=== PATIENT | male | born 1960 | race Caucasian/White ===

== ENCOUNTER 2024-02-06 10:03 | Emergency (ER) | payer OTHER, SELFPAY ==
[2024-02-06] VITALS (23 sets, daily range): BP systolic 148–175; BP diastolic 72–98; PULSE 82–120; RESP 16–25; TEMP 36.6; O2SAT 94–98
--- NOTE | ~2024-02-06 | CT_ITS ---
EXAMINATION: CT abdomen pelvis w con DATE: 02/06/2024 11:58 INDICATION: Abdominal distention and ascites TECHNIQUE: Computed tomography (CT) of the abdomen and pelvis was performed with 100 mL Omnipaque-350 intravenous contrast. Automated exposure control and iterative reconstruction technique were employe d. The dose-length product was 1109.93 mGy-cm. COMPARISON: None FINDINGS: Small posterior layering left pleural effusion with dependent atelectasis in the left lower lobe. The re is additional bibasilar atelectasis. Small calcified pulmonary nodules in the collapsed basilar ri ght lower lobe along with calcified left hilar lymph nodes consistent with old granulomatous disease. Heart size is normal. Atherosclerotic coronary artery calcifications. Large amount of ascites scatte red throughout the abdomen and pelvis. There are couple subcentimeter low-attenuation hepatic cysts. There is subtle heterogeneity to the hepatic attenuation/enhancement and scattered liver surface nodu larity suspicious for cirrhosis. There is contrast opacification of a dilated umbilical vein has also multiple esophageal varices consistent with secondary portal venous hypertension. Spleen, pancreas, bilateral adrenal glands and kidneys are normal. Moderate scattered diverticulosis with descending an d sigmoid colon predominance but without adjacent from trace stranding to suggest diverticulitis. No bowel obstruction. Normal gas-filled appendix. Bladder is normal. Small left inguinal hernia containi ng fat and small amount of ascites. No pathologically enlarged abdominal or pelvic lymphadenopathy. T horacic and lumbar spondylosis severe at L5-S1 and otherwise mild. There are bridging osteophytes at multiple levels in the lower thoracic spine consistent with diffuse idiopathic skeletal hyperostosis (DISH). IMPRESSION: 1. Cirrhosis with likely secondary large amount of ascites in the abdomen and pelvis and portal venou s hypertension with recanalized umbilical vein and esophageal varices. 2. Small left pleural effusion. Reviewed, dictated and finalized at location B. IMPRESSION: 1. Cirrhosis with likely secondary large amount of ascites in the abdomen and p [place] and portal venous hypertension with recanalized umbilical vein and esopha geal varices. 2. Small left pleural effusion.
--- NOTE | ~2024-02-06 | XR_ITS ---
EXAMINATION: XR chest 1V portable DATE: 02/06/2024 10:59 INDICATION: Shortness of breath TECHNIQUE: frontal view of the chest was obtained. COMPARISON: None FINDINGS: There are mild opacities at the left lung base with blunting of the costophrenic and cardiophrenic an gles. Right lung remains clear. No pulmonary edema, pneumothorax or right-sided pleural effusion. The cardiomediastinal silhouette is normal. IMPRESSION: 1. Mild opacities at the left lung base which could represent small left pleural effusion, atelectasi s, pneumonia or some combination thereof. Reviewed, dictated and finalized at location B. IMPRESSION: 1. Mild opacities at the left lung base which could represent small left pleura l effusion, atelectasis, pneumonia or some combination thereof.
--- NOTE | 2024-02-06 10:23 | ED.ABDPAIN ---
HPI - Abdominal Pain General Chief Complaint: Unspecified Stated Complaint: leg swelling and abdominal swelling Time Seen by Provider: 02/06/24 10:22 Source: patient and family Mode of arrival: ambulatory Limitations: no limitations History of Present Illness HPI narrative: 63-year-old male, smoker, alcoholic presents to the ER with multiple day history of -- abdominal distension. no abdominal pain. No nausea / vomiting / diarrhea. -- bilateral leg swelling No chest pain or shortness of breath. No history of hematemesis or melena Pertinent past history: none Onset (ago): week(s) Exacerbating factors: nothing Relieving factors: nothing Associated symptoms: denies other symptoms Related Data Allergies Allergy/AdvReac Type Severity Reaction Status Date / Time aspirin Allergy Swelling Verified 02/06/24 10:19 Review of Systems Constitutional: Constitutional: Reports as per HPI Eyes: Eyes: Reports as per HPI ENT: Reports system reviewed and no additional complaints, except as documented and Reports as per HPI Cardiovascular: Cardiovascular: Reports as per HPI and Reports no additional cardiovascular complaints Respiratory: Respiratory: Reports as per HPI Gastrointestinal: Gastrointestinal: Reports as per HPI and Reports no additional gastrointestinal complaints Comments: massive abdominal distension Genitourinary: Genitourinary: Reports no additional male genitourinary complaints and Reports as per HPI Musculoskeletal: Musculoskeletal: Reports no additional musculoskeletal complaints and Reports as per HPI Comments: bilateral leg swelling Integumentary/Breasts: Skin/Breast: Reports system reviewed and no additional complaints, except as docu and Reports as per HPI Neurologic: Reports system reviewed and no additional complaints, except as documented and Reports as per HPI Psychiatric: Psychiatric: Reports no additional psychiatric complaints and Reports as per HPI Endocrine: Endocrine: Reports no additional endocrine complaints and Reports as per HPI Hematologic/Lymphatic: Hematologic/Lymphatic: Reports no additional hematologic/lymphatic complaints and Reports as per HPI Allergic/Immunologic: Allergic/Immunologic: Reports no additional allergic/immunologic complaints and Reports as per HPI [facility] Social History Social History (Updated 02/06/24 @ 10:39 by Bryan López MD) Social History: alcoholic and smoker for the past many years Exam Narrative: hypertension with a blood pressure of 175/ 98. With a heart rate of 120. 97% on room Const: General: no acute distress Orientation/consciousness: patient oriented x3 Limitations: no limitations HENMT: Head: normal to inspection Ears: external ears normal Face/Nose/Sinus: Normal external nose present Face and sinus: normal facial exam Mouth: Yes Normal oral and palatal mucosa present Throat: posterior oropharynx normal Eyes: Conjunctivae: conjunctivae normal Pupils: Equal, round and reactive pupils present EOM: EOMs intact bilaterally Direct Ophthalmoscopy: no photophobia Neck: Neck: normal visual inspection, no lymphadenopathy and no meningeal signs Chest: Chest palpation & inspection: normal inspection of the chest Resp: Effort & Inspection: normal respiratory effort Auscultation: diminished lung sounds Cardio: Rate: regular rate and tachycardic Rhythm: regular rhythm GI: GI Palp: Yes Soft to palpation Auscultation: normal bowel sounds Other: ascites with shifting dullness : General: Yes no CVA tenderness Skin: General skin exam: normal color Rashes: no rashes Wounds: no wounds Neuro: General: patient oriented x3, moves all extremities, no meningeal signs, no focal motor deficits and CN's II-XI intact bilaterally Cranial nerves: Yes Nystagmus not present Speech: normal speech Extrem: General: normal to inspection and edema Psych: Mental Status: mental status grossly normal Affect: normal af
--- NOTE | 2024-02-06 10:29 | ECG_ITS ---
Measurements Intervals [place] Rate: 100 P: 33 TX: 148 QRS: -10 QRSD: 83 T: 10 QT: 376 QTc: 487 Interpretive Statements SINUS TACHYCARDIA RSR' IN V1 OR V2, PROBABLY NORMAL VARIANT LOW QRS VOLTAGE IN PRECORDIAL LEADS MINIMAL Q WAVES- HIGH LATERAL LEADS CONSIDER ANTERIOR INFARCT, AGE INDETERMINATE CONSIDER INFERIOR INFARCT, AGE INDETERMINATE BASELINE WANDER- II, III, AVF, V2-V6 ABNORMAL ECG NO PREVIOUS ECG AVAILABLE FOR COMPARISON Electronically Signed On 02-06-2024 11:07:56 CDT by Ramiro Urias D.O.
[2024-02-06 10:57] LABS: Basophils Absolute Auto 0.06 K/mm3 (0.00-0.10); Basophils Percent Auto 0.9 % (0.0-1.0); Eosinophils Absolute Auto 0.07 K/mm3 (0.02-0.50); Eosinophils Percent Auto 1.1 % (1.0-6.0); Hematocrit 34.1 % (40.0-54.0); Hemoglobin 12.3 g/dL (14.0-18.0); Immature Granulocyte Absolute 0.02 K/mm3 (0.00-0.00); Immature Granulocyte Percent A 0.3 % (0.0-0.0); Immature Platelet Fraction Pct 5.6 % (1.0-7.0); Lymphocytes Absolute Auto 2.06 K/mm3 (1.10-4.50); Lymphocytes Percent Auto 31.6 % (18.0-42.0); Mean Corpuscular HGB Conc 36.1 g/dL (32-36); Mean Corpuscular Volume 97.2 fL (78.0-102.0); Mean Platelet Volume 10.5 fl (8.7-11.0); Monocytes Absolute Auto 0.82 K/mm3 (0.10-0.90); Monocytes Percent Auto 12.6 % (2.0-11.0); Neutrophils Absolute Auto 3.49 K/mm3 (1.70-7.20); Neutrophils Percent Auto 53.5 % (50.0-70.0); Platelet Count Result 75 K/mm3 (150-420); Red Blood Count 3.51 M/mm3 (4.70-6.10); Red Cell Distribution Width 17.5 % (11.6-14.4); White Blood Count 6.5 K/mm3 (4.8-10.8)
[2024-02-06 11:12] LABS: INR 1.8; Partial Thromboplastin Time 30.1 Sec (23.9-30.70); Prothrombin Time 18.5 Seconds (9.50-12.1)
[2024-02-06 11:27] LABS: Alanine Aminotransferase 36 U/L (16-63); Albumin Level 2.4 g/dL (3.4-5.0); Alkaline Phosphatase 104 U/L (46-116); Aspartate Amino Transferase 87 U/L (15-37); Bilirubin Direct 1.3 mg/dL (0-0.2); Bilirubin,Total 3.3 mg/dL (0.00-1.00); NT Pro B Type Natriuretic Pept 433 pg/mL (0-125); Total Protein 8.1 g/dL (6.4-8.2)
[2024-02-06 11:28] LABS: Anion Gap 14 mmol/L (8-16); Carbon Dioxide 23 mmol/L (21-32); Chloride 98 mmol/L (98-108); Potassium 3.1 mmol/L (3.5-5.1); Sodium 135 mmol/L (136-145); Thyroid Stimulating Hormone 1.09 uIU/mL (0.36-3.74)
[2024-02-06 11:29] LABS: Blood Urea Nitrogen 5 mg/dL (7-18); Estimated CRCL calculation 114 ml/min; Estimated Glomerular Filt Rate > 60; Glucose 141 mg/dL (70-99); Osmolality Calculated 279 mOsm/kg (285-295)
[2024-02-06 11:31] LABS: SARS-CoV-2 RNA PCR Negative (Negative)
[2024-02-06 11:38] LABS: Influenza A QL RT-PCR Negative (Negative); Influenza B QL RT-PCR Negative (Negative); RSV RNA, RT-PCR Negative (Negative)
[2024-02-06 11:39] LABS: Creatine Kinase 288 U/L (39-308)
[2024-02-06] MEDS: SPIRONOLACTONE 25 MG TABLET PO (12:36)
[2024-02-06] MEDS: POTASSIUM CHLORIDE 20 MEQ ER TABLET 40 MEQ PO (12:36)
== END 2024-02-06 13:12 | disposition home or self-care (01) ==
PROVIDERS: Emergency Provider Internal Medicine Critical Care Medicine
DX: K70.31 Alcoholic cirrhosis of liver with ascites (principal); F10.20 Alcohol dependence, uncomplicated; D64.9 Anemia, unspecified; F17.200 Nicotine dependence, unspecified, uncomplicated; Z20.822 Contact with and (suspected) exposure to COVID-19
CPT/HCPCS: 36415; 71045; 74177; 80048; 80076; 82550; 83880; 84443; 84484; 85025; 85055; 85610; 85730; 87637; 93005; 99284; A9270; Q9967

== ENCOUNTER 2024-02-08 10:30 | Outpatient (CLI) | payer OTHER, SELFPAY ==
[2024-02-08 11:43] LABS: Alanine Aminotransferase 40 U/L (16-63); Albumin Level 2.5 g/dL (3.4-5.0); Alkaline Phosphatase 69 U/L (46-116); Anion Gap 13 mmol/L (8-16); Aspartate Amino Transferase 78 U/L (15-37); Bilirubin,Total 4.6 mg/dL (0.00-1.00); Blood Urea Nitrogen 7 mg/dL (7-18); Calcium 7.7 mg/dL (8.5-10.1); Carbon Dioxide 23 mmol/L (21-32); Chloride 98 mmol/L (98-108); Estimated Glomerular Filt Rate > 60; Folic Acid 4.2 ng/mL (8.6->20); Glucose 112 mg/dL (70-99); Magnesium 1.7 mg/dL (1.8-2.4); Osmolality Calculated 277 mOsm/kg (285-295); Potassium 3.2 mmol/L (3.5-5.1); Sodium 134 mmol/L (136-145); Total Protein 7.9 g/dL (6.4-8.2)
[2024-02-08 17:26] LABS: Phosphorus 3.7 mg/dL (2.6-4.7)
[2024-02-08 17:30] LABS: Hemoglobin A1C 5.1 % (<5.7)
[2024-02-08 18:17] LABS: Amphetamine Screen Urine Negative (Negative); Barbiturate Screen Urine Negative (Negative); Benzodiazepines Screen Urine Negative (Negative); Cannabinoid Screen Urine Positive (Negative); Cocaine Screen Urine Negative (Negative); Methadone Screen Urine Negative (Negative); Opiate Screen Urine Negative (Negative); Phencyclidine Screen Urine Negative (Negative)
[2024-02-11 18:56] LABS: Vitamin D 25 Hydroxy 5 ng/mL (30-100)
[2024-02-12 17:02] LABS: Parathyroid Intact 31 pg/mL (14-64)
== END 2024-02-08 10:31 | disposition home or self-care (01) ==
LOC: CHSLAB 10:32
PROVIDERS: PCP Nurse Practitioner Family; Visit Provider Nurse Practitioner Family
DX: F10.20 Alcohol dependence, uncomplicated (principal); R73.9 Hyperglycemia, unspecified; R79.89 Other specified abnormal findings of blood chemistry
CPT/HCPCS: 36415; 80053; 80307; 82306; 82330; 82746; 83036; 83735; 83970; 84100

== ENCOUNTER 2024-02-12 09:45 | Outpatient (CLI) | payer OTHER, SELFPAY ==
[2024-02-12 10:20] LABS: Alanine Aminotransferase 41 U/L (16-63); Albumin Level 2.3 g/dL (3.4-5.0); Alkaline Phosphatase 83 U/L (46-116); Anion Gap 10 mmol/L (8-16); Aspartate Amino Transferase 79 U/L (15-37); Bilirubin,Total 4.2 mg/dL (0.00-1.00); Blood Urea Nitrogen 9 mg/dL (7-18); Calcium 7.8 mg/dL (8.5-10.1); Carbon Dioxide 26 mmol/L (21-32); Chloride 100 mmol/L (98-108); Estimated Glomerular Filt Rate > 60; Glucose 134 mg/dL (70-99); Osmolality Calculated 282 mOsm/kg (285-295); Potassium 3.4 mmol/L (3.5-5.1); Sodium 136 mmol/L (136-145); Total Protein 7.5 g/dL (6.4-8.2)
== END 2024-02-12 09:46 | disposition home or self-care (01) ==
LOC: CHSLAB 09:47
PROVIDERS: PCP Nurse Practitioner Family; Visit Provider Nurse Practitioner Family
DX: R79.89 Other specified abnormal findings of blood chemistry (principal)
CPT/HCPCS: 36415; 80053

== ENCOUNTER 2024-02-20 12:38 | Outpatient (CLI) | payer OTHER, SELFPAY ==
[2024-02-20 13:46] LABS: Alanine Aminotransferase 36 U/L (16-63); Albumin Level 2.2 g/dL (3.4-5.0); Alkaline Phosphatase 94 U/L (46-116); Anion Gap 11 mmol/L (4-12); Aspartate Amino Transferase 55 U/L (15-37); Bilirubin,Total 4.5 mg/dL (0.00-1.00); Blood Urea Nitrogen 8 mg/dL (7-18); Calcium 7.9 mg/dL (8.5-10.1); Carbon Dioxide 25 mmol/L (21-32); Chloride 96 mmol/L (98-108); Estimated Glomerular Filt Rate > 60; Glucose 178 mg/dL (70-99); NT Pro B Type Natriuretic Pept 272 pg/mL (0-125); Osmolality Calculated 276 mOsm/kg (285-295); Potassium 3.6 mmol/L (3.5-5.1); Sodium 132 mmol/L (136-145); Total Protein 7.4 g/dL (6.4-8.2)
== END 2024-02-20 12:39 | disposition home or self-care (01) ==
LOC: CHSLAB 12:42
PROVIDERS: PCP Nurse Practitioner Family
DX: R06.02 Shortness of breath (principal)
CPT/HCPCS: 36415; 80053; 83880

== ENCOUNTER 2024-02-22 10:03 | Outpatient (CLI) | payer OTHER, SELFPAY ==
[2024-02-22 10:19] LABS: Basophils Absolute Auto 0.06 K/mm3 (0.00-0.10); Basophils Percent Auto 0.8 % (0.0-1.0); Eosinophils Absolute Auto 0.11 K/mm3 (0.02-0.50); Eosinophils Percent Auto 1.4 % (1.0-6.0); Hematocrit 34.4 % (40.0-54.0); Hemoglobin 12.1 g/dL (14.0-18.0); Immature Granulocyte Absolute 0.03 K/mm3 (0.00-0.00); Immature Granulocyte Percent A 0.4 % (0.0-0.0); Lymphocytes Absolute Auto 1.85 K/mm3 (1.10-4.50); Lymphocytes Percent Auto 23.9 % (18.0-42.0); Mean Corpuscular HGB Conc 35.2 g/dL (32-36); Mean Corpuscular Hemoglobin 35.5 pg (27.0-31.0); Mean Corpuscular Volume 100.9 fL (78.0-102.0); Monocytes Absolute Auto 0.97 K/mm3 (0.10-0.90); Monocytes Percent Auto 12.5 % (2.0-11.0); Neutrophils Absolute Auto 4.71 K/mm3 (1.70-7.20); Platelet Count Result 144 K/mm3 (150-420); Red Blood Count 3.41 M/mm3 (4.70-6.10); Red Cell Distribution Width 17.1 % (11.6-14.4); White Blood Count 7.7 K/mm3 (4.8-10.8)
[2024-02-22 10:37] LABS: INR 1.8; Prothrombin Time 18.6 Seconds (9.50-12.1)
[2024-02-22 10:49] LABS: Hemoglobin A1C < 4.7 % (<5.7)
[2024-02-22 10:53] LABS: Alanine Aminotransferase 34 U/L (16-63); Albumin Level 2.2 g/dL (3.4-5.0); Alkaline Phosphatase 90 U/L (46-116); Anion Gap 8 mmol/L (4-12); Aspartate Amino Transferase 53 U/L (15-37); Bilirubin,Total 4.7 mg/dL (0.00-1.00); Blood Urea Nitrogen 9 mg/dL (7-18); Carbon Dioxide 28 mmol/L (21-32); Chloride 96 mmol/L (98-108); Estimated Glomerular Filt Rate > 60; GGT 63 U/L (15-85); Glucose 117 mg/dL (70-99); Osmolality Calculated 273 mOsm/kg (285-295); Potassium 3.5 mmol/L (3.5-5.1); Sodium 132 mmol/L (136-145); Total Protein 7.5 g/dL (6.4-8.2)
[2024-02-22 16:25] LABS: NT Pro B Type Natriuretic Pept 390 pg/mL (0-125)
== END 2024-02-22 10:04 | disposition home or self-care (01) ==
LOC: CHSLAB 10:04
PROVIDERS: PCP Nurse Practitioner Family; Visit Provider Nurse Practitioner Family
DX: K70.31 Alcoholic cirrhosis of liver with ascites (principal); I50.9 Heart failure, unspecified
CPT/HCPCS: 36415; 80053; 82306; 82977; 83036; 83880; 85025; 85610

== ENCOUNTER 2024-08-01 15:56 | Outpatient (RCR) | payer OTHER, SELFPAY ==
--- NOTE | 2024-08-01 17:33 | OPREHPOC ---
Outpatient Therapy Plan of Care This is a Multidisciplinary Plan of Care that may contain components documented by all disciplines (PT, OT, and ST.) PT Problem 1 PT Problem #1 Knowledge Deficit PT Goal 1 Goal / Goal Update 1. independent and compliant with HEP Target Visit 6 PT Problem 2 PT Problem #2 Impaired Balance PT Goal 1 Goal / Goal Update 1. patient to report no falls at home during his time in skilled PT. 2. tinetti to improve by 4 points or better 3. TUG to be performed in less than 15 seconds 4. 5x sit to stand to be performed in less than 15 seconds Target Visit 12 PT Problem 3 PT Problem #3 Impaired Functional Mobil PT Goal 1 Goal / Goal Update 1. patient to ambulate at all times safely without an AD 2. patient to complete 6 minute walk test without rest for 800ft or more Target Visit 12
--- NOTE | 2024-08-01 17:33 | PTOPEVAL1 ---
Assessment and note entered by JT File, PT Evaluation Information Assessment Status Evaluation Diagnosis unsteadiness on feet Other ICD-10 Condition Codes ( R26.81 PT) Onset 07/23/24 Subjective Information patient reports he is having trouble with his strength and balance. he reports he was unable to get out of bed for a long time. he reports he was in a rehab bed in [facility] a little over 3 weeks ago. he reports he has had no falls since leaving the rehab facility. he reports he was referred here by his primary doctor. he reports he does not use his walker all the time at home. he reports he uses about 1-2 times a day. he reports he does use it when he gets wobbly at home. he reports prior to his health decline, he was not using any AD. he reports he lives with a friend of his. he reports he has difficulty being able to take a shower due to swelling in his legs. Reported Pain Level Pain Score 0: Self Report Pain Score 0: Self Report Assessment PT Clinical Summary mr. becker is a 64 yo man who presents to skilled PT services for evaluation and treatment of unsteadiness on feet. he has had some health issues that have led him to needing therapy, and was recently in a rehab facility in [facility]. he presents today with weakness in his hips, decreased endurance, high fall risk, and decreased safety with ambulation. he would benefit from continued skilled PT to improve his objective/ functional deficits and progress towards a return to his prior level functional activity performance /quality of life. Plan of Care Interventions Gait Training,Neuro Re-education,Patient/Caregiver Educati,Therapeutic Activities,Therapeutic Exercise PT Services Indicated Yes Treatment Frequency and 2x weekly for 12 visits Duration These treatments will address the objective and functional deficits as defined above. The patient will be advanced safely and appropriately in order for the patient to progress towards his/her prior level of function. Additional exercises will be introduced and as well as a comprehensive home exercise program upon discharge, if needed, ?to ensure carryover of functional gains achieved in the clinic. This treatment plan has been reviewed and agreement upon by the patient.
--- NOTE | 2024-08-05 07:43 | BUOTOPEVAL ---
Assessment and note entered by Yen Schultz OT Evaluation Information Assessment Status Evaluation Diagnosis L hand pain ICD-10 Condition Codes (OT) M79.642 Reported Pain Level Pain Score 0: Self Report Pain Score 0: Self Report Assessment OT Clinical Summary The patient is a 64 year old male who was referred to outpatient OT due to L hand pain that affects his daily life. The patient previously demonstrated no pain, WNL AROM and strength of hand and wrist, and no sensation issues. 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 The patient requires skilled OT to address deficits and return to PLOF. Plan of Care Interventions Therapeutic Exercise,Manual Therapy,Neuro Re- education,Therapeutic Activities,Hot Pack/Cold Pack,Electrical Stimulation,Sensory Integrative Techn,Self-Care/Home Management,Prosthetic Training,Ultrasound OT Services Indicated Yes Treatment Frequency and 2x/week for 10 visits. Duration These treatments will address the objective and functional deficits as defined above. The patient will be advanced safely and appropriately in order for the patient to progress towards his/her prior level of function. Additional exercises will be introduced and as well as a comprehensive home exercise program upon discharge, if needed, ?to ensure carryover of functional gains achieved in the clinic. This treatment plan has been reviewed and agreement upon by the patient.
--- NOTE | 2024-08-20 14:49 | PCPTNOTE ---
Cancelled session today. No reason given.
--- NOTE | 2024-08-28 15:19 | PCPTNOTE ---
Patient called & cancelled scheduled appointment this date.
--- NOTE | 2024-09-10 17:36 | OPREHPOC ---
Outpatient Therapy Plan of Care This is a Multidisciplinary Plan of Care that may contain components documented by all disciplines (PT, OT, and ST.) PT Problem 1 PT Problem #1 Knowledge Deficit PT Goal 1 Goal / Goal Update 1. independent and compliant with HEP Target Visit 6 Progress Met PT Problem 2 PT Problem #2 Impaired Balance PT Goal 1 Goal / Goal Update 1. patient to report no falls at home during his time in skilled PT. -met 2. tinetti to improve by 4 points or better -met 3. TUG to be performed in less than 15 seconds - met 4. 5x sit to stand to be performed in less than 15 seconds -not met Target Visit 12 Progress Partially Met PT Goal 2 Goal / Goal Update Continue #4 PT Problem 3 PT Problem #3 Impaired Functional Mobil PT Goal 1 Goal / Goal Update 1. patient to ambulate at all times safely without an AD -met 2. patient to complete 6 minute walk test without rest for 800ft or more -met Target Visit 12 Progress Met OT Problem 1 OT Problem #1 Knowledge Deficit OT Goal 1 Goal / Goal Update The patient will demonstrate 100% knowledge and return demonstration on UE HEP to achieve PLOF. Target Visit 10 OT Problem 2 OT Problem #2 Impaired Strength OT Goal 1 Goal / Goal Update The patient will demonstrate >40 lbs of shredder picker strength and >8 lbs of lateral pinch strength of L hand in order to stop dropping items for grooming . Target Visit 10 OT Goal 2 Goal / Goal Update The patient will demonstrate 5/5 muscle strength of L wrist in order to maintain stability and perform dressing tasks. Target Visit 10 OT Problem 3 OT Problem #3 Pain OT Goal 1 Goal / Goal Update The patient will report <3/10 pain during ADLs in order to decrease discomfort during daily life. Target Visit 10 OT Problem 4 OT Problem #4 Impaired Range of Motion OT Goal 1 Goal / Goal Update The patient will achieve >50 degrees AROM of L wrist flexion and >65 degrees of wrist extension in order to maintain mobility of wrist for self care tasks. Target Visit 10 OT Problem 5 OT Problem #5 Impaired Coordination OT Goal 1 Goal / Goal Update The patient will demonstrate increased fine motor coordination by performing 9-hole peg test in <75 seconds for decreased risk of assist for homemaking tasks. Target Visit 10 OT Goal 2 Goal / Goal Update The patient will demonstrate decreased sensation issues with report of minimal to no numbness of L hand to stop dropping items. Target Visit 20
--- NOTE | 2024-09-10 17:36 | PTOPPROG ---
Assessment and note entered by Traci Harvey, PT Evaluation Information Assessment Status Progress Diagnosis Usteadiness on feet Other ICD-10 Condition Codes ( R26.81 PT) Onset 07/23/24 Subjective Information Bear reports that he is doing well overall. He is feeling stronger and more balanced since he started PT. He has not had a fall in quite a while . He takes a cane with him places but does not use it very often. Assessment PT Clinical Summary Bear Ramirez has completed 10 skilled PT visits. He is reporting improved strength and balance since starting PT and denies any recent falls. He is demonstrating steady progress toward his goals with some balance deficits still remaining. He has improved from a high fall risk to a moderate fall risk. He will continue to benefit from skilled PT to further address ongoing physical and functional limitations in order for him to meet his goals. Plan of Care Interventions Neuro Re-education,Patient/Caregiver Educati, Therapeutic Exercise PT Services Indicated Yes Treatment Frequency and Continue per original POC for 2 additional visits Duration These treatments will address the objective and functional deficits as defined above. The patient will be advanced safely and appropriately in order for the patient to progress towards his/her prior level of function. Additional exercises will be introduced and as well as a comprehensive home exercise program upon discharge, if needed, ?to ensure carryover of functional gains achieved in the clinic. This treatment plan has been reviewed and agreement upon by the patient.
--- NOTE | 2024-09-17 17:50 | OPREHPOC ---
Outpatient Therapy Plan of Care This is a Multidisciplinary Plan of Care that may contain components documented by all disciplines (PT, OT, and ST.) PT Problem 1 PT Problem #1 Knowledge Deficit PT Goal 1 Goal / Goal Update 1. independent and compliant with HEP Target Visit 6 Progress Met PT Problem 2 PT Problem #2 Impaired Balance PT Goal 1 Goal / Goal Update 1. patient to report no falls at home during his time in skilled PT. -met 2. tinetti to improve by 4 points or better -met 3. TUG to be performed in less than 15 seconds - met 4. 5x sit to stand to be performed in less than 15 seconds -not met Target Visit 18 Progress Partially Met PT Goal 2 Goal / Goal Update Continue #4 add new goal to display a tinetti low fall risk score. Target Visit 18 PT Problem 3 PT Problem #3 Impaired Functional Mobil PT Goal 1 Goal / Goal Update 1. patient to ambulate at all times safely without an AD -met 2. patient to complete 6 minute walk test without rest for 800ft or more -nor met consistently Target Visit 16 Progress Partially Met PT Problem 4 PT Problem #4 Impaired Strength PT Goal 1 Goal / Goal Update 1. improve bilateral hip strength to 5/5 Target Visit 16 OT Problem 1 OT Problem #1 Knowledge Deficit OT Goal 1 Goal / Goal Update The patient will demonstrate 100% knowledge and return demonstration on UE HEP to achieve PLOF. NOT MET; NON-COMPLIANT, EDUCATED ON DISCHARGE HEP Target Visit 10 Progress Not Met OT Problem 2 OT Problem #2 Impaired Strength OT Goal 1 Goal / Goal Update The patient will demonstrate >40 lbs of steelworker strength and >8 lbs of lateral pinch strength of L hand in order to stop dropping items for grooming . Sales Consultant Residential Manager: 36 lbs Pinch: 9 lbs Target Visit 10 Progress Partially Met OT Goal 2 Goal / Goal Update The patient will demonstrate 5/5 muscle strength of L wrist in order to maintain stability and perform dressing tasks. L wrist strength: 5/5 Target Visit 10 OT Problem 3 OT Problem #3 Pain OT Goal 1 Goal / Goal Update The patient will report <3/10 pain during ADLs in order to decrease discomfort during daily life. GOAL MET; DISCONTINUED Target Visit 10 Progress Met OT Problem 4 OT Problem #4 Impaired Range of Motion OT Goal 1 Goal / Goal Update The patient will achieve >50 degrees AROM of L wrist flexion and >65 degrees of wrist extension in order to maintain mobility of wrist for self care tasks. Wrist extension: 55 degrees Wrist flexion: 48 degrees Target Visit 10 Progress Partially Met OT Problem 5 OT Problem #5 Impaired Coordination OT Goal 1 Goal / Goal Update The patient will demonstrate increased fine motor coordination by performing 9-hole peg test in <75 seconds for decreased risk of assist for homemaking tasks. 9-hole pe seconds Moderately impaired fine motor coordination Target Visit 10 Progress Partially Met OT Goal 2 Goal / Goal Update The patient will demonstrate decreased sensation issues with report of minimal to no numbness of L hand to stop dropping items. Severe numbness Target Visit 20
--- NOTE | 2024-09-17 17:50 | PTOPREEVAL ---
Assessment and note entered by JT File, PT Evaluation Information Assessment Status Re-evaluation Diagnosis Usteadiness on feet Other ICD-10 Condition Codes ( R26.81 PT) Onset 07/23/24 Subjective Information Bear reports that he is doing well overall. He has denied any falls since beginning skilled PT. he reports feeling his balance has improved a lot since starting skilled PT, but feels it could still be better. he reports he has been DC'd from OT services as of today. Reported Pain Level Pain Score 0: Self Report Pain Score 0: Self Report Pain Score 0: Self Report Assessment PT Clinical Summary mr. becker presents to skilled PT for his 12th skilled PT visit for unsteady gait and balance. since beginning PT, he has had no falls, and has progressed in all areas of balance, strength, and ambulation. he displays improvements on the tinetti, TUG, and 5x sit to stand. he also displays improved hip strength today. patient displays great progress towards and achievement of some goals, but continues to display moderate fall risk per the tinetti, and high fall risk per the 5x sit to stand. he would benefit from continued skilled PT to further work on improvement of his balance and reducing his fall risk in these 2 areas to prevent a fall and injury . Plan of Care Interventions Neuro Re-education,Patient/Caregiver Educati, Therapeutic Activities,Therapeutic Exercise PT Services Indicated Yes Treatment Frequency and continue skilled PT 2x weekly for 6 more visits Duration These treatments will address the objective and functional deficits as defined above. The patient will be advanced safely and appropriately in order for the patient to progress towards his/her prior level of function. Additional exercises will be introduced and as well as a comprehensive home exercise program upon discharge, if needed, ?to ensure carryover of functional gains achieved in the clinic. This treatment plan has been reviewed and agreement upon by the patient.
--- NOTE | 2024-09-23 13:03 | BUOTOPDC ---
Assessment and note entered by Yen Schultz OT Evaluation Information Assessment Status Discharge Diagnosis L hand pain ICD-10 Condition Codes (OT) M79.642 Reported Pain Level Pain Score 0: Self Report Pain Score 0: Self Report Pain Score 0: Self Report Pain Score 0: Self Report Pain Score 0: Self Report Pain Score 0: Self Report Pain Score 0: Self Report Pain Score 0: Self Report Pain Score 0: Self Report Pain Score 0: Self Report Pain Score 0: Self Report Pain Score 0: Self Report Pain Score 0: Self Report Pain Score 0: Self Report Pain Score 0: Self Report Pain Score 0: Self Report Pain Score 0: Self Report Pain Score 3: Self Report Pain Score 0: Self Report Pain Score 0: Self Report Pain Score 0: Self Report Pain Score 0: Self Report Pain Score 0: Self Report Assessment OT Clinical Summary 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 He continues to demonstrate moderately impaired coordination, strength and severely impaired sensation of L hand. The patient demonstrates limited carryover of HEP at home resulting in less progress during POC. Therapist continued to educate and encourage patient to continue work at home to address strength and coordination. The patient demonstrates functional use of hand with reports of no longer dropping items during ADLs and is able to open jars where he was having difficulty before. The patient demonstrates slight plateau at this time with severe numbness affecting his ability to grasp and perform fine motor coordination tasks. The patient is discharged at this time with HEP. Therapist educated patient on the importance of completing exercises at home to see if function of L hand will improve. The patient reports understanding of education. Therapist then educated patient to return to [place] in a few weeks to determine if he should see a hand specialist for further addressing sensation issues of L hand. Plan of Care Interventions Therapeutic Exercise,Manual Therapy,Neuro Re- education,Therapeutic Activities,Hot Pack/Cold Pack,Electrical Stimulation,Sensory Integrative Techn,Self-Care/Home Management,Prosthetic Training,Ultrasound OT Services Indicated No Treatment Frequency and Duration
--- NOTE | 2024-10-17 16:58 | PCPTNOTE ---
Patient called & cancelled scheduled appointment this date.
== END 2024-10-30 23:59 | disposition home or self-care (01) ==
LOC: CHSOT 15:56
PROVIDERS: Visit Provider Nurse Practitioner Family
DX: R26.81 Unsteadiness on feet (principal)
CPT/HCPCS: 97110; 97112; 97140; 97150; 97161; 97165; 97530

== ENCOUNTER 2024-10-09 16:28 | Outpatient (CLI) | payer OTHER, SELFPAY ==
[2024-10-09 16:59] LABS: Alanine Aminotransferase 9 U/L (16-63); Albumin Level 2.5 g/dL (3.4-5.0); Alkaline Phosphatase 90 U/L (46-116); Anion Gap 8 mmol/L (4-12); Aspartate Amino Transferase 23 U/L (15-37); Bilirubin,Total 1.9 mg/dL (0.00-1.00); Blood Urea Nitrogen 13 mg/dL (7-18); Calcium 8.9 mg/dL (8.5-10.1); Carbon Dioxide 26 mmol/L (21-32); Chloride 97 mmol/L (98-108); Estimated Glomerular Filt Rate > 60; Glucose 106 mg/dL (70-99); Osmolality Calculated 272 mOsm/kg (285-295); Potassium 4.6 mmol/L (3.5-5.1); Sodium 131 mmol/L (136-145); Total Protein 7.7 g/dL (6.4-8.2)
[2024-10-11 10:54] LABS: Vitamin D 25 Hydroxy 29 ng/mL (30-100)
== END 2024-10-09 16:29 | disposition home or self-care (01) ==
LOC: CHSLAB 16:29
PROVIDERS: PCP Nurse Practitioner Family; Visit Provider Nurse Practitioner Family
DX: E87.8 Other disorders of electrolyte and fluid balance, not elsewhere classified (principal); E55.9 Vitamin D deficiency, unspecified
CPT/HCPCS: 36415; 80053; 82306

== ENCOUNTER 2024-11-06 17:08 | Outpatient (RCR) | payer OTHER, SELFPAY ==
--- NOTE | 2024-11-06 17:36 | OPREHPOC ---
Outpatient Therapy Plan of Care This is a Multidisciplinary Plan of Care that may contain components documented by all disciplines (PT, OT, and ST.) PT Problem 1 PT Problem #1 Knowledge Deficit PT Goal 1 Goal / Goal Update 1. independent and compliant with HEP Target Visit 6 Progress Met PT Problem 2 PT Problem #2 Impaired Balance PT Goal 1 Goal / Goal Update 1. patient to report no falls at home during his time in skilled PT. -met 2. tinetti to improve by 4 points or better -met 3. TUG to be performed in less than 15 seconds - met 4. 5x sit to stand to be performed in less than 15 seconds -met Target Visit 18 Progress Met PT Goal 2 Goal / Goal Update Continue #4 add new goal to display a tinetti low fall risk score. Target Visit 18 Progress Met PT Problem 3 PT Problem #3 Impaired Functional Mobility PT Goal 1 Goal / Goal Update 1. patient to ambulate at all times safely without an AD -met 2. patient to complete 6 minute walk test without rest for 800ft or more -met Target Visit 16 Progress Met PT Goal 2 Progress Met PT Problem 4 PT Problem #4 Impaired Strength PT Goal 1 Goal / Goal Update 1. improve bilateral hip strength to 5/5 Target Visit 16 Progress Met OT Problem 1 OT Problem #1 Knowledge Deficit OT Goal 1 Goal / Goal Update The patient will demonstrate 100% knowledge and return demonstration on UE HEP to achieve PLOF. 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 Straight Knife Cutter Machine: 36 lbs Pinch: 9 lbs PARTIALLY MET; DISCONTINUED Target Visit 10 Progress Partially Met OT Goal 2 Goal / Goal Update The patient will demonstrate 5/5 muscle strength of L wrist in order to maintain stability and perform dressing tasks. L wrist strength: 5/5 Target Visit 10 Progress Met OT Problem 3 OT Problem #3 Pain OT Goal 1 Goal / Goal Update The patient will report <3/10 pain during ADLs in order to decrease discomfort during daily life. GOAL MET; DISCONTINUED Target Visit 10 Progress Met OT Problem 4 OT Problem #4 Impaired Range of Motion OT Goal 1 Goal / Goal Update The patient will achieve >50 degrees AROM of L wrist flexion and >65 degrees of wrist extension in order to maintain mobility of wrist for self care tasks. Wrist extension: 55 degrees Wrist flexion: 48 degrees PARTIALLY MET; DISCONTINUED due to limited carryover and motivation Target Visit 10 Progress Partially Met OT Problem 5 OT Problem #5 Impaired Coordination OT Goal 1 Goal / Goal Update The patient will demonstrate increased fine motor coordination by performing 9-hole peg test in <75 seconds for decreased risk of assist for homemaking tasks. 9-hole pe seconds Moderately impaired fine motor coordination PARTICLALLY MET; DISCONTINUED; due to limited carryover and sensation deficits causing difficulty feeling items in hand Target Visit 10 Progress Partially Met OT Goal 2 Goal / Goal Update The patient will demonstrate decreased sensation issues with report of minimal to no numbness of L hand to stop dropping items. Severe numbness NOT MET; plateau in progress, therapist educated patient to return to [place] and potentially need hand specialist to address sensation issues. Target Visit 20
--- NOTE | 2024-11-06 17:36 | PTOPDC ---
Assessment and note entered by Traci Harvey, PT Evaluation Information Assessment Status Discharge Diagnosis Unsteadiness on Feet Other ICD-10 Condition Codes ( R26.8 PT) Onset 07/23/24 Subjective Information Bear Ramirez reports he is doing better and notes improved strength, improved balance, and less fatigue. He has not had any falls since initiating PT. He is performing exercises at home as well. Reported Pain Level Pain Score 0: Self Report Pain Score 0: Self Report Assessment PT Clinical Summary Bear Ramirez has completed 18 skilled PT visits for balance, strength, and endurance training. He is reporting improvements in strength , endurance, and balance. He has not had any falls and is able to perform all daily activities. He objectively demonstrates improved static and dynamic balance, improved LE strength, improved gait, and improved endurance. He is demonstrating a low fall risk on all balance tests. He has met all goals and will be discharged to an independent [facility]. Plan of Care PT Services Indicated No
== END 2024-11-06 17:45 | disposition home or self-care (01) ==
LOC: CHSPT 17:08
PROVIDERS: Visit Provider Nurse Practitioner Family
DX: R26.81 Unsteadiness on feet (principal); M79.642 Pain in left hand
CPT/HCPCS: 97110; 97750

== ENCOUNTER 2024-12-23 16:27 | Outpatient (CLI) | payer OTHER, SELFPAY ==
--- OUTSIDE RECORDS SUMMARY | 2024-12-23 16:31 | XMS_ITS | Clinical Summary ---
Author Organization [facility] Address [facility] [facility] [place] [address] [place] [address] Care Team Providers Care Theater Projectionist Name Role Phone Jakub Young GIBSON Primary Care Provider [phone] Suzy Graf MD Unavailable Allergies Active Allergy Reactions Criticality Noted Date Comments Aspirin Swelling 02/08/2024 Medications gabapentin (NEURONTIN) 600 MG tablet Take 1 tablet (600 mg total) by mouth 2 (two) times daily. Can increase to three times daily as needed Active Multiple Vitamin (MULTIVITAMIN) Tab Take 1 tablet by mouth daily. Active folic acid (FOLVITE) 1 MG tablet Take 1 tablet (1 mg total) by mouth daily. 02/08/2024 Active LORazepam (ATIVAN) 1 MG tablet 02/06/2024 Active potassium chloride CR (KLOR-CON M) 20 MEQ tablet Take 1 tablet (20 mEq total) by mouth daily. 30 tablet 11 02/14/2024 Active furosemide (LASIX) 80 MG tablet Take 1 tablet (80 mg total) by mouth daily. 30 tablet 03/06/2024 Active spironolactone (ALDACTONE) 50 MG tablet Take 1 tablet (50 mg total) by mouth daily. 30 tablet 03/06/2024 Active potassium chloride CR (K-TAB) 10 MEQ Tab CR tablet Take 1 tablet (10 mEq total) by mouth every other day. Along with 20meq to equal 30meq every other day. 30 tablet 03/06/2024 Active Active Problems No known active problems Encounters Date Type Department Care Team Description 10/28/[address] [facility] [address] [place] [phone] Suzy Graf MD Information 09/30/[address] [facility] [address] [place] [phone] Suzy Graf MD Appointment Reminder 09/29/[address] [facility] [address] [place] [address] Suzy Graf MD from Last 3 Months Family History Medical History Relation Comments CHF Mother Heart Attack Mother Relation Status Comments Mother Social History Tobacco Use Types Packs/Day Years Used Date Smoking Tobacco: Every Day Cigarettes Tobacco Cessation:Ready to Q uit: Not Asked; Counseling Given: Not Answered Alcohol Use Standard Drinks/Week Comments Not Currently 0 (1 standard drink = 0.6 oz pur e alcohol) Sex and Gender Information Value Date Recorded Sex Assigned at Not on file Legal Sex Male 11:24 AM CDT Gender Identity Not on file Sexual Orientation Not on file Last Filed Vital Signs Vital Sign Reading Time Taken Comments Blood Pressure 116/70 03/06/2024 11:46 AM CDT Pulse 94 03/06/2024 11:46 AM CDT Temperature - - Respiratory Rate 17 03/06/2024 11:46 AM CDT Oxygen Saturation 95% 03/06/2024 11:46 AM CDT Inhaled Oxygen Concentration - - Weight 106.6 kg (235 lb) 03/06/2024 11:46 AM CDT Height 177.8 cm (5' 10 ) 03/06/2024 11:46 AM CDT Body Mass Index 33.72 03/06/2024 11:46 AM CDT Plan of Treatment Health Maintenance Due Date Last Done Comments Colorectal Cancer Screening Colonoscopy (10 Years) 1961 Annual Physical 1964 Pneumococcal Vaccine: Pediat rics (0 to 5 Years) and At-Risk Patients (6 to 64 Years) (1 of 2 - PCV) 1967 Hepatitis C 1979 DTaP, Tdap and Td Vaccines ( 1 - Tdap) 1980 Zoster Vaccines (1 of 2) 2011 RSV Immunization or 60+ Years (1 - Risk 60-74 years 1-dose series) 2021 COVID-19 Vaccine (2023-2 5 season) 2024 Influenza Adult (#1) 2024 Meningococcal B Vaccine Aged Out No l onger eligible based on patient's age to complete this topic Meningococcal Vaccine Aged Out No adina judy eligible based on patient's age to complete this topic RSV Immunizations Under 20 Months Aged Out No longer eligible based on patient's age to complete this topic Insurance [facility] Care Teams Theater Projectionist Relationship Specialty Start Date End Date Young Call FNP [address] [place] [phone] PCP - General Nurse Practitioner Family 02/08/24 Suzy Graf MD [address] [place] [address] Consulting Physician CARDIOVASCULAR DISEASE 02/08/24
--- OUTSIDE RECORDS SUMMARY | 2024-12-23 16:31 | XMS_ITS | Encounter Summary ---
Author Organization [facility] Healthcare Address [address] [place] [address] Care Team Providers Care General Farmworker Name Role Phone Robert Brooks MD Unavailable [phone] Ayden Nicholson MD Unavailable [phone] Trudi Gutiérrez RN Unavailable Unavailable Young Call NP Primary Care Provider [phone] Encounter Details Date Type Department Care Team (Late st Contact Info) Description 12/23/2024 Telephone [facility] Trans[facility] Liver [address] [facility] [phone] [place] [address] Trudi Gutiérrez, RN Social History Tobacco Use Types Packs/Day Years Used Date Smoking Tobacco: Every Day Cigarettes 2 49.1 Started: 1975 Passive Smoke Exposure: Current [facility] Utilities Answer Date Recorded In the past 12 months has [employer], gas, oil, or water Med[employer] threatened to shut off services in your home? No 11/10/2024 Social Connection and Isolat ion Panel [NHANES] Answer Date Recorded In a typical week, how many times do you talk on the phone with family, friends, or neighbors? More than three times a week 11/05/2024 How often do you get togethe r with friends or relatives? More than three times a week 11/05/2024 How often do you attend chur or presybeterian services? Never 11/05/2024 Do you belong to any clubs o r organizations such as bahai groups, unions, fraternal or athletic groups, or school groups? No 11/05/2024 How often do you attend meet ings of the clubs or organizations you belong to? Never 11/05/2024 Are you , , di vorced, , never , or living with a partner? 11/05/2024 AUDIT-C Answer Date Recorded Q1: How often do you have a drink containing alcohol? Never 11/04/2024 Q2: How many drinks containi ng alcohol do you have on a typical day when you are drinking? Patient does not drink Q3: How often do you have si x or more drinks on one occasion? Never 11/04/2024 Overall Financial Resource Strain (CARDIA) Answe r Date Recorded How hard is it for you to pa y for the very basics like food, housing, medical care, and heating? Not very hard 11/05/2024 Hunger Vital Sign Answer Date Recorded Within the past 12 months, y ou worried that your food would run out before you got the money to buy more. Never true 11/05/20 24 Within the past 12 months, t he food you bought just didn't last and you didn't have money to get more. Never true 11/05/2024 PRAPARE - Transportation Answer Date Re corded In the past 12 months, has l ack of transportation kept you from medical appointments or from getting medications? No 03/28 In the past 12 months, has l ack of transportation kept you from meetings, work, or from getting things needed for daily living? No 04/24/2024 Housing Stability Vital Sign Answer Martin e Recorded In the last 12 months, was t here a time when you were not able to pay the mortgage or rent on time? No 11/10/2024 In the past 12 months, how m any times have you moved where you were living? 0 11/10/2024 At any time in the past 12 m [facility], were you homeless or living in a care home (including now)? No 11/10/2024 Personal Safety Answer Date Recorded Have you ever been in or are you currently in a harmful physical or emotional relationship or is someone making you feel afraid or unsafe? Denies 11/04/2024 Sex and Gender Information Value Date Recorded Sex Assigned at Not on file Legal Sex Male 3:52 AM INSTRUCTIONAL DESIGN TECHNOLOGIST Gender Identity Not on file Sexual Orientation Not on file documented as of this encounter Miscellaneous Notes * Addendum Note - Trudi Gutiérrez RN - 12/23/2024 9:36 AM CSTAddended by: TRUDI GUTIÉRREZ on: 12/23/2024 09:36 AM Modules accepted: Orders RUCTIONAL DESIGN TECHNOLOGIST * Telephone Encounter - Trudi Gutiérrez RN - 12/23/2024 9:18 AM CST Christine WEST reached out regarding patient's colon EMR next week. Pt needs an updated INR. Will fax order to [facility] at [phone] per ex- Viktoriya's request RUCTIONAL DESIGN TECHNOLOGIST documented in this encounter Plan of Treatment Upcoming Encounters Date Type Department Care Team (Latest Contact Info) Description 12/30/2024 12:30 PM INSTRUCTIONAL DESIGN TECHNOLOGIST Hospital Encounter [facility] [place] [id number] [facility] [address] [place] [id number] Shruthi Baez MD [address] [address] 12/30/2024 12:30 PM INSTRUCTIONAL DESIGN TECHNOLOGIST - 12/30/2024 1:30 PM INSTRUCTIONAL DESIGN TECHNOLOGIST Surgery [facility] [address] [place] [phone] Shruthi Baez MD [address] [address] COLONOSCOPY EMR te/oa interventional Scheduled Orders Name Type Priority Associated Diagnoses Orde r Schedule Protime-INR Lab Routine Alcoholic cirrhosis of liver with ascites (CMS/HCC) (HCC) Expected: 12/26/2024, Expires: 12/23/2025 Scheduled Procedures Name Priority Associated Diagnoses Date/Ti me COLONOSCOPY Colon polyp 12/30/2024 12:30 PM INSTRUCTIONAL DESIGN TECHNOLOGIST COLON BAND LIGATION - ENDOSCOPIC MUCOSAL RESECTION Colon polyp 12/30/2024 12:30 PM INSTRUCTIONAL DESIGN TECHNOLOGIST TRANSPLANT LIVER Encounter for pre-transplant evaluation for liver transplant Alcoholic liver disease (HCC) documented as of this encounter Visit Diagnoses Diagnosis Alcoholic cirrhosis of liver with ascites (CMS/HCC) (HCC)- Primary Colon polyp Benign neoplasm of colon documented in this encounter Care Teams General Farmworker Relationship Specialty Start Date End Date Young Call NP [address] [place] [address] PCP - General Family Medicine 10/28/24 Robert Brooks MD [address] [address] Referring Physician Gastroenterology 04/03/24 Ayden Nicholson MD [address] [facility] [address] [place] [address] Consulting Physician Gastroenterology 09/15/24 Trudi Gutiérrez, client account managerDirector Of Industrial Relations 09/15/24 documented as of this encounter
--- OUTSIDE RECORDS SUMMARY | 2024-12-23 16:31 | XMS_ITS | Clinical Summary ---
Author Organization [facility] Address [address] [place] [address] Care Team Providers Care Watch Assembly Instructor Name Role Phone Robert Brooks MD Unavailable [phone] Ayden Wylie MD Unavailable [phone] Kesha Gutiérrez RN Unavailable Unavailable Young Call NP Primary Care Provider [phone] Allergies Active Allergy Reactions Criticality Noted Date Comments Aspirin Swelling,Unknown Medium 02/08/2024 Medications docusate sodium (COLACE) 100 mg capsuleIndicati ons:constipatio n Take 1 capsule (100 mg total) by mouth as needed Active spironolactone (ALDACTONE) 100 mg tabletIndicatio ns:Ascites Take 1 tablet (100 mg total) by mouth every morning 4 Active carvediloL (Coreg) 6.25 mg tabletIndicatio ns:Alcoholic cirrhosis of liver with ascites (CMS/HCC) (HCC) Take 1 tablet (6.25 mg total) by mouth nightly 90 tablet 2 4 Active polyethylene glycol (GoLYTELY) 236-22.74-6.74 -5.86 gram solutionIndicat ions:Bowel Evacuation Drink 2L at 6:00 pm night before procedure and 2L at 6:30 am morning of procedure per mailed prep instructions. 4000 mL 4 Active Active Problems Problem Noted Date Diagnosed Date Alcoholic liver disease 11/05/2024 Encounter for pre-transplant evaluation for liver transplant 11/05/2024 Severe protein-calorie malnutrition (CMS/HCC) SBP (spontaneous bacterial peritonitis) 04/14/20 Assessment & Plan (04/17/2024 3:01 PM CDT): Pt with MSSA on fluid on admit, been on IV ABX use. - S/p LVP , 6 lt on 04/14, improved cell count ( nucleated cells), neg growth so far and fluid also clear. Poor housing 04/13/2024 Assessment & Plan (04/17/2024 3:01 PM CDT): Pt with poor sanitation and not optimal to go back to his apt,as per pt,s ex- ( Viktoriya Ramirez). - patinet refuses placement Sepsis 04/10/2024 Assessment & Plan (04/16/2024 5:09 PM CDT): T 38.6, HR 130s, WBC 12. LA 8.2->3.1. RVP neg. CXR with atelectasis. Ascitic fluid with >250PMN with gram stain showing GPC and moderate PMNs, consistent with SBP. Anaerobic bottle of blood culture growing MSSA -500cc NS and start albumin -F/u ascites culture and blood cultures with MSSA. -Stat UA to complete workup -Given MSSA bacteremia, order TTE to r/o endocarditis -ID seen on 04/11, plan IV ANCEF 2 gms Q 8 --> given dalbavancin on 04/15. Course completed -TTE on 04/15 with > 75% LV FX, no significant valve lesions and no large vegetations. STEFANY (acute kidney injury) 04/10/2024 Assessment & Plan (04/18/2024 12:37 PM CDT): -Cr 1.5 range (baseline 0.8-0.9); due to third spacing and decreased PO intake -500cc NS and start IV albumin -Hold diuretics - can resume with pcp or with hepatology. Discussed that this would worsen his ascites Elevated liver enzymes 04/10/2024 Assessment & Plan (04/10/2024 3:57 PM CDT): -Bilirubin 7.2 (Baseline 3-4); related to decompensated cirrhosis -Monitor liver enzymes Hyponatremia 04/10/2024 Assessment & Plan (04/17/2024 3:02 PM CDT): Na 127 (baseline low 130s); related to 3rd spacing in the setting of decompensated EtOH cirrhosis -Started albumin and giving 500cc NS > now off -Sodium hovering in high 120s, low 130s Tobacco abuse 04/10/2024 Assessment & Plan (04/10/2024 3:58 PM CDT): -Smokes 1-1.5ppd x50 years. Chronic intermittently productive cough, which has occurred for years and is unchanged from baseline. Very likely with undiagnosed COPD. Do not suspect exacerbation at this time -NRT, cessation counseling -Start umeclidinium and albuterol PRN -Recommend outpatient PFTs Acute hypoxemic respiratory failure 04/10/2024 Assessment & Plan (04/18/2024 12:38 PM CDT): Pateint required O2 throughout his stay. Repeat cxr with large right sided pleural effusion. Sp IP thora with 2L removed. Pending studies > appear exudative c/w known sbp but culture neg Alcohol abuse 04/10/2024 Assessment & Plan (04/10/2024 3:59 PM CDT): -Previously drank at least 6-12 beers per day; reported last use was 3 months ago -Thiamine, folic acid, MTV Thrombocytopenia 04/10/2024 Assessment & Plan (04/17/2024 3:00 PM CDT): - No signs of bleeding. Related to cirrhosis and MSSA bacteremia etc. Alcoholic cirrhosis of liver with ascites (CMS/H CC) 04/09/2024 Assessment & Plan (04/15/2024 2:26 PM CDT): -Hx of heavy EtOH cirrhosis; OSH labs show negative AMA, CARL, ceruloplasmin. No signs of bleeding. Follows with an OSH satellite dish repairer -Check HIV and hepatitis panel -Hold diuretics for STEFANY, Hyponatremia. -No current asterixis or encephalopathy. Will start lactulose if this deveops -Needs EGD this admission for variceal screening - Hepatology; f/u recs. -Liver sono on 04/11 with Cirrhotic liver, large Ascites. - S/p Para ( 6 lt) on 04/14 by procedure team, seems clearing MSSA peritonitis Encounters Date Type Department Care Team Description 12/23/2024 Telephone [facility] Transplant Liver [address] [facility] [address] Mailstop [phone] [place] [address] Kesha Gutiérrez, RN 12/20/2024 8:15 AM ETL CONSULTANT - 12/20/2024 11:59 PM ETL CONSULTANT Hospital Encounter [facility] [address] [place] [address] Jonathon Leonardo MD Alcoholic cirrhosis of liver with ascites (CMS/HCC) (HCC) Discharge Disposition: Discharge to home or self care 11/28/2024 Orders Only [facility] Health Information Management 1 [place] [address] Kesha Gutiérrez, RN 11/24/2024 Documentation [facility] and [facility] Transplant Liver [address] [facility] [address] Mailstop [phone] [place] [address] Kesha Gutiérrez, RN 11/21/2024 Orders Only [facility] and [facility] Transplant Liver [address] [facility] [address] Mailstop [phone] [place] [address] Kesha Gutiérrez, RN Alcoholic cirrhosis of liver with ascites (CMS/HCC) (HCC) (Primary Dx) 11/17/2024 Telephone [facility] Social Work 1 [place] [address] Kierra Brower LCSW 11/14/2024 Orders Only [facility] Health Information Management 1 [facility] [place] [address] Scanning, Provider 11/14/2024 Telephone [facility] Specialty Services [address] [place] [phone] Christine Harvey RN GI Preprocedure 11/14/2024 Telephone [facility] and [facility] Transplant Liver [address] [facility] [address] Mailstop 9029-828 [place] [address] Kesha Gutiérrez, RN 11/13/2024 Telephone [facility] and [facility] Transplant Liver [address] [facility] [address] Mailstop [phone] [place] [address] Valentine Cohen 11/13/2024 Telephone [facility] and [facility] Transplant Liver [address] [facility] [address] Mailstop [id number] [place] [address] Valentine Cohen 11/13/2024 Documentation [facility] and [facility] Transplant Liver [address] [facility] [address] Mailstop [id number] [place] [address] Valentine Cohen 11/13/2024 Telephone [facility] and [facility] Transplant Liver [address] [facility] [address] Mailstop [id number] [place] [address] Kesha Gutiérrez, RN 11/12/2024 Documentation [facility] and [facility] Transplant Liver [address] [facility] [address] Mailstop [phone] [place] [address] Myriam Lennon 11/12/2024 Telephone [facility] and [facility] Transplant Liver [address] Mailstop [id number] [place] [address] Kesha Gutiérrez, RN 11/12/2024 Telephone [facility] and [facility] Transplant Liver [address] Mailstop [id number] [place] [address] Kesha Gutiérrez, RN 11/11/2024 Documentation [facility] and [facility] Transplant Liver [address] [facility] [address] Mailstop [phone] [place] [address] Kesha Gutiérrez, RN 11/11/2024 Orders Only [facility] Health Information Management 1 [place] [address] Kesha Gutiérrez, RN 11/11/2024 Orders Only [facility] Gasteroenterology [address] [facility] 12th [place] [address] [place] [address] Jonathon Leonardo MD Colon adenoma (Primary Dx) 11/11/2024 Orders Only [facility] and [facility] Transplant Liver [address] [facility] [address] Mailstop [phone] [place] [address] Kesha Gutiérrez, RN 11/11/2024 Telephone [facility] and [facility] Transplant Liver [address] [facility] [address] Mailstop [phone] [place] [address] Kesha Gutiérrez, RN 11/10/2024 Telephone [facility] and [facility] Transplant Liver [address] [facility] [address] Mailstop [phone] [place] [address] Cyndee Baez 11/10/2024 Telephone [facility] and [facility] Transplant Liver [address] [facility] [address] Mailstop [phone] [place] [address] Valentine Cohen 11/10/2024 Telephone [facility] and [facility] Transplant Liver [address] Mailstop [phone] [place] [address] Vicki Valentine 11/10/2024 Documentation [facility] and [facility] Transplant Liver [address] [facility] [address] Mailstop [phone] [place] [address] Vicki Valentine 11/10/2024 Telephone [facility] and [facility] Transplant Liver [address] [facility] [address] Mailstop [phone] [place] [address] Kesha Gutiérrez, RN 11/07/2024 Documentation [facility] and [facility] Transplant Liver [address] [facility] [address] Mailstop [phone] [place] [address] Valentine Cohen 11/06/2024 Telephone [facility] and [facility] Transplant Liver [address] [facility] [address] Mailstop [phone] [place] [address] Kesha Gutiérrez, RN 11/06/2024 Telephone [facility] and [facility] Transplant Liver [address] [facility] [address] Mailstop [phone] [place] [address] Cyndee Baez 11/06/2024 Telephone [facility] and [facility] Transplant Liver [address] Mailstop [phone] [place] [address] Cyndee Baez 11/05/2024 3:16 PM ETL CONSULTANT - 11/05/2024 11:59 PM ETL CONSULTANT Hospital Encounter [facility]) [address] [place] [address] Encounter for pre-transplant evaluation for liver transplant; Alcoholic liver disease (HCC) Discharge Disposition: Discharge to home or self care 11/05/2024 2:17 PM ETL CONSULTANT - 11/05/2024 11:59 PM ETL CONSULTANT Hospital Encounter [facility] Pulmonary [address] [facility] [address] [place] [address] Encounter for pre-transplant evaluation for liver transplant; Alcoholic liver disease (HCC) Discharge Disposition: Discharge to home or self care 11/05/2024 1:30 PM ETL CONSULTANT Office Visit [facility] Surgery [address] [facility] 12th [place] [address] [place] [address] Marley Ly PA Alcoholic cirrhosis of liver with ascites (CMS/HCC) (HCC) (Primary Dx) 11/05/2024 12:00 PM ETL CONSULTANT Social Work [facility] and [facility] Transplant Center [address] [facility], 8th Floor, [place] [address] Kierra Brower LCSW 11/05/2024 8:30 AM ETL CONSULTANT Office Visit [facility] Gasteroenterology [address] [facility] 12th [place] [address] [place] [address] Jonathon Leonardo MD Alcoholic cirrhosis of liver with ascites (CMS/HCC) (HCC) (Primary Dx) 11/05/2024 Documentation [facility] and [facility] Transplant Liver [address] [facility] [address] Mailstop [phone] [place] [address] Kesha Rockwell, RN 11/05/2024 Documentation [facility] and [facility] Transplant Liver [address] [facility] [address] Mailstop [phone] [place] [address] Kesha Rockwell, RN 11/04/2024 11:59 PM ETL CONSULTANT Anesthesia Event [facility] Operating Room 1 [place] [address] Fan Cantrell MD PhD Chato Linn MD 11/04/2024 1:02 PM ETL CONSULTANT - 11/04/2024 11:59 PM ETL CONSULTANT Hospital Encounter [facility] Cardiac Diagnostic Lab 1 [place] [address] Encounter for pre-transplant evaluation for liver transplant; Alcoholic liver disease (HCC) Discharge Disposition: Discharge to home or self care 11/04/2024 11:00 AM ETL CONSULTANT Lab [facility]) [address] [place] [phone] Encounter for pre-transplant evaluation for liver transplant; Alcoholic liver disease (HCC) 11/04/2024 9:00 AM ETL CONSULTANT Pre-Admission Testing [facility] for Preoperative Assessment and Planning [facility]) [address] [place] [address] 11/04/2024 7:57 AM ETL CONSULTANT - 11/04/2024 11:59 PM ETL CONSULTANT Hospital Encounter [facility]) [address] [place] [address] Ayden Wylie MD Encounter for pre-transplant evaluation for liver transplant; Alcoholic liver disease (HCC) Discharge Disposition: Discharge to home or self care 11/04/2024 7:56 AM ETL CONSULTANT - 11/04/2024 11:59 PM ETL CONSULTANT Hospital Encounter [facility]) [address] [place] [address] Encounter for pre-transplant evaluation for liver transplant; Alcoholic liver disease (HCC) Discharge Disposition: Discharge to home or self care 11/04/2024 7:55 AM ETL CONSULTANT - 11/04/2024 11:59 PM ETL CONSULTANT Hospital Encounter [facility] ([facility]) [address] [place] [address] Encounter for pre-transplant evaluation for liver transplant; Alcoholic liver disease (HCC) Discharge Disposition: Discharge to home or self care 11/04/2024 7:54 AM ETL CONSULTANT - 11/04/2024 11:59 PM ETL CONSULTANT Hospital Encounter [facility] ([facility]) [address] [place] [address] Encounter for pre-transplant evaluation for liver transplant; Alcoholic liver disease (HCC) Discharge Disposition: Discharge to home or self care 11/04/2024 Documentation [facility] and [facility] Transplant Liver [address] [facility] [address] Mailstop [phone] [place] [address] Kesha Gutiérrez RN 11/03/2024 10:00 AM ETL CONSULTANT Documentation [facility] and [facility] Transplant Center [address] [place] [address] for Advance Medicine, 8th Floor, [place] [address] Radha Beltran 11/03/2024 Orders Only [facility] Transplant Liver [address] [facility] [address] Mailstop [phone] [place] [address] Robert Reyes MD 11/03/2024 Documentation [facility] and [facility] Transplant Liver [address] [facility] [address] Mailstop [phone] [place] [address] Mon[place], 10/31/2024 Telephone [facility] and [facility] Transplant Liver [address] [facility] [address] Mailstop [phone] [place] [address] [place], Valentine 10/27/2024 Telephone [facility] and [facility] Transplant Liver [address] [facility] [address] Mailstop [phone] [place] [address] Kesha Gutiérrez, RN 10/27/2024 Telephone [facility] and [facility] Transplant Liver [address] [facility] [address] Mailstop [phone] [place] [address] Cyndee Baez 10/16/2024 Orders Only [facility] and [facility] Transplant Liver [address] [facility] [address] Mailstop [phone] [place] [address] ProviderRobert MD 10/16/2024 Documentation [facility] and [facility] Transplant Liver [address] [facility] [address] Mailstop [phone] [place] [address] [place], Valentine 10/01/2024 Orders Only [facility] and [facility] Transplant Liver [address] Mailstop 90-298 [place] [address] ProviderRobert MD 10/01/2024 Documentation [facility] and [facility] Transplant Liver [address] Mailstop [phone] [place] [address] [place], Valentine 10/01/2024 Telephone [facility] and [facility] Transplant Liver [address] Mailstop [phone] [place] [address] Maggie Clement 09/29/2024 Telephone [facility] and [facility] Transplant Liver [address] Mailstop [phone] [place] [address] [place], Valentine 09/29/2024 Documentation [facility] and [facility] Transplant Liver [address] Mailstop 90-29-980 [place] [address] Valentine Cohen 09/26/2024 Telephone [facility] and [facility] Transplant Liver [address] Mailstop [phone] [place] [address] Kesha Gutiérrez, RN 09/26/2024 Telephone [facility] and [facility] Transplant Liver [address] Mailstop [phone] [place] [address] Kesha Gutiérrez, RN 09/25/2024 Telephone [facility] and [facility] Transplant Liver [address] [facility] [address] Mailstop [phone] [place] [address] Kesha Gutiérrez, RN 09/23/2024 Telephone [facility] and [facility] Transplant Liver [address] Mailstop [phone] [place] [address] Kesha Gutiérrez, RN 09/22/2024 Telephone [facility] and [facility] Transplant Liver [address] [facility] [address] Mailstop [phone] [place] [address] Kesha Gutiérrez, RN from Last 3 Months Surgical History Surgery Date Site/Laterality Comments US GUIDED PARACENTESIS 04/02/2024 N/A US GUIDED PARACENTESIS 03/19/2024 N/A US GUIDED PARACENTESIS 02/26/2024 N/A IMAGE GUIDED PARACENTESIS ABDOMEN 04/24/2024 N/A IMAGE GUIDED PARACENTESIS ABDOMEN 05/05/2024 N/A US GUIDED PARACENTESIS 08/07/2024 N/A US GUIDED PARACENTESIS 07/24/2024 N/A US GUIDED PARACENTESIS 07/10/2024 N/A US GUIDED PARACENTESIS 06/25/2024 N/A US GUIDED PARACENTESIS 06/12/2024 N/A US GUIDED PARACENTESIS 05/27/2024 N/A US GUIDED PARACENTESIS 10/31/2024 N/A US GUIDED PARACENTESIS 10/16/2024 N/A US GUIDED PARACENTESIS 10/01/2024 N/A US GUIDED PARACENTESIS 09/18/2024 N/A US GUIDED PARACENTESIS 09/04/2024 N/A US GUIDED PARACENTESIS 08/21/2024 N/A US GUIDED PARACENTESIS 12/16/2024 N/A US GUIDED PARACENTESIS 11/28/2024 N/A US GUIDED PARACENTESIS 11/14/2024 N/A Family History Medical History Relation Name Comments brain tumor Father Diabetes Mother Heart failure Mother Relation Name Status Comments Father Mother Social History Tobacco Use Types Packs/Day Years Used Date Smoking Tobacco: Every Day Cigarettes 2 49.1 Started: 1975 Passive Smoke Exposure: Current Tobacco Cessation:Ready to Q uit: Not Asked; Counseling Given: Not Answered [facility] [email or web address] Answer Date Recorded In the past 12 months has [email or web address], gas, oil, or water [employer] threatened to shut off services in your [...] 11/05/2024 How often do you attend chur ch or islam services? Never 11/05/2024 Do you belong to any clubs o r organizations such as catholic groups, unions, fraternal or athletic groups, or [...] any time in the past [address] [facility], were you homeless or living in a [facility] (including now)? No 11/10/2024 Personal Safety Answer Date Recorded Have you ever been in or are you currently in a harmful physical or emotional relationship or is someone making you feel afraid or unsafe? Denies 11/04/2024 Sex and Gender Information Value Date Recorded Sex Assigned at Not on file Legal Sex Male 3:52 AM ETL CONSULTANT Gender Identity Not on file Sexual Orientation Not on file Obstetrics History Last Filed Vital Signs Vital Sign Reading Time Taken Comments Blood Pressure 104/70 11/05/2024 1:00 PM ETL CONSULTANT Pulse 79 11/05/2024 8:27 AM ETL CONSULTANT Temperature 36.4 ??C (97.6 ??F) 11/05/2024 1:00 PM CS T Respiratory Rate 16 11/04/2024 9:21 AM ETL CONSULTANT Oxygen Saturation 98% 11/04/2024 9:21 AM ETL CONSULTANT Inhaled Oxygen Concentration - - Weight 70.3 kg (155 lb) 12/20/2024 8:20 AM ETL CONSULTANT Height 177.8 cm (5' 10 ) 12/20/2024 8:20 AM ETL CONSULTANT Body Mass Index 22.24 12/20/2024 8:20 AM ETL CONSULTANT Plan of Treatment Upcoming Encounters Date Type Department Care Team (Latest Contact Info) Description 12/30/2024 12:30 PM ETL CONSULTANT Hospital Encounter [facility] Digestive Disease [place] [address] [place] [address] Shruthi Baez MD [address] [place] [address] 12/30/2024 12:30 PM ETL CONSULTANT - 12/30/2024 1:30 PM ETL CONSULTANT Surgery [facility] [address] [address] [place] [address] Shruthi Baez MD [address] [place] [address] COLONOSCOPY EMR te/oa interventional Scheduled Procedures Name Priority Associated Diagnoses Date/Ti me COLONOSCOPY Colon polyp 12/30/2024 12:30 PM ETL CONSULTANT COLON BAND LIGATION - ENDOSCOPIC MUCOSAL RESECTION Colon polyp 12/30/2024 12:30 PM ETL CONSULTANT TRANSPLANT LIVER Encounter for pre-transplant evaluation for liver transplant Alcoholic liver disease (HCC) Health Maintenance Due Date Last Done Comments Colon Cancer Screening-Colonoscopy 1961 Depression Screening 1961 Pneumococcal vaccine <65 (1 of 2 - PCV) 1967 DTaP/Tdap/Td Vaccine (1 - Tdap) 1972 Regular Well Visit/Exam 18-64 1979 Lung Cancer Screening 2011 Zoster Vaccine (1 of 2) 2011 Influenza Vaccine (#1) 2024 Prostate Cancer Screening-PSA 11/04/2026 11/04/2024 Hepatitis B Screening Completed 11/04/2024 Hepatitis C Screening Completed 11/04/2024 , 04/11/2024, 04/10/2024 Procedures Procedure Name Priority Date/Time Associated Diagnosis Comments MRI PELVIS W WO CONTRAST Schedule Routine, Read Routine (OP Routine) 12/20/2024 9:41 AM ETL CONSULTANT Alcoholic cirrhosis of liver with ascites (CMS/HCC) (HCC) SCAN - RADIOLOGY/IMAGING 025 11:50 AM ETL CONSULTANT SCAN - RADIOLOGY/IMAGING 024 12:02 PM ETL CONSULTANT SCAN - LABS 11/11/2024 2:39 PM ETL CONSULTANT MRI ABDOMEN LIVER W WO CONTRAST INCLUDING TOTAL VOLUME (C) Schedule Routine, Read Routine (OP Routine) 11/05/2024 4:57 PM ETL CONSULTANT Encounter for pre-transplant evaluation for liver transplant Alcoholic liver disease (HCC) PULMONARY FUNCTION TEST (PFT) Routine 11/05/2024 3:10 PM ETL CONSULTANT Encounter for pre-transplant evaluation for liver transplant Alcoholic liver disease (HCC) STRESS ECHO PHARMACOLOGIC W DOPPLER/CF W CONTRAST Routine 11/04/2024 4:43 PM ETL CONSULTANT Encounter for pre-transplant evaluation for liver transplant Alcoholic liver disease (HCC) ECG 12-LEAD Routine 11/04/2024 11:39 AM ETL CONSULTANT Encounter for pre-transplant evaluation for liver transplant Alcoholic liver disease (HCC) TYPE AND SCREEN Routine 11/04/2024 11:24 AM ETL CONSULTANT Encounter for pre-transplant evaluation for liver transplant Alcoholic liver disease (HCC) SALVADOR ANTIBODY EVALUATION WITH REFLEX Routine 11/04/2024 11:23 AM ETL CONSULTANT Encounter for pre-transplant evaluation for liver transplant Alcoholic liver disease (HCC) ANTI-DOUBLE STRANDED DNA ANTIBODIES Routine 11/04/2024 11:23 AM ETL CONSULTANT Encounter for pre-transplant evaluation for liver transplant Alcoholic liver disease (HCC) COMPREHENSIVE METABOLIC PANEL Routine 11/04/2024 11:23 AM ETL CONSULTANT Encounter for pre-transplant evaluation for liver transplant Alcoholic liver disease (HCC) EGFR Routine 11/04/2024 11:23 AM ETL CONSULTANT CANCER ANTIGEN 19-9 Routine 11/04/2024 11:23 AM ETL CONSULTANT Encounter for pre-transplant evaluation for liver transplant Alcoholic liver disease (HCC) DIFFERENTIAL AUTO Routine 11/04/2024 11:23 AM ETL CONSULTANT Encounter for pre-transplant evaluation for liver transplant Alcoholic liver disease (HCC) [id number]-5-[id number], TUMOR MARKER Routine 11/04/2024 11:23 AM ETL CONSULTANT Encounter for pre-transplant evaluation for liver transplant Alcoholic liver disease (HCC) CBC WITH AUTO DIFFERENTIAL Routine 11/04/2024 11:23 AM ETL CONSULTANT Encounter for pre-transplant evaluation for liver transplant Alcoholic liver disease (HCC) GAMMA GT Routine 11/04/2024 11:23 AM ETL CONSULTANT Encounter for pre-transplant evaluation for liver transplant Alcoholic liver disease (HCC) HEMOGLOBIN A1C Routine 11/04/2024 11:23 AM ETL CONSULTANT Encounter for pre-transplant evaluation for liver transplant Alcoholic liver disease (HCC) LIPID PANEL Routine 11/04/2024 11:23 AM ETL CONSULTANT Encounter for pre-transplant evaluation for liver transplant Alcoholic liver disease (HCC) PROTIME-INR Routine 11/04/2024 11:23 AM ETL CONSULTANT Encounter for pre-transplant evaluation for liver transplant Alcoholic liver disease (HCC) APTT Routine 11/04/2024 11:23 AM ETL CONSULTANT Encounter for pre-transplant evaluation for liver transplant Alcoholic liver disease (HCC) THYROID FUNCTION CASCADE Routine 11:23 AM ETL CONSULTANT Encounter for pre-transplant evaluation for liver transplant Alcoholic liver disease (HCC) VITAMIN D 25 HYDROXY Routine 11/04/2024 11:23 AM ETL CONSULTANT Encounter for pre-transplant evaluation for liver transplant Alcoholic liver disease (HCC) [id number] PHENOTYPE Routine 11/04/2024 11:23 AM ETL CONSULTANT Encounter for pre-transplant evaluation for liver transplant Alcoholic liver disease (HCC) ETHANOL Routine 11/04/2024 11:23 AM ETL CONSULTANT Encounter for pre-transplant evaluation for liver transplant Alcoholic liver disease (HCC) PSA SCREEN Routine 11/04/2024 11:23 AM ETL CONSULTANT Encounter for pre-transplant evaluation for liver transplant Alcoholic liver disease (HCC) COTININE, SERUM Routine 11/04/2024 11:23 AM ETL CONSULTANT Encounter for pre-transplant evaluation for liver transplant Alcoholic liver disease (HCC) PHOSPHATIDYLETHANOL Routine 11/04/2024 11:23 AM ETL CONSULTANT Encounter for pre-transplant evaluation for liver transplant Alcoholic liver disease (HCC) CARL SCREEN W/REFLEX SALVADOR+DSDNA Routine 11/04/2024 11:23 AM ETL CONSULTANT Encounter for pre-transplant evaluation for liver transplant Alcoholic liver disease (HCC) IRON PROFILE W/ IBC Routine 11/04/2024 11:23 AM ETL CONSULTANT Encounter for pre-transplant evaluation for liver transplant Alcoholic liver disease (HCC) MITOCHONDRIAL ANTIBODIES, QUALITATIVE Routine 11/04/2024 11:23 AM ETL CONSULTANT Encounter for pre-transplant evaluation for liver transplant Alcoholic liver disease (HCC) SMOOTH MUSCLE ANTIBODY, QUALITATIVE Routine 11/04/2024 11:23 AM ETL CONSULTANT Encounter for pre-transplant evaluation for liver transplant Alcoholic liver disease (HCC) TRANSFERRIN Routine 11/04/2024 11:23 AM ETL CONSULTANT Encounter for pre-transplant evaluation for liver transplant Alcoholic liver disease (HCC) CERULOPLASMIN Routine 11/04/2024 11:23 AM ETL CONSULTANT Encounter for pre-transplant evaluation for liver transplant Alcoholic liver disease (HCC) FERRITIN Routine 11/04/2024 11:23 AM ETL CONSULTANT Encounter for pre-transplant evaluation for liver transplant Alcoholic liver disease (HCC) CMV, IGG Routine 11/04/2024 11:23 AM ETL CONSULTANT Encounter for pre-transplant evaluation for liver transplant Alcoholic liver disease (HCC) NGOZI-FUENTES VIRUS VCA ANTIBODY PANEL Routine 11/04/2024 11:23 AM ETL CONSULTANT Encounter for pre-transplant evaluation for liver transplant Alcoholic liver disease (HCC) HIV 1/2 ANTIBODY PLUS P24 ANTIGEN Routine 11/04/2024 11:23 AM ETL CONSULTANT Encounter for pre-transplant evaluation for liver transplant Alcoholic liver disease (HCC) HSV 1 ANTIBODY, IGG Routine 11/04/2024 11:23 AM ETL CONSULTANT Encounter for pre-transplant evaluation for liver transplant Alcoholic liver disease (HCC) HSV 2 ANTIBODY, IGG Routine 11/04/2024 11:23 AM ETL CONSULTANT Encounter for pre-transplant evaluation for liver transplant Alcoholic liver disease (HCC) HEPATITIS A ANTIBODY, TOTAL Routine 11/04/2024 11:23 AM ETL CONSULTANT Encounter for pre-transplant evaluation for liver transplant Alcoholic liver disease (HCC) MEASLES IGG ANTIBODY Routine 11/04/2024 11:23 AM ETL CONSULTANT Encounter for pre-transplant evaluation for liver transplant Alcoholic liver disease (HCC) RPR Routine 11/04/2024 11:23 AM ETL CONSULTANT Encounter for pre-transplant evaluation for liver transplant Alcoholic liver disease (HCC) VARICELLA ZOSTER ANTIBODY, IGG Routine 11/04/2024 11:23 AM ETL CONSULTANT Encounter for pre-transplant evaluation for liver transplant Alcoholic liver disease (HCC) HEPATITIS B CORE ANTIBODY, TOTAL Routine 11/04/2024 11:23 AM ETL CONSULTANT Encounter for pre-transplant evaluation for liver transplant Alcoholic liver disease (HCC) HEPATITIS B SURFACE ANTIGEN Routine 11/04/2024 11:23 AM ETL CONSULTANT Encounter for pre-transplant evaluation for liver transplant Alcoholic liver disease (HCC) HEPATITIS B SURFACE ANTIBODY (IMMUNE STATUS) Routine 11/04/2024 11:23 AM ETL CONSULTANT Encounter for pre-transplant evaluation for liver transplant Alcoholic liver disease (HCC) HEPATITIS C ANTIBODY Routine 11/04/2024 11:23 AM ETL CONSULTANT Encounter for pre-transplant evaluation for liver transplant Alcoholic liver disease (HCC) DEXA AXIAL SKELETON BONE DENSITY 1 OR MORE SITES Schedule Routine, Read Routine (OP Routine) 11/04/2024 8:53 AM ETL CONSULTANT Encounter for pre-transplant evaluation for liver transplant Alcoholic liver disease (HCC) XR ORTHOPANTOGRAM/PANOREX Schedule Routine, Read Routine (OP Routine) 11/04/2024 8:42 AM ETL CONSULTANT Encounter for pre-transplant evaluation for liver transplant Alcoholic liver disease (HCC) XR CHEST PA LATERAL 2 VIEWS Schedule Routine, Read Routine (OP Routine) 11/04/2024 8:11 AM ETL CONSULTANT Encounter for pre-transplant evaluation for liver transplant Alcoholic liver disease (HCC) US ADBDOMEN W DOPPLER Schedule Routine, Read Routine (OP Routine) 11/03/2024 8:04 AM ETL CONSULTANT US ADBDOMEN W DOPPLER Schedule Routine, Read Routine (OP Routine) 10/16/2024 12:43 PM ETL CONSULTANT US ADBDOMEN W DOPPLER Schedule Routine, Read Routine (OP Routine) 10/01/2024 3:50 PM ETL CONSULTANT from Last 3 Months Results * MRI Pelvis W WO Contrast (12/20/2024 9:41 AM ETL CONSULTANT) Anatomical Region Laterality Modality Pelvis N/A Magnetic Resonan ce 12/22/2024 10:5 3 AM ETL CONSULTANT Impressions 12/22/2024 11:17 AM ETL CONSULTANT No MR evidence of rectal mass. Dictated by: Perry Seth MD The radiology attending physician has personally reviewed this study, and had reviewed and/or edited this written report and agrees with it. Electronically signed by: Meseret Casiano M.D. Narrative 12/22/2024 11:17 AM ETL CONSULTANT EXAMINATION: MAGNETIC RESONANCE IMAGING OF THE PELVIS WITH AND WITHOUT CONTRAST HISTORY: Rectal polyp with polypectomy 11/10/2024 TECHNIQUE: MRI of the pelvis was performed prior to and following intravenous administration of gadolinium contrast. Glucagon 1 mg intravenous injection was performed prior to imaging. Protocol: Rectal Cancer Staging Pelvis Contrast: gadoterate 14 mL COMPARISON: CT 05/02/2024 FINDINGS: Rectal Cancer Staging Information: Tumor: No rectal masses noted. Nodes: No pelvic lymphadenopathy. Bladder: Normal Reproductive organs: Normal Other Findings: Large volume ascites. ??Ascites containing left inguinal hernia. ??No suspicious osseous lesions. Procedure Note Meseret Casiano MD - 12/22/2024 EXAMINATION: MAGNETIC RESONANCE IMAGING OF THE PELVIS WITH AND WITHOUT CONTRAST HISTORY: Rectal polyp with polypectomy 11/10/2024 TECHNIQUE: MRI of the pelvis was performed prior to and following intravenous administration of gadolinium contrast. Glucagon 1 mg intravenous injection was performed prior to imaging. Protocol: Rectal Cancer Staging Pelvis Contrast: gadoterate 14 mL COMPARISON: CT 05/02/2024 FINDINGS: Rectal Cancer Staging Information: Tumor: No rectal masses noted. Nodes: No pelvic lymphadenopathy. Bladder: Normal Reproductive organs: Normal Other Findings: Large volume ascites. Ascites containing left inguinal hernia. No suspicious osseous lesions. IMPRESSION: No MR evidence of rectal mass. Dictated by: Perry Seth MD The radiology attending physician has personally reviewed this study, and had reviewed and/or edited this written report and agrees with it. Electronically signed by: Meseret Casiano M.D. Jonathon Leonardo MD IMG MRI PROCEDURES Final Re sult * SCAN - RADIOLOGY/IMAGING (11/28/2024 11:50 AM ETL CONSULTANT) Anatomical Region Laterality Modality Other Kesha Gutiérrez RN Final Result * SCAN - RADIOLOGY/IMAGING (11/14/2024 12:02 PM ETL CONSULTANT) Anatomical Region Laterality Modality Other Provider Scanning Final Result * SCAN - LABS (11/11/2024 2:39 PM ETL CONSULTANT) us Kesha Gutiérrez RN Final Result * MRI Abdomen Liver W WO Contrast Including Total Volume (C) (11/05/2024 4:57 PM ETL CONSULTANT) Anatomical Region Laterality Modality Body N/A Magnetic Resonan ce 11/06/2024 9:40 AM ETL CONSULTANT Impressions 11/06/2024 11:35 AM ETL CONSULTANT 1. ??Some portal hypertension. ??No suspicious liver lesion. 2. ??Liver volume measuring 1613 sq cm. Dictated by: Jose Portillo MD The radiology attending physician has personally reviewed this study, and had reviewed and/or edited this written report and agrees with it. Electronically signed by: Kee Plascencia M.D. Narrative 11/06/2024 11:35 AM ETL CONSULTANT EXAMINATION: 1. MAGNETIC RESONANCE IMAGING OF THE ABDOMEN WITH AND WITHOUT CONTRAST 2. THREE DIMENSIONAL RECONSTRUCTION FOR LIVER VOLUMES HISTORY: Patient with cirrhosis, liver transplant evaluation. TECHNIQUE: Magnetic resonance imaging of the abdomen was performed prior to and following the uneventful administration of intravenous Gadolinium contrast. The raw data was processed on the scanner by the technologist for calculation of liver volumes using 3 dimensional reconstructions. Protocol: Liver with Volumes (Pre-Transplant) Contrast: gadoterate 11 mL COMPARISON: CT 05/02/2024 FINDINGS: Liver: Shrunken and nodular liver contour in keeping with patient's cirrhosis. ??No significant steatosis. ??No significant iron deposition. - liver volume: 1613 cc - Bile ducts: Nondilated - Focal liver lesions: Scattered cysts, no suspicious lesion. - Vasculature: Patent arterial and venous vasculature. Esophageal and paraesophageal varices. Recannulized umbilical vein. Gallbladder: Mild wall thickening. Pancreas: Normal. Spleen: Normal. Adrenals: Normal. Kidneys: Normal, no hydronephrosis. Other Findings: Large volume abdominal ascites. ??No aggressive osseous lesion. ??Atelectasis at the right lung base with small effusion. Procedure Note Kee Plascencia MD PhD - 11/06/2024 EXAMINATION: 1. MAGNETIC RESONANCE IMAGING OF THE ABDOMEN WITH AND WITHOUT CONTRAST 2. THREE DIMENSIONAL RECONSTRUCTION FOR LIVER VOLUMES HISTORY: Patient with cirrhosis, liver transplant evaluation. TECHNIQUE: Magnetic resonance imaging of the abdomen was performed prior to and following the uneventful administration of intravenous Gadolinium contrast. The raw data was processed on the scanner by the technologist for calculation of liver volumes using 3 dimensional reconstructions. Protocol: Liver with Volumes (Pre-Transplant) Contrast: gadoterate 11 mL COMPARISON: CT 05/02/2024 FINDINGS: Liver: Shrunken and nodular liver contour in keeping with patient's cirrhosis. No significant steatosis. No significant iron deposition. - liver volume: 1613 cc - Bile ducts: Nondilated - Focal liver lesions: Scattered cysts, no suspicious lesion. - Vasculature: Patent arterial and venous vasculature. Esophageal and paraesophageal varices. Recannulized umbilical vein. Gallbladder: Mild wall thickening. Pancreas: Normal. Spleen: Normal. Adrenals: Normal. Kidneys: Normal, no hydronephrosis. Other Findings: Large volume abdominal ascites. No aggressive osseous lesion. Atelectasis at the right lung base with small effusion. IMPRESSION: 1. Some portal hypertension. No suspicious liver lesion. 2. Liver volume measuring 1613 sq cm. Dictated by: Jose Portillo MD The radiology attending physician has personally reviewed this study, and had reviewed and/or edited this written report and agrees with it. Electronically signed by: Kee Plascencia M.D. us Ayden Wylie MD IMG MRI PROCEDURES Final Resul t * Pulmonary Function Test - (11/05/2024 3:10 PM ETL CONSULTANT) FVC PRE 3.43 L [facility] FVC %PRE PRED 76 % [facility] FVC POST 3.27 L [facility] FVC %POST PRED 72 % [facility] FEV1 PRE 2.18 L [facility] FEV1 %PRE PRED 63 % [facility] FEV1 POST 2.05 L [facility] FEV1 %POST PRED 59 % [facility] FEV1/FVC PRE 63.7 % [facility] FEV1/FVC POST 62.7 % [facility] FRC PL PRE 4.27 L [facility] FRC PL %PRE PRED 116 % [facility] RV PRE 2.68 L [facility] RV %PRE PRED 115 % [facility] TLC PRE 5.99 L [facility] TLC %PRE PRED 85 % [facility] DLCO PRE 14.1 ml/min/mmH g [facility] DLCO %PRE PRED 52 % [facility] FIO2 % 21.00 % [facility] PaO2 113.0 mmHg [facility] PaCO2 26.0 mmHg [facility] pH 7.47 [facility] A-aDO2 POC 4.0 mmHg [facility] METHGB % 1.0 % [facility] COHb POC 2.4 % [facility] HCO3 18.9 mEq/L [facility] Anatomical Region Laterality Modality PFT 11/05/2024 2:22 PM ETL CONSULTANT Narrative 11/06/2024 8:18 AM ETL CONSULTANT If the P(A-a) is >28 then do shunt study. PFT performed at:->[facility] PFT [facility]- [id number] Procedure:->Shunt Assessment Procedure:->Spirometry with Bronchodilator Procedure:->Lung Volumes Procedure:->Airway Resistance Procedure:->DLCO Lung Volumes via:->Pleth with Airway Resistance Shunt Assessment:->100% O2 ABG w/COHb DLCO:->Spirometry Pulmonary Function Test Interpretation SPIROMETRY: Spirometry did not meet standards of acceptability and reproducibility. This diminishes the reliability of the results. There is a decrease in expiratory airflow at all lung volumes. The FEV1 to FVC ratio is reduced. There is no significant improvement after inhaling a single dose of albuterol. The inspiratory loop is appropriate for the expiratory flow abnormality. LUNG VOLUMES: Plethysmography did not meet standards of accuracy and reproducibility. This diminishes the reliability of the results. TLC measured by plethysmography is normal. DLCO: DLCO testing did not meet standards of accuracy and reproducibility. The diffusing capacity corrected for hemoglobin level (DLCO ADJ) is decreased. ARTERIAL BLOOD GAS: There is a partially compensated respiratory alkalosis. The arterial pO2 is normal at rest. O2 saturation measured by oximetry is normal at rest. The COHb level is 2.4%. Normal is less than 2%. Impression: The testing did not meet standards of acceptability and reproducibility. This diminishes the reliability of the results. There is a moderate obstructive defect. There is a moderate impairment of alveolar gas exchange by DLCO. There is no impairment of gas exchange at rest by ABG. The COHb level is consistent with current smoking status. The attending pulmonary physician certifies a physician presence in the [facility] during the administration of aerosolized bronchodilator. The attending pulmonary physician certifies that he/she has reviewed and interpreted the graphic and numerical data of this pulmonary function study and agrees with the written final report. The lower limit of normal for PaO2 and %HbO2 is age dependent. However, the [facility] Function [facility] defines hypoxemia as a PaO2 <56 mm Hg or a %HbO2 <89%. us Ayden Wylie MD PFT ORDERABLES Final Result * STRESS ECHO PHARMACOLOGIC W DOPPLER/CF W CONTRAST (11/04/2024 4:43 PM ETL CONSULTANT) LV EF 81 % CARDIOREPORT Anatomical Region Laterality Modality Ultrasound 11/04/2024 3:00 PM ETL CONSULTANT Narrative 11/04/2024 5:43 PM ETL CONSULTANT Patient name: Walt Ramirez Date of test: 11/04/2024 Hospital #: [id number] ?Location: [facility] Interpreted by: Maddy Hobson MD Premium Representative: Elicia Orta RDCS RN: Mago Carney RN Reason for Test: liver txp eval Study quality: Technically good Referring Physician: AYDEN WYLIE MD Contrast Agent: 0.15 ml Definity Admin., (1.35 ml wasted) and NS Bubble Study BASELINE STUDY: Wall Motion Scoring (1=Normal 2=Hypo 3=Akinetic 4=Dyskin./Aneurysm 0=Not visualized) Parasternal Long Rodeo:MAS=1 BAS=1 MIL=1 CAMPOS=1 Parasternal Short Rodeo:MAS=1 MIS=1 CA=1 MIL=1 MAL=1 MA=1 Apical 4 Chambers:=1 MIS=1 BIS=1 BAL=1 MAL=1 AL=1 AC=1 Apical 2 Chambers:AI=1 CA=1 BI=1 BA=1 MA=1 AA=1 AC=1 Ejection Fraction: 81% LV Global Strain: -18.8% LV Global Function: Hyperdynamic left ventricle. No segmental wall motion abnormalities. Baseline Echo Comments: Normal LV cavity size. Normal LV wall thickness. Normal RV cavity size and systolic function. Normal LA size. Normal RA size. Normal aortic root and IVC size. Normal pericardium without pericardial effusion. Doppler/CF Comments: No MS, No MR, No , No AR, No TS, Mild TR, No PS, No NC, PASP 24mm Hg. Saline study late positive for R>L shunt most c/w extracardiac shunt. Baseline HR: 62 Baseline BP: 106/76 Conduction Defects: None Resting ECG Comments: Normal sinus rhythm. Medications: coreg, spironolactone Meds held: coreg POST DOBUTAMINE STUDY: Wall Motion Scoring (1=Normal 2=Hypo 3=Akinetic 4=Dyskin./Aneurysm 0=Not visualized) Parasternal Long Rodeo:MAS=1 BAS=1 MIL=1 CAMPOS=1 Parasternal Short Rodeo:MAS=1 MIS=1 CA=1 MIL=1 MAL=1 MA=1 Apical 4 Chambers:=1 MIS=1 BIS=1 BAL=1 MAL=1 AL=1 AC=1 Apical 2 Chambers:AI=1 CA=1 BI=1 BA=1 MA=1 AA=1 AC=1 Intravenous dobutamine was infused to a maximal dose ??40 micro-g/Kg/min. Atropine: 0.2 mg. ?Other Med: Peak HR: 141 Peak BP: 99/65 Post-Exercise Comments: Marked increase in the LV and RV contractility, no segmental wall motion abnormalities. Test terminated: ??Target heart rate achieved Stress ECG Comments: ??No ischemic changes. Occasional PVCs. CONTRAST ENHANCEMENT WAS EMPLOYED after initial imaging due to sub-optimal quality related to co-morbidity defined by patient's body habitus. Impression: At rest: Normal LV GLPS_Avg. Maximal Dobutamine Stress Echocardiogram, NEGATIVE for myocardial ischemia. Confirmed on ??11/04/2024 - 17:43:55 by Maddy Hobson MD ?? Rake Operator: Rodolfo Covington MD By signing this report, the attending automotive lube technician certifies that he or she has personally supervised and interpreted the echocardiogram and has reviewed and or edited and agrees with the written comments contained within the report. Procedure Note Maddy Hobson MD - 11/04/2024 Patient name: Walt Ramirez Date of test: 11/04/2024 Hospital #: [id number] Location: [facility] Interpreted by: Maddy Hobson MD Premium Representative: Elicia Orta RDCS RN: Mago Carney RN Reason for Test: liver txp eval Study quality: Technically good Referring Physician: AYDEN WYLIE MD Contrast Agent: 0.15 ml Definity Admin., (1.35 ml wasted) and NS Bubble Study BASELINE STUDY: Wall Motion Scoring (1=Normal 2=Hypo 3=Akinetic 4=Dyskin./Aneurysm 0=Not visualized) Parasternal Long Rodeo:MAS=1 BAS=1 MIL=1 CAMPOS=1 Parasternal Short Rodeo:MAS=1 MIS=1 CA=1 MIL=1 MAL=1 MA=1 Apical 4 Chambers:=1 MIS=1 BIS=1 BAL=1 MAL=1 AL=1 AC=1 Apical 2 Chambers:AI=1 CA=1 BI=1 BA=1 MA=1 AA=1 AC=1 Ejection Fraction: 81% LV Global Strain: -18.8% LV Global Function: Hyperdynamic left ventricle. No segmental wall motion abnormalities. Baseline Echo Comments: Normal LV cavity size. Normal LV wall thickness. Normal RV cavity size and systolic function. Normal LA size. Normal RA size. Normal aortic root and IVC size. Normal pericardium without pericardial effusion. Doppler/CF Comments: No MS, No MR, No , No AR, No TS, Mild TR, No PS, No NC, PASP 24mm Hg. Saline study late positive for R>L shunt most c/w extracardiac shunt. Baseline HR: 62 Baseline BP: 106/76 Conduction Defects: None Resting ECG Comments: Normal sinus rhythm. Medications: coreg, spironolactone Meds held: coreg POST DOBUTAMINE STUDY: Wall Motion Scoring (1=Normal 2=Hypo 3=Akinetic 4=Dyskin./Aneurysm 0=Not visualized) Parasternal Long Rodeo:MAS=1 BAS=1 MIL=1 CAMPOS=1 Parasternal Short Rodeo:MAS=1 MIS=1 CA=1 MIL=1 MAL=1 MA=1 Apical 4 Chambers:=1 MIS=1 BIS=1 BAL=1 MAL=1 AL=1 AC=1 Apical 2 Chambers:AI=1 CA=1 BI=1 BA=1 MA=1 AA=1 AC=1 Intravenous dobutamine was infused to a maximal dose 40 micro-g/Kg/min. Atropine: 0.2 mg. Other Med: Peak HR: 141 Peak BP: 99/65 Post-Exercise Comments: Marked increase in the LV and RV contractility, no segmental wall motion abnormalities. Test terminated: Target heart rate achieved Stress ECG Comments: No ischemic changes. Occasional PVCs. CONTRAST ENHANCEMENT WAS EMPLOYED after initial imaging due to sub-optimal quality related to co-morbidity defined by patient's body habitus. Impression: At rest: Normal LV GLPS_Avg. Maximal Dobutamine Stress Echocardiogram, NEGATIVE for myocardial ischemia. Confirmed on 11/04/2024 - 17:43:55 by Maddy Hobson MD Rake Operator: Rodolfo Covington MD By signing this report, the attending automotive lube technician certifies that he or she has personally supervised and interpreted the echocardiogram and has reviewed and or edited and agrees with the written comments contained within the report. Ayden Wylie MD CV ECHO PROCEDURES Final Resul t * ECG 12 lead (11/04/2024 11:39 AM ETL CONSULTANT) Ventricular Rate EKG/Min 73 BPM [facility] Atrial Rate 73 BPM [facility] NC-Interval (MSEC) 158 ms [facility] QRS-Interval (MSEC) 64 ms [facility] QT-Interval (MSEC) 404 ms [facility] QTc 445 ms [facility] P Rodeo 84 degrees [facility] R Rodeo 38 degrees [facility] T Rodeo 47 degrees [facility] Diagnosis Normal sinus rhythm Low voltage QRS Borderline ECG No previous ECGs available Confirmed by KIERSTEN HUITRON M.D ([id number]) on 11/04/2024 2:32:19 PM [facility] 11/04/2024 11:3 9 AM ETL CONSULTANT 11/04/2024 2:32 PM ETL CONSULTANT Ayden Wylie MD ECG ORDERABLES Final Result [facility] * Type and screen (11/04/2024 11:24 AM ETL CONSULTANT) ABO Rh A Positive Nguyễn, indirect Negative [facility] Blood 11/04/2024 11:2 4 AM ETL CONSULTANT 11/04/2024 1:19 PM ETL CONSULTANT Narrative [facility] 11/04/2024 2:25 PM ETL CONSULTANT Please draw the ABO and the Type and Screen as two separate blood draws with ??each stamped with the two different times stamps as this is a regulatory requirement for this patient to be listed for liver transplant. ??This lab is being obtained as part of a liver transplant evaluation, is time sensitive, and should only be drawn during the evaluation visit at [address] Lab[address] Has the patient had Daratumumab or Isatuximab in the past 6 months?->Unknown Ayden Wylie MD LAB BLOOD BANK TEST ORDERABLES Final Result Performing Organization Address City/[facility] Co wv Phone Number [facility] Department [place] [address] * (ABNORMAL) CARL screen w/rflx SALVADOR+dsDNA (11/04/2024 11:23 AM ETL CONSULTANT) CARL Positive 1:160 Comment: Interpretive Data Normal range for CARL Qualitative Antibody = Negative. 1. CARL is performed using indirect immunofluorescence against HEp-2 cells 2. CARL titers are performed on all positive qualitative results. 3. A significantly positive CARL result is defined as a positive nuclear fluorescence at a titer of 1:80 or greater. 4. 15% of normal people above age 65 have significantly positive CARL results. ??5% or less of normal people age 65 or under have significantly positive CARL results. Current interpretive data was last revised on 2020. CARL, quant 1:160 titer [facility] CARL, interp Speckled(A) [facility] Blood 11/04/2024 11:2 3 AM ETL CONSULTANT 11/04/2024 12:42 PM ETL CONSULTANT Narrative [facility] - 11/06/2024 2:17 PM ETL CONSULTANT Please add the following comment to each lab: This lab is being obtained as part of a liver transplant evaluation, is time sensitive, and should only be drawn during the evaluation visit at [address] Lab. Ayden Wylie MD LAB BLOOD ORDERABLES Final Res ult SANGEETHAPIERRE RICHARD [facility] Department [place] [address] * Phosphatidylethanol (11/04/2024 11:23 AM ETL CONSULTANT) PHOSPHATIDYLETHANOL Negative . [facility] Lab Comment: ADDITIONAL INFORMATION This report is intended for use in clinical monitoring and management of patients. ??It is not intended for use in employment-related testing. This test was developed and its performance characteristics determined by [facility] in a manner consistent with CLIA requirements. This test has not been cleared or approved by the U.S. Food and Drug Administration. Test Performed by: [place] [address] [employer]er: Deven Owens Ph.D.; CLIA# [id number] PEth 16:0/18:1 (POPEth)by LC-MS/MS <10 Cutoff: 10 ng/mL A[facility]WINI RAMOS Comment: Phosphatidylethanol (PEth) homologues result interpretation PEth 16:0/18:1 (POPEth) Less than 10 ng/mL: Not detected 10 - 19 ng/mL: Abstinence or light alcohol consumption (<2 drinks per day for several days a week) 20 - 200 ng/mL: Moderate alcohol consumption (up to 4 drinks per day for several days a week) Greater than 200 ng/mL: Heavy alcohol consumption or chronic alcohol use (at least 4 drinks per day several days a week) (Reference: Alicia Jefferson and Victoriano Garcia 2018 J. Forensic Sci) Phosphatidylethanol 16:0/18:2 (PLPEth) by LC-MS/MS <10 Cutoff: 10 ng/mL ASHWINI RAMOS Comment: PEth 16:0/18:2 (PLPEth) Reference ranges are not well established Blood 11/04/2024 11:2 3 AM ETL CONSULTANT 11/04/2024 2:26 PM ETL CONSULTANT Narrative ASHWINI RAMOS - 11/07/2024 4:20 AM ETL CONSULTANT This lab is being obtained as part of a liver transplant evaluation, is time sensitive, and should only be drawn during the evaluation visit at [facility] Lab. Ayden Wylie MD LAB BLOOD ORDERABLES Final Res ult Performing Organization Address [facility] de Phone Number [facility] [place] [address] [facility] ref Lab * Anti-double stranded DNA abs (11/04/2024 11:23 AM ETL CONSULTANT) [facility] dsDNA Ab <1.0 <=4.0 IUnits/mL Comment: Interpretive Data Negative: < or = 4 IUnits/mL Indeterminate: 5 - 9 IUnits/mL Positive: > or = 10 IUnits/mL Current interpretive data was last revised on 2017. Blood 11/04/2024 11:2 3 AM ETL CONSULTANT 11/04/2024 12:53 PM ETL CONSULTANT us Ayden Wylie MD LAB BLOOD ORDERABLES Final Res ult Performing Organization Address [facility] de Phone Number ASHWINI [facility] Department [place] [address] * eGFR (11/04/2024 11:23 AM ETL CONSULTANT) [facility] eGFR 83 >=60 mL/min/1. 73 m2 Comment: Interpretive Data Reference Interval Normal ?>/= 90 mL/min/1.73m2 Mildly decreased* ? 60 - 89 mL/min/1.73m2 Mildly to moderately decreased ?45 - 59 mL/min/1.73m2 Moderately to severely decreased ??30 - 44 mL/min/1.73m2 Severely decreased ?15 - 29 mL/min/1.73m2 Kidney Failure ?< 15 ??mL/min/1.73m2 *Relative to young adult level Estimated glomerular filtration rate is determined by the 2020 CKD-EPI equation recommended by the National Kidney Foundation (A Unifying Approach to GFR Estimation: Recommendations of the NKF-ASK Task Force on Reassessing the Inclusion of Race in Diagnosing Kidney Disease, JASN 2020). The CKD-EPI equation should not be used for patients with unstable renal function and has not been validated in children and those over 70. Current interpretive data was last reviewed 2021. Blood 11/04/2024 11:2 3 AM ETL CONSULTANT 11/04/2024 1:02 PM ETL CONSULTANT us Ayden Wylie MD LAB BLOOD ORDERABLES Final Res ult [facility] Department [place] [address] * Differential, auto (11/04/2024 11:23 AM ETL CONSULTANT) Neutrophil abs 5.0 1.5 - 6.5 K/cumm Imm gran abs 0.0 0.0 - 0.1 K/cumm [facility] Lymphocyte abs 1.7 0.8 - 3.3 K/cumm [facility] Monocyte abs 0.7 0.2 - 0.8 K/cumm [facility] Eosinophil abs 0.2 0.0 - 0.5 K/cumm [facility] Basophil abs 0.1 0.0 - 0.1 K/cumm [facility] Neutrophil pct 65.9 % [facility] Comment: Interpretive Data Percent cell count reference ranges are not reported, since discordance with absolute values may lead to misinterpretation of CBC data. Current Interpretive Data was last revised on 2018. Imm gran pct 0.3 % [facility] Comment: Interpretive Data Percent cell count reference ranges are not reported, since discordance with absolute values may lead to misinterpretation of CBC data. Current Interpretive Data was last revised on 2018. Lymphocyte pct 21.9 % [facility] Comment: Interpretive Data Percent cell count reference ranges are not reported, since discordance with absolute values may lead to misinterpretation of CBC data. Current Interpretive Data was last revised on 2018. Monocyte pct 8.5 % [facility] Comment: Interpretive Data Percent cell count reference ranges are not reported, since discordance with absolute values may lead to misinterpretation of CBC data. Current Interpretive Data was last revised on 2018. Eosinophil pct 2.0 % [facility] Comment: Interpretive Data Percent cell count reference ranges are not reported, since discordance with absolute values may lead to misinterpretation of CBC data. Current Interpretive Data was last revised on 2018. Basophil pct 1.4 % [facility] Comment: Interpretive Data Percent cell count reference ranges are not reported, since discordance with absolute values may lead to misinterpretation of CBC data. Current Interpretive Data was last revised on 2018. Blood 11/04/2024 11:2 3 AM ETL CONSULTANT 11/04/2024 12:44 PM ETL CONSULTANT Ayden Wylie MD LAB BLOOD ORDERABLES Final Res ult Performing Organization Address [facility] Co de Phone Number [facility] Department [place] [address] * SALVADOR ab eval w/reflex (11/04/2024 11:23 AM ETL CONSULTANT) SALVADOR ab Negative Negative Comment: Interpretive Data Positive Screens will be reflexed to specific testing for Antibodies against the following antigens: Desiree-1 Ab, PUBLIC POLICY PROFESSOR Ab, Scl-70 Ab, Garcia Ab, SS-A/Ro Ab, and SS- B/La Ab. Further testing for dsDNA, Centromere, or Ribosomal P antibodies is suggested in patient with a positive screen and negative specific antibodies. Current interpretive data was last revised on 2023. Blood 11/04/2024 11:2 3 AM ETL CONSULTANT 11/04/2024 12:53 PM ETL CONSULTANT Ayden Wylie MD LAB BLOOD ORDERABLES Final Res ult Performing Organization Address [facility]/ZIP Co de Phone Number [facility] [place] [address] * Smooth muscle antibody, qualitative (11/04/2024 11:23 AM ETL CONSULTANT) [facility] Anti-smooth muscle Negative Negative Blood 11/04/2024 11:2 3 AM ETL CONSULTANT 11/04/2024 12:42 PM ETL CONSULTANT Narrative [facility] - 11/05/2024 1:40 PM ETL CONSULTANT Please add the following comment to each lab: This lab is being obtained as part of a liver transplant evaluation, is time sensitive, and should only be drawn during the evaluation visit at [address] Ayden Wylie MD LAB BLOOD ORDERABLES Final Res ult Performing Organization Address [facility] [place] [address] * Thyroid Function [place] (11/04/2024 11:23 AM ETL CONSULTANT) [facility] TSH 1.49 0.30 - 4.20 mcIUnit/mL Blood 11/04/2024 11:2 3 AM ETL CONSULTANT 11/04/2024 12:45 PM ETL CONSULTANT Narrative [facility] - 11/04/2024 2:01 PM ETL CONSULTANT This lab is being obtained as part of a liver transplant evaluation, is time sensitive, and should only be drawn during the evaluation visit at [address] Ayden Wylie MD LAB BLOOD ORDERABLES Final Res ult Performing Organization Address [facility] [place] [address] * PSA screen (11/04/2024 11:23 AM ETL CONSULTANT) [facility] PSA-Total 0.12 <=5.40 ng/mL Comment: Interpretive Data ?AGE ? SEX ?REFERENCE INTERVAL 0 minutes-150 years ?Female ?None 0 minutes-49 years ? Male ?None ? 50-59 years ? Male ?0-3.90 ? 60-69 years ? Male ?0-5.40 ? 70-79 years ? Male ?0-6.20 ? 80-150 years ?Male ?0-6.20 The [employer] PSA Total assay procedure was used. Results from different manufacturers or methods may not be comparable. Serial testing should be performed using the same method. Current interpretive data last revised 22. Blood 11/04/2024 11:2 3 AM ETL CONSULTANT 11/04/2024 12:45 PM ETL CONSULTANT Narrative [facility] - 11/04/2024 2:01 PM ETL CONSULTANT Please add the following comment to each lab: This lab is being obtained as part of a liver transplant evaluation, is time sensitive, and should only be drawn during the evaluation visit at [address] Ayden Wylie MD LAB BLOOD ORDERABLES Final Res ult [facility] Department [place] [address] * Mitochondrial antibodies, qualitative (11/04/2024 11:23 AM ETL CONSULTANT) Anti-mitochond rial Negative Negative Blood 11/04/2024 11:2 3 AM ETL CONSULTANT 11/04/2024 12:42 PM ETL CONSULTANT Narrative [facility] - 11/05/2024 1:31 PM ETL CONSULTANT Please add the following comment to each lab: This lab is being obtained as part of a liver transplant evaluation, is time sensitive, and should only be drawn during the evaluation visit at [address] Ayden Wylie MD LAB BLOOD ORDERABLES Final Res ult Performing Organization Address [facility] Co de Phone Number [facility] [place] [address] * (ABNORMAL) Iron profile w/ IBC (11/04/2024 11:23 AM ETL CONSULTANT) [facility] Iron 58 50 - 150 mcg/dL TIBC 152(L) 250 - 400 mcg/dL [facility] Transferrin saturation 38 20 - 50 % [facility] Blood 11/04/2024 11:2 3 AM ETL CONSULTANT 11/04/2024 12:45 PM ETL CONSULTANT Narrative [facility] - 11/04/2024 2:54 PM ETL CONSULTANT Please add the following comment to each lab: This lab is being obtained as part of a liver transplant evaluation, is time sensitive, and should only be drawn during the evaluation visit at [address] Lab. Ayden Wylie MD LAB BLOOD ORDERABLES Final Res ult Performing Organization Address [facility] de Phone Number [facility] [place] [address] * HIV 1/2 Antibody plus p24 Antigen Blood (11/04/2024 11:23 AM ETL CONSULTANT) [facility] HIV 1/2 ab + p24 ag Nonreactive Nonreactive Comment:Nonreactive for HIV- 1 antigen and HIV-1/HIV-2 antibodies. No laboratory evidence of HIV infection. If acute HIV infection is suspected, consider testing for HIV-1 RNA. Current interpretive data was last revised on 22. Blood 11/04/2024 11:2 3 AM ETL CONSULTANT 11/04/2024 12:42 PM ETL CONSULTANT Narrative [facility] - 11/04/2024 1:32 PM ETL CONSULTANT This lab is being obtained as part of a liver transplant evaluation, is time sensitive, and should only be drawn during the evaluation visit at [address] Lab. Ayden Wylie MD LAB MICROBIOLOGY - GENERAL ORD ERABLES Final Result Performing Organization Address [facility] de Phone Number [facility] Department [place] [address] * (ABNORMAL) CMV, IgG Blood (11/04/2024 11:23 AM ETL CONSULTANT) Pathologist [facility] CMV IgG Positive( A) Negative Comment: Interpretive Data Negative - Individuals with negative CMV IgG results are presumed to not have had prior exposure or infection with CMV and are, therefore, considered susceptible to primary infection. Equivocal - Equivocal results may occur during acute infection or may be due to nonspecific binding reactions. Submit an additional sample for testing if clinically indicated. Positive - Indicates presence of detectable CMV IgG antibody. Results indicate past or recent CMV infection. Blood 11/04/2024 11:2 3 AM ETL CONSULTANT 11/04/2024 12:45 PM ETL CONSULTANT Ayden Wylie MD LAB MICROBIOLOGY - GENERAL [employer] ERABLES Final Result Performing Organization Address [facility] de Phone Number ASHWINI [facility] Department [place] [address] * (ABNORMAL) Wxpzj-8-lobsagijsax phenotype (11/04/2024 11:23 AM ETL CONSULTANT) [facility] alpha-1 antitrypsin 206(H) 100 - 190 mg/dL [facility] Comment: ADDITIONAL INFORMATION Method: Nephelometry Test Performed by: [facility] [address] [place] [address] [employer] Hairspring Assembler: Deven Owens Ph.D.; CLIA# [id number] alpha-1 antitrypsin phenotype MM bands [facility] Comment: A single M isoform is detected. In the context of a normal hzixl-5-doggrgkvyvz concentration, this is consistent with an MM phenotype. ADDITIONAL INFORMATION Method: Isoelectric Focusing, This assay identifies the phenotype of the circulating whlho-0-frcbsgawmta (A1A) protein. If the patient is on replacement therapy or has been recently transfused, the phenotype will detect patient and replacement or transfused plasma A1A protein. This test also cannot detect a null allele which could be responsible for an A1A deficiency. Blood 11/04/2024 11:2 3 AM ETL CONSULTANT 11/04/2024 1:36 PM ETL CONSULTANT Narrative [facility] - 11/07/2024 2:29 PM ETL CONSULTANT Please add the following comment to each lab: This lab is being obtained as part of a liver transplant evaluation, is time sensitive, and should only be drawn during the evaluation visit at [facility]. us Ayden Wylie MD LAB BLOOD ORDERABLES Final Res ult [facility] Department [place] [address] [facility] ref [facility] * (ABNORMAL) CBC with auto differential (11/04/2024 11:23 AM ETL CONSULTANT) WBC 7.6 3.8 - 9.9 K/cumm Hgb 13.1 13.0 - 17.5 g/dL [facility] Hct 38.1(L) 38.9 - 50.3 % [facility] Plt 218 150 - 400 K/cumm [facility] MPV 9.4 9.1 - 12.3 fL [facility] RBC 4.24(L) 4.30 - 5.80 M/cumm [facility] MCV 89.9 81.3 - 96.4 fL [facility] MCH 30.9 27.1 - 33.3 pg [facility] MCHC 34.4 32.3 - 35.7 g/dL [facility] RDW CV 14.6 11.1 - 14.9 % [facility] RDW SD 47.7 35.7 - 48.1 fL [facility] NRBC abs 0.00 0.00 - 0.01 K/cumm [facility] Blood 11/04/2024 11:2 3 AM ETL CONSULTANT 11/04/2024 12:44 PM ETL CONSULTANT Narrative [facility] - 11/04/2024 12:51 PM ETL CONSULTANT This lab is being obtained as part of a liver transplant evaluation, is time sensitive, and should only be drawn during the evaluation visit at [address] Lab. Ayden Wylie MD LAB BLOOD ORDERABLES Final Res ult Performing Organization Address [facility] de Phone Number [facility] [place] [address] * Hepatitis C antibody Blood (11/04/2024 11:23 AM ETL CONSULTANT) [facility] Hep C Ab Nonreactive Nonreactive Comment:Antibodies to HCV no t detected. Does NOT exclude the possibility of recent exposure to HCV. Current interpretive data was last revised on 22 Blood 11/04/2024 11:2 3 AM ETL CONSULTANT 11/04/2024 12:42 PM ETL CONSULTANT Narrative [facility] - 11/04/2024 1:37 PM ETL CONSULTANT Please add the following comment to each lab: This lab is being obtained as part of a liver transplant evaluation, is time sensitive, and should only be drawn during the evaluation visit at [address] Lab. Ayden Wylie MD LAB MICROBIOLOGY - GENERAL ORD ERABLES Final Result Performing Organization Address [facility] de Phone Number [facility] Department [place] [address] * (ABNORMAL) Ngozi-Fuentes virus (EBV) antibody panel Blood (11/04/2024 11:23 AM ETL CONSULTANT) [facility] EBV nuclear Ab Positive(A) Negative Comment:Indicates the presen ce of detectable IgG antibody to EBV Nuclear Antigen. EBV VCA IgG Positive(A) Negative [facility] Comment:Indicates the presen ce of antibody; 90% of the adult population will have been infected with EBV sometime in the past. EBV VCA IgM Negative Negative [facility] Comment:No detectable IgM an tibody to EBV-VCA. A negative result indicates no current infection with EBV. If clinical suspicion of acute EBV infection is present, testing should be repeated after one week. EBV interp Past Infection [facility] Blood 11/04/2024 11:2 3 AM ETL CONSULTANT 11/04/2024 12:42 PM ETL CONSULTANT Narrative [facility] - 11/04/2024 2:37 PM ETL CONSULTANT This lab is being obtained as part of a liver transplant evaluation, is time sensitive, and should only be drawn during the evaluation visit at [address] Lab. Ayden Wylie MD LAB MICROBIOLOGY - GENERAL ORD ERABLES Final Result Performing Organization Address [facility] de Phone Number [facility] Department of [place] [address] * Hepatitis A antibody, total Blood (11/04/2024 11:23 AM ETL CONSULTANT) Pathologist [facility] Hep A total Nonreactive Nonreactive Blood 11/04/2024 11:2 3 AM ETL CONSULTANT 11/04/2024 12:[address] [facility] 11/04/2024 1:37 PM ETL CONSULTANT This lab is being obtained as part of a liver transplant evaluation, is time sensitive, and should only be drawn during the evaluation visit at [address] Lab. Ayden Wylie MD LAB MICROBIOLOGY - GENERAL ORD ERABLES Final Result Performing Organization Address [facility] de Phone Number [facility] Department of [place] [address] * (ABNORMAL) Cancer antigen 19-9 (11/04/2024 11:23 AM ETL CONSULTANT) CA 19-9 ag 37.5(H) <=35.0 units/mL Comment: Interpretive Data The [employer] CA 19-9 assay procedure was used. Results from different manufacturers or methods may not be comparable. Serial testing should be performed using the same method. Blood 11/04/2024 11:2 3 AM ETL CONSULTANT 11/04/2024 12:45 PM ETL CONSULTANT Ayden Wylie MD LAB BLOOD ORDERABLES Final Res ult Performing Organization Address City/[facility] Co de Phone Number [facility] Department [place] [address] * Ceruloplasmin (11/04/2024 11:23 AM ETL CONSULTANT) Pathologist [facility] Ceruloplasmin 18.9 15.0 - 30.0 mg/dL Blood 11/04/2024 11:2 3 AM ETL CONSULTANT 11/04/2024 12:45 PM ETL CONSULTANT Narrative [facility] - 11/04/2024 2:54 PM ETL CONSULTANT Please add the following comment to each lab: This lab is being obtained as part of a liver transplant evaluation, is time sensitive, and should only be drawn during the evaluation visit at [address] Ayden Wylie MD LAB BLOOD ORDERABLES Final Res ult Performing Organization Address [facility] de Phone Number [facility] Department [place] [address] * (ABNORMAL) Measles IgG antibody Blood (11/04/2024 11:23 AM ETL CONSULTANT) Pathologist [facility] Measles IgG Nonreactiv e(A) Comment:Non-reactive: No det ectable antibody to measles.??Such individuals are presumed to be uninfected and susceptible to primary infection. Blood 11/04/2024 11:2 3 AM ETL CONSULTANT 11/04/2024 12:42 PM ETL CONSULTANT Narrative [facility] - 11/04/2024 2:43 PM ETL CONSULTANT This lab is being obtained as part of a liver transplant evaluation, is time sensitive, and should only be drawn during the evaluation visit at [address] Lab. Ayden Wylie MD LAB MICROBIOLOGY - GENERAL ORD ERABLES Final Result Performing Organization Address [facility] Co de Phone Number [facility] Department [place] [address] * [id number], Tumor Marker (11/04/2024 11:23 AM ETL CONSULTANT) alpha Fetoprotein 4.2 <=8.3 ng/mL Comment: Interpretive Data The [employer] AFP assay procedure was used. Results from different manufacturers or methods may not be comparable. Serial testing should be performed using the same method. 0-1 ??month. ?? AFP concentrations may reach or exceed 100,000 ng/mL after depending on gestational age and weight. 1-3 months ? 50 ? 1000 ng/ml 3-6 months ? 10 ? 500 ng/ml 6-12 months ?3.0 ? 100 ng/ml >1 year ?0.0 ? 8.3 ng/ml References Marie Triana. et al. ??J. Ped Surg 1978;13:155-156 Jenn Sanabria. et al. Clin Chem Lab Med 2018;57:783-797 Laynevidya Jacobo et al. ??Clin Chem 2014;5189-1045. Current interpretive data was last revised 2022. Blood 11/04/2024 11:2 3 AM ETL CONSULTANT 11/04/2024 12:45 PM ETL CONSULTANT Narrative [facility] - 11/04/2024 8:25 PM ETL CONSULTANT This lab is being obtained as part of a liver transplant evaluation, is time sensitive, and should only be drawn during the evaluation visit at [facility]. us Ayden Wylie MD LAB BLOOD ORDERABLES Final Res ult [facility] Department [place] [address] * (ABNORMAL) Cotinine level (11/04/2024 11:23 AM ETL CONSULTANT) Nicotine 19(H) <3.0 ng/mL [place] ref [facility] Cotinine, quant, sr 429(H) <3.0 ng/mL [facility] Comment: ADDITIONAL INFORMATION This test was developed and its performance characteristics determined by [facility] in a manner consistent with CLIA requirements. This test has not been cleared or approved by the U.S. Food and Drug Administration. Test Performed by: [facility] [address] [place] [address] [employer] Hairspring Assembler: Deven Owens Ph.D.; CLIA# [id number] Blood 11/04/2024 11:2 3 AM ETL CONSULTANT 11/04/2024 1:36 PM ETL CONSULTANT Narrative [facility] - 11/06/2024 10:53 AM ETL CONSULTANT This lab is being obtained as part of a liver transplant evaluation, is time sensitive, and should only be drawn during the evaluation visit at [address] Lab[address] Ayden Wylie MD LAB BLOOD ORDERABLES Final Res ult Performing Organization Address [facility] Co de Phone Number [facility] Department of [place] [address] [facility] ref Lab * Hepatitis B core antibody, total Blood (11/04/2024 11:23 AM ETL CONSULTANT) Hep B core IgG/IgM Nonreactive Nonreactive Blood 11/04/2024 11:2 3 AM ETL CONSULTANT 11/04/2024 12:42 PM ETL CONSULTANT Narrative [facility] - 11/04/2024 1:37 PM ETL CONSULTANT Please add the following comment to each lab: This lab is being obtained as part of a liver transplant evaluation, is time sensitive, and should only be drawn during the evaluation visit at [address] Ayden Wylie MD LAB MICROBIOLOGY - GENERAL ORD ERABLES Final Result Performing Organization Address [facility]/ZIP Co de Phone Number [facility] [place] [address] * (ABNORMAL) Vitamin D 25 hydroxy (11/04/2024 11:23 AM ETL CONSULTANT) [facility] Vitamin D 25-OH 10(L) 30 - 80 ng/mL Blood 11/04/2024 11:2 3 AM ETL CONSULTANT 11/04/2024 12:45 PM ETL CONSULTANT Narrative [facility] - 11/04/2024 2:01 PM ETL CONSULTANT This lab is being obtained as part of a liver transplant evaluation, is time sensitive, and should only be drawn during the evaluation visit at [address] Lab[address] Ayden Wylie MD LAB BLOOD ORDERABLES Final Res ult Performing Organization Address City/[facility]/ZIP Co de Phone Number [facility] [place] [address] * (ABNORMAL) HSV 2 IgG Antibody Blood (11/04/2024 11:23 AM ETL CONSULTANT) [facility] HSV 2 IgG Reactive( A) Nonreactive Comment: Interpretive Data 1. Nonreactive: No detectable IgG antibody to HSV-2. 2. Equivocal: Presence or absence of detectable antibodies to HSV-2 cannot be determined and the test should be repeated. 3. Reactive: Indicates presence of detectable IgG antibody to HSV-2. Current interpretive data was last revised on 2023. Blood 11/04/2024 11:2 3 AM ETL CONSULTANT 11/04/2024 12:42 PM ETL CONSULTANT Narrative [facility] - 11/04/2024 2:42 PM ETL CONSULTANT This lab is being obtained as part of a liver transplant evaluation, is time sensitive, and should only be drawn during the evaluation visit at [address] Lab. Ayden Wylie MD LAB MICROBIOLOGY - GENERAL ORD ERABLES Final Result Performing Organization Address [facility]/ZIP Co de Phone Number [facility] [place] [address] * HSV 1 IgG Antibody Blood (11/04/2024 11:23 AM ETL CONSULTANT) [facility] HSV 1 IgG Nonreactive Nonreactive Comment: Interpretive Data 1. Nonreactive: No detectable IgG antibody to HSV-1. 2. Equivocal: Presence or absence of detectable antibodies to HSV-1 cannot be determined and the test should be repeated. 3. Reactive: Indicates presence of detectable IgG antibody to HSV-1. Current interpretive data was last revised on 2017. Blood 11/04/2024 11:2 3 AM ETL CONSULTANT 11/04/2024 12:42 PM ETL CONSULTANT Narrative [facility] - 11/04/2024 2:42 PM ETL CONSULTANT This lab is being obtained as part of a liver transplant evaluation, is time sensitive, and should only be drawn during the evaluation visit at [address] Ayden Wylie MD LAB MICROBIOLOGY - GENERAL ORD ERABLES Final Result Performing Organization Address [facility] Co de Phone Number [facility] Department [place] [address] * RPR Blood (11/04/2024 11:23 AM ETL CONSULTANT) Pathologist [facility] RPR Nonreactive Nonreactive Blood 11/04/2024 11:2 3 AM ETL CONSULTANT 11/04/2024 12:44 PM ETL CONSULTANT Narrative [facility] - 11/04/2024 1:41 PM ETL CONSULTANT This lab is being obtained as part of a liver transplant evaluation, is time sensitive, and should only be drawn during the evaluation visit at [address] Ayden Wylie MD LAB MICROBIOLOGY - GENERAL ORD ERABLES Final Result Performing Organization Address City/[facility]/ZIP Co de Phone Number [facility] Department [place] [address] * Hepatitis B surface antibody (immune status) Blood (11/04/2024 11:23 AM ETL CONSULTANT) Pathologist [facility] HBsAb (immune status) Nonreactive Comment:This result is consi stent with a lack of immunity to Hepatitis B Virus when used in the setting of routine screening. Current interpretative data was last revised on 22 Blood 11/04/2024 11:2 3 AM ETL CONSULTANT 11/04/2024 12:42 PM ETL CONSULTANT Narrative [facility] - 11/04/2024 1:37 PM ETL CONSULTANT Please add the following comment to each lab: This lab is being obtained as part of a liver transplant evaluation, is time sensitive, and should only be drawn during the evaluation visit at [address] Lab. Ayden Wylie MD LAB MICROBIOLOGY - GENERAL ORD ERABLES Final Result Performing Organization Address [facility] de Phone Number [facility] Department [place] [address] * Hepatitis B Surface Antigen Blood (11/04/2024 11:23 AM ETL CONSULTANT) HepBsAg Nonreactive Nonreactive Blood 11/04/2024 11:2 3 AM ETL CONSULTANT 11/04/2024 12:[address] [facility] 11/04/2024 1:37 PM ETL CONSULTANT Please add the following comment to each lab: This lab is being obtained as part of a liver transplant evaluation, is time sensitive, and should only be drawn during the evaluation visit at [address] Lab. Ayden Wylie MD LAB MICROBIOLOGY - GENERAL ORD ERABLES Final Result Performing Organization Address [facility] de Phone Number [facility] Department [place] [address] * (ABNORMAL) aPTT (11/04/2024 11:23 AM ETL CONSULTANT) aPTT 41(H) 28 - 38 sec Comment: Interpretive Data Heparin therapeutic range: 66.0 - 100.0 seconds. Range based on correlation with therapeutic heparin activity range of 0.3 - 0.7 Units/mL. Current interpretive data was last revised on 2023. Blood 11/04/2024 11:2 3 AM ETL CONSULTANT 11/04/2024 12:42 PM ETL CONSULTANT Narrative [facility] - 11/04/2024 1:00 PM ETL CONSULTANT This lab is being obtained as part of a liver transplant evaluation, is time sensitive, and should only be drawn during the evaluation visit at [address] Lab. Ayden Wylie MD LAB BLOOD ORDERABLES Final Res ult Performing Organization Address [facility] Co de Phone Number [facility] [place] [address] * (ABNORMAL) Protime-INR (11/04/2024 11:23 AM ETL CONSULTANT) PT 19.0(H) 9.7 - 13.0 sec INR 1.74(H) 0.90 - 1.20 [facility] Comment: Interpretive data Oral anticoagulant therapeutic ranges: Venous thromboembolism prophylaxis or treatment: 2.0-3.0 CARDIOLOGY Standard range: 2.0-3.0 High-intensity range: 2.5-3.5 Refer to indication-specific guidelines for appropriate target ranges for prosthetic heart valve replacement. Current interpretive data was last revised on 2019. Blood 11/04/2024 11:2 3 AM ETL CONSULTANT 11/04/2024 12:42 PM ETL CONSULTANT Narrative [facility] - 11/04/2024 1:00 PM ETL CONSULTANT This lab is being obtained as part of a liver transplant evaluation, is time sensitive, and should only be drawn during the evaluation visit at [address] Lab. Ayden Wylie MD LAB BLOOD ORDERABLES Final Res ult Performing Organization Address [facility] de Phone Number [facility] [place] [address] * Varicella Zoster IgG antibody Blood (11/04/2024 11:23 AM ETL CONSULTANT) Pathologist [facility] VZV IgG Reactive Reactive Comment:Reactive: Results yang ggest response to immunization or prior exposure to the virus. Blood 11/04/2024 11:2 3 AM ETL CONSULTANT 11/04/2024 12:42 PM ETL CONSULTANT Narrative [facility] - 11/04/2024 2:43 PM ETL CONSULTANT This lab is being obtained as part of a liver transplant evaluation, is time sensitive, and should only be drawn during the evaluation visit at [address] us Ayden Wylie MD LAB MICROBIOLOGY - GENERAL ORD ERABLES Final Result Performing Organization Address [facility] Co de Phone Number [facility] [place] [address] * (ABNORMAL) Transferrin (11/04/2024 11:23 AM ETL CONSULTANT) Pathologist [facility] Transferrin 154(L) 200 - 360 mg/dL Blood 11/04/2024 11:2 3 AM ETL CONSULTANT 11/04/2024 12:45 PM [address] CON[address] [facility] 11/04/2024 2:47 PM ETL CONSULTANT Please add the following comment to each lab: This lab is being obtained as part of a liver transplant evaluation, is time sensitive, and should only be drawn during the evaluation visit at [address] Lab[address] Ayden Wylie MD LAB BLOOD ORDERABLES Final Res ult Performing Organization Address [facility] de Phone Number [facility] [place] [address] * Hemoglobin A1c (11/04/2024 11:23 AM ETL CONSULTANT) [facility] Hgb A1C 5.5 4.0 - 5.6 % Estimated Average Glucose 111 mg/dL [facility] Comment: The ADA recommends reporting an estimated Average Glucose (eAG) with all Hemoglobin A1c results using the equation derived from a study of 507 normal and diabetic adults. ??Minority populations were underrepresented and children were not included. ?? (Diabetes Care 2020; 43(S1): S66-S76). ??The eAG is not equivalent to a fasting glucose. Blood 11/04/2024 11:2 3 AM ETL CONSULTANT 11/04/2024 12:42 PM ETL CONSULTANT Narrative [facility] - 11/04/2024 1:59 PM ETL CONSULTANT This lab is being obtained as part of a liver transplant evaluation, is time sensitive, and should only be drawn during the evaluation visit at [address] Ayden Wylie MD LAB BLOOD ORDERABLES Final Res ult Performing Organization Address [facility] Co de Phone Number [facility] Department [place] [address] * Gamma GT (11/04/2024 11:23 AM ETL CONSULTANT) GGT 18 10 - 50 Units/L Blood 11/04/2024 11:2 3 AM ETL CONSULTANT 11/04/2024 12:45 PM ETL CONSULTANT Narrative [facility] - 11/04/2024 2:01 PM ETL CONSULTANT This lab is being obtained as part of a liver transplant evaluation, is time sensitive, and should only be drawn during the evaluation visit at [address] Ayden Wylie MD LAB BLOOD ORDERABLES Final Res ult Performing Organization Address [facility] de Phone Number [facility] [place] [address] * (ABNORMAL) Ferritin (11/04/2024 11:23 AM ETL CONSULTANT) Pathologist [facility] Ferritin 477(H) 30 - 400 ng/mL Blood 11/04/2024 11:2 3 AM ETL CONSULTANT 11/04/2024 12:45 PM ETL CONSULTANT Narrative [facility] - 11/04/2024 2:01 PM ETL CONSULTANT Please add the following comment to each lab: This lab is being obtained as part of a liver transplant evaluation, is time sensitive, and should only be drawn during the evaluation visit at [address] Ayden Wylie MD LAB BLOOD ORDERABLES Final Res ult Performing Organization Address [facility] Co de Phone Number [facility] [place] [address] * Ethanol (11/04/2024 11:23 AM ETL CONSULTANT) Ethanol <10 <=10 mg/dL Comment: Interpretive Data Legal limit of intoxication > or = 80 mg/dL Levels > or = 400 mg/dL are potentially TOXIC. Current interpretive data was last revised on 2019. Blood 11/04/2024 11:2 3 AM ETL CONSULTANT 11/04/2024 12:45 PM ETL CONSULTANT Narrative [facility] - 11/04/2024 2:01 PM ETL CONSULTANT Please add the following comment to each lab: This lab is being obtained as part of a liver transplant evaluation, is time sensitive, and should only be drawn during the evaluation visit at [facility] Lab. us Ayden Wylie MD LAB BLOOD ORDERABLES Final Res ult [facility] Department [place] [address] * (ABNORMAL) Lipid panel (11/04/2024 11:23 AM ETL CONSULTANT) Cholesterol 87 30 - 199 mg/dL Comment: Interpretive Data Ages < or = 19 years ??Acceptable: ? <170 mg/dL ??Borderline high: ??170-199 mg/dL ??High: ? >or= 200 mg/dL Ages > or = 20 years ??Desirable: ?<200 mg/dL ??Borderline high: ??200-239 mg/dL ??High: ? >or= 240 mg/dL Literature References: 1. Expert Panel on Integrated Guidelines for Cardiovascular Health and Risk Reduction in Children and Adolescents. Pediatrics 2011;128:S213 2. NCEP Expert Panel. Circulation 2004;110:227 Current Interpretive Data was last revised on 2018. Triglycerides 72 <=149 mg/dL [facility] Comment: Interpretive Data Ages < or = 9 years ??Acceptable: ? <75 mg/dL ??Borderline high: ??75-99 mg/dL ??High: ? >or= 100 mg/dL Ages 10 to 20 years ??Acceptable: ? <90 mg/dL ??Borderline high: ??90-129 mg/dL ??High: ? >or= 130 mg/dL Ages > or = 20 years ??Desirable: ?<150 mg/dL ??Borderline high: ??150-199 mg/dL ??High: ? 200-499 mg/dL ?Very high: ?? >or= 499 mg/dL Literature References: 1. Expert Panel on Integrated Guidelines for Cardiovascular Health and Risk Reduction in Children and Adolescents. Pediatrics 2011;128:S213 2. NCEP Expert Panel. Circulation 2004;110:227 Current Interpretive Data was last revised on 2018. HDL 36(L) >=40 mg/dL [facility] Comment: Interpretive Data Ages < or = 19 years ??Acceptable: ? >45 mg/dL ??Borderline low: ?? 40-45 mg/dL ??Low: ? <40 mg/dL Ages > or = 20 years ??Desirable: ?>or= 60 mg/dL ??Low: ? <40 mg/dL Literature References: 1. Expert Panel on Integrated Guidelines for Cardiovascular Health and Risk Reduction in Children and Adolescents. Pediatrics 2011;128:S213 2. NCEP Expert Panel. Circulation 2004;110:227 Current Interpretive Data was last revised on 2018. LDL, calculated 36 <=129 mg/dL [facility] Comment: Interpretive Data Ages < or = 19 years ??Acceptable: ? <110 mg/dL ??Borderline high: ??110-129 mg/dL ??High: ?>or= 130 mg/dL Ages > or = 20 years ??Optimal: ? <100 mg/dL ??Near optimal: ?100-129 mg/dL ??Borderline high: ?? 130-159 mg/dL ??High: ?>160 mg/dL Calculated using the Lyndon LDL-C estimating equation. This equation was implemented on 2024. Prior to this date LDL-C was estimated using the Friedewald equation. Literature References: 1. Expert Panel on Integrated Guidelines for Cardiovascular Health and Risk Reduction in Children and Adolescents. Pediatrics 2011;128:S213 2. NCEP Expert Panel. Circulation 2004;110:227 3. Lyndon Kahn et al. ERICK Cardiol. 2020 March 26;5(5):540-548. doi: 10.1001/[email or web address] Current Interpretive Data was last revised on 2024. Non-HDL Cholesterol 51 mg/dL [facility] Comment: Interpretive Data Ages < or = 19 years ??Acceptable: ?<120 mg/dL ??Borderline high: ??120-144 mg/dL ??High: ?>145 mg/dL Ages > or = 20 years ??When triglycerides are >200 mg/dL, Non-HDL cholesterol is a secondary target of ? therapy with treatment goals that are 30 mg/dL greater than the LDL cholesterol target. ? Literature References: 1. Expert Panel on Integrated Guidelines for Cardiovascular Health and Risk Reduction in Children and Adolescents. Pediatrics 2011;128:S213 2. NCEP Expert Panel. Circulation 2004;110:227 Current Interpretive Data was last revised on 2018. Chol/HDL ratio 2 [facility] Blood 11/04/2024 11:2 3 AM ETL CONSULTANT 11/04/2024 12:45 PM ETL CONSULTANT Narrative [facility] - 11/04/2024 2:01 PM ETL CONSULTANT This lab is being obtained as part of a liver transplant evaluation, is time sensitive, and should only be drawn during the evaluation visit at [facility]. us Ayden Wylie MD LAB BLOOD ORDERABLES Final Res ult [facility] Department [place] [address] * (ABNORMAL) Comprehensive metabolic panel (11/04/2024 11:23 AM ETL CONSULTANT) Sodium 130(L) 135 - 145 mmol/L Potassium, pl 4.7 3.3 - 4.9 mmol/L [facility] Chloride 100 97 - 110 mmol/L [facility] CO2 23 22 - 32 mmol/L [facility] Anion gap 7 2 - 15 mmol/L [facility] BUN 12 6 - 25 mg/dL [facility] Creatinine 1.02 0.80 - 1.30 mg/dL [facility] Glucose 87 70 - 199 mg/dL [facility] Comment: Interpretive Data Fasting glucose >/= 126 mg/dl is diagnostic for diabetes. ?? Fasting is defined as no caloric intake for at least 8 hours. Fasting glucose between 100 mg/dl to 125 mg/dl is diagnostic of prediabetes. In a patient with classic symptoms of hyperglycemia or hyperglycemic crisis, a random glucose >/= 200 mg/dl is diagnostic for diabetes. In the absence of unequivocal hyperglycemia, results should be confirmed by repeat testing. The classification and Diagnosis of Diabetes Diabetes Care 2021; 46: S19-S40. Current interpretive data was last revised 2022. Calcium 9.1 8.5 - 10.3 mg/dL [facility] Bilirubin, total 1.5(H) 0.1 - 1.2 mg/dL [facility] Protein, pl 7.8 6.5 - 8.5 g/dL [facility] Albumin 3.0(L) 3.5 - 5.0 g/dL [facility] Alk phos 88 40 - 130 Units/L [facility] ALT 11 7 - 55 Units/L [facility] AST 30 10 - 50 Units/L [facility] Blood 11/04/2024 11:2 3 AM ETL CONSULTANT 11/04/2024 12:45 PM ETL CONSULTANT us Ayden Wylie MD LAB BLOOD ORDERABLES Final Res ult [facility] Department [place] [address] * Dexa Axial Skeleton Bone Density 1 or 2 Site (11/04/2024 8:53 AM ETL CONSULTANT) Anatomical Region Laterality Modality Body N/A Digital Radiogra phy 11/04/2024 9:04 AM ETL CONSULTANT Impressions 11/04/2024 10:55 AM ETL CONSULTANT ?? 1. The bone mineral density of the lumbar spine is normal. ?? 2. The bone mineral density of the left femoral neck is mildly decreased. ?? 3. The bone mineral density of the left total hip is normal. ?? 4. Overall, the above findings are diagnostic of low bone mass (osteopenia) by WHO criteria. 5. Based on the FRAX fracture risk model, the 10-year probability for major osteoporotic fracture is 6.5% and that for hip fracture is 2.0%. This 10-year fracture risk estimate was calculated using the risk factors noted in the history above, along with the femoral neck bone density. ??FRAX is intended to help guide treatment decisions in men over age 50 and postmenopausal women with low bone mass (osteopenia). The National Osteoporosis Foundation (NOF) recommends that FDA-approved medical therapies be considered in postmenopausal women and men age 50 years and older with osteoporosis and those with low bone mass whose 10-year fracture probability by FRAX is >= 20% for major osteoporotic fracture or >= 3% for hip fracture. However, all treatment decisions require clinical judgment and consideration of individual patient factors, ??including patient preferences, comorbidities, previous drug use, risk factors not captured in the FRAX model (e.g., frailty, falls, vitamin D deficiency, increased bone turnover, interval significant decline in bone density) and possible under- or overestimation of fracture risk by FRAX. General comments regarding interpretation of bone density measurements: ? A) ??In children, premenopausal woman and males under age 50 not at increased risk for fractures only Z-scores, not T-scores are used to indicate risk. ??A Z-score above -2.0 is defined as within the expected range for age and Z-score at or less than -2.0 is below the expected range for age . ??A Z-score below the expected range for age in a patient with recent fractures and/or chronic corticosteroid treatment is consistent with a diagnosis of osteoporosis. ? B) ??In post menopausal women and males over 50, comparison of the measured bone mineral density with the average value in young normal subjects (the T-score ) has been found to be useful in assessing fracture risk. ??Fracture risk approximately doubles for each 1.0 standard deviation (SD) in individual's hip or spine bone mineral density is below the average value of young normal subjects. ??The World Health Organization (WHO) has defined T-scores of -1.0 to -2.5 as diagnostic of low bone mass (OSTEOPENIA), and T-scores of -2.5 or lower to be diagnostic of OSTEOPOROSIS, based on the site of lowest bone density. ? Note that there will be a change in reporting format and reference databases as patients move from the younger population (group A) to the older population (group B) The National Osteoporosis Foundation (www.nof.org) recommends adequate intake of calcium and vitamin D and regular weight-bearing exercise in all patients. ??They recommend pharmacologic treatment in postmenopausal women and men age 50 and older presenting with any of the following: ? 1) ? Osteoporosis, after appropriate evaluation to exclude secondary causes. ? 2) ? A hip or vertebral (clinical or radiographic) fracture, regardless of the bone density. ? 3) ? Low bone mass (Osteopenia) and one or more of: other prior fractures, secondary causes associated with high risk of fracture (such as glucocorticoid use or total immobilization), or computed high risk of fracture (10-yr probability of hip fracture >= 3% or a 10-yr probability of any major osteoporosis-related fracture >= 20% based on the [place].-adapted WHO algorithm), available at http://www.shef.ac.uk/FRAX). Dictated by: Benedicto Dillard M.D. The radiology attending physician has personally reviewed this study, and had reviewed and/or edited this written report and agrees with it. Electronically signed by: Pebbles Mcgill M.D. Narrative 11/04/2024 10:55 AM ETL CONSULTANT BONE DENSITOMETRY OF THE SPINE AND HIP ?? DATE OF STUDY: ??11/04/2024 ?? HISTORY: ??64-year-old man with active smoking and long-standing liver disease. ??He is not currently being treated for low bone density. Evaluate bone mineral density. ?? Additional risk factors for fracture: ??None. ?? FINDINGS (SPINE): The bone mineral density of L1-L4 was assessed by dual-energy x-ray absorptiometry. The average bone mineral density within this region is 0.971 gm/sq-cm. This is 0.4 standard deviations below the mean of the average bone mineral density for age- and gender-matched subjects (the Z-score). It is 0.7 standard deviations below the mean peak bone mineral density in young adults (the T-score). ?? FINDINGS (FEMORAL NECK): The bone mineral density of the left femoral neck was assessed by dual-energy x-ray absorptiometry. The average bone mineral density within the femoral neck region is 0.664 gm/sq-cm. This is 0.9 standard deviations below the mean of the average bone mineral density for age- and gender-matched subjects (the Z-score). It is 1.7 standard deviations below the mean peak bone mineral density in young adults (the T-score). ?? FINDINGS (TOTAL HIP): The bone mineral density of the left hip was assessed by dual-energy x-ray absorptiometry. The average bone mineral density within the total hip region is 0.828 gm/sq-cm. This is 0.9 standard deviations below the mean of the average bone mineral density for age- and gender-matched subjects (the Z-score). It is 0.9 standard deviations below the mean peak bone mineral density in young adults (the T-score). ?? SUMMARY OF CURRENT RESULTS: Region ? BMD ?T-score ??Z-score ?? AP Spine (L1-L4) ? 0.971 ?? -0.7 ? -0.4 ? Femoral Neck (Left) ?0.664 ?? -1.7 ? -0.9 ? Total Hip (Left) ? 0.828 ?? -0.9 ? -0.9 ? Procedure Note Pebbles Mcgill MD - 11/04/2024 BONE DENSITOMETRY OF THE SPINE AND HIP DATE OF STUDY: 11/04/2024 HISTORY: 64-year-old man with active smoking and long-standing liver disease. He is not currently being treated for low bone density. Evaluate bone mineral density. Additional risk factors for fracture: None. FINDINGS (SPINE): The bone mineral density of L1-L4 was assessed by dual-energy x-ray absorptiometry. The average bone mineral density within this region is 0.971 gm/sq-cm. This is 0.4 standard deviations below the mean of the average bone mineral density for age- and gender-matched subjects (the Z-score). It is 0.7 standard deviations below the mean peak bone mineral density in young adults (the T-score). FINDINGS (FEMORAL NECK): The bone mineral density of the left femoral neck was assessed by dual-energy x-ray absorptiometry. The average bone mineral density within the femoral neck region is 0.664 gm/sq-cm. This is 0.9 standard deviations below the mean of the average bone mineral density for age- and gender-matched subjects (the Z-score). It is 1.7 standard deviations below the mean peak bone mineral density in young adults (the T-score). FINDINGS (TOTAL HIP): The bone mineral density of the left hip was assessed by dual-energy x-ray absorptiometry. The average bone mineral density within the total hip region is 0.828 gm/sq-cm. This is 0.9 standard deviations below the mean of the average bone mineral density for age- and gender-matched subjects (the Z-score). It is 0.9 standard deviations below the mean peak bone mineral density in young adults (the T-score). SUMMARY OF CURRENT RESULTS: Region BMD T-score Z-score AP Spine (L1-L4) 0.971 -0.7 -0.4 Femoral Neck (Left) 0.664 -1.7 -0.9 Total Hip (Left) 0.828 -0.9 -0.9 IMPRESSION: 1. The bone mineral density of the lumbar spine is normal. 2. The bone mineral density of the left femoral neck is mildly decreased. 3. The bone mineral density of the left total hip is normal. 4. Overall, the above findings are diagnostic of low bone mass (osteopenia) by WHO criteria. 5. Based on the FRAX fracture risk model, the 10-year probability for major osteoporotic fracture is 6.5% and that for hip fracture is 2.0%. This 10-year fracture risk estimate was calculated using the risk factors noted in the history above, along with the femoral neck bone density. FRAX is intended to help guide treatment decisions in men over age 50 and postmenopausal women with low bone mass (osteopenia). The National Osteoporosis Foundation (NOF) recommends that FDA-approved medical therapies be considered in postmenopausal women and men age 50 years and older with osteoporosis and those with low bone mass whose 10-year fracture probability by FRAX is >= 20% for major osteoporotic fracture or >= 3% for hip fracture. However, all treatment decisions require clinical judgment and consideration of individual patient factors, including patient preferences, comorbidities, previous drug use, risk factors not captured in the FRAX model (e.g., frailty, falls, vitamin D deficiency, increased bone turnover, interval significant decline in bone density) and possible under- or overestimation of fracture risk by FRAX. General comments regarding interpretation of bone density measurements: A) In children, premenopausal woman and males under age 50 not at increased risk for fractures only Z-scores, not T-scores are used to indicate risk. A Z-score above -2.0 is defined as within the expected range for age and Z-score at or less than -2.0 is below the expected range for age . A Z-score below the expected range for age in a patient with recent fractures and/or chronic corticosteroid treatment is consistent with a diagnosis of osteoporosis. B) In post menopausal women and males over 50, comparison of the measured bone mineral density with the average value in young normal subjects (the T-score ) has been found to be useful in assessing fracture risk. Fracture risk approximately doubles for each 1.0 standard deviation (SD) in individual's hip or spine bone mineral density is below the average value of young normal subjects. The World Health Organization (WHO) has defined T-scores of -1.0 to -2.5 as diagnostic of low bone mass (OSTEOPENIA), and T-scores of -2.5 or lower to be diagnostic of OSTEOPOROSIS, based on the site of lowest bone density. Note that there will be a change in reporting format and reference databases as patients move from the younger population (group A) to the older population (group B) The National Osteoporosis Foundation (www.nof.org) recommends adequate intake of calcium and vitamin D and regular weight-bearing exercise in all patients. They recommend pharmacologic treatment in postmenopausal women and men age 50 and older presenting with any of the followin) Osteoporosis, after appropriate evaluation to exclude secondary causes. 2) A hip or vertebral (clinical or radiographic) fracture, regardless of the bone density. 3) Low bone mass (Osteopenia) and one or more of: other prior fractures, secondary causes associated with high risk of fracture (such as glucocorticoid use or total immobilization), or computed high risk of fracture (10-yr probability of hip fracture >= 3% or a 10-yr probability of any major osteoporosis-related fracture >= 20% based on the [place].-adapted WHO algorithm), available at http://www.shef.ac.uk/FRAX). Dictated by: Benedicto Dillard M.D. The radiology attending physician has personally reviewed this study, and had reviewed and/or edited this written report and agrees with it. Electronically signed by: Pebbles Mcgill M.D. Ayden Wylie MD IMG DXA PROCEDURES Final Resul t * XR Orthopantogram Panorex (11/04/2024 8:42 AM ETL CONSULTANT) Anatomical Region Laterality Modality Head and Neck N/A Panoramic X-Ray 11/04/2024 9:50 AM ETL CONSULTANT Impressions 11/04/2024 10:07 AM ETL CONSULTANT Dental caries along the remaining right most maxillary tooth and the residual 1st right mandibular pre-molar. No periapical lucencies. Dictated by: Carolyn Burnett MD The radiology attending physician has personally reviewed this study, and had reviewed and/or edited this written report and agrees with it. Electronically signed by: Anthony Rodas D.O. Narrative 11/04/2024 10:07 AM ETL CONSULTANT EXAMINATION: XR ORTHOPANTOGRAM/PANOREX HISTORY: ??Liver transplant evaluation FINDINGS: No prior imaging available for comparison. Multiple missing teeth, dental christian of left mandibular molar present. ??Dental caries along the remaining right most maxillary tooth and the residual 1st right mandibular pre-molar. No periapical lucencies noted. Procedure Note Anthony Rodas, - 11/04/2024 EXAMINATION: XR ORTHOPANTOGRAM/PANOREX HISTORY: Liver transplant evaluation FINDINGS: No prior imaging available for comparison. Multiple missing teeth, dental christian of left mandibular molar present. Dental caries along the remaining right most maxillary tooth and the residual 1st right mandibular pre-molar. No periapical lucencies noted. IMPRESSION: Dental caries along the remaining right most maxillary tooth and the residual 1st right mandibular pre-molar. No periapical lucencies. Dictated by: Carolyn Burnett MD The radiology attending physician has personally reviewed this study, and had reviewed and/or edited this written report and agrees with it. Electronically signed by: Anthony Rodas D.O. us Ayden Wylie MD IMG XR PROCEDURES Final Result * XR Chest PA Lateral 2 Views (11/04/2024 8:11 AM ETL CONSULTANT) Anatomical Region Laterality Modality Body, Chest N/A Computed Radiogr aphy 11/04/2024 11:0 5 AM ETL CONSULTANT Impressions 11/04/2024 11:19 AM ETL CONSULTANT Comparison with chest radiograph on 05/05/2024. There is a small right pleural effusion. ??Left pleural effusion is resolved. ??There is mild right basilar atelectasis. ??No pneumothorax. Cardiomediastinal silhouette is normal and unchanged. Dictated by: Waqas Quiroga M.D. The radiology attending physician has personally reviewed this study, and had reviewed and/or edited this written report and agrees with it. Electronically signed by: Michele Medina M.D. Narrative 11/04/2024 11:19 AM ETL CONSULTANT EXAMINATION: 2 view chest radiograph Procedure Note Michele Medina MD - 11/04/2024 EXAMINATION: 2 view chest radiograph IMPRESSION: Comparison with chest radiograph on 05/05/2024. There is a small right pleural effusion. Left pleural effusion is resolved. There is mild right basilar atelectasis. No pneumothorax. Cardiomediastinal silhouette is normal and unchanged. Dictated by: Waqas Quiroga M.D. The radiology attending physician has personally reviewed this study, and had reviewed and/or edited this written report and agrees with it. Electronically signed by: Michele Medina M.D. us Ayden Wylie MD IMG XR PROCEDURES Final Result * US Abdomen W Doppler (11/03/2024 8:04 AM ETL CONSULTANT) Anatomical Region Laterality Modality Abdomen N/A Ultrasound us Historical Provider MD SR US PROCEDURES Final R esult * US Abdomen W Doppler (10/16/2024 12:43 PM ETL CONSULTANT) Anatomical Region Laterality Modality Abdomen N/A Ultrasound us Historical Provider MD SR US PROCEDURES Final R esult * US Abdomen W Doppler (10/01/2024 3:50 PM ETL CONSULTANT) Anatomical Region Laterality Modality Abdomen N/A Ultrasound us Historical Provider MD SR US PROCEDURES Final R esult from Last 3 Months Insurance [employer] [facility] [employer] [facility] [place]ANS[facility] [place] [facility] Advance Directives For more information, please contact: [phone] Documents on File Type Date Recorded Patient Director Data Expl anation ADVANCE DIRECTIVE 11/11/2024 10:19 PM [facility] 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-MEDICAL * Full Code (Latest Code Status on File) Date Activated Date Inactivated Comments 04/23/2024 2:01 AM 05/12/2024 7:22 PM * Full Code Date Activated Date Inactivated Comments 04/10/2024 9:06 AM 04/18/2024 5:41 PM Care Teams Watch Assembly Instructor Relationship Specialty Start Date End Date Young Call NP [address] [place] [address] PCP - General Family Medicine 10/28/24 Robert Brooks MD [address] [address] Referring Physician Gastroenterology 04/03/24 Ayden Wylie MD [address] [facility] [address] [place] [address] Consulting Physician Gastroenterology 09/15/24 Kesha Gutiérrez, icing coaterMop Worker 09/15/24
--- OUTSIDE RECORDS SUMMARY | 2024-12-23 16:31 | XMS_ITS ---
Author Organization [facility] Address [address] [place] [address] Care Team Providers Care Power Lineman Name Role Phone Robert Brooks MD Unavailable [phone] Ayden Nicholson MD Unavailable [phone] Kesha Gutiérrez RN Unavailable Unavailable Young Call NP Primary Care Provider [phone] Transplant Episode Liver Candidate 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
--- OUTSIDE RECORDS SUMMARY | 2024-12-23 16:31 | XMS_ITS | Referral Summary ---
Author Organization [facility] Address [address] [place] [address] Care Team Providers Care Charge Entry Clerk Name Role Phone Robert Brooks MD Unavailable [phone] Ayden Wylie MD Unavailable [phone] Kesha Gutiérrez RN Unavailable Unavailable Young Call NP Primary Care Provider [phone] Encounters Date Type Department Care Team Description 12/23/2024 Telephone [facility] and [facility] Transplant Liver [address] [facility] 34[address] Mailstop [phone] [place] [address] Kesha Gutiérrez, JENNA 12/20/2024 8:15 AM COFOUNDER - 12/20/2024 11:59 PM COFOUNDER Hospital Encounter [facility] [address] [place] [address] Jonathon Leonardo MD Alcoholic cirrhosis of liver with ascites (CMS/HCC) (HCC) Discharge Disposition: Discharge to home or self care 11/28/2024 Orders Only [facility] Health Information Management 1 [place] [address] Kesha Gutiérrez, RN 11/24/2024 Documentation [facility] and [facility] Transplant Liver [address] [facility] [address] Mailstop [phone] [place] [address] Kesha Gutiérrez, RN 11/21/2024 Orders Only [facility] Transplant Liver [address] [facility] [address] Mailstop [phone] [place] [address] Kesha Gutiérrez, RN Alcoholic cirrhosis of liver with ascites (CMS/HCC) (HCC) (Primary Dx) 11/17/2024 Telephone [facility] Social Work 1 [place] [address] Kierra Brower, BLOW TORCH BURNER 11/14/2024 Orders Only [facility] Health Information Management 1 [place] [address] Scanning, Provider 11/14/2024 Telephone [facility] Specialty Services [address] [place] [phone] Christine Harvey RN GI Preprocedure 11/14/2024 Telephone [facility] Transplant Liver [address] [facility] [address] Mailstop 39-36-6 [place] [address] Kesha Gutiérrez, JENNA 11/13/2024 Telephone [facility] and [facility] Transplant Liver [address] [facility] [address] Mailstop 90-19-4 [place] [address] Monolo, Valentine 11/13/2024 Telephone [facility] and [facility] Transplant Liver [address] [facility] [address] Mailstop 90-45-0 [place] [address] Monolo, 11/13/2024 Documentation [facility] and [facility] Transplant Liver [address] [facility] [address] Mailstop 9029-819 [place] [address] Monolo, 11/13/2024 Telephone [facility] and [facility] Transplant Liver [address] [facility] [address] Mailstop 9029-338 [place] [address] Kesha Gutiérrez, RN 11/12/2024 Documentation [facility] and [facility] Transplant Liver [address] [facility] [address] Mailstop [id number] [place] [address] Myriam Lennon 11/12/2024 Telephone [facility] and [facility] Transplant Liver [address] [facility] [address] Mailstop [id number] [place] [address] Kesha Gutiérrez, RN 11/12/2024 Telephone [facility] and [facility] Transplant Liver [address] [facility] [address] Mailstop [id number] [place] [address] Kesha Gutiérrez, RN 11/11/2024 Documentation [facility] and [facility] Transplant Liver [address] [facility] [address] Mailstop [id number] [place] [address] Kesha Gutiérrez, RN 11/11/2024 Orders Only [facility] Health Information Management 1 [place] [address] Kesha Gutiérrez, RN 11/11/2024 Orders Only [facility] Gasteroenterology [address] [facility] 12th [place] [address] [place] [id number] Jonathon Leonardo MD Colon adenoma (Primary Dx) 11/11/2024 Orders Only [facility] and [facility] Transplant Liver [address] [facility] [address] Mailstop [id number] [place] [address] Kesha Gutiérrez, RN 11/11/2024 Telephone [facility] and [facility] Transplant Liver [address] [facility] [address] Mailstop [id number] [place] [address] Kesha Gutiérrez, RN 11/10/2024 Telephone [facility] and [facility] Transplant Liver [address] [facility] [address] Mailstop [id number] [place] [address] Cyndee Baez 11/10/2024 Telephone [facility] and [facility] Transplant Liver [address] [facility] [address] Mailstop [id number] [place] [address] Monolo, 11/10/2024 Telephone [facility] and [facility] Transplant Liver [address] [facility] [address] Mailstop [phone] [place] [address] Monolo, 11/10/2024 Documentation [facility] and [facility] Transplant Liver [address] [facility] [address] Mailstop [phone] [place] [address] Monolo, 11/10/2024 Telephone [facility] and [facility] Transplant Liver [address] [facility] [address] Mailstop [id number] [place] [address] Kesha Gutiérrez, RN 11/07/2024 Documentation [facility] and [facility] Transplant Liver [address] [facility] [address] Mailstop [id number] [place] [address] Vicki, Valentine 11/06/2024 Telephone [facility] and [facility] Transplant Liver [address] [facility] [address] Mail[address] [id number] [place] [address] Kesha Gutiérrez, RN 11/06/2024 Telephone [facility] and [facility] Transplant Liver [address] [facility] [address] Mailstop [id number] [place] [address] Cyndee Baez 11/06/2024 Telephone [facility] and [facility] Transplant Liver [address] [facility] [address] Mailstop 90-298 [place] [address] Cyndee Baez 11/05/2024 Documentation [facility] and [facility] Transplant Liver [address] [facility] [address] Mailstop [phone] [place] [address] Kesha Rockwell, JENNA 11/05/2024 Documentation [facility] and [facility] Transplant Liver [address] [facility] [address] Mailstop [phone] [place] [address] Kesha Rockwell, JENNA 11/05/2024 12:00 PM COFOUNDER Social Work [facility] and [facility] Transplant Center [address] [facility] Advance Medicine, 8th Floor, [place] [address] Kierra Brower LCSW 11/05/2024 1:30 PM COFOUNDER Office Visit [facility] Surgery [address] [facility] 12th [place] [address] [place] [address] Marley Ly PA Alcoholic cirrhosis of liver with ascites (CMS/HCC) (HCC) (Primary Dx) 11/05/2024 8:30 AM COFOUNDER Office Visit [facility] Gasteroenterology [address] [facility] 12th [place] [address] [place] [address] Jonathon Leonardo MD Alcoholic cirrhosis of liver with ascites (CMS/HCC) (HCC) (Primary Dx) 11/05/2024 2:17 PM COFOUNDER - 11/05/2024 11:59 PM COFOUNDER Hospital Encounter [facility] Pulmonary [address] [facility] [address] [place] [address] Encounter for pre-transplant evaluation for liver transplant; Alcoholic liver disease (HCC) Discharge Disposition: Discharge to home or self care 11/05/2024 3:16 PM COFOUNDER - 11/05/2024 11:59 PM COFOUNDER Hospital Encounter [facility] ([facility]) [address] [place] [address] Encounter for pre-transplant evaluation for liver transplant; Alcoholic liver disease (HCC) Discharge Disposition: Discharge to home or self care 11/04/2024 Documentation [facility] and [facility] Transplant Liver [address] Mailstop 90-29-908 [place] [address] Kesha Gutiérrez, RN 11/04/2024 11:00 AM COFOUNDER Lab [facility] ([facility]) [address] [place] [phone] Encounter for pre-transplant evaluation for liver transplant; Alcoholic liver disease (HCC) 11/04/2024 7:57 AM COFOUNDER - 11/04/2024 11:59 PM COFOUNDER Hospital Encounter [facility] ([facility]) [address] [place] [address] Ayden Wylie MD Encounter for pre-transplant evaluation for liver transplant; Alcoholic liver disease (HCC) Discharge Disposition: Discharge to home or self care 11/04/2024 7:56 AM COFOUNDER - 11/04/2024 11:59 PM COFOUNDER Hospital Encounter [facility] ([facility]) [address] [place] [address] Encounter for pre-transplant evaluation for liver transplant; Alcoholic liver disease (HCC) Discharge Disposition: Discharge to home or self care 11/04/2024 7:55 AM COFOUNDER - 11/04/2024 11:59 PM COFOUNDER Hospital Encounter [facility] ([facility]) [address] [place] [address] Encounter for pre-transplant evaluation for liver transplant; Alcoholic liver disease (HCC) Discharge Disposition: Discharge to home or self care 11/04/2024 1:02 PM COFOUNDER - 11/04/2024 11:59 PM COFOUNDER Hospital Encounter [facility] Cardiac Diagnostic Lab 1 [place] [address] Encounter for pre-transplant evaluation for liver transplant; Alcoholic liver disease (HCC) Discharge Disposition: Discharge to home or self care 11/04/2024 9:00 AM COFOUNDER Pre-Admission Testing [facility] for Preoperative Assessment and Planning [facility] ([facility]) [address] [place] [address] 11/04/2024 7:54 AM COFOUNDER - 11/04/2024 11:59 PM COFOUNDER Hospital Encounter [facility] ([facility]) [address] [place] [address] Encounter for pre-transplant evaluation for liver transplant; Alcoholic liver disease (HCC) Discharge Disposition: Discharge to home or self care 11/03/2024 Orders Only [facility] and [facility] Transplant Liver [address] [facility] [address] Mailstop [phone] [place] [address] Robert Reyes MD 11/03/2024 Documentation [facility] and [facility] Transplant Liver [address] [facility] [address] Mailstop [id number] [place] [address] Vicki, 11/03/2024 10:00 AM COFOUNDER Documentation [facility] and [facility] Transplant Center [address] [facility], 8th Floor, [place] [address] Radha Beltran 10/31/2024 Telephone [facility] and [facility] Transplant Liver [address] [facility] [address] Mailstop [phone] [place] [address] Monolo, 10/27/2024 Telephone [facility] and [facility] Transplant Liver [address] [facility] [address] Mailstop [phone] [place] [address] Kesha Gutiérrez, RN 10/27/2024 Telephone [facility] and [facility] Transplant Liver [address] [facility] [address] Mailstop [id number] [place] [address] Cyndee Baez 10/16/2024 Orders Only [facility] and [facility] Transplant Liver [address] [facility] [address] Mailstop [phone] [place] [address] ProviderRobert MD 10/16/2024 Documentation [facility] and [facility] Transplant Liver [address] [facility] [address] Mailstop [id number] [place] [address] Vicki, Valentine 10/01/2024 Orders Only [facility] and [facility] Transplant Liver [address] [facility] [address] Mailstop [phone] [place] [address] ProviderRobert MD 10/01/2024 Documentation [facility] and [facility] Transplant Liver [address] [facility] [address] Mailstop [phone] [place] [address] Vicki, 10/01/2024 Telephone [facility] and [facility] Transplant Liver [address] [facility] [address] Mailstop [phone] [place] [address] Maggie Clement 09/29/2024 Telephone [facility] and [facility] Transplant Liver [address] [facility] [address] Mailstop [facility] [place] [address] Valentine Cohen 09/29/2024 Documentation [facility] and [facility] Transplant Liver [address] [facility] [address] [place] [address] Valentine Cohen 11/04/2024 11:59 PM COFOUNDER Anesthesia Event [facility] Operating Room 1 [place] [address] Fan Cantrell MD PhD Robles, Hero Doblada, MD 09/26/2024 Telephone [facility] and [facility] Transplant Liver [address] [facility] 340 Mailstop [facility] [place] [address] Kesha Gutiérrez, RN 09/26/2024 Telephone [facility] and [facility] Transplant Liver [address] [facility] [address] Mailstop [facility] [place] [address] Kesha Gutiérrez, RN 09/25/2024 Telephone [facility] and [facility] Transplant Liver [address] [place] [address] [address] Mailop [facility] [place] [address] Kesha Gutiérrez, RN 09/23/2024 Telephone [facility] and [facility] Transplant Liver [address] [facility] [place] [address] Kesha Gutiérrez, RN 09/22/2024 Telephone [facility] and [facility] Transplant Liver [address] [place] [address] [place], [place] [address] [place] [address] Kesha Gutiérrez, RN from Last 3 Months Allergies Active Allergy Reactions Criticality Noted Date [...] malnutrition (CMS/HCC) SBP (spontaneous bacterial peritonitis) 04/14/20 24 Assessment & Plan (04/17/2024 3:01 PM CDT): [...] signs of bleeding. Follows with an OSH floorhand -Check HIV and hepatitis panel -Hold diuretics for STEFANY, Hyponatremia. -No current asterixis or encephalopathy. Will start lactulose if this deveops -Needs EGD this admission for variceal screening - Hepatology; f/u recs. -Liver sono on 04/11 with Cirrhotic liver, large Ascites. - S/p Para ( 6 lt) on 04/14 by procedure team, seems clearing MSSA peritonitis Social History Tobacco Use Types Packs/Day Years Used Date Smoking Tobacco: Every Day Cigarettes 2 49.1 Started: 1975 Passive Smoke Exposure: Current Tobacco Cessation:Ready to Q uit: Not Asked; Counseling Given: Not Answered [employer] Answer Date Recorded In the past 12 months has [employer], [employer], or water [employer] threatened to shut off services in your [...] How often do you attend chur or nondenominational services? Never 11/05/2024 Do you belong to any clubs o r organizations such as samaritan groups, unions, fraternal or athletic groups, or [...] any time in the past 12 m [facility], were you homeless or living in a chcf (including now)? No 11/10/2024 Personal Safety Answer Date Recorded Have you ever been in or are you currently in a harmful physical or emotional relationship or is someone making you feel afraid or unsafe? Denies 11/04/2024 Sex and Gender Information Value Date Recorded Sex Assigned at Not on file Legal Sex Male 3:52 AM COFOUNDER Gender Identity Not on file Sexual Orientation Not on file Last Filed Vital Signs Vital Sign Reading Time Taken Comments Blood Pressure 104/70 11/05/2024 1:00 PM COFOUNDER Pulse 79 11/05/2024 8:27 AM COFOUNDER Temperature 36.4 ??C (97.6 ??F) 11/05/2024 1:00 PM CS T Respiratory Rate 16 11/04/2024 9:21 AM COFOUNDER Oxygen Saturation 98% 11/04/2024 9:21 AM COFOUNDER Inhaled Oxygen Concentration - - Weight 70.3 kg (155 lb) 12/20/2024 8:20 AM COFOUNDER Height 177.8 cm (5' 10 ) 12/20/2024 8:20 AM COFOUNDER Body Mass Index 22.24 12/20/2024 8:20 AM COFOUNDER Plan of Treatment Upcoming Encounters Date Type Department Care Team (Latest Contact Info) Description 12/30/2024 12:30 PM COFOUNDER Hospital Encounter [facility] Digestive Disease [place] [id number] [facility] [address] [place] [address] Shruthi Baez MD [address] [address] 12/30/2024 12:30 PM COFOUNDER - 12/30/2024 1:30 PM COFOUNDER Surgery [facility] Digestive Disease [place] [address] [facility] [address] [place] [address] Shruthi Baez MD [address] [address] COLONOSCOPY EMR te/oa interventional Scheduled Procedures Name Priority Associated Diagnoses Date/Ti me COLONOSCOPY Colon polyp 12/30/2024 12:30 PM COFOUNDER COLON BAND LIGATION - ENDOSCOPIC MUCOSAL RESECTION Colon polyp 12/30/2024 12:30 PM COFOUNDER TRANSPLANT LIVER Encounter for pre-transplant evaluation for liver transplant Alcoholic liver disease (HCC) Procedures Procedure Name Priority Date/Time Associated Diagnosis Comments MRI PELVIS W WO CONTRAST Schedule Routine, Read Routine (OP Routine) 12/20/2024 9:41 AM COFOUNDER Alcoholic cirrhosis of liver with ascites (CMS/HCC) (HCC) SCAN - RADIOLOGY/IMAGING 025 11:50 AM COFOUNDER SCAN - RADIOLOGY/IMAGING 024 12:02 PM COFOUNDER SCAN - LABS 11/11/2024 2:39 PM COFOUNDER MRI ABDOMEN LIVER W WO CONTRAST INCLUDING TOTAL VOLUME (C) Schedule Routine, Read Routine (OP Routine) 11/05/2024 4:57 PM COFOUNDER Encounter for pre-transplant evaluation for liver transplant Alcoholic liver disease (HCC) PULMONARY FUNCTION TEST (PFT) Routine 11/05/2024 3:10 PM COFOUNDER Encounter for pre-transplant evaluation for liver transplant Alcoholic liver disease (HCC) STRESS ECHO PHARMACOLOGIC W DOPPLER/CF W CONTRAST Routine 11/04/2024 4:43 PM COFOUNDER Encounter for pre-transplant evaluation for liver transplant Alcoholic liver disease (HCC) ECG 12-LEAD Routine 11/04/2024 11:39 AM COFOUNDER Encounter for pre-transplant evaluation for liver transplant Alcoholic liver disease (HCC) TYPE AND SCREEN Routine 11/04/2024 11:24 AM COFOUNDER Encounter for pre-transplant evaluation for liver transplant Alcoholic liver disease (HCC) SALVADOR ANTIBODY EVALUATION WITH REFLEX Routine 11/04/2024 11:23 AM COFOUNDER Encounter for pre-transplant evaluation for liver transplant Alcoholic liver disease (HCC) ANTI-DOUBLE STRANDED DNA ANTIBODIES Routine 11/04/2024 11:23 AM COFOUNDER Encounter for pre-transplant evaluation for liver transplant Alcoholic liver disease (HCC) COMPREHENSIVE METABOLIC PANEL Routine 11/04/2024 11:23 AM COFOUNDER Encounter for pre-transplant evaluation for liver transplant Alcoholic liver disease (HCC) EGFR Routine 11/04/2024 11:23 AM COFOUNDER CANCER ANTIGEN 19-9 Routine 11/04/2024 11:23 AM COFOUNDER Encounter for pre-transplant evaluation for liver transplant Alcoholic liver disease (HCC) DIFFERENTIAL AUTO Routine 11/04/2024 11:23 AM COFOUNDER Encounter for pre-transplant evaluation for liver transplant Alcoholic liver disease (HCC) [id number], TUMOR MARKER Routine 11/04/2024 11:23 AM COFOUNDER Encounter for pre-transplant evaluation for liver transplant Alcoholic liver disease (HCC) CBC WITH AUTO DIFFERENTIAL Routine 11/04/2024 11:23 AM COFOUNDER Encounter for pre-transplant evaluation for liver transplant Alcoholic liver disease (HCC) GAMMA GT Routine 11/04/2024 11:23 AM COFOUNDER Encounter for pre-transplant evaluation for liver transplant Alcoholic liver disease (HCC) HEMOGLOBIN A1C Routine 11/04/2024 11:23 AM COFOUNDER Encounter for pre-transplant evaluation for liver transplant Alcoholic liver disease (HCC) LIPID PANEL Routine 11/04/2024 11:23 AM COFOUNDER Encounter for pre-transplant evaluation for liver transplant Alcoholic liver disease (HCC) PROTIME-INR Routine 11/04/2024 11:23 AM COFOUNDER Encounter for pre-transplant evaluation for liver transplant Alcoholic liver disease (HCC) APTT Routine 11/04/2024 11:23 AM COFOUNDER Encounter for pre-transplant evaluation for liver transplant Alcoholic liver disease (HCC) THYROID FUNCTION CASCADE Routine 024 11:23 AM COFOUNDER Encounter for pre-transplant evaluation for liver transplant Alcoholic liver disease (HCC) VITAMIN D 25 HYDROXY Routine 11/04/2024 11:23 AM COFOUNDER Encounter for pre-transplant evaluation for liver transplant Alcoholic liver disease (HCC) [id number] PHENOTYPE Routine 11/04/2024 11:23 AM COFOUNDER Encounter for pre-transplant evaluation for liver transplant Alcoholic liver disease (HCC) ETHANOL Routine 11/04/2024 11:23 AM COFOUNDER Encounter for pre-transplant evaluation for liver transplant Alcoholic liver disease (HCC) PSA SCREEN Routine 11/04/2024 11:23 AM COFOUNDER Encounter for pre-transplant evaluation for liver transplant Alcoholic liver disease (HCC) COTININE, SERUM Routine 11/04/2024 11:23 AM COFOUNDER Encounter for pre-transplant evaluation for liver transplant Alcoholic liver disease (HCC) PHOSPHATIDYLETHANOL Routine 11/04/2024 11:23 AM COFOUNDER Encounter for pre-transplant evaluation for liver transplant Alcoholic liver disease (HCC) CARL SCREEN W/REFLEX SALVADOR+DSDNA Routine 11/04/2024 11:23 AM COFOUNDER Encounter for pre-transplant evaluation for liver transplant Alcoholic liver disease (HCC) IRON PROFILE W/ IBC Routine 11/04/2024 11:23 AM COFOUNDER Encounter for pre-transplant evaluation for liver transplant Alcoholic liver disease (HCC) MITOCHONDRIAL ANTIBODIES, QUALITATIVE Routine 11/04/2024 11:23 AM COFOUNDER Encounter for pre-transplant evaluation for liver transplant Alcoholic liver disease (HCC) SMOOTH MUSCLE ANTIBODY, QUALITATIVE Routine 11/04/2024 11:23 AM COFOUNDER Encounter for pre-transplant evaluation for liver transplant Alcoholic liver disease (HCC) TRANSFERRIN Routine 11/04/2024 11:23 AM COFOUNDER Encounter for pre-transplant evaluation for liver transplant Alcoholic liver disease (HCC) CERULOPLASMIN Routine 11/04/2024 11:23 AM COFOUNDER Encounter for pre-transplant evaluation for liver transplant Alcoholic liver disease (HCC) FERRITIN Routine 11/04/2024 11:23 AM COFOUNDER Encounter for pre-transplant evaluation for liver transplant Alcoholic liver disease (HCC) CMV, IGG Routine 11/04/2024 11:23 AM COFOUNDER Encounter for pre-transplant evaluation for liver transplant Alcoholic liver disease (HCC) NGOZI-FUENTES VIRUS VCA ANTIBODY PANEL Routine 11/04/2024 11:23 AM COFOUNDER Encounter for pre-transplant evaluation for liver transplant Alcoholic liver disease (HCC) HIV 1/2 ANTIBODY PLUS P24 ANTIGEN Routine 11/04/2024 11:23 AM COFOUNDER Encounter for pre-transplant evaluation for liver transplant Alcoholic liver disease (HCC) HSV 1 ANTIBODY, IGG Routine 11/04/2024 11:23 AM COFOUNDER Encounter for pre-transplant evaluation for liver transplant Alcoholic liver disease (HCC) HSV 2 ANTIBODY, IGG Routine 11/04/2024 11:23 AM COFOUNDER Encounter for pre-transplant evaluation for liver transplant Alcoholic liver disease (HCC) HEPATITIS A ANTIBODY, TOTAL Routine 11/04/2024 11:23 AM COFOUNDER Encounter for pre-transplant evaluation for liver transplant Alcoholic liver disease (HCC) MEASLES IGG ANTIBODY Routine 11/04/2024 11:23 AM COFOUNDER Encounter for pre-transplant evaluation for liver transplant Alcoholic liver disease (HCC) RPR Routine 11/04/2024 11:23 AM COFOUNDER Encounter for pre-transplant evaluation for liver transplant Alcoholic liver disease (HCC) VARICELLA ZOSTER ANTIBODY, IGG Routine 11/04/2024 11:23 AM COFOUNDER Encounter for pre-transplant evaluation for liver transplant Alcoholic liver disease (HCC) HEPATITIS B CORE ANTIBODY, TOTAL Routine 11/04/2024 11:23 AM COFOUNDER Encounter for pre-transplant evaluation for liver transplant Alcoholic liver disease (HCC) HEPATITIS B SURFACE ANTIGEN Routine 11/04/2024 11:23 AM COFOUNDER Encounter for pre-transplant evaluation for liver transplant Alcoholic liver disease (HCC) HEPATITIS B SURFACE ANTIBODY (IMMUNE STATUS) Routine 11/04/2024 11:23 AM COFOUNDER Encounter for pre-transplant evaluation for liver transplant Alcoholic liver disease (HCC) HEPATITIS C ANTIBODY Routine 11/04/2024 11:23 AM COFOUNDER Encounter for pre-transplant evaluation for liver transplant Alcoholic liver disease (HCC) DEXA AXIAL SKELETON BONE DENSITY 1 OR MORE SITES Schedule Routine, Read Routine (OP Routine) 11/04/2024 8:53 AM COFOUNDER Encounter for pre-transplant evaluation for liver transplant Alcoholic liver disease (HCC) XR ORTHOPANTOGRAM/PANOREX Schedule Routine, Read Routine (OP Routine) 11/04/2024 8:42 AM COFOUNDER Encounter for pre-transplant evaluation for liver transplant Alcoholic liver disease (HCC) XR CHEST PA LATERAL 2 VIEWS Schedule Routine, Read Routine (OP Routine) 11/04/2024 8:11 AM COFOUNDER Encounter for pre-transplant evaluation for liver transplant Alcoholic liver disease (HCC) US ADBDOMEN W DOPPLER Schedule Routine, Read Routine (OP Routine) 11/03/2024 8:04 AM COFOUNDER US ADBDOMEN W DOPPLER Schedule Routine, Read Routine (OP Routine) 10/16/2024 12:43 PM COFOUNDER US ADBDOMEN W DOPPLER Schedule Routine, Read Routine (OP Routine) 10/01/2024 3:50 PM COFOUNDER from Last 3 Months Results * MRI Pelvis W WO Contrast (12/20/2024 9:41 AM COFOUNDER) Anatomical Region Laterality Modality Pelvis N/A Magnetic Resonan ce 12/22/2024 10:5 3 AM COFOUNDER Impressions 12/22/2024 11:17 AM COFOUNDER No MR evidence of rectal mass. Dictated by: Perry Seth MD The radiology attending physician has personally reviewed this study, and had reviewed and/or edited this written report and agrees with it. Electronically signed by: Meseret Casiano M.D. Narrative 12/22/2024 11:17 AM COFOUNDER EXAMINATION: MAGNETIC RESONANCE IMAGING OF THE PELVIS [...] it. Electronically signed by: Meseret Casiano M.D. us Jonathon Leonardo MD IMG MRI PROCEDURES Final Re sult * SCAN - RADIOLOGY/IMAGING (11/28/2024 11:50 AM COFOUNDER) Anatomical Region Laterality Modality Other Kesha Gutiérrez RN Final Result * SCAN - RADIOLOGY/IMAGING (11/14/2024 12:02 PM COFOUNDER) Anatomical Region Laterality Modality Other us Provider Scanning Final Result * SCAN - LABS (11/11/2024 2:39 PM COFOUNDER) us Kesha Gutiérrez RN Final Result * MRI Abdomen Liver W WO Contrast Including Total Volume (C) (11/05/2024 4:57 PM COFOUNDER) Anatomical Region Laterality Modality Body N/A Magnetic Resonan ce 11/06/2024 9:40 AM COFOUNDER Impressions 11/06/2024 11:35 AM COFOUNDER 1. ??Some portal hypertension. ??No suspicious liver lesion. 2. ??Liver volume measuring 1613 sq cm. Dictated by: Jose Portillo MD The radiology attending physician has personally reviewed this study, and had reviewed and/or edited this written report and agrees with it. Electronically signed by: Kee Plascencia M.D. Narrative 11/06/2024 11:35 AM COFOUNDER EXAMINATION: 1. MAGNETIC RESONANCE IMAGING OF THE [...] it. Electronically signed by: Kee Plascencia M.D. Ayden Wylie MD IMG MRI PROCEDURES Final Resul t * Pulmonary Function Test - (11/05/2024 3:10 PM COFOUNDER) FVC PRE 3.[address] [facility] FVC %PRE PRED 76 % [facility] FVC POST 3.[address] [facility] FVC %POST PRED 72 % [facility] FEV1 PRE 2.[address] [facility] FEV1 %PRE PRED 63 % [facility] FEV1 POST 2.[address] [facility] FEV1 %POST PRED 59 % [facility] FEV1/FVC PRE 63.7 % [facility] FEV1/FVC POST 62.7 % [facility] FRC PL PRE 4.[address] [facility] FRC PL %PRE PRED 116 % [facility] RV PRE 2.[address] [facility] RV %PRE PRED 115 % [facility] TLC PRE 5.[address] [facility] TLC %PRE PRED 85 % [facility] DLCO PRE 14.1 ml/min/mmH g [facility] DLCO %PRE PRED 52 % [facility] FIO2 % 21.00 % [facility] PaO2 113.[address] [facility] PaCO2 [address] [facility] pH 7.[address] [facility] A-aDO2 POC 4.[address] [facility] METHGB % 1.0 % [facility] COHb POC 2.4 % [facility] HCO3 18.9 mEq/L [facility] Anatomical Region Laterality Modality PFT 11/05/2024 2:22 PM COFOUNDER Narrative 11/06/2024 8:18 AM COFOUNDER If the P(A-a) is >28 then do shunt study. PFT performed at:->[facility] Adult PFT Lab- [id number] Procedure:->Shunt Assessment Procedure:->Spirometry [...] and %HbO2 is age dependent. However, the [facility] Pulmonary Function Laboratory defines hypoxemia as a PaO2 <56 mm Hg or a %HbO2 <89%. us Ayden Wlyie MD PFT ORDERABLES Final Result * STRESS ECHO PHARMACOLOGIC W DOPPLER/CF W CONTRAST (11/04/2024 4:43 PM COFOUNDER) LV EF 81 % CARDIOREPORT Anatomical Region Laterality Modality Ultrasound 11/04/2024 3:00 PM COFOUNDER Narrative 11/04/2024 5:43 PM COFOUNDER Patient name: Walt Ramirez Date of test: 11/04/2024 Hospital #: [id number] ?Location: [facility] Interpreted by: Maddy Hobson MD Corn Detasseler Machine Operator: Elicia Orta RDCS RN: Mago Carney RN Reason for Test: liver txp eval Study quality: Technically good Referring Physician: AYDEN WYLIE MD Contrast Agent: 0.15 ml Definity Admin., (1.35 ml wasted) and NS Bubble Study BASELINE STUDY: Wall Motion Scoring (1=Normal 2=Hypo 3=Akinetic 4=Dyskin./Aneurysm 0=Not visualized) Parasternal Long North Reading:MAS=1 BAS=1 MIL=1 CAMPOS=1 Parasternal Short North Reading:MAS=1 MIS=1 AK=1 MIL=1 MAL=1 MA=1 Apical 4 Chambers:=1 MIS=1 BIS=1 BAL=1 MAL=1 AL=1 AC=1 Apical 2 Chambers:AI=1 AK=1 BI=1 BA=1 MA=1 AA=1 AC=1 Ejection Fraction: [...] No TS, Mild TR, No PS, No PA, PASP 24mm Hg. Saline study late positive for R>L shunt most c/w extracardiac shunt. Baseline HR: 62 Baseline BP: 106/76 Conduction Defects: None Resting ECG Comments: Normal sinus rhythm. Medications: coreg, spironolactone Meds held: coreg POST DOBUTAMINE STUDY: Wall Motion Scoring (1=Normal 2=Hypo 3=Akinetic 4=Dyskin./Aneurysm 0=Not visualized) Parasternal Long [place] Reading:MAS=1 BAS=1 MIL=1 CAMPOS=1 Parasternal Short North Reading:MAS=1 MIS=1 AK=1 MIL=1 MAL=1 MA=1 Apical 4 Chambers:=1 MIS=1 BIS=1 BAL=1 MAL=1 AL=1 AC=1 Apical 2 Chambers:AI=1 AK=1 BI=1 BA=1 MA=1 AA=1 AC=1 Intravenous dobutamine [...] - 17:43:55 by Maddy Hobson MD ?? Academic Department Chair: Rodolfo Covington MD By signing this report, the attending squeegeer and former certifies that he or she has personally supervised and interpreted the echocardiogram and has reviewed and or edited and agrees with the written comments contained within the report. Procedure Note Maddy Hobson MD - 11/04/2024 Patient name: Walt Ramirez Date of test: 11/04/2024 Hospital #: 0 Location: [facility] Interpreted by: Maddy Hobson MD Corn Detasseler Machine Operator: Elicia Orta RDCS RN: Mago Carney RN Reason for Test: liver txp eval Study quality: Technically good Referring Physician: AYDEN WYLIE MD Contrast Agent: 0.15 ml Definity Admin., (1.35 ml wasted) and NS Bubble Study BASELINE STUDY: Wall Motion Scoring (1=Normal 2=Hypo 3=Akinetic 4=Dyskin./Aneurysm 0=Not visualized) Parasternal Long North Reading:MAS=1 BAS=1 MIL=1 CAMPOS=1 Parasternal Short North Reading:MAS=1 MIS=1 AK=1 MIL=1 MAL=1 MA=1 Apical 4 Chambers:=1 MIS=1 BIS=1 BAL=1 MAL=1 AL=1 AC=1 Apical 2 Chambers:AI=1 AK=1 BI=1 BA=1 MA=1 AA=1 AC=1 Ejection Fraction: [...] No TS, Mild TR, No PS, No PA, PASP 24mm Hg. Saline study late positive for R>L shunt most c/w extracardiac shunt. Baseline HR: 62 Baseline BP: 106/76 Conduction Defects: None Resting ECG Comments: Normal sinus rhythm. Medications: coreg, spironolactone Meds held: coreg POST DOBUTAMINE STUDY: Wall Motion Scoring (1=Normal 2=Hypo 3=Akinetic 4=Dyskin./Aneurysm 0=Not visualized) Parasternal Long North Reading:MAS=1 BAS=1 MIL=1 CAMPOS=1 Parasternal Short North Reading:MAS=1 MIS=1 AK=1 MIL=1 MAL=1 MA=1 Apical 4 Chambers:=1 MIS=1 BIS=1 BAL=1 MAL=1 AL=1 AC=1 Apical 2 Chambers:AI=1 AK=1 BI=1 BA=1 MA=1 AA=1 AC=1 Intravenous dobutamine [...] 11/04/2024 - 17:43:55 by Maddy Hobson MD Academic Department Chair: Rodolfo Covington MD By signing this report, the attending squeegeer and former certifies that he or she has personally supervised and interpreted the echocardiogram and has reviewed and or edited and agrees with the written comments contained within the report. Ayden Wylie MD CV ECHO PROCEDURES Final Resul t * ECG 12 lead (11/04/2024 11:39 AM COFOUNDER) Ventricular Rate EKG/Min 73 BPM [facility] Atrial Rate [address] [facility] PA-Interval (MSEC) [address] [facility] QRS-Interval (MSEC) [address] [facility] QT-Interval (MSEC) [address] [facility] QTc [address] [facility] P North Reading [address] [facility] R North Reading [address] [facility] T North Reading [address] [facility] Diagnosis Normal sinus rhythm Low voltage QRS Borderline ECG No previous ECGs available Confirmed by KIERSTEN HUITRON M.D ([id number]) on 11/04/2024 2:32:[address] [facility] 11/04/2024 11:3 9 AM COFOUNDER 11/04/2024 2:32 PM COFOUNDER Ayden Wylie MD ECG ORDERABLES Final Result [facility] [place] * Type and screen (11/04/2024 11:24 AM COFOUNDER) ABO Rh A Positive Nguyễn, indirect Negative [facility] Blood 11/04/2024 11:2 4 AM COFOUNDER 11/04/2024 1:19 PM COFOUNDER Narrative [facility] - 11/04/2024 2:25 PM COFOUNDER Please draw the ABO and the Type and Screen as two separate blood draws with ??each stamped with the two different times stamps as this is a regulatory requirement for this patient to be listed for liver transplant. ??This lab is being obtained as part of a liver transplant evaluation, is time sensitive, and should only be drawn during the evaluation visit at [address] Lab[address] Has the patient had Daratumumab or Isatuximab in the past 6 months?->Unknown Ayden Wylie MD LAB BLOOD BANK TEST ORDERABLES Final Result [facility] [place] [address] * (ABNORMAL) CARL screen w/rflx SALVADOR+dsDNA (11/04/2024 11:23 AM COFOUNDER) CARL Positive 1:160 Comment: Interpretive Data Normal [...] revised on 2020. CARL, quant 1:160 titer [facility] CARL, interp Speckled(A) [facility] Blood 11/04/2024 11:2 3 AM COFOUNDER 11/04/2024 12:42 PM COFOUNDER Narrative [facility] - 11/06/2024 2:17 PM COFOUNDER Please add the following comment to each lab: This lab is being obtained as part of a liver transplant evaluation, is time sensitive, and should only be drawn during the evaluation visit at [facility] Lab. us Ayden Wylie MD LAB BLOOD ORDERABLES Final Res ult [facility] [place] [address] * Phosphatidylethanol (11/04/2024 11:23 AM COFOUNDER) PHOSPHATIDYLETHANOL Negative . [facility] Comment: ADDITIONAL INFORMATION This report is intended for use in clinical monitoring and management of patients. ??It is not intended for use in employment-related testing. This test was developed and its performance characteristics determined by [facility] in a manner consistent with CLIA requirements. This test has not been cleared or approved by the U.S. Food and Drug Administration. Test Performed by: [place] [address] Ethnographic Materials Conservator: Deven Owens Ph.D.; CLIA# [id number] PEth 16:0/18:1 (POPEth)by LC-MS/MS <10 Cutoff: 10 ng/mL [facility] Comment: Phosphatidylethanol (PEth) homologues result interpretation PEth [...] by LC-MS/MS <10 Cutoff: 10 ng/mL [facility] Comment: PEth 16:0/18:2 (PLPEth) Reference ranges are not well established Blood 11/04/2024 11:2 3 AM COFOUNDER 11/04/2024 2:26 PM COFOUNDER Narrative [facility] - 11/07/2024 4:20 AM COFOUNDER This lab is being obtained as part of a liver transplant evaluation, is time sensitive, and should only be drawn during the evaluation visit at [facility] Lab. Ayden Wylie MD LAB BLOOD ORDERABLES Final Res ult Performing Organization Address [facility] de Phone Number [facility] [place] [address] [facility] ref Lab * Anti-double stranded DNA abs (11/04/2024 11:23 AM COFOUNDER) Pathologist [facility] dsDNA Ab <1.0 <=4.0 IUnits/mL Comment: Interpretive Data Negative: < or = 4 IUnits/mL Indeterminate: 5 - 9 IUnits/mL Positive: > or = 10 IUnits/mL Current interpretive data was last revised on 2017. Blood 11/04/2024 11:2 3 AM COFOUNDER 11/04/2024 12:53 PM COFOUNDER Ayden Wylie MD LAB BLOOD ORDERABLES Final Res ult Performing Organization Address [facility] de Phone Number [facility] [place] [employer] [address] * eGFR (11/04/2024 11:23 AM COFOUNDER) Pathologist [facility] eGFR 83 >=60 mL/min/1. 73 m2 Comment: [...] reviewed 2021. Blood 11/04/2024 11:2 3 AM COFOUNDER 11/04/2024 1:02 PM COFOUNDER us Ayden Wylie MD LAB BLOOD ORDERABLES Final Res ult [facility] [place] [address] * Differential, auto (11/04/2024 11:23 AM COFOUNDER) Neutrophil abs 5.0 1.5 - 6.5 K/cumm Imm gran abs 0.0 0.0 - 0.1 K/cumm [facility] Lymphocyte abs 1.7 0.8 - 3.3 K/cumm [facility] Monocyte abs 0.7 0.2 - 0.8 K/cumm [facility] Eosinophil abs 0.2 0.0 - 0.5 K/cumm [facility] Basophil abs 0.1 0.0 - 0.1 K/cumm [facility] Neutrophil pct 65.9 % [facility] Comment: Interpretive Data Percent cell count reference ranges are not reported, since discordance with absolute values may lead to misinterpretation of CBC data. Current Interpretive Data was last revised on 2018. Imm gran pct 0.3 % [facility] Comment: Interpretive Data Percent cell count reference ranges are not reported, since discordance with absolute values may lead to misinterpretation of CBC data. Current Interpretive Data was last revised on 2018. Lymphocyte pct 21.9 % [facility] Comment: Interpretive Data Percent cell count reference ranges are not reported, since discordance with absolute values may lead to misinterpretation of CBC data. Current Interpretive Data was last revised on 2018. Monocyte pct 8.5 % [facility] Comment: Interpretive Data Percent cell count reference ranges are not reported, since discordance with absolute values may lead to misinterpretation of CBC data. Current Interpretive Data was last revised on 2018. Eosinophil pct 2.0 % [facility] Comment: Interpretive Data Percent cell count reference ranges are not reported, since discordance with absolute values may lead to misinterpretation of CBC data. Current Interpretive Data was last revised on 2018. Basophil pct 1.4 % [facility] Comment: Interpretive Data Percent cell count reference ranges are not reported, since discordance with absolute values may lead to misinterpretation of CBC data. Current Interpretive Data was last revised on 2018. Blood 11/04/2024 11:2 3 AM COFOUNDER 11/04/2024 12:44 PM COFOUNDER Ayden Wylie MD LAB BLOOD ORDERABLES Final Res ult [facility] [place] [address] * SALVADOR ab eval w/reflex (11/04/2024 11:23 AM COFOUNDER) SALVADOR ab Negative Negative Comment: Interpretive Data Positive Screens will be reflexed to specific testing for Antibodies against the following antigens: Desiree-1 Ab, QA ARCHITECT Ab, Scl-70 Ab, Garcia Ab, SS-A/Ro Ab, and SS- B/La Ab. Further testing for dsDNA, Centromere, or Ribosomal P antibodies is suggested in patient with a positive screen and negative specific antibodies. Current interpretive data was last revised on 2023. Blood 11/04/2024 11:2 3 AM COFOUNDER 11/04/2024 12:53 PM COFOUNDER Ayden Wylie MD LAB BLOOD ORDERABLES Final Res ult Performing Organization Address [facility] Co de Phone Number [facility] [place] [address] * Smooth muscle antibody, qualitative (11/04/2024 11:23 AM COFOUNDER) [facility] Anti-smooth muscle Negative Negative Blood 11/04/2024 11:2 3 AM COFOUNDER 11/04/2024 12:42 PM COFOUNDER Narrative [facility] - 11/05/2024 1:40 PM COFOUNDER Please add the following comment to each lab: This lab is being obtained as part of a liver transplant evaluation, is time sensitive, and should only be drawn during the evaluation visit at [address] Lab[address] us Ayden Wylie MD LAB BLOOD ORDERABLES Final Res ult Performing Organization Address [facility] [place] [address] * Thyroid Function [place] (11/04/2024 11:23 AM COFOUNDER) [facility] TSH 1.49 0.30 - 4.20 mcIUnit/mL Blood 11/04/2024 11:2 3 AM COFOUNDER 11/04/2024 12:45 PM COFOUNDER Narrative [facility] 11/04/2024 2:01 PM COFOUNDER This lab is being obtained as part of a liver transplant evaluation, is time sensitive, and should only be drawn during the evaluation visit at [address] Lab[address] Ayden Wylie MD LAB BLOOD ORDERABLES Final Res ult Performing Organization Address [facility] [place] [address] * PSA screen (11/04/2024 11:23 AM COFOUNDER) [facility] PSA-Total 0.12 <=5.40 ng/mL Comment: Interpretive Data ?AGE ? SEX ?REFERENCE INTERVAL 0 minutes-150 years ?Female ?None 0 minutes-49 years ? Male ?None ? 50-59 years ? Male ?0-3.90 ? 60-69 years ? Male ?0-5.40 ? 70-79 years ? Male ?0-6.20 ? 80-150 years ?Male ?0-6.20 The WiFast PSA Total assay procedure was used. Results from different manufacturers or methods may not be comparable. Serial testing should be performed using the same method. Current interpretive data last revised 22. Blood 11/04/2024 11:2 3 AM COFOUNDER 11/04/2024 12:45 PM COFOUNDER Narrative [facility] - 11/04/2024 2:01 PM COFOUNDER Please add the following comment to each lab: This lab is being obtained as part of a liver transplant evaluation, is time sensitive, and should only be drawn during the evaluation visit at [facility] Lab. us Ayden Wylie MD LAB BLOOD ORDERABLES Final Res ult [facility] [place] [address] * Mitochondrial antibodies, qualitative (11/04/2024 11:23 AM COFOUNDER) Anti-mitochond rial Negative Negative Blood 11/04/2024 11:2 3 AM COFOUNDER 11/04/2024 12:42 PM COFOUNDER Narrative [facility] - 11/05/2024 1:31 PM COFOUNDER Please add the following comment to each lab: This lab is being obtained as part of a liver transplant evaluation, is time sensitive, and should only be drawn during the evaluation visit at [address] Ayden Wylie MD LAB BLOOD ORDERABLES Final Res ult Performing Organization Address [facility] de Phone Number [facility] [place] [address] * (ABNORMAL) Iron profile w/ IBC (11/04/2024 11:23 AM COFOUNDER) [facility] Iron 58 50 - 150 mcg/dL TIBC 152(L) 250 - 400 mcg/dL [facility] Transferrin saturation 38 20 - 50 % [facility] Blood 11/04/2024 11:2 3 AM COFOUNDER 11/04/2024 12:45 PM COFOUNDER Narrative [facility] - 11/04/2024 2:54 PM COFOUNDER Please add the following comment to each lab: This lab is being obtained as part of a liver transplant evaluation, is time sensitive, and should only be drawn during the evaluation visit at [address] Ayden Wylie MD LAB BLOOD ORDERABLES Final Res ult Performing Organization Address [facility] de Phone Number [facility] [place] [address] * HIV 1/2 Antibody plus p24 Antigen Blood (11/04/2024 11:23 AM COFOUNDER) [facility] HIV 1/2 ab + p24 ag Nonreactive Nonreactive Comment:Nonreactive for HIV- 1 antigen and HIV-1/HIV-2 antibodies. No laboratory evidence of HIV infection. If acute HIV infection is suspected, consider testing for HIV-1 RNA. Current interpretive data was last revised on 22. Blood 11/04/2024 11:2 3 AM COFOUNDER 11/04/2024 12:42 PM COFOUNDER Narrative [facility] - 11/04/2024 1:32 PM COFOUNDER This lab is being obtained as part of a liver transplant evaluation, is time sensitive, and should only be drawn during the evaluation visit at [facility] Lab. Ayden Wylie MD LAB MICROBIOLOGY - GENERAL ORD ERABLES Final Result Performing Organization Address [facility] [place] [address] * (ABNORMAL) CMV, IgG Blood (11/04/2024 11:23 AM COFOUNDER) [facility] CMV IgG Positive( A) Negative Comment: Interpretive [...] CMV infection. Blood 11/04/2024 11:2 3 AM COFOUNDER 11/04/2024 12:45 PM COFOUNDER Ayden Wylie MD LAB MICROBIOLOGY - GENERAL ORD ERABLES Final Result Performing Organization Address [facility] [place] [address] * (ABNORMAL) Qenoq-2-onwxwrhsqay phenotype (11/04/2024 11:23 AM COFOUNDER) [facility] alpha-1 antitrypsin 206(H) 100 - 190 mg/dL [place] [facility] Comment: ADDITIONAL INFORMATION Method: Nephelometry Test Performed by: [facility] - [address] [address] Ethnographic Materials Conservator: Deven Owens Ph.D.; CLIA# [id number] alpha-1 antitrypsin phenotype MM bands [facility] Comment: A single M isoform is detected. In the context of a normal yqguz-4-ilxufykdpcm concentration, this is consistent with an MM phenotype. ADDITIONAL INFORMATION Method: Isoelectric Focusing, This assay identifies the phenotype of the circulating bssdr-7-tlqsueoqgsb (A1A) protein. If the patient is on replacement therapy or has been recently transfused, the phenotype will detect patient and replacement or transfused plasma A1A protein. This test also cannot detect a null allele which could be responsible for an A1A deficiency. Blood 11/04/2024 11:2 3 AM COFOUNDER 11/04/2024 1:36 PM COFOUNDER Narrative [facility] - 11/07/2024 2:29 PM COFOUNDER Please add the following comment to each lab: This lab is being obtained as part of a liver transplant evaluation, is time sensitive, and should only be drawn during the evaluation visit at [facility] Lab. us Ayden Wylie MD LAB BLOOD ORDERABLES Final Res ult [facility] [place] [address] [place] ref [facility] * (ABNORMAL) CBC with auto differential (11/04/2024 11:23 AM COFOUNDER) WBC 7.6 3.8 - 9.9 K/cumm Hgb 13.1 13.0 - 17.5 g/dL [facility] Hct 38.1(L) 38.9 - 50.3 % [facility] Plt 218 150 - 400 K/cumm [facility] MPV 9.4 9.1 - 12.3 fL [facility] RBC 4.24(L) 4.30 - 5.80 M/cumm [facility] MCV 89.9 81.3 - 96.4 fL [facility] MCH 30.9 27.1 - 33.3 pg [facility] MCHC 34.4 32.3 - 35.7 g/dL [facility] RDW CV 14.6 11.1 - 14.9 % [facility] RDW SD 47.7 35.7 - 48.1 fL [facility] NRBC abs 0.00 0.00 - 0.01 K/cumm [facility] Blood 11/04/2024 11:2 3 AM COFOUNDER 11/04/2024 12:44 PM COFOUNDER Narrative [facility] - 11/04/2024 12:51 PM COFOUNDER This lab is being obtained as part of a liver transplant evaluation, is time sensitive, and should only be drawn during the evaluation visit at [address] Lab. Ayden Wylie MD LAB BLOOD ORDERABLES Final Res ult Performing Organization Address [facility] de Phone Number [facility] [place] [address] * Hepatitis C antibody Blood (11/04/2024 11:23 AM COFOUNDER) Pathologist [facility] Hep C Ab Nonreactive Nonreactive Comment:Antibodies to HCV no t detected. Does NOT exclude the possibility of recent exposure to HCV. Current interpretive data was last revised on 22 Blood 11/04/2024 11:2 3 AM COFOUNDER 11/04/2024 12:42 PM COFOUNDER Narrative [facility] - 11/04/2024 1:37 PM COFOUNDER Please add the following comment to each lab: This lab is being obtained as part of a liver transplant evaluation, is time sensitive, and should only be drawn during the evaluation visit at [address] Ayden Wylie MD LAB MICROBIOLOGY - GENERAL ORD ERABLES Final Result Performing Organization Address [facility] Co de Phone Number [facility] [place] [place] [address] * (ABNORMAL) Ngozi-Fuentes virus (EBV) antibody panel Blood (11/04/2024 11:23 AM COFOUNDER) [facility] EBV nuclear Ab Positive(A) Negative Comment:Indicates the presen ce of detectable IgG antibody to EBV Nuclear Antigen. EBV VCA IgG Positive(A) Negative [facility] Comment:Indicates the presen ce of antibody; 90% of the adult population will have been infected with EBV sometime in the past. EBV VCA IgM Negative Negative [facility] Comment:No detectable IgM an tibody to EBV-VCA. A negative result indicates no current infection with EBV. If clinical suspicion of acute EBV infection is present, testing should be repeated after one week. EBV interp Past Infection [facility] Blood 11/04/2024 11:2 3 AM COFOUNDER 11/04/2024 12:42 PM COFOUNDER Narrative [facility] - 11/04/2024 2:37 PM COFOUNDER This lab is being obtained as part of a liver transplant evaluation, is time sensitive, and should only be drawn during the evaluation visit at [address] Lab. Ayden Wylie MD LAB MICROBIOLOGY - GENERAL ORD ERABLES Final Result Performing Organization Address [facility] Co de Phone Number [facility] [place] [address] * Hepatitis A antibody, total Blood (11/04/2024 11:23 AM COFOUNDER) Pathologist [facility] Hep A total Nonreactive Nonreactive Blood 11/04/2024 11:2 3 AM COFOUNDER 11/04/2024 12:42 PM COFOUNDER Narrative [facility] - 11/04/2024 1:37 PM COFOUNDER This lab is being obtained as part of a liver transplant evaluation, is time sensitive, and should only be drawn during the evaluation visit at [address] Ayden Wylie MD LAB MICROBIOLOGY - GENERAL ORD ERABLES Final Result Performing Organization Address City/[facility]/ZIP Co de Phone Number [facility] [place] [address] * (ABNORMAL) Cancer antigen 19-9 (11/04/2024 11:23 AM COFOUNDER) [facility] CA 19-9 ag 37.5(H) <=35.0 units/mL Comment: Interpretive Data [employer] CA 19-9 assay procedure was used. Results from different manufacturers or methods may not be comparable. Serial testing should be performed using the same method. Blood 11/04/2024 11:2 3 AM COFOUNDER 11/04/2024 12:45 PM COFOUNDER Result [facility] Ayden Wylie MD LAB BLOOD ORDERABLES Final Res ult Performing Organization Address [facility] de Phone Number [facility] [place] [address] * Ceruloplasmin (11/04/2024 11:23 AM COFOUNDER) Ceruloplasmin 18.9 15.0 - 30.0 mg/dL Blood 11/04/2024 11:2 3 AM COFOUNDER 11/04/2024 12:45 PM COFOUNDER Narrative [facility] 11/04/2024 2:54 PM COFOUNDER Please add the following comment to each lab: This lab is being obtained as part of a liver transplant evaluation, is time sensitive, and should only be drawn during the evaluation visit at [address] Lab. Result [facility] Ayden Wylie MD LAB BLOOD ORDERABLES Final Res ult Performing Organization Address [facility] Phone Number [facility] [place] [employer] [place] [address] * (ABNORMAL) Measles IgG antibody Blood (11/04/2024 11:23 AM COFOUNDER) Pathologist [facility] Measles IgG Nonreactiv e(A) Comment:Non-reactive: No det ectable antibody to measles.??Such individuals are presumed to be uninfected and susceptible to primary infection. Blood 11/04/2024 11:2 3 AM COFOUNDER 11/04/2024 12:42 PM COFOUNDER Narrative [facility] 11/04/2024 2:43 PM COFOUNDER This lab is being obtained as part of a liver transplant evaluation, is time sensitive, and should only be drawn during the evaluation visit at [address] Lab. Ayden Wylie MD LAB MICROBIOLOGY - GENERAL ORD ERABLES Final Result Performing Organization Address [facility]/ZIP Co de Phone Number [facility] [place] [address] * Rlcqa-2-Vylqqpwgkfr, Tumor Marker (11/04/2024 11:23 AM COFOUNDER) Pathologist [facility] alpha Fetoprotein 4.2 <=8.3 ng/mL Comment: Interpretive [...] et al. Clin Chem Lab Med 2018;[id number] Layne Jacobo et al. ??Clin Chem 2014;[id number]. Current interpretive data was last revised 2022. Blood 11/04/2024 11:2 3 AM COFOUNDER 11/04/2024 12:45 PM COFOUNDER Narrative [facility] - 11/04/2024 8:25 PM COFOUNDER This lab is being obtained as part of a liver transplant evaluation, is time sensitive, and should only be drawn during the evaluation visit at [facility] Lab. us Ayden Wylie MD LAB BLOOD ORDERABLES Final Res ult Performing Organization Address City/[facility]/ZIP Co de Phone Number [facility] [place] [address] * (ABNORMAL) Cotinine level (11/04/2024 11:23 AM COFOUNDER) Pathologist [facility] Nicotine 19(H) <3.0 ng/mL [place] [facility] Cotinine, quant, sr 429(H) <3.0 ng/mL [facility] Comment: ADDITIONAL INFORMATION This test was developed and its performance characteristics determined by [facility] in a manner consistent with CLIA requirements. This test has not been cleared or approved by the U.S. Food and Drug Administration. Test Performed by: [facility] [address] [place] [address] Ethnographic Materials Conservator: Deven Owens Ph.D.; CLIA# [id number] Blood 11/04/2024 11:2 3 AM COFOUNDER 11/04/2024 1:36 PM COFOUNDER Narrative [facility] - 11/06/2024 10:53 AM COFOUNDER This lab is being obtained as part of a liver transplant evaluation, is time sensitive, and should only be drawn during the evaluation visit at [address] Ayden Wylie MD LAB BLOOD ORDERABLES Final Res ult Performing Organization Address City/[facility]/ZIP Co de Phone Number [facility] [place] [address] [place] ref [facility] * Hepatitis B core antibody, total Blood (11/04/2024 11:23 AM COFOUNDER) Hep B core IgG/IgM Nonreactive Nonreactive Blood 11/04/2024 11:2 3 AM COFOUNDER 11/04/2024 12:42 PM COFOUNDER Narrative [facility] - 11/04/2024 1:37 PM COFOUNDER Please add the following comment to each lab: This lab is being obtained as part of a liver transplant evaluation, is time sensitive, and should only be drawn during the evaluation visit at [address]. Ayden Wylie MD LAB MICROBIOLOGY - GENERAL ORD ERABLES Final Result Performing Organization Address City/[facility]/ZIP Co de Phone Number [facility] [place] [address] * (ABNORMAL) Vitamin D 25 hydroxy (11/04/2024 11:23 AM COFOUNDER) [facility] Vitamin D 25-OH 10(L) 30 - 80 ng/mL Blood 11/04/2024 11:2 3 AM COFOUNDER 11/04/2024 12:45 PM COFOUNDER Narrative [facility] - 11/04/2024 2:01 PM COFOUNDER This lab is being obtained as part of a liver transplant evaluation, is time sensitive, and should only be drawn during the evaluation visit at [address] Ayden Wylie MD LAB BLOOD ORDERABLES Final Res ult Performing Organization Address [facility]/[place] [address] * (ABNORMAL) HSV 2 IgG Antibody Blood (11/04/2024 11:23 AM COFOUNDER) [facility] HSV 2 IgG Reactive( A) Nonreactive Comment: Interpretive Data 1. Nonreactive: No detectable IgG antibody to HSV-2. 2. Equivocal: Presence or absence of detectable antibodies to HSV-2 cannot be determined and the test should be repeated. 3. Reactive: Indicates presence of detectable IgG antibody to HSV-2. Current interpretive data was last revised on 2023. Blood 11/04/2024 11:2 3 AM COFOUNDER 11/04/2024 12:42 PM COFOUNDER Narrative [facility] - 11/04/2024 2:42 PM COFOUNDER This lab is being obtained as part of a liver transplant evaluation, is time sensitive, and should only be drawn during the evaluation visit at [address] Ayden Wylie MD LAB MICROBIOLOGY - GENERAL ORD ERABLES Final Result Performing Organization Address City/[facility]/ZIP Co de Phone Number [facility] [place] [address] * HSV 1 IgG Antibody Blood (11/04/2024 11:23 AM COFOUNDER) [facility] HSV 1 IgG Nonreactive Nonreactive Comment: Interpretive Data 1. Nonreactive: No detectable IgG antibody to HSV-1. 2. Equivocal: Presence or absence of detectable antibodies to HSV-1 cannot be determined and the test should be repeated. 3. Reactive: Indicates presence of detectable IgG antibody to HSV-1. Current interpretive data was last revised on 2017. Blood 11/04/2024 11:2 3 AM COFOUNDER 11/04/2024 12:42 PM COFOUNDER Narrative [facility] - 11/04/2024 2:42 PM COFOUNDER This lab is being obtained as part of a liver transplant evaluation, is time sensitive, and should only be drawn during the evaluation visit at [address] Lab. Ayden Wylie MD LAB MICROBIOLOGY - GENERAL ORD ERABLES Final Result Performing Organization Address City/[facility] Co de Phone Number [facility] [place] [address] * RPR Blood (11/04/2024 11:23 AM COFOUNDER) [facility] RPR Nonreactive Nonreactive Blood 11/04/2024 11:2 3 AM COFOUNDER 11/04/2024 12:44 PM COFOUNDER Narrative [facility] - 11/04/2024 1:41 PM COFOUNDER This lab is being obtained as part of a liver transplant evaluation, is time sensitive, and should only be drawn during the evaluation visit at [address] Lab. us Ayden Wylie MD LAB MICROBIOLOGY - GENERAL ORD ERABLES Final Result [facility] [place] [address] * Hepatitis B surface antibody (immune status) Blood (11/04/2024 11:23 AM COFOUNDER) [facility] HBsAb (immune status) Nonreactive Comment:This result is consi stent with a lack of immunity to Hepatitis B Virus when used in the setting of routine screening. Current interpretative data was last revised on 22 Blood 11/04/2024 11:2 3 AM COFOUNDER 11/04/2024 12:42 PM COFOUNDER Narrative [facility] 11/04/2024 1:37 PM COFOUNDER Please add the following comment to each lab: This lab is being obtained as part of a liver transplant evaluation, is time sensitive, and should only be drawn during the evaluation visit at [address] Lab. Ayden Wylie MD LAB MICROBIOLOGY - GENERAL ORD ERABLES Final Result Performing Organization Address [facility] Co de Phone Number [facility] [place] [employer] [address] * Hepatitis B Surface Antigen Blood (11/04/2024 11:23 AM COFOUNDER) HepBsAg Nonreactive Nonreactive Blood 11/04/2024 11:2 3 AM COFOUNDER 11/04/2024 12:42 PM COFOUNDER Narrative [facility] 11/04/2024 1:37 PM COFOUNDER Please add the following comment to each lab: This lab is being obtained as part of a liver transplant evaluation, is time sensitive, and should only be drawn during the evaluation visit at [address] Lab. Ayden Wylie MD LAB MICROBIOLOGY - GENERAL ORD ERABLES Final Result Performing Organization Address [facility] Co de Phone Number [facility] [place] [address] * (ABNORMAL) aPTT (11/04/2024 11:23 AM COFOUNDER) aPTT 41(H) 28 - 38 sec Comment: Interpretive Data Heparin therapeutic range: 66.0 - 100.0 seconds. Range based on correlation with therapeutic heparin activity range of 0.3 - 0.7 Units/mL. Current interpretive data was last revised on 2023. Blood 11/04/2024 11:2 3 AM COFOUNDER 11/04/2024 12:42 PM COFOUNDER Narrative [facility] - 11/04/2024 1:00 PM COFOUNDER This lab is being obtained as part of a liver transplant evaluation, is time sensitive, and should only be drawn during the evaluation visit at [address] Lab. Ayden Wylie MD LAB BLOOD ORDERABLES Final Res ult Performing Organization Address [facility] Co de Phone Number [facility] [place] [address] * (ABNORMAL) Protime-INR (11/04/2024 11:23 AM COFOUNDER) Pathologist [facility] PT 19.0(H) 9.7 - 13.0 sec INR 1.74(H) 0.90 - 1.20 [facility] Comment: Interpretive data Oral anticoagulant therapeutic ranges: Venous thromboembolism prophylaxis or treatment: 2.0-3.0 CARDIOLOGY Standard range: 2.0-3.0 High-intensity range: 2.5-3.5 Refer to indication-specific guidelines for appropriate target ranges for prosthetic heart valve replacement. Current interpretive data was last revised on 2019. Blood 11/04/2024 11:2 3 AM COFOUNDER 11/04/2024 12:42 PM COFOUNDER Narrative [facility] - 11/04/2024 1:00 PM COFOUNDER This lab is being obtained as part of a liver transplant evaluation, is time sensitive, and should only be drawn during the evaluation visit at [address] Ayden Wylie MD LAB BLOOD ORDERABLES Final Res ult Performing Organization Address [facility] Co de Phone Number [facility] [place] [address] * Varicella Zoster IgG antibody Blood (11/04/2024 11:23 AM COFOUNDER) VZV IgG Reactive Reactive Comment:Reactive: Results yang ggest response to immunization or prior exposure to the virus. Blood 11/04/2024 11:2 3 AM COFOUNDER 11/04/2024 12:42 PM COFOUNDER Narrative [facility] - 11/04/2024 2:43 PM COFOUNDER This lab is being obtained as part of a liver transplant evaluation, is time sensitive, and should only be drawn during the evaluation visit at [address] Lab. Ayden Wylie MD LAB MICROBIOLOGY - GENERAL ORD ERABLES Final Result Performing Organization Address [facility] de Phone Number [facility] [place] [address] * (ABNORMAL) Transferrin (11/04/2024 11:23 AM COFOUNDER) [facility] Transferrin 154(L) 200 - 360 mg/dL Blood 11/04/2024 11:2 3 AM COFOUNDER 11/04/2024 12:45 PM COFOUNDER Narrative [facility] 11/04/2024 2:47 PM COFOUNDER Please add the following comment to each lab: This lab is being obtained as part of a liver transplant evaluation, is time sensitive, and should only be drawn during the evaluation visit at [address] Lab. Ayden Wylie MD LAB BLOOD ORDERABLES Final Res ult Performing Organization Address [facility] de Phone Number [facility] [place] [address] * Hemoglobin A1c (11/04/2024 11:23 AM COFOUNDER) [facility] Hgb A1C 5.5 4.0 - 5.6 % Estimated Average Glucose 111 mg/dL [facility] Comment: The ADA recommends reporting an estimated Average Glucose (eAG) with all Hemoglobin A1c results using the equation derived from a study of 507 normal and diabetic adults. ??Minority populations were underrepresented and children were not included. ?? (Diabetes Care 2020; 43(S1): S66-S76). ??The eAG is not equivalent to a fasting glucose. Blood 11/04/2024 11:2 3 AM COFOUNDER 11/04/2024 12:42 PM COFOUNDER Narrative [facility] - 11/04/2024 1:59 PM COFOUNDER This lab is being obtained as part of a liver transplant evaluation, is time sensitive, and should only be drawn during the evaluation visit at [address] Ayden Wylie MD LAB BLOOD ORDERABLES Final Res ult Performing Organization Address [facility] Co de Phone Number [facility] [place] [address] * Gamma GT (11/04/2024 11:23 AM COFOUNDER) GGT 18 10 - 50 Units/L Blood 11/04/2024 11:2 3 AM COFOUNDER 11/04/2024 12:45 PM COFOUNDER Narrative [facility] - 11/04/2024 2:01 PM COFOUNDER This lab is being obtained as part of a liver transplant evaluation, is time sensitive, and should only be drawn during the evaluation visit at [address] Ayden Wylie MD LAB BLOOD ORDERABLES Final Res ult Performing Organization Address [facility] de Phone Number [facility] [place] [address] * (ABNORMAL) Ferritin (11/04/2024 11:23 AM COFOUNDER) Ferritin 477(H) 30 - 400 ng/mL Blood 11/04/2024 11:2 3 AM COFOUNDER 11/04/2024 12:45 PM COFOUNDER Narrative [facility] - 11/04/2024 2:01 PM COFOUNDER Please add the following comment to each lab: This lab is being obtained as part of a liver transplant evaluation, is time sensitive, and should only be drawn during the evaluation visit at [address] Ayden Wylie MD LAB BLOOD ORDERABLES Final Res ult Performing Organization Address [facility] Co de Phone Number [facility] [place] [address] * Ethanol (11/04/2024 11:23 AM COFOUNDER) Ethanol <10 <=10 mg/dL Comment: Interpretive Data Legal limit of intoxication > or = 80 mg/dL Levels > or = 400 mg/dL are potentially TOXIC. Current interpretive data was last revised on 2019. Blood 11/04/2024 11:2 3 AM COFOUNDER 11/04/2024 12:45 PM COFOUNDER Narrative [facility] - 11/04/2024 2:01 PM COFOUNDER Please add the following comment to each lab: This lab is being obtained as part of a liver transplant evaluation, is time sensitive, and should only be drawn during the evaluation visit at [facility] Lab. us Ayden Wylie MD LAB BLOOD ORDERABLES Final Res ult Performing Organization Address City/State/[facility] Co de Phone Number [facility] [place] [address] * (ABNORMAL) Lipid panel (11/04/2024 11:23 AM COFOUNDER) Cholesterol 87 30 - 199 mg/dL Comment: [...] revised on 2018. Triglycerides 72 <=149 mg/dL [facility] Comment: Interpretive Data Ages < or [...] revised on 2018. HDL 36(L) >=40 mg/dL [facility] Comment: Interpretive Data Ages < or = [...] on 2018. LDL, calculated 36 <=129 mg/dL [facility] Comment: Interpretive Data Ages < or [...] revised on 2024. Non-HDL Cholesterol 51 mg/dL [facility] Comment: Interpretive Data Ages < or = [...] last revised on 2018. Chol/HDL ratio 2 [facility] Blood 11/04/2024 11:2 3 AM COFOUNDER 11/04/2024 12:45 PM COFOUNDER Narrative [facility] - 11/04/2024 2:01 PM COFOUNDER This lab is being obtained as part of a liver transplant evaluation, is time sensitive, and should only be drawn during the evaluation visit at [facility]. us Ayden Wylie MD LAB BLOOD ORDERABLES Final Res ult [facility] [place] [address] * (ABNORMAL) Comprehensive metabolic panel (11/04/2024 11:23 AM COFOUNDER) Sodium 130(L) 135 - 145 mmol/L Potassium, pl 4.7 3.3 - 4.9 mmol/L [facility] Chloride 100 97 - 110 mmol/L [facility] CO2 23 22 - 32 mmol/L [facility] Anion gap 7 2 - 15 mmol/L [facility] BUN 12 6 - 25 mg/dL [facility] Creatinine 1.02 0.80 - 1.30 mg/dL [facility] Glucose 87 70 - 199 mg/dL [facility] Comment: Interpretive Data Fasting glucose >/= 126 [...] 2022. Calcium 9.1 8.5 - 10.3 mg/dL [facility] Bilirubin, total 1.5(H) 0.1 - 1.2 mg/dL [facility] Protein, pl 7.8 6.5 - 8.5 g/dL [facility] Albumin 3.0(L) 3.5 - 5.0 g/dL [facility] Alk phos 88 40 - 130 Units/L [facility] ALT 11 7 - 55 Units/L [facility] AST 30 10 - 50 Units/L [facility] Blood 11/04/2024 11:2 3 AM COFOUNDER 11/04/2024 12:45 PM COFOUNDER us Ayden Wylie MD LAB BLOOD ORDERABLES Final Res ult [facility] [place] [address] * Dexa Axial Skeleton Bone Density 1 or 2 Site (11/04/2024 8:53 AM COFOUNDER) Anatomical Region Laterality Modality Body N/A Digital Radiogra phy 11/04/2024 9:04 AM COFOUNDER Impressions 11/04/2024 10:55 AM COFOUNDER ?? 1. The bone mineral density of [...] Pebbles Mcgill M.D. Narrative 11/04/2024 10:55 AM COFOUNDER BONE DENSITOMETRY OF THE SPINE AND HIP [...] * XR Orthopantogram Panorex (11/04/2024 8:42 AM COFOUNDER) Anatomical Region Laterality Modality Head and Neck N/A Panoramic X-Ray 11/04/2024 9:50 AM COFOUNDER Impressions 11/04/2024 10:07 AM COFOUNDER Dental caries along the remaining right most maxillary tooth and the residual 1st right mandibular pre-molar. No periapical lucencies. Dictated by: Carolyn Burnett MD The radiology attending physician has personally reviewed this study, and had reviewed and/or edited this written report and agrees with it. Electronically signed by: Anthony Rodas D.O. Narrative 11/04/2024 10:07 AM COFOUNDER EXAMINATION: XR ORTHOPANTOGRAM/PANOREX HISTORY: ??Liver transplant evaluation FINDINGS: No prior imaging available for comparison. Multiple missing teeth, dental taoist of left mandibular molar present. ??Dental caries along the remaining right most maxillary tooth and the residual 1st right mandibular pre-molar. No periapical lucencies noted. Procedure Note Anthony Rodas DO - 11/04/2024 EXAMINATION: XR ORTHOPANTOGRAM/PANOREX HISTORY: Liver transplant evaluation FINDINGS: No prior imaging available for comparison. Multiple missing teeth, dental taoist of left mandibular molar present. Dental caries [...] signed by: Anthony Rodas D.O. us Ayden GIBSONG XR PROCEDURES Final Result * XR Chest PA Lateral 2 Views (11/04/2024 8:11 AM COFOUNDER) Anatomical Region Laterality Modality Body, Chest N/A Computed Radiogr aphy 11/04/2024 11:0 5 AM COFOUNDER Impressions 11/04/2024 11:19 AM COFOUNDER Comparison with chest radiograph on 05/05/2024. There [...] Michele Medina M.D. Narrative 11/04/2024 11:19 AM COFOUNDER EXAMINATION: 2 view chest radiograph Procedure Note [...] Michele Medina M.D. us Ayden Wylie MD IMJayme XR PROCEDURES Final Result * US Abdomen W Doppler (11/03/2024 8:04 AM COFOUNDER) Anatomical Region Laterality Modality Abdomen N/A Ultrasound us Historical Provider MD SR US PROCEDURES Final R esult * US Abdomen W Doppler (10/16/2024 12:43 PM COFOUNDER) Anatomical Region Laterality Modality Abdomen N/A Ultrasound us Historical Provider IMJayme US PROCEDURES Final R esult * US Abdomen W Doppler (10/01/2024 3:50 PM COFOUNDER) Anatomical Region Laterality Modality Abdomen N/A Ultrasound us Historical Provider MD SR US PROCEDURES Final R esult from Last 3 Months Insurance [facility] - [employer] [facility] Advance Directives For more information, please contact: [phone] Documents on File Type Date Recorded Patient Vamper Expl anation ADVANCE DIRECTIVE 11/11/2024 10:19 PM [facility] [employer]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 * Full Code (Latest Code Status on File) Date Activated Date Inactivated Comments 04/23/2024 2:01 AM 05/12/2024 7:22 PM * Full Code Date Activated Date Inactivated Comments 04/10/2024 9:06 AM 04/18/2024 5:41 PM Care Teams Charge Entry Clerk Relationship Specialty Start Date End Date Young Call NP [address] [place] [address] PCP - General Family Medicine 10/28/24 Robert Brooks MD [address] [address] Referring Physician Gastroenterology 04/03/24 Ayden Wylie MD [address] [facility] [address] [place] [address] Consulting Physician Gastroenterology 09/15/24 Kesha Gutiérrez, billet shearerCase Investigator 09/15/24
--- OUTSIDE RECORDS SUMMARY | 2024-12-23 16:31 | XMS_ITS | Clinical Summary ---
Author Organization [facility] Address [address] [place] [address] Phone Care Team Providers Care Canvas Repairer Name Role Phone Call, Young POWERS, SHUTTLE FINAL INSPECTOR Primary Care Provider + Allergies Active Allergy Reactions Criticality Noted Date Comments Aspirin Unknown,Swelling 02/08/2024 Medications spironolactone (ALDACTONE) 100 MG Tablet Take 1 Tablet by mouth daily. 90 Tablet 05/30/2024 Active carvedilol (COREG) 6.25 MG Tablet Take 6.25 mg by mouth nightly. Active VITAMIN D PO Take 5,000 Units by mouth once a week. 8 weeks then after 8 weeks 2000 IU daily Active Active Problems Problem Noted Date Diagnosed Date Sepsis 05/27/2024 ALC (alcoholic liver cirrhosis) 05/26/2024 Pleural effusion 03/26/2024 Overview (05/26/2024): s/p thoracentesis on right Spontaneous bacterial peritonitis 03/26/2024 Alcohol abuse Severe protein-calorie malnutrition Thrombocytopenia Hyponatremia Overview (05/26/2024): associated with chronic etoh abuse Tobacco abuse Encounters Date Type Department Care Team Description 12/16/2024 10:00 AM FINANCIAL ACCOUNTANT - 12/16/2024 10:30 AM FINANCIAL ACCOUNTANT Surgery [facility] Periop [address] [place] [address] Provider, Not On File PRE / POST CARE FOR PROCEDURAL AREA-PARACENTESIS 12/16/2024 9:16 AM FINANCIAL ACCOUNTANT - 12/16/2024 11:59 PM FINANCIAL ACCOUNTANT [facility] Ultrasound [address] [place] [address] Ayden Nicholson MD Discharge Disposition: Discharged to home or Selfcare 12/16/2024 9:08 AM FINANCIAL ACCOUNTANT - 12/16/2024 11:18 AM FINANCIAL ACCOUNTANT [facility] Preop/Pacu II [address] [place] [address] Ortiz Montenegro MD Discharge Disposition: Discharged to home or Selfcare 12/16/2024 Travel 12/04/2024 Transcribe Orders [facility] Diagnostic Radiology [address] [place] [address] Ortiz Montenegro MD Alcoholic cirrhosis of liver with ascites (HCC) (Primary Dx); Pre-operative laboratory examination; Encounter for therapeutic drug monitoring; Other middle or intermediate school principal (current) drug therapy 12/03/2024 Transcribe Orders [facility] Central Scheduling [address] [place] [address] Ayden Nicholson MD 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) (Primary Dx) 11/28/2024 10:00 AM FINANCIAL ACCOUNTANT - 11/28/2024 10:30 AM FINANCIAL ACCOUNTANT [facility] Periop [address] [place] [address] Provider, Not On File PRE / POST CARE FOR PROCEDURAL AREA - PARACENTESIS 11/28/2024 9:20 AM FINANCIAL ACCOUNTANT - 11/28/2024 11:59 PM FINANCIAL ACCOUNTANT [facility] Ultrasound [address] [place] [address] Ayden Nicholson MD Provider, Anesthesiologist Discharge Disposition: Discharged to home or Selfcare 11/28/2024 9:19 AM FINANCIAL ACCOUNTANT - 11/28/2024 11:30 AM FINANCIAL ACCOUNTANT [facility] Periop [address] [place] [address] Provider, Not On File Ayden Nicholson MD Discharge Disposition: Discharged to home or Selfcare 11/28/2024 Travel 11/14/2024 10:00 AM FINANCIAL ACCOUNTANT - 11/14/2024 10:30 AM FINANCIAL ACCOUNTANT [facility] Periop [address] [place] [address] Provider, Not On File PRE / POST CARE FOR PROCEDURAL AREA-PARACENTESIS 11/14/2024 9:23 AM FINANCIAL ACCOUNTANT - 11/14/2024 11:59 PM FINANCIAL ACCOUNTANT [facility] Ultrasound [address] [place] [address] Ayden Nicholson MD Provider, Anesthesiologist Discharge Disposition: Discharged to home or Selfcare 11/14/2024 9:07 AM FINANCIAL ACCOUNTANT - 11/14/2024 11:51 AM FINANCIAL ACCOUNTANT [facility] Preop/Pacu II [address] [place] [address] Provider, Not On File Obed Silva MD Discharge Disposition: Discharged to home or Selfcare 11/14/2024 Results Follow-Up [facility] [address] [place] [address] Sabine Hooper RN 11/14/2024 Travel 11/10/2024 12:00 PM FINANCIAL ACCOUNTANT - 11/10/2024 12:30 PM FINANCIAL ACCOUNTANT [facility] Periop [address] [place] [address] Bear Dodd MD COLONOSCOPY - RECTAL POLYPECTOMY X3 (JUMBO FORCEPS X3), OBSTRUCTING MASS AT 25 CM BIOPSIES (JUMBO BIOPSY FORCEPS), DIVERTICULOSIS, SCOPE SWITCHED TO SLIM LINE 11/10/2024 11:54 AM FINANCIAL ACCOUNTANT Anesthesia [facility] Periop [address] [place] [address] Aroldo Bains APRN, MARQUITA 11/10/2024 11:15 AM FINANCIAL ACCOUNTANT Ancillary [facility] Main [address] [place] [address] Bear Dodd MD 11/10/2024 10:55 AM FINANCIAL ACCOUNTANT - 11/10/2024 1:33 PM FINANCIAL ACCOUNTANT [facility] Preop/Pacu II [address] [place] [address] Bear Dodd MD Discharge Disposition: Discharged to home or Selfcare 11/10/2024 Travel 10/31/2024 10:00 AM FINANCIAL ACCOUNTANT - 10/31/2024 10:30 AM FINANCIAL ACCOUNTANT [facility] Periop [address] [place] [address] Provider, Not On File PRE / POST CARE FOR PROCEDURAL AREA-PARACENTESIS 10/31/2024 9:22 AM FINANCIAL ACCOUNTANT - 10/31/2024 11:59 PM FINANCIAL ACCOUNTANT [facility] Ultrasound [address] [place] [address] Ayden Nicholson MD Provider, Anesthesiologist Discharge Disposition: Discharged to home or Selfcare 10/31/2024 9:14 AM FINANCIAL ACCOUNTANT - 10/31/2024 11:45 AM FINANCIAL ACCOUNTANT [facility] Periop [address] [place] [address] Provider, Not On File Ayden Nicholson MD Discharge Disposition: Discharged to home or Selfcare 10/31/2024 Travel 10/16/2024 10:00 AM FINANCIAL ACCOUNTANT - 10/16/2024 10:30 AM FINANCIAL ACCOUNTANT [facility] Periop [address] [place] [address] Provider, Not On File PRE / POST CARE FOR PROCEDURAL AREA-PARACENTESIS 10/16/2024 9:15 AM FINANCIAL ACCOUNTANT - 10/16/2024 11:59 PM FINANCIAL ACCOUNTANT [facility] Ultrasound [address] [place] [address] Ayden Nicholson MD Discharge Disposition: Discharged to home or Selfcare 10/16/2024 9:00 AM FINANCIAL ACCOUNTANT - 10/16/2024 11:42 AM FINANCIAL ACCOUNTANT [facility] Periop [address] [place] [address] Ayden Nicholson MD Discharge Disposition: Discharged to home or Selfcare 10/16/2024 Travel 10/01/2024 10:00 AM FINANCIAL ACCOUNTANT - 10/01/2024 11:00 AM FINANCIAL ACCOUNTANT [facility] Periop [address] [place] [address] Provider, Not On File PRE / POST CARE FOR PROCEDURAL AREA-PARACENTESIS 10/01/2024 9:29 AM FINANCIAL ACCOUNTANT - 10/01/2024 11:59 PM FINANCIAL ACCOUNTANT [facility] Ultrasound [address] [place] [address] Ayden Nicholson MD Discharge Disposition: Discharged to home or Selfcare 10/01/2024 9:09 AM FINANCIAL ACCOUNTANT - 10/01/2024 11:50 AM FINANCIAL ACCOUNTANT [facility] Preop/Pacu II [address] [place] [address] Provider, Not On File Ayden Nicholson MD Gould, Aaron Papirno, MD Discharge Disposition: Discharged to home or Selfcare 10/01/2024 Transcribe Orders [facility] Diagnostic Radiology [address] [place] [address] Ortiz Montenegro MD 10/01/2024 Travel from Last 3 Months Immunizations Immunization Administration Dates Next Due Albumin IV 06/25/2024,06/12/2024,03/19/2024 Family History Medical History Relation Name Comments Heart Disease Mother Relation Name Status Comments Father Mother Social History Tobacco Use Types Packs/Day Years Used Date Smoking Tobacco: Every Day Cigarettes 1.5 50 Smokeless Tobacco: Never Tobacco Cessation:Ready to Q uit: Not Asked; Counseling Given: Not Answered Alcohol Use Standard Drinks/Week Comments Not Currently 0 (1 standard drink = 0.6 oz pure alcohol) 7-15 beers a day previously; none currently [facility] Utilities Answer Date Recorded In the past 12 months has [employer], [employer], oil, or water [employer] threatened to shut off services in your home? No 05/26/2024 Social Connection and Isolation Panel [NHANES] A nswer Date Recorded In a typical week, how many times do you talk on the phone with family, friends, or neighbors? Once a week 05/26/2024 How often do you get together with friends or re latives? Once a week 05/26/2024 How often do you attend restoration or jehovah's witness serv ices? Never 05/26/2024 Do you belong to any clubs o r organizations such as restoration groups, unions, fraternal or athletic groups, or school groups? No 05/26/2024 How often do you attend meet ings of the clubs or organizations you belong to? Never 05/26/2024 Are you , , di vorced, , never , or living with a partner? 05/26/2024 AUDIT-C Answer Date Recorded Q1: How often do you have a drink containing alcohol? Never 05/26/2024 Q2: How many drinks containi ng alcohol do you have on a typical day when you are drinking? Patient does not drink Q3: How often do you have si x or more drinks on one occasion? Never 05/26/2024 Overall Financial Resource Strain (CARDIA) Answe r Date Recorded How hard is it for you to pa y for the very basics like food, housing, medical care, and heating? Not hard at all 05/26/2024 Exercise Vital Sign Answer Date Recorde d On average, how many days pe r week do you engage in moderate to strenuous exercise (like a brisk walk)? 0 days 05/26/2024 On average, how many minutes do you engage in exercise at this level? 0 min 05/26/2024 Hunger Vital Sign Answer Date Recorded Within the past 12 months, y ou worried that your food would run out before you got the money to buy more. Never true 05/26/20 24 Within the past 12 months, t he food you bought just didn't last and you didn't have money to get more. Never true 05/26/2024 PRAPARE - Transportation Answer Date Re corded In the past 12 months, has l ack of transportation kept you from medical appointments or from getting medications? No 11/2023 In the past 12 months, has l ack of transportation kept you from meetings, work, or from getting things needed for daily living? No 05/26/2024 Housing Stability Vital Sign Answer Martin e Recorded In the last 12 months, was t here a time when you were not able to pay the mortgage or rent on time? No 05/26/2024 In the past 12 months, how m any times have you moved where you were living? 2 05/26/2024 At any time in the past 12 m [facility], were you homeless or living in a [place] facility (including now)? No 05/26/2024 Sexually Active Control Partners Comments Not Currently Sex and Gender Information Value Date Recorded Sex Assigned at Male 02/25/2024 11:30 AM CDT Legal Sex Male 2:53 PM CDT Gender Identity Not on file Sexual Orientation Not on file Last Filed Vital Signs Vital Sign Reading Time Taken Comments Blood Pressure 98/81 12/16/2024 10:46 AM FINANCIAL ACCOUNTANT Pulse 66 12/16/2024 10:46 AM FINANCIAL ACCOUNTANT Temperature 37.1 ??C (98.8 ??F) 12/16/2024 10:[address] Respiratory Rate 16 12/16/2024 10:46 AM FINANCIAL ACCOUNTANT Oxygen Saturation 99% 12/16/2024 10:46 AM FINANCIAL ACCOUNTANT Inhaled Oxygen Concentration - - Weight 69.9 kg (154 lb 3.2 oz) 12/16/2024 9:24 A M FINANCIAL ACCOUNTANT Height 177.8 cm (5' 10 ) 12/16/2024 9:24 AM FINANCIAL ACCOUNTANT Body Mass Index 22.13 12/16/2024 9:24 AM FINANCIAL ACCOUNTANT Plan of Treatment Upcoming Encounters Date Type Department Care Team (Latest Contact Info) Description 01/02/2025 10:00 AM FINANCIAL ACCOUNTANT Hospital Encounter [facility] Periop [address] [place] [address] Provider, Not On File [place] 01/02/2025 10:00 AM FINANCIAL ACCOUNTANT Hospital Encounter [facility] Ultrasound [address] [place] [address] Ayden Nicholson MD [address] [address] 01/02/2025 10:00 AM FINANCIAL ACCOUNTANT - 01/02/2025 10:30 AM FINANCIAL ACCOUNTANT Surgery [facility] Periop [address] [place] [address] Provider, Not On File [place] PRE / POST CARE FOR PROCEDURAL AREA-PARACENTESIS Scheduled Procedures Name Priority Associated Diagnoses Date/Ti me PRE / POST CARE FOR PROCEDUR AL AREA ASCITES 01/02/2025 10:00 AM FINANCIAL ACCOUNTANT Health Maintenance Due Date Last Done Comments Hepatitis C Virus (HCV) Screening 1961 TdaP Immunization 1961 Pneumococcal Immunization (5 0+ years) (1 of 2 - PCV) 1980 Cologuard 2011 Immunochemical Fecal Occult Blood 2011 Lung Cancer Screening 2011 Zoster Immunization (1 of 2) 2011 PSA Discussion 2016 Hepatitis B Immunization (1 of 3 - Risk 3-dose series) 2021 Respiratory Syncytial Virus (RSV) Immunization (Adult) (1 - Risk 60-74 years 1-dose series) 2021 Influenza Immunization (#1) 2024 SARS-COV-2 Immunization ( season) 2024 Colonoscopy 11/10/2034 11/10/2024 Colorectal Cancer Screening 11/10/2034 11/10/2024 Meningococcal Immunization (ACWY) Aged Out No longer eligible based on patient's age to complete this topic Rotavirus Immunization Aged Out No lo nger eligible based on patient's age to complete this topic Procedures Procedure Name Priority Date/Time Associated Diagnosis Comments US GUIDANCE AND PARACENTESIS Routine 12/16/2024 10:15 AM FINANCIAL ACCOUNTANT 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) FLUID, DIFFERENTIAL Routine 12/16/2024 1 0:15 AM FINANCIAL ACCOUNTANT 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) BODY FLUID CELL COUNT W/ DIFFERENTIAL Routine 12/16/2024 10:15 AM FINANCIAL ACCOUNTANT 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) CULTURE, AEROBIC Routine 12/16/2024 10:1 5 AM FINANCIAL ACCOUNTANT 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) PRE / POST CARE FOR PROCEDURAL AREA 12/16/2024 10:00 AM FINANCIAL ACCOUNTANT ASCITES APTT (PTT) Routine 12/16/2024 9:11 AM FINANCIAL ACCOUNTANT Pre-operative laboratory examination Encounter for therapeutic drug monitoring Other snf (current) drug therapy Alcoholic cirrhosis of liver with ascites (HCC) PROTIME (PT) (PROTHROMBIN TIME) STAT 12/16/2024 9:11 AM FINANCIAL ACCOUNTANT Pre-operative laboratory examination Encounter for therapeutic drug monitoring Other middle or intermediate school principal (current) drug therapy Alcoholic cirrhosis of liver with ascites (HCC) BASIC METABOLIC PANEL W/ CALCIUM TOTAL STAT 12/16/2024 9:11 AM FINANCIAL ACCOUNTANT Pre-operative laboratory examination Encounter for therapeutic drug monitoring Other snf (current) drug therapy Alcoholic cirrhosis of liver with ascites (HCC) COMPLETE BLOOD COUNT (CBC) WITHOUT DIFF STAT 12/16/2024 9:11 AM FINANCIAL ACCOUNTANT Pre-operative laboratory examination Encounter for therapeutic drug monitoring Other middle or intermediate school principal (current) drug therapy Alcoholic cirrhosis of liver with ascites (HCC) US GUIDANCE AND PARACENTESIS Routine 11/28/2024 11:01 AM FINANCIAL ACCOUNTANT Alcoholic cirrhosis of liver with ascites (HCC) Elevated liver enzymes PRE / POST CARE FOR PROCEDURAL AREA 11/28/2024 10:00 AM FINANCIAL ACCOUNTANT ASCITES US GUIDANCE AND PARACENTESIS Routine 11/14/2024 10:55 AM FINANCIAL ACCOUNTANT Alcoholic cirrhosis of liver with ascites (HCC) Elevated liver enzymes PRE / POST CARE FOR PROCEDURAL AREA 11/14/2024 10:00 AM FINANCIAL ACCOUNTANT ASCITIES PATHOLOGY SURGICAL Routine 11/10/2024 12 :01 PM FINANCIAL ACCOUNTANT COLONOSCOPY 11/10/2024 11:57 AM FINANCIAL ACCOUNTANT COLONOSCOPY - RECTAL POLYPECTOMY X3 (JUMBO FORCEPS X3), OBSTRUCTING MASS AT 25 CM BIOPSIES (JUMBO BIOPSY FORCEPS), DIVERTICULOSIS, SCOPE SWITCHED TO SLIM LINE Special Needs Medical clearance-Leonardo in media 11/06 Preop testing for liver transplant Dx screen GI IMAGING - COLONOSCOPY Routine 11/10/2024 11:11 AM FINANCIAL ACCOUNTANT US GUIDANCE AND PARACENTESIS Routine 10/31/2024 10:55 AM FINANCIAL ACCOUNTANT Alcoholic cirrhosis of liver with ascites (HCC) Elevated liver enzymes PRE / POST CARE FOR PROCEDURAL AREA 10/31/2024 10:00 AM FINANCIAL ACCOUNTANT ASCITES US GUIDANCE AND PARACENTESIS Routine 10/16/2024 10:44 AM FINANCIAL ACCOUNTANT Alcoholic cirrhosis of liver with ascites (HCC) Elevated liver enzymes PRE / POST CARE FOR PROCEDURAL AREA 10/16/2024 10:00 AM FINANCIAL ACCOUNTANT ASCITES PROTIME (PT) (PROTHROMBIN TIME) Routine 10/16/2024 9:35 AM FINANCIAL ACCOUNTANT CMP (COMPREHENSIVE METABOLIC PANEL) STAT 10/16/2024 9:21 AM FINANCIAL ACCOUNTANT Pre-procedural laboratory examinations Encounter for therapeutic drug monitoring Other middle or intermediate school principal (current) drug therapy Alcoholic cirrhosis of liver with ascites (HCC) COMPLETE BLOOD COUNT (CBC) WITHOUT DIFF STAT 10/16/2024 9:21 AM FINANCIAL ACCOUNTANT Pre-procedural laboratory examinations Encounter for therapeutic drug monitoring Other middle or intermediate school principal (current) drug therapy Alcoholic cirrhosis of liver with ascites (HCC) US GUIDANCE AND PARACENTESIS Routine 10/01/2024 10:49 AM FINANCIAL ACCOUNTANT Alcoholic cirrhosis of liver with ascites (HCC) Elevated liver enzymes PRE / POST CARE FOR PROCEDURAL AREA 10/01/2024 10:00 AM FINANCIAL ACCOUNTANT ASCITES from Last 3 Months Results * US GUIDANCE AND PARACENTESIS (12/16/2024 10:15 AM FINANCIAL ACCOUNTANT) Only the most recent of6 resultswithin the time period is included. Anatomical Region Laterality Modality Abdomen N/A Ultrasound 12/16/2024 11:1 5 AM FINANCIAL ACCOUNTANT Impressions 12/16/2024 11:17 AM FINANCIAL ACCOUNTANT IMPRESSION: ?? Successful ultrasound-guided paracentesis with removal of 5 liters of fluid. Narrative 12/16/2024 11:17 AM FINANCIAL ACCOUNTANT EXAM DESCRIPTION: ?? US GUIDANCE AND PARACENTESIS HISTORY: ?? ASCITES FROM ALCOHOLIC CIRRHOSIS ?Ultrasound-guided paracentesis is requested. COMPARISON: ?? Ultrasound-guided paracentesis 11/28/2024 TECHNIQUE/FINDINGS: The procedure and risks were discussed with the patient, and verbal and written informed consent was obtained. ?? Time-out was performed. The skin was prepped and draped in usual sterile fashion. ??Local anesthesia was used with 1% lidocaine. ??Under sonographic guidance, a 5-[place] One Step Centesis catheter was used to drain 5 liters of fluid from the left lower quadrant . ??Needle placement was documented with sonographic images. ??The catheter was then removed. ?? Small ??amount of remaining ascitic fluid. ??Hemostasis was achieved. The area was dressed with a bandage. The patient tolerated the procedure. ??There were no immediate complications. ??Estimated blood loss: <5 ml THIS IS AN ELECTRONICALLY VERIFIED FINAL REPORT 12/16/2024 11:15 AM - Electronically signed by ??Ortiz Montenegro M.D. JR: D: ??12/16/2024 11:15 AM T: ??12/16/2024 11:15 AM Report ID: [id number] Reading Location: ??[id number] Procedure Note Ortiz Montenegro MD - 12/16/2024 EXAM DESCRIPTION: US GUIDANCE AND PARACENTESIS HISTORY: ASCITES FROM ALCOHOLIC CIRRHOSIS Ultrasound-guided paracentesis is requested. COMPARISON: Ultrasound-guided paracentesis 11/28/2024 TECHNIQUE/FINDINGS: The procedure and risks were discussed with the patient, and verbal and written informed consent was obtained. Time-out was performed. The skin was prepped and draped in usual sterile fashion. Local anesthesia was used with 1% lidocaine. Under sonographic guidance, a 5-[place] One Step Centesis catheter was used to drain 5 liters of fluid from the left lower quadrant . Needle placement was documented with sonographic images. The catheter was then removed. Small amount of remaining ascitic fluid. Hemostasis was achieved. The area was dressed with a bandage. The patient tolerated the procedure. There were no immediate complications. Estimated blood loss: <5 ml THIS IS AN ELECTRONICALLY VERIFIED FINAL REPORT 12/16/2024 11:15 AM - Electronically signed by Ortiz Montenegro M.D. JR: Report ID: [id number] Reading Location: [id number] IMPRESSION: Successful ultrasound-guided paracentesis with removal of 5 liters of fluid. us Ayden Nicholson MD [facility] [place] [place] US ORDERABLES Final Result * Fluid, Differential (12/16/2024 10:15 AM FINANCIAL ACCOUNTANT) FLUID NEUTROPHILS % 2 % 12/16/2024 2:35 PM FINANCIAL ACCOUNTANT [facility] FLUID LYMPH % BKR 56 % 025 2:35 PM FINANCIAL ACCOUNTANT [facility] FLUID MONO % 14 % 12/16/2024 2:35 PM FINANCIAL ACCOUNTANT [facility] FLUID EOSINOPHILS % BKR 0 % 12/16/2024 2:35 PM FINANCIAL ACCOUNTANT [facility] FLUID MACROPHAGE % 8 % 12/16/2024 2:35 PM FINANCIAL ACCOUNTANT [facility] FLUID PLASMA CELL % 0 % 12/16/2024 2:35 PM FINANCIAL ACCOUNTANT [facility] FLUID LINING CELL % 20 % 12/16/2024 2:35 PM FINANCIAL ACCOUNTANT [facility] FLUID OTHER CELL % 0 % 12/16/2024 2:35 PM FINANCIAL ACCOUNTANT [facility] TOTAL COUNT BODY FLUID DIFFERENTIAL BKR 100 12/16/2024 2:35 PM FINANCIAL ACCOUNTANT [facility] FLUID LARGE MONO % BKR 0 % 12/16/2024 2:35 PM FINANCIAL ACCOUNTANT [facility] FLUID TYPE Ascites, left 12/16/2024 2:35 PM FINANCIAL ACCOUNTANT [facility] Other (Paracentesis Fluid) Non-Phlebotomy Collection / Unknown 12/16/2024 10:15 AM FINANCIAL ACCOUNTANT 12/16/2024 10:52 AM FINANCIAL ACCOUNTANT Ayden Nicholson MD BODY FLUIDS & STOOLS ORDERABLES Final Result Performing Organization Address [facility]/ZIP Co de Phone Number [facility] [address] [place] [address] * Body Fluid Cell Count w/ Differential (12/16/2024 10:15 AM FINANCIAL ACCOUNTANT) FLUID TYPE Ascites, left 12/16/2024 2:34 PM FINANCIAL ACCOUNTANT [facility] CLARITY Turbid 12/16/2024 2:34 PM FINANCIAL ACCOUNTANT [facility] COLOR Yellow 12/16/2024 2:34 PM FINANCIAL ACCOUNTANT [facility] VOLUME 1,100.0 mLs 12/16/2024 2:34 PM FINANCIAL ACCOUNTANT [facility] FLUID RBC COUNT 3,000 /mm(3) 12/16/2024 2:34 PM FINANCIAL ACCOUNTANT [facility] FLUID, TOTAL NUCLEATED CELLS 242 /mm(3) 12/16/2024 2:34 PM FINANCIAL ACCOUNTANT [facility] Other (Paracentesis Fluid) Non-Phlebotomy Collection / Unknown 12/16/2024 10:15 AM FINANCIAL ACCOUNTANT 12/16/2024 10:52 AM FINANCIAL ACCOUNTANT Narrative [facility] - 12/16/2024 2:34 PM FINANCIAL ACCOUNTANT The reference range has not been established for this body fluid. The test result must be integrated into the clinical context for interpretation us Ayden Nicholson MD BODY FLUIDS & STOOLS ORDERABLES Final Result Performing Organization Address City/[facility]/ZIP Co de Phone Number [facility] [address] [place] [address] * CULTURE, AEROBIC (12/16/2024 10:15 AM FINANCIAL ACCOUNTANT) CULTURE RESULTS No growth final 12/20/2024 7:15 AM FINANCIAL ACCOUNTANT [facility] Other (Paracentesis Fluid) Non-Phlebotomy Collection / Unknown 12/16/2024 10:15 AM FINANCIAL ACCOUNTANT 12/16/2024 10:52 AM FINANCIAL ACCOUNTANT us Ayden Nicholson MD MICROBIOLOGY - GENERAL ORDERABLE S Final Result Performing Organization Address City/[facility]/ZIP Co de Phone Number [facility] [address] [place] [address], * (ABNORMAL) APTT (PTT) (12/16/2024 9:11 AM FINANCIAL ACCOUNTANT) PTT 37(H) 24 - 36 sec 12/16/2024 9:40 AM FINANCIAL ACCOUNTANT [facility] Blood Venipuncture / Unknown 12/16/2024 9:11 AM FINANCIAL ACCOUNTANT 12/16/2024 9:24 AM FINANCIAL ACCOUNTANT Narrative [facility] - 12/16/2024 9:40 AM FINANCIAL ACCOUNTANT Therapeutic range for unfractionated heparin at 0.3-0.7 U/mL is an aPTT value in the range of 71-100 seconds. Critical value for the PTT test is >= 122 seconds. us Ortiz Montenegro MD HEMATOLOGY ORDERABLES Ilda l Result Performing Organization Address [facility] Co de Phone Number [facility] [address] [place] [address] * (ABNORMAL) PROTIME (PT) (PROTHROMBIN TIME) (12/16/2024 9:11 AM FINANCIAL ACCOUNTANT) Only the most recent of2 resultswithin the time period is included. PROTIME-PATIENT 18.9(H) 11.6 - 14.8 sec 12/16/2024 9:40 AM FINANCIAL ACCOUNTANT [facility] INR 1.6(H) 0.9 - 1.2 12/16/2024 9:40 AM FINANCIAL ACCOUNTANT [facility] Comment: Therapeutic Ranges INR = 2.0-3.0: Venous thromb, atrial fib, pul embolism, tissue heart valve, ami. INR = 2.5-3.5: Mechanical heart valve Critical value for INR is >/= 4.5 Blood Venipuncture / Unknown 12/16/2024 9:11 AM FINANCIAL ACCOUNTANT 12/16/2024 9:24 AM FINANCIAL ACCOUNTANT us Ortiz Montenegro MD HEMATOLOGY ORDERABLES Ilda jordan Result [facility] [place] [address] * COMPLETE BLOOD COUNT (CBC) WITHOUT DIFF (12/16/2024 9:11 AM FINANCIAL ACCOUNTANT) Only the most recent of2 resultswithin the time period is included. WBC 6.92 4.00 - 12.00 10(3)/mcL 12/16/2024 9:29 AM FINANCIAL ACCOUNTANT [facility] RBC 4.41 4.40 - 5.80 10(6)/[facility] 12/16/2024 9:[address] [facility] HEMOGLOBIN (HGB) 13.1 13.0 - 16.5 g/dL 12/16/2024 9:[address] [facility] HEMATOCRIT (HCT) 39.2 38.0 - 50.0 % 12/16/2024 9:[address] [facility] MCV 88.9 82.0 - 96.0 fL 12/16/2024 9:[address] [facility] MCH 29.7 26.0 - 32.0 pg 12/16/2024 9:[address] [facility] MCHC 33.4 31.0 - 36.0 g/dL 12/16/2024 9:[address] [facility] PLATELET COUNT 210 140 - 440 10(3)/mcL 12/16/2024 9:[address] [facility] RDW 14.6 11.8 - 15.5 % 12/16/2024 9:[address] [facility] MPV 9.3 8.0 - 12.6 fL 12/16/2024 9:29 AM FINANCIAL ACCOUNTANT [facility] Blood Venipuncture / Unknown 12/16/2024 9:11 AM FINANCIAL ACCOUNTANT 12/16/2024 9:23 AM FINANCIAL ACCOUNTANT us Ortiz Montenegro MD HEMATOLOGY ORDERABLES Ilda l Result [facility] [place] [address] * (ABNORMAL) BASIC METABOLIC PANEL W/ CALCIUM TOTAL (12/16/2024 9:11 AM FINANCIAL ACCOUNTANT) SODIUM 127(L) 136 - 145 mmol/L 12/16/2024 9:[address] [facility] POTASSIUM 4.4 3.5 - 5.1 mmol/L 12/16/2024 9:[address] [facility] CHLORIDE 100 98 - 107 mmol/L 12/16/2024 9:[address] [facility] CO2, VENOUS 23 22 - 30 mmol/L 12/16/2024 9:[address] [facility] ANION GAP 8.4 <18.0 mmol/L 12/16/2024 9:[address] [facility] GLUCOSE 135(H) 70 - 99 mg/dL 12/16/2024 9:[address] [facility] BUN 11 8 - 26 mg/dL 12/16/2024 9:[address] [facility] CREATININE, BLOOD 0.94 0.70 - 1.30 mg/dL 12/16/2024 9:[address] [facility] BUN/CREATININE RATIO 12 12 - 20 ratio 12/16/2024 9:[address] [facility] CALCIUM 8.6(L) 8.7 - 10.5 mg/dL 12/16/2024 9:[address] [facility] IS THE PATIENT REQUIRED TO BE FASTING? No 12/16/2024 9:[address] [facility] GFR, ESTIMATED >60 >=60 12/16/2024 9:47 AM FINANCIAL ACCOUNTANT [facility] Comment: Creatinine Clearance is the preferred criteria for selecting drug dose adjustments in renally impaired patients. ??The GFR is provided as additional pertinent clinical information. GFR is reported in mL/min/1.73 sq m. Calculation based on the Chronic Kidney Disease Epidemiology Collaboration (CKD- EPI) equation refit without adjustment for race. GFR, EST. >60 >=60 025 9:47 AM FINANCIAL ACCOUNTANT [facility] GFR, EST. NONAFRICAN >60 >=60 12/16/2024 9:47 AM FINANCIAL ACCOUNTANT [facility] Blood Venipuncture / Unknown 12/16/2024 9:11 AM FINANCIAL ACCOUNTANT 12/16/2024 9:23 AM FINANCIAL ACCOUNTANT Ortiz Montenegro MD CHEMISTRY ORDERABLES Final Result [facility] [place] [address] * Pathology Surgical (11/10/2024 12:01 PM FINANCIAL ACCOUNTANT) Case Report Surgical Pathology Report ? Case: [id number] ? Authorizing Provider: ??Bear Dodd MD ?? Collected: ? 11/10/2024 12:01 PM ? Ordering Location: ? [facility] ? Received: ?11/10/2024 01:41 PM ? [facility] ? Lab Main ? Pathologist: ? Pauline Vale MD PhD ? Specimens: ?? A) - Colon, RECTAL POLYP X 3 ? B) - Colon, 25 CM MASS BIOPSIES ? 11/11/2024 11:00 AM FINANCIAL ACCOUNTANT [facility] FINAL DIAGNOSIS A. Rectal polyp, polypectomy: - Polypoid colonic mucosa with focal features suggesting hyperplastic polyp - Negative for dysplasia or malignancy B. Colon at 25 cm, mass, biopsy: - Tiny and superficial biopsy, consistent with tubular adenoma 11/11/2024 11:00 AM FINANCIAL ACCOUNTANT [facility] at 1100 FINANCIAL ACCOUNTANT Pre-Operative Diagnosis SCREENING 11/11/2024 11:00 AM [facility] Gross Description A. RECTAL POLYP X 3 The specimen presents in two formalin containers for gross and microscopic examination labeled with the patient's name, Bear Ramirez. Part A is designated as rectal polyp. The specimen consists of three pieces of light melendez tissue measuring 0.2 to 0.3 cm in greatest dimension. All submitted cassette A1. B. 25 CM MASS BIOPSIES Part B is designated as 25 cm mass biopsy. The specimen consists of two pieces of pink-melendez tissue measuring a fraction of a millimeter up to 0.1 cm in greatest dimension. All submitted cassette B1. It is questionable whether or not the tissue will survive processing. Total time of fixation is 9 hours, 45 minutes. KS/sb 11/11/2024 11:00 AM FINANCIAL ACCOUNTANT [facility] Microscopic Description Microscopic examination was performed which supports the final diagnosis. All control tissues stained appropriately. 11/11/2024 11:00 AM FINANCIAL ACCOUNTANT [facility] Tissue COLON STRUCTURE / Unknown 11/10/2024 12:01 PM FINANCIAL ACCOUNTANT 11/10/2024 1:41 PM FINANCIAL ACCOUNTANT Tissue specimen (specimen) COLON STRUCTURE / Unknown 11/10/2024 12:34 PM FINANCIAL ACCOUNTANT 11/10/2024 1:41 PM FINANCIAL ACCOUNTANT Bear Dodd MD PATHOLOGY/CYTOLOGY ORDERA BLES Final Result [facility] [place] [address] * GI IMAGING - COLONOSCOPY (11/10/2024 11:11 AM FINANCIAL ACCOUNTANT) Bear Dodd MD IMG DIAGNOSTIC ORDERABLES Final Result * (ABNORMAL) CMP (COMPREHENSIVE METABOLIC PANEL) (10/16/2024 9:21 AM FINANCIAL ACCOUNTANT) SODIUM 130(L) 136 - 145 mmol/L 10/16/2024 9:53 AM FINANCIAL ACCOUNTANT [facility] POTASSIUM 3.9 3.5 - 5.1 mmol/L 10/16/2024 9:53 AM FINANCIAL ACCOUNTANT [facility] CHLORIDE 102 98 - 107 mmol/L 10/16/2024 9:53 AM FINANCIAL ACCOUNTANT [facility] CO2, VENOUS 22 22 - 30 mmol/L 10/16/2024 9:[address] [facility] ANION GAP 9.9 <18.0 mmol/L 10/16/2024 9:[address] [facility] GLUCOSE 129(H) 70 - 99 mg/dL 10/16/2024 9:[address] [facility] BUN 10 8 - 26 mg/dL 10/16/2024 9:[address] [facility] CREATININE, BLOOD 0.92 0.70 - 1.30 mg/dL 10/16/2024 9:[address] [facility] BUN/CREATININE RATIO 11(L) 12 - 20 ratio 10/16/2024 9:[address] [facility] TOTAL PROTEIN 6.9 6.3 - 8.2 g/dL 10/16/2024 9:[address] [facility] ALBUMIN 2.6(L) 3.5 - 5.0 g/dL 10/16/2024 9:[address] [facility] A/G RATIO 0.6(L) 1.0 - 2.2 10/16/2024 9:[address] [facility] CALCIUM 8.4(L) 8.7 - 10.5 mg/dL 10/16/2024 9:[address] [facility] T BILI 1.6(H) 0.2 - 1.2 mg/dL 10/16/2024 9:[address] [facility] SGOT (AST) 25 5 - 34 U/L 10/16/2024 9:[address] [facility] SGPT (ALT) 12 0 - 55 U/L 10/16/2024 9:[address] [facility] ALKALINE PHOSPHATASE 79 40 - 150 U/L 10/16/2024 9:[address] [facility] IS THE PATIENT REQUIRED TO BE FASTING? No 10/16/2024 9:[address] [facility] GFR, ESTIMATED >60 >=60 10/16/2024 9:[address] [facility] Comment: Creatinine Clearance is the preferred criteria for selecting drug dose adjustments in renally impaired patients. ??The GFR is provided as additional pertinent clinical information. GFR is reported in mL/min/1.73 sq m. Calculation based on the Chronic Kidney Disease Epidemiology Collaboration (CKD- EPI) equation refit without adjustment for race. GFR, EST. >60 >=60 024 9:53 AM FINANCIAL ACCOUNTANT [facility] GFR, EST. NONAFRICAN >60 >=60 10/16/2024 9:53 AM FINANCIAL ACCOUNTANT [facility] Blood Venipuncture / Unknown 10/16/2024 9:21 AM FINANCIAL ACCOUNTANT 10/16/2024 9:27 AM FINANCIAL ACCOUNTANT us Ortiz Montenegro MD CHEMISTRY ORDERABLES Final Result [facility] [address] [place] [address] from Last 3 Months Insurance [facility] Advance Directives * Full Code (Latest Code Status on File) Date Activated Date Inactivated Comments 05/26/2024 7:44 PM 05/29/2024 4:23 PM CPR-Full Treat ment: FULL ARREST: Attempt Resuscitation/CPR wit intubation and mechanical ventilation. PRE-ARREST: Use entire range of life support measures to stabilize the patient. Care Teams Canvas Repairer Relationship Specialty Start Date End Date Young Call APRN, SHUTTLE FINAL INSPECTOR [address] [facility] [place] [address] PCP - General Advanced Practice Nurse 02/13/24
[2024-12-23 17:45] LABS: Alanine Aminotransferase 24 U/L (16-63); Albumin Level 2.7 g/dL (3.4-5.0); Alkaline Phosphatase 108 U/L (46-116); Anion Gap 9 mmol/L (4-12); Aspartate Amino Transferase 33 U/L (15-37); Bilirubin,Total 1.3 mg/dL (0.00-1.00); Blood Urea Nitrogen 10 mg/dL (7-18); Calcium 8.3 mg/dL (8.5-10.1); Carbon Dioxide 25 mmol/L (21-32); Chloride 98 mmol/L (98-108); Estimated Glomerular Filt Rate > 60; Glucose 147 mg/dL (70-99); Osmolality Calculated 276 mOsm/kg (285-295); Potassium 4.2 mmol/L (3.5-5.1); Sodium 132 mmol/L (136-145); Total Protein 7.1 g/dL (6.4-8.2)
[2024-12-25 02:29] LABS: Vitamin D 25 Hydroxy 39 ng/mL (30-100)
== END 2024-12-23 16:28 | disposition home or self-care (01) ==
LOC: CHSLAB 16:29
PROVIDERS: PCP Nurse Practitioner Family; Visit Provider Nurse Practitioner Family
DX: E87.8 Other disorders of electrolyte and fluid balance, not elsewhere classified (principal); E55.9 Vitamin D deficiency, unspecified
CPT/HCPCS: 36415; 80053; 82306

== ENCOUNTER 2024-12-25 16:26 | Outpatient (CLI) | payer OTHER, SELFPAY ==
--- OUTSIDE RECORDS SUMMARY | 2024-12-25 16:30 | XMS_ITS | Clinical Summary ---
Author Organization [facility] Address [address] [place] [address] Care Team Providers Care Child And Family Services Worker Name Role Phone Robert Brooks MD Unavailable [phone] Ayden Wylie MD Unavailable Kesha Gutiérrez RN Unavailable Unavailable Young Call NP Primary Care Provider [phone] Allergies Active Allergy Reactions Criticality Noted Date [...] signs of bleeding. Follows with an OSH lifestyle consultant -Check HIV and hepatitis panel -Hold diuretics for STEFANY, Hyponatremia. -No current asterixis or encephalopathy. Will start lactulose if this deveops -Needs EGD this admission for variceal screening - Hepatology; f/u recs. -Liver sono on 04/11 with Cirrhotic liver, large Ascites. - S/p Para ( 6 lt) on 04/14 by procedure team, seems clearing MSSA peritonitis Encounters Date Type Department Care Team Description 12/25/2024 Telephone [facility] Transplant Liver [address] [facility] [address] Mailstop [facility] [place] [address] Kesha Gutiérrez, RN 12/25/2024 Documentation [facility] Transplant Liver [address] [facility] [facility] [address] Mailstop Formerly [facility] [place] [address] Kesha Gutiérrez, RN 12/25/2024 Telephone [facility] Transplant Liver [address] [facility] [facility] [address] Mailstop [facility] [place] [address] LindaValentine frey 12/25/2024 Telephone [facility] Transplant Liver [address] [facility] [facility] [id number] [place] [address] Karen Vides 12/24/2024 Telephone [facility] Transplant Liver [address] [facility] [facility] [address] Mailstop [facility] [place] [address] Kesha Gutiérrez, RN 12/23/2024 Telephone [facility] Transplant Liver [address] [facility] [facility] [address] [place] [address] Kesha Gutiérrez, RN 12/20/2024 8:15 AM [employer] - 12/20/2024 11:59 PM [employer] Hospital Encounter [facility] ([facility]) [address] [place] [address] Jonathon Leonardo MD Alcoholic cirrhosis of liver with ascites (CMS/HCC) (HCC) Discharge Disposition: Discharge to home or self care 11/28/2024 Orders Only [facility] Health Information Management 1 [place] [address] Kesha Gutiérrez, RN 11/24/2024 Documentation [facility] Transplant Liver [address] [facility] [facility] [address] Mailstop [id number] [place] [address] Kesha Gutiérrez, RN 11/21/2024 Orders Only [facility] Transplant Liver [address] [facility] [address] Mailstop [id number] [place] [address] eKsha Gutiérrez, RN Alcoholic cirrhosis of liver with ascites (CMS/HCC) (HCC) (Primary Dx) 11/17/2024 Telephone [facility] Social Work 1 [place] [address] Kierra Brower LCSW 11/14/2024 Orders Only [facility] Health Information Management 1 [place] [address] Scanning, Provider 11/14/2024 Telephone [facility] Specialty Services [address] [place] [phone] Christine Harvey RN GI Preprocedure 11/14/2024 Telephone [facility] Transplant Liver [address] [facility] [address] Mailstop 26-15-6 [place] [address] Kesha Gutiérrez, JENNA 11/13/2024 Telephone [facility] Transplant Liver [address] [facility] [facility] [address] Mailstop 67-70-7 [place] [address] Valentine Cohen 11/13/2024 Telephone [facility] Transplant Liver [address] [facility] [facility] [address] Mailstop [id number] [place] [address] Valentine Cohen 11/13/2024 Documentation [facility] Transplant Liver [address] [facility] [facility] [address] Mailstop 90-31-911 [place] [address] Valentine Cohen 11/13/2024 Telephone [facility] Transplant Liver [address] [facility] [facility] [address] Mailstop 9029-747 [place] [address] Kesha Gutiérrez, RN 11/12/2024 Documentation [facility] Transplant Liver [address] [facility] [facility] [address] Mailstop 9029-304 [place] [address] Saji Myriam 11/12/2024 Telephone [facility] Transplant Liver [address] [facility] [facility] [address] Mailstop [id number] [place] [address] Kesha Gutiérrez, RN 11/12/2024 Telephone [facility] Transplant Liver [address] [facility] [facility] [address] Mailstop 60-31-570 [place] [address] Kesha Gutiérrez, RN 11/11/2024 Documentation [facility] Transplant Liver [address] [facility] [facility] [address] Mailstop [id number] [place] [address] Kesha Gutiérrez, RN 11/11/2024 Orders Only [facility] Health Information Management 1 [place] [address] Kesha Gutiérrez, RN 11/11/2024 Orders Only [facility] Gasteroenterology [address] [facility] 12th [place] [address] [place] [address] Jonathon Leonardo MD Colon adenoma (Primary Dx) 11/11/2024 Orders Only [facility] Transplant Liver [address] [facility] [facility] [address] Mailstop [id number] [place] [address] Kesha Gutiérrez, RN 11/11/2024 Telephone [facility] Transplant Liver [address] [facility] [facility] [address] Mailstop [id number] [place] [address] Kesha Gutiérrez, RN 11/10/2024 Telephone [facility] Transplant Liver [address] [facility] [facility] [address] Mailstop [id number] [place] [address] Cyndee Baez 11/10/2024 Telephone [facility] Transplant Liver [address] [facility] [facility] [address] Mailstop [id number] [place] [address] Monolo, 11/10/2024 Telephone [facility] Transplant Liver [address] [facility] [facility] [address] Mailstop 90-298 [place] [address] Monolo, 11/10/2024 Documentation [facility] Transplant Liver [address] [facility] [facility] [address] Mailstop 90-298 [place] [address] [place], 11/10/2024 Telephone [facility] Transplant Liver [address] [facility] [facility] [address] Mailstop [id number] [place] [address] Kesha Gutiérrez, RN 11/07/2024 Documentation [facility] Transplant Liver [address] [facility] [facility] [address] Mailstop 90-298 [place] [address] [place], 11/06/2024 Telephone [facility] Transplant Liver [address] [facility] [facility] [address] Mailstop 90-298 [place] [address] Kesha Gutiérrez, RN 11/06/2024 Telephone [facility] Transplant Liver [address] [facility] [facility] [address] Mailstop [id number] [place] [address] Cyndee Baez 11/06/2024 Telephone [facility] Transplant Liver [address] [facility] [facility] [address] Mailstop [id number] [place] [address] Cyndee Baez 11/05/2024 3:16 PM [employer] - 11/05/2024 11:59 PM [employer] Hospital Encounter [facility] [address] [place] [address] Encounter for pre-transplant evaluation for liver transplant; Alcoholic liver disease (HCC) Discharge Disposition: Discharge to home or self care 11/05/2024 2:17 PM [employer] - 11/05/2024 11:59 PM [employer] Hospital Encounter [facility] Pulmonary [address] [facility] [address] [place] [address] Encounter for pre-transplant evaluation for liver transplant; Alcoholic liver disease (HCC) Discharge Disposition: Discharge to home or self care 11/05/2024 1:30 PM [employer] Office Visit [facility] Surgery [address] [facility] 12th [place] [address] [place] [address] Marley Ly PA Alcoholic cirrhosis of liver with ascites (CMS/HCC) (HCC) (Primary Dx) 11/05/2024 12:00 PM [employer] Social Work [facility] and [facility] Transplant Center [address] [facility], 8th Floor, [place] [address] Kierra Brower LCSW 11/05/2024 8:30 AM [employer] Office Visit [facility] Gasteroenterology [address] [facility] 12th [place] [address] [place] [address] Jonathon Leonardo MD Alcoholic cirrhosis of liver with ascites (CMS/HCC) (HCC) (Primary Dx) 11/05/2024 Documentation [facility] Transplant Liver [address] [facility] [address] Mailstop [id number] [place] [address] Kesha Rockwell, JENNA 11/05/2024 Documentation [facility] Transplant Liver [address] [facility] [facility] [address] Mailstop [id number] [place] [address] Kesha Rockwell, JENNA 11/04/2024 11:59 PM [employer] Anesthesia Event [facility] Operating Room 1 [place] [address] Fan Cantrell MD PhD Robles, Hero Doblada, MD 11/04/2024 1:02 PM [employer] - 11/04/2024 11:59 PM [employer] Hospital Encounter [facility] Cardiac Diagnostic Lab 1 [place] [address] Encounter for pre-transplant evaluation for liver transplant; Alcoholic liver disease (HCC) Discharge Disposition: Discharge to home or self care 11/04/2024 11:00 AM [employer] Lab [facility] [address] [place] [phone] Encounter for pre-transplant evaluation for liver transplant; Alcoholic liver disease (HCC) 11/04/2024 9:00 AM [employer] Pre-Admission Testing [facility] ([facility]) [address] [place] [address] 11/04/2024 7:57 AM [employer] - 11/04/2024 11:59 PM [employer] Hospital Encounter [facility] ([facility]) [address] [place] [address] Ayden Wylie MD Encounter for pre-transplant evaluation for liver transplant; Alcoholic liver disease (HCC) Discharge Disposition: Discharge to home or self care 11/04/2024 7:56 AM [employer] - 11/04/2024 11:59 PM [employer] Hospital Encounter [facility] ([facility]) [address] [place] [address] Encounter for pre-transplant evaluation for liver transplant; Alcoholic liver disease (HCC) Discharge Disposition: Discharge to home or self care 11/04/2024 7:55 AM [employer] - 11/04/2024 11:59 PM [employer] Hospital Encounter [facility] ([facility]) [address] [place] [address] Encounter for pre-transplant evaluation for liver transplant; Alcoholic liver disease (HCC) Discharge Disposition: Discharge to home or self care 11/04/2024 7:54 AM [employer] - 11/04/2024 11:59 PM [employer] Hospital Encounter [facility]) [address] [place] [address] Encounter for pre-transplant evaluation for liver transplant; Alcoholic liver disease (HCC) Discharge Disposition: Discharge to home or self care 11/04/2024 Documentation [facility] Transplant Liver [address] [facility] [address] Mailstop [id number] [place] [address] Kesha Gutiérrez, RN 11/03/2024 10:00 AM [employer] Documentation [facility] and [facility] Transplant Center [address] [facility], 8th Floor, [place] [address] Radha Beltran 11/03/2024 Orders Only [facility] Transplant Liver [address] [facility] [address] Mailstop [phone] [place] [address] ProviderRobert MD 11/03/2024 Documentation [facility] Transplant Liver [address] [facility] [facility] [address] Mailstop [phone] [place] [address] Valentine Cohen 10/31/2024 Telephone [facility] Transplant Liver [address] [facility] [facility] [address] Mailstop [phone] [place] [address] MonoloValentine 10/27/2024 Telephone [facility] Transplant Liver [address] [facility] [facility] [address] Mailstop [phone] [place] [address] Kesha Gutiérrez, RN 10/27/2024 Telephone [facility] Transplant Liver [address] [facility] [facility] [address] Mailstop [phone] [place] [address] Cyndee Baez 10/16/2024 Orders Only [facility] Transplant Liver [address] [facility] [facility] [address] Mailstop [phone] [place] [address] Robert Reyes MD 10/16/2024 Documentation [facility] Transplant Liver [address] [facility] [facility] [address] Mailstop [phone] [place] [address] Monolo, 10/01/2024 Orders Only [facility] Transplant Liver [address] [facility] [facility] [address] Mailstop [id number] [place] [address] ProviderRobert MD 10/01/2024 Documentation [facility] Transplant Liver [address] [facility] [facility] [address] Mailstop [address] [place] [address] Mon[place], 10/01/2024 Telephone [facility] Transplant Liver [address] [facility] [facility] [address] Mailstop 90-298 [place] [address] Maggie Clement 09/29/2024 Telephone [facility] Transplant Liver [address] [facility] [facility] [address] Mailstop [facility] [place] [address] Monolo, 09/29/2024 Documentation [facility] Transplant Liver [address] [facility] [facility] [address] Mailstop [address] [place] [address] [place], 09/26/2024 Telephone [facility] Transplant Liver [address] [facility] [facility] [address] [place] [address] Kesha Gutiérrez, RN 09/26/2024 Telephone [facility] Transplant Liver [address] [facility] [facility] [address] Mailstop [address] [place] [address] Kesha Gutiérrez, RN 09/25/2024 Telephone [facility] Transplant Liver [address] [facility] [address] Mailstop 9029-948 [place] [address] Kesha Gutiérrez, RN from Last 3 Months [...] uit: Not Asked; Counseling Given: Not Answered [facility] [employer] Answer Date Recorded In the past 12 months has [employer], gas, oil, or water company threatened to shut off services in your [...] often do you attend chur ch or protestant services? Never 11/05/2024 Do you belong to any clubs o r organizations such as yazidism groups, unions, fraternal or athletic groups, or [...] any time in the past 12 m [facility], were you homeless or living in a correction (including now)? No 11/10/2024 Personal Safety Answer Date Recorded Have you ever been in or are you currently in a harmful physical or emotional relationship or is someone making you feel afraid or unsafe? Denies 11/04/2024 Sex and Gender Information Value Date Recorded Sex Assigned at Not on file Legal Sex Male 3:52 AM [employer] Gender Identity Not on file Sexual Orientation Not on file Obstetrics History Last Filed Vital Signs Vital Sign Reading Time Taken Comments Blood Pressure 104/70 11/05/2024 1:00 PM [employer] Pulse 79 11/05/2024 8:27 AM [employer] Temperature 36.4 ??C (97.6 ??F) 11/05/2024 1:00 PM CS T Respiratory Rate 16 11/04/2024 9:21 AM [employer] Oxygen Saturation 98% 11/04/2024 9:21 AM [employer] Inhaled Oxygen Concentration - - Weight 70.3 kg (155 lb) 12/20/2024 8:20 AM [employer] Height 177.8 cm (5' 10 ) 12/20/2024 8:20 AM [employer] Body Mass Index 22.24 12/20/2024 8:20 AM [employer] Plan of Treatment Upcoming Encounters Date Type Department Care Team (Latest Contact Info) Description 12/30/2024 12:30 PM [employer] Hospital Encounter [facility] Digestive Disease [address] [address] Shruthi Baez MD [address] [address] 12/30/2024 12:30 PM [employer] - 12/30/2024 1:30 PM [employer] Surgery [facility] Digestive Disease [address] [address] Shruthi Baez MD [address] [address] COLONOSCOPY EMR te/oa interventional Scheduled Procedures Name Priority Associated Diagnoses Date/Ti me COLONOSCOPY Colon polyp 12/30/2024 12:30 PM [employer] COLON BAND LIGATION - ENDOSCOPIC MUCOSAL RESECTION Colon polyp 12/30/2024 12:30 PM [employer] TRANSPLANT LIVER Encounter for pre-transplant evaluation for [...] Read Routine (OP Routine) 12/20/2024 9:41 AM [employer] Alcoholic cirrhosis of liver with ascites (CMS/HCC) (HCC) SCAN - RADIOLOGY/IMAGING 025 11:50 AM [employer] SCAN - RADIOLOGY/IMAGING 024 12:02 PM [employer] SCAN - LABS 11/11/2024 2:39 PM [employer] MRI ABDOMEN LIVER W WO CONTRAST INCLUDING TOTAL VOLUME (C) Schedule Routine, Read Routine (OP Routine) 11/05/2024 4:57 PM [employer] Encounter for pre-transplant evaluation for liver transplant Alcoholic liver disease (HCC) PULMONARY FUNCTION TEST (PFT) Routine 11/05/2024 3:10 PM [employer] Encounter for pre-transplant evaluation for liver transplant Alcoholic liver disease (HCC) STRESS ECHO PHARMACOLOGIC W DOPPLER/CF W CONTRAST Routine 11/04/2024 4:43 PM [employer] Encounter for pre-transplant evaluation for liver transplant Alcoholic liver disease (HCC) ECG 12-LEAD Routine 11/04/2024 11:39 AM [employer] Encounter for pre-transplant evaluation for liver transplant Alcoholic liver disease (HCC) TYPE AND SCREEN Routine 11/04/2024 11:24 AM [employer] Encounter for pre-transplant evaluation for liver transplant Alcoholic liver disease (HCC) SALVADOR ANTIBODY EVALUATION WITH REFLEX Routine 11/04/2024 11:23 AM [employer] Encounter for pre-transplant evaluation for liver transplant Alcoholic liver disease (HCC) ANTI-DOUBLE STRANDED DNA ANTIBODIES Routine 11/04/2024 11:23 AM [employer] Encounter for pre-transplant evaluation for liver transplant Alcoholic liver disease (HCC) COMPREHENSIVE METABOLIC PANEL Routine 11/04/2024 11:23 AM [employer] Encounter for pre-transplant evaluation for liver transplant Alcoholic liver disease (HCC) EGFR Routine 11/04/2024 11:23 AM [employer] CANCER ANTIGEN 19-9 Routine 11/04/2024 11:23 AM [employer] Encounter for pre-transplant evaluation for liver transplant Alcoholic liver disease (HCC) DIFFERENTIAL AUTO Routine 11/04/2024 11:23 AM [employer] Encounter for pre-transplant evaluation for liver transplant Alcoholic liver disease (HCC) [id number], TUMOR MARKER Routine 11/04/2024 11:23 AM [employer] Encounter for pre-transplant evaluation for liver transplant Alcoholic liver disease (HCC) CBC WITH AUTO DIFFERENTIAL Routine 11/04/2024 11:23 AM [employer] Encounter for pre-transplant evaluation for liver transplant Alcoholic liver disease (HCC) GAMMA GT Routine 11/04/2024 11:23 AM [employer] Encounter for pre-transplant evaluation for liver transplant Alcoholic liver disease (HCC) HEMOGLOBIN A1C Routine 11/04/2024 11:23 AM [employer] Encounter for pre-transplant evaluation for liver transplant Alcoholic liver disease (HCC) LIPID PANEL Routine 11/04/2024 11:23 AM [employer] Encounter for pre-transplant evaluation for liver transplant Alcoholic liver disease (HCC) PROTIME-INR Routine 11/04/2024 11:23 AM [employer] Encounter for pre-transplant evaluation for liver transplant Alcoholic liver disease (HCC) APTT Routine 11/04/2024 11:23 AM [employer] Encounter for pre-transplant evaluation for liver transplant Alcoholic liver disease (HCC) THYROID FUNCTION CASCADE Routine 024 11:23 AM [employer] Encounter for pre-transplant evaluation for liver transplant Alcoholic liver disease (HCC) VITAMIN D 25 HYDROXY Routine 11/04/2024 11:23 AM [employer] Encounter for pre-transplant evaluation for liver transplant Alcoholic liver disease (HCC) [id number] PHENOTYPE Routine 11/04/2024 11:23 AM [employer] Encounter for pre-transplant evaluation for liver transplant Alcoholic liver disease (HCC) ETHANOL Routine 11/04/2024 11:23 AM [employer] Encounter for pre-transplant evaluation for liver transplant Alcoholic liver disease (HCC) PSA SCREEN Routine 11/04/2024 11:23 AM [employer] Encounter for pre-transplant evaluation for liver transplant Alcoholic liver disease (HCC) COTININE, SERUM Routine 11/04/2024 11:23 AM [employer] Encounter for pre-transplant evaluation for liver transplant Alcoholic liver disease (HCC) PHOSPHATIDYLETHANOL Routine 11/04/2024 11:23 AM [employer] Encounter for pre-transplant evaluation for liver transplant Alcoholic liver disease (HCC) CARL SCREEN W/REFLEX SALVADOR+DSDNA Routine 11/04/2024 11:23 AM [employer] Encounter for pre-transplant evaluation for liver transplant Alcoholic liver disease (HCC) IRON PROFILE W/ IBC Routine 11/04/2024 11:23 AM [employer] Encounter for pre-transplant evaluation for liver transplant Alcoholic liver disease (HCC) MITOCHONDRIAL ANTIBODIES, QUALITATIVE Routine 11/04/2024 11:23 AM [employer] Encounter for pre-transplant evaluation for liver transplant Alcoholic liver disease (HCC) SMOOTH MUSCLE ANTIBODY, QUALITATIVE Routine 11/04/2024 11:23 AM RECRUITING INTERNSHIP Encounter for pre-transplant evaluation for liver transplant Alcoholic liver disease (HCC) TRANSFERRIN Routine 11/04/2024 11:23 AM [employer] Encounter for pre-transplant evaluation for liver transplant Alcoholic liver disease (HCC) CERULOPLASMIN Routine 11/04/2024 11:23 AM [employer] Encounter for pre-transplant evaluation for liver transplant Alcoholic liver disease (HCC) FERRITIN Routine 11/04/2024 11:23 AM [employer] Encounter for pre-transplant evaluation for liver transplant Alcoholic liver disease (HCC) CMV, IGG Routine 11/04/2024 11:23 AM [employer] Encounter for pre-transplant evaluation for liver transplant Alcoholic liver disease (HCC) NGOZI-FUENTES VIRUS VCA ANTIBODY PANEL Routine 11/04/2024 11:23 AM [employer] Encounter for pre-transplant evaluation for liver transplant Alcoholic liver disease (HCC) HIV 1/2 ANTIBODY PLUS P24 ANTIGEN Routine 11/04/2024 11:23 AM [employer] Encounter for pre-transplant evaluation for liver transplant Alcoholic liver disease (HCC) HSV 1 ANTIBODY, IGG Routine 11/04/2024 11:23 AM [employer] Encounter for pre-transplant evaluation for liver transplant Alcoholic liver disease (HCC) HSV 2 ANTIBODY, IGG Routine 11/04/2024 11:23 AM [employer] Encounter for pre-transplant evaluation for liver transplant Alcoholic liver disease (HCC) HEPATITIS A ANTIBODY, TOTAL Routine 11/04/2024 11:23 AM [employer] Encounter for pre-transplant evaluation for liver transplant Alcoholic liver disease (HCC) MEASLES IGG ANTIBODY Routine 11/04/2024 11:23 AM [employer] Encounter for pre-transplant evaluation for liver transplant Alcoholic liver disease (HCC) RPR Routine 11/04/2024 11:23 AM [employer] Encounter for pre-transplant evaluation for liver transplant Alcoholic liver disease (HCC) VARICELLA ZOSTER ANTIBODY, IGG Routine 11/04/2024 11:23 AM [employer] Encounter for pre-transplant evaluation for liver transplant Alcoholic liver disease (HCC) HEPATITIS B CORE ANTIBODY, TOTAL Routine 11/04/2024 11:23 AM [employer] Encounter for pre-transplant evaluation for liver transplant Alcoholic liver disease (HCC) HEPATITIS B SURFACE ANTIGEN Routine 11/04/2024 11:23 AM [employer] Encounter for pre-transplant evaluation for liver transplant Alcoholic liver disease (HCC) HEPATITIS B SURFACE ANTIBODY (IMMUNE STATUS) Routine 11/04/2024 11:23 AM [employer] Encounter for pre-transplant evaluation for liver transplant Alcoholic liver disease (HCC) HEPATITIS C ANTIBODY Routine 11/04/2024 11:23 AM [employer] Encounter for pre-transplant evaluation for liver transplant Alcoholic liver disease (HCC) DEXA AXIAL SKELETON BONE DENSITY 1 OR MORE SITES Schedule Routine, Read Routine (OP Routine) 11/04/2024 8:53 AM [employer] Encounter for pre-transplant evaluation for liver transplant Alcoholic liver disease (HCC) XR ORTHOPANTOGRAM/PANOREX Schedule Routine, Read Routine (OP Routine) 11/04/2024 8:42 AM [employer] Encounter for pre-transplant evaluation for liver transplant Alcoholic liver disease (HCC) XR CHEST PA LATERAL 2 VIEWS Schedule Routine, Read Routine (OP Routine) 11/04/2024 8:11 AM [employer] Encounter for pre-transplant evaluation for liver transplant Alcoholic liver disease (HCC) US ADBDOMEN W DOPPLER Schedule Routine, Read Routine (OP Routine) 11/03/2024 8:04 AM [employer] US ADBDOMEN W DOPPLER Schedule Routine, Read Routine (OP Routine) 10/16/2024 12:43 PM [employer] US ADBDOMEN W DOPPLER Schedule Routine, Read Routine (OP Routine) 10/01/2024 3:50 PM [employer] from Last 3 Months Results * MRI Pelvis W WO Contrast (12/20/2024 9:41 AM [employer]ING [employer]) Anatomical Region Laterality Modality Pelvis N/A Magnetic Resonan ce 12/22/2024 10:5 3 AM [employer] Impressions 12/22/2024 11:17 AM [employer] No MR evidence of rectal mass. Dictated by: Perry Seth MD The radiology attending physician has personally reviewed this study, and had reviewed and/or edited this written report and agrees with it. Electronically signed by: Meseret Casiano M.D. Narrative 12/22/2024 11:17 AM [employer] EXAMINATION: MAGNETIC RESONANCE IMAGING OF THE PELVIS [...] * SCAN - RADIOLOGY/IMAGING (11/28/2024 11:50 AM [employer]) Anatomical Region Laterality Modality Other us Kesha Gutiérrez RN Final Result * SCAN - RADIOLOGY/IMAGING (11/14/2024 12:02 PM [employer]) Anatomical Region Laterality Modality Other us Provider Scanning Final Result * SCAN - LABS (11/11/2024 2:39 PM [employer]) us Kesha Gutiérrez RN Final Result * MRI Abdomen Liver W WO Contrast Including Total Volume (C) (11/05/2024 4:57 PM [employer]) Anatomical Region Laterality Modality Body N/A Magnetic Resonan ce 11/06/2024 9:40 AM [employer] Impressions 11/06/2024 11:35 AM [employer] 1. ??Some portal hypertension. ??No suspicious liver lesion. 2. ??Liver volume measuring 1613 sq cm. Dictated by: Jose Portillo MD The radiology attending physician has personally reviewed this study, and had reviewed and/or edited this written report and agrees with it. Electronically signed by: Kee Plascencia M.D. Narrative 11/06/2024 11:35 AM [employer] EXAMINATION: 1. MAGNETIC RESONANCE IMAGING OF THE [...] Pulmonary Function Test - (11/05/2024 3:10 PM [employer]) FVC PRE 3.43 L [facility] FVC %PRE PRED 76 % [facility] FVC POST 3.27 L [facility] FVC %POST PRED 72 % [facility] FEV1 PRE 2.18 L [facility] FEV1 %PRE PRED 63 % [facility] FEV1 POST 2.05 L [facility] FEV1 %POST PRED 59 % [facility] FEV1/FVC PRE 63.7 % [facility] FEV1/FVC POST 62.7 % [facility] FRC PL PRE 4.27 L [facility] FRC PL %PRE PRED 116 % [facility] RV PRE 2.68 L [facility] RV %PRE PRED 115 % [facility] TLC PRE 5.99 L [facility] TLC %PRE PRED 85 % [facility] DLCO PRE 14.1 ml/min/mmH g [facility] DLCO %PRE PRED 52 % [facility] FIO2 % 21.00 % [facility] PaO2 113.0 mmHg [facility] PaCO2 26.0 mmHg [facility] pH 7.47 [facility] A-aDO2 POC 4.0 mmHg [facility] METHGB % 1.0 % [facility] COHb POC 2.4 % [facility] HCO3 18.9 mEq/L [facility] Anatomical Region Laterality Modality PFT 11/05/2024 2:22 PM [employer] Narrative 11/06/2024 8:18 AM [employer] If the P(A-a) is >28 then do shunt study. PFT performed at:->[facility] Adult PFT Lab- [id number] Procedure:->Shunt Assessment [...] and %HbO2 is age dependent. However, the [facility] Pulmonary Function Laboratory defines hypoxemia as a PaO2 <56 mm Hg or a %HbO2 <89%. us Ayden Wylie MD PFT ORDERABLES Final Result * STRESS ECHO PHARMACOLOGIC W DOPPLER/CF W CONTRAST (11/04/2024 4:43 PM [employer]) LV EF 81 % CARDIOREPORT Anatomical Region Laterality Modality Ultrasound 11/04/2024 3:00 PM [employer] Narrative 11/04/2024 5:43 PM [employer] Patient name: Walt Ramirez Date of test: 11/04/2024 Hospital #: [id number] ?Location: [facility] Interpreted by: Maddy Hobson MD Lacquer Sprayer: Elicia Orta RDCS RN: Mago Carney RN Reason for Test: liver txp eval Study quality: Technically good Referring Physician: AYDEN WYLIE MD Contrast Agent: 0.15 ml Definity Admin., (1.35 ml wasted) and NS Bubble Study BASELINE STUDY: Wall Motion Scoring (1=Normal 2=Hypo 3=Akinetic 4=Dyskin./Aneurysm 0=Not visualized) Parasternal Long [place]:MAS=1 BAS=1 MIL=1 CAMPOS=1 Parasternal Short [place]:MAS=1 MIS=1 IA=1 MIL=1 MAL=1 MA=1 Apical 4 Chambers:=1 MIS=1 BIS=1 BAL=1 MAL=1 AL=1 AC=1 Apical 2 Chambers:AI=1 IA=1 BI=1 BA=1 MA=1 AA=1 AC=1 Ejection Fraction: [...] No TS, Mild TR, No PS, No CA, PASP 24mm Hg. Saline study late positive for R>L shunt most c/w extracardiac shunt. Baseline HR: 62 Baseline BP: 106/76 Conduction Defects: None Resting ECG Comments: Normal sinus rhythm. Medications: coreg, spironolactone Meds held: coreg POST DOBUTAMINE STUDY: Wall Motion Scoring (1=Normal 2=Hypo 3=Akinetic 4=Dyskin./Aneurysm 0=Not visualized) Parasternal Long [place]:MAS=1 BAS=1 MIL=1 CAMPOS=1 Parasternal Short [place]:MAS=1 MIS=1 IA=1 MIL=1 MAL=1 MA=1 Apical 4 Chambers:=1 MIS=1 BIS=1 BAL=1 MAL=1 AL=1 AC=1 Apical 2 Chambers:AI=1 IA=1 BI=1 BA=1 MA=1 AA=1 AC=1 Intravenous dobutamine [...] - 17:43:55 by Maddy Hobson MD ?? Floor Worker: Rodolfo Covington MD By signing this report, the attending building estimator certifies that he or she has personally supervised and interpreted the echocardiogram and has reviewed and or edited and agrees with the written comments contained within the report. Procedure Note Maddy Hobson MD - 11/04/2024 Patient name: Walt Ramirez Date of test: 11/04/2024 Hospital #: 0 Location: [facility] Interpreted by: Maddy Hobson MD Lacquer Sprayer: Elicia Orta RDCS RN: Mago Carney RN Reason for Test: liver txp eval Study quality: Technically good Referring Physician: AYDEN WYLIE MD Contrast Agent: 0.15 ml Definity Admin., (1.35 ml wasted) and NS Bubble Study BASELINE STUDY: Wall Motion Scoring (1=Normal 2=Hypo 3=Akinetic 4=Dyskin./Aneurysm 0=Not visualized) Parasternal Long [place]:MAS=1 BAS=1 MIL=1 CAMPOS=1 Parasternal Short [place]:MAS=1 MIS=1 IA=1 MIL=1 MAL=1 MA=1 Apical 4 Chambers:=1 MIS=1 BIS=1 BAL=1 MAL=1 AL=1 AC=1 Apical 2 Chambers:AI=1 IA=1 BI=1 BA=1 MA=1 AA=1 AC=1 Ejection Fraction: [...] No TS, Mild TR, No PS, No CA, PASP 24mm Hg. Saline study late positive for R>L shunt most c/w extracardiac shunt. Baseline HR: 62 Baseline BP: 106/76 Conduction Defects: None Resting ECG Comments: Normal sinus rhythm. Medications: coreg, spironolactone Meds held: coreg POST DOBUTAMINE STUDY: Wall Motion Scoring (1=Normal 2=Hypo 3=Akinetic 4=Dyskin./Aneurysm 0=Not visualized) Parasternal Long [place]:MAS=1 BAS=1 MIL=1 CAMPOS=1 Parasternal Short [place]:MAS=1 MIS=1 IA=1 MIL=1 MAL=1 MA=1 Apical 4 Chambers:=1 MIS=1 BIS=1 BAL=1 MAL=1 AL=1 AC=1 Apical 2 Chambers:AI=1 IA=1 BI=1 BA=1 MA=1 AA=1 AC=1 Intravenous dobutamine [...] 11/04/2024 - 17:43:55 by Maddy Hobson MD Floor Worker: Rodolfo Covington MD By signing this report, the attending building estimator certifies that he or she has personally supervised and interpreted the echocardiogram and has reviewed and or edited and agrees with the written comments contained within the report. us Ayden Wylie MD CV ECHO PROCEDURES Final Resul t * ECG 12 lead (11/04/2024 11:39 AM [employer]) Ventricular Rate EKG/Min 73 BPM [facility] Atrial Rate 73 BPM [facility] CA-Interval (MSEC) 158 ms [facility] QRS-Interval (MSEC) 64 ms [facility] QT-Interval (MSEC) 404 ms [facility] QTc 445 ms [facility] P [place] 84 degrees [facility] R [place] 38 degrees [facility] T [place] 47 degrees [facility] Diagnosis Normal sinus rhythm Low voltage QRS Borderline ECG No previous ECGs available Confirmed by KIERSTEN HUITRON M.D ([id number]) on 11/04/2024 2:32:19 PM [facility] 11/04/2024 11:3 9 AM [employer] 11/04/2024 2:32 PM [employer] Ayden Wylie MD ECG ORDERABLES Final Result Performing Organization Address [facility] de Phone Number [facility] * Type and screen (11/04/2024 11:24 AM [employer]) ABO Rh A Positive Nguyễn, indirect Negative [facility] Blood 11/04/2024 11:2 4 AM [employer] 11/04/2024 1:19 PM [employer] Narrative [facility] - 11/04/2024 2:25 PM [employer] Please draw the ABO and the Type and Screen as two separate blood draws with ??each stamped with the two different times stamps as this is a regulatory requirement for this patient to be listed for liver transplant. ??This lab is being obtained as part of a liver transplant evaluation, is time sensitive, and should only be drawn during the evaluation visit at [facility] Lab. Has the patient had Daratumumab or Isatuximab in the past 6 months?->Unknown Ayden Wylie MD LAB BLOOD BANK TEST ORDERABLES Final Result Performing Organization Address [facility] de Phone Number [facility] [place] [address] * (ABNORMAL) CARL screen w/rflx SALVADOR+dsDNA (11/04/2024 11:23 AM [employer]) CARL Positive 1:160 Comment: Interpretive Data Normal [...] revised on 2020. CARL, quant 1:160 titer [facility] CARL, interp Speckled(A) [facility] Blood 11/04/2024 11:2 3 AM [employer] 11/04/2024 12:42 PM [employer] Narrative [facility] - 11/06/2024 2:17 PM [employer] Please add the following comment to each lab: This lab is being obtained as part of a liver transplant evaluation, is time sensitive, and should only be drawn during the evaluation visit at [facility] Lab. us Ayden Wylie MD LAB BLOOD ORDERABLES Final Res ult [facility] Department [place] [address] * Phosphatidylethanol (11/04/2024 11:23 AM [employer]ING INTER[employer]) PHOSPHATIDYLETHANOL Negative . [place] [facility] Comment: ADDITIONAL INFORMATION This report is intended for use in clinical monitoring and management of patients. ??It is not intended for use in employment-related testing. This test was developed and its performance characteristics determined by [facility] in a manner consistent with CLIA requirements. This test has not been cleared or approved by the U.S. Food and Drug Administration. Test Performed by: [facility] - [address] [address] Accounts Receivable Bookkeeper: Deven Owens Ph.D.; CLIA# [id number] PEth 16:0/18:1 (POPEth)by LC-MS/MS <10 Cutoff: 10 ng/mL [facility] Comment: Phosphatidylethanol (PEth) homologues result interpretation PEth [...] (PLPEth) by LC-MS/MS <10 Cutoff: 10 ng/mL [facility] Comment: PEth 16:0/18:2 (PLPEth) Reference ranges are not well established Blood 11/04/2024 11:2 3 AM [employer] 11/04/2024 2:26 PM [employer] Narrative [facility] - 11/07/2024 4:20 AM [employer] This lab is being obtained as part of a liver transplant evaluation, is time sensitive, and should only be drawn during the evaluation visit at [facility] Lab. Ayden Wylie MD LAB BLOOD ORDERABLES Final Res ult Performing Organization Address [facility] de Phone Number [facility] [place] [address] [facility] * Anti-double stranded DNA abs (11/04/2024 11:23 AM [employer]) Pathologist [facility] dsDNA Ab <1.0 <=4.0 IUnits/mL Comment: Interpretive Data Negative: < or = 4 IUnits/mL Indeterminate: 5 - 9 IUnits/mL Positive: > or = 10 IUnits/mL Current interpretive data was last revised on 2017. Blood 11/04/2024 11:2 3 AM [employer] 11/04/2024 12:53 PM [employer] Ayden Wylie MD LAB BLOOD ORDERABLES Final Res ult Performing Organization Address [facility] Co de Phone Number [facility] [place] [address] * eGFR (11/04/2024 11:23 AM [employer]) Pathologist [facility] eGFR 83 >=60 mL/min/1. 73 m2 Comment: [...] reviewed 2021. Blood 11/04/2024 11:2 3 AM [employer]IP 11/04/2024 1:02 PM [employer]ING [employer] us Ayden Wylie MD LAB BLOOD ORDERABLES Final Res ult Performing Organization Address City/State/[facility] Co de Phone Number [facility] [place] [address] * Differential, auto (11/04/2024 11:23 AM [employer]) Neutrophil abs 5.0 1.5 - 6.5 K/cumm Imm gran abs 0.0 0.0 - 0.1 K/cumm [facility] Lymphocyte abs 1.7 0.8 - 3.3 K/cumm [facility] Monocyte abs 0.7 0.2 - 0.8 K/cumm [facility] Eosinophil abs 0.2 0.0 - 0.5 K/cumm [facility] Basophil abs 0.1 0.0 - 0.1 K/cumm [facility] Neutrophil pct 65.9 % [facility] Comment: Interpretive Data Percent cell count reference ranges are not reported, since discordance with absolute values may lead to misinterpretation of CBC data. Current Interpretive Data was last revised on 2018. Imm gran pct 0.3 % [facility] Comment: Interpretive Data Percent cell count reference ranges are not reported, since discordance with absolute values may lead to misinterpretation of CBC data. Current Interpretive Data was last revised on 2018. Lymphocyte pct 21.9 % [facility] Comment: Interpretive Data Percent cell count reference ranges are not reported, since discordance with absolute values may lead to misinterpretation of CBC data. Current Interpretive Data was last revised on 2018. Monocyte pct 8.5 % [facility] Comment: Interpretive Data Percent cell count reference ranges are not reported, since discordance with absolute values may lead to misinterpretation of CBC data. Current Interpretive Data was last revised on 2018. Eosinophil pct 2.0 % [facility] Comment: Interpretive Data Percent cell count reference ranges are not reported, since discordance with absolute values may lead to misinterpretation of CBC data. Current Interpretive Data was last revised on 2018. Basophil pct 1.4 % [facility] Comment: Interpretive Data Percent cell count reference ranges are not reported, since discordance with absolute values may lead to misinterpretation of CBC data. Current Interpretive Data was last revised on 2018. Blood 11/04/2024 11:2 3 AM [employer] 11/04/2024 12:44 PM [employer]ING [employer]HIP us Ayden Wylie MD LAB BLOOD ORDERABLES Final Res ult [facility] [place] [address] * SALVADOR ab eval w/reflex (11/04/2024 11:23 AM [employer] INTER[employer]) SALVADOR ab Negative Negative Comment: Interpretive Data Positive Screens will be reflexed to specific testing for Antibodies against the following antigens: Desiree-1 Ab, SIGN INSTALLER Ab, Scl-70 Ab, Garcia Ab, SS-A/Ro Ab, and SS- B/La Ab. Further testing for dsDNA, Centromere, or Ribosomal P antibodies is suggested in patient with a positive screen and negative specific antibodies. Current interpretive data was last revised on 2023. Blood 11/04/2024 11:2 3 AM [employer] 11/04/2024 12:53 PM [employer]ING [employer]HIP Ayden Wylie MD LAB BLOOD ORDERABLES Final Res ult Performing Organization Address [facility] Co de Phone Number [facility] [place] [address] * Smooth muscle antibody, qualitative (11/04/2024 11:23 AM [employer]) Anti-smooth muscle Negative Negative Blood 11/04/2024 11:2 3 AM [employer] 11/04/2024 12:42 PM [employer] Narrative [facility] - 11/05/2024 1:40 PM [employer] Please add the following comment to each lab: This lab is being obtained as part of a liver transplant evaluation, is time sensitive, and should only be drawn during the evaluation visit at [address] Lab. Ayden Wylie MD LAB BLOOD ORDERABLES Final Res ult Performing Organization Address [facility] Co de Phone Number [facility] [place] [address] * Thyroid Function Barnard (11/04/2024 11:23 AM [employer]) TSH 1.49 0.30 - 4.20 mcIUnit/mL Blood 11/04/2024 11:2 3 AM [employer]IP 11/04/2024 12:45 PM [employer] Narrative [facility] - 11/04/2024 2:01 PM [employer] This lab is being obtained as part of a liver transplant evaluation, is time sensitive, and should only be drawn during the evaluation visit at [address] Lab[address] us Ayden Wylie MD LAB BLOOD ORDERABLES Final Res ult Performing Organization Address [facility] de Phone Number [facility] [place] [address] * PSA screen (11/04/2024 11:23 AM RE[employer]ING INTER[employer]) [facility] PSA-Total 0.12 <=5.40 ng/mL Comment: Interpretive Data ?AGE ? SEX ?REFERENCE INTERVAL 0 minutes-150 years ?Female ?None 0 minutes-49 years ? Male ?None ? 50-59 years ? Male ?0-3.90 ? 60-69 years ? Male ?0-5.40 ? 70-79 years ? Male ?0-6.20 ? 80-150 years ?Male ?0-6.20 The Monetate PSA Total assay procedure was used. Results from different manufacturers or methods may not be comparable. Serial testing should be performed using the same method. Current interpretive data last revised 22. Blood 11/04/2024 11:2 3 AM RE[employer]ING INTERNSHIP 11/04/2024 12:45 PM RE[employer]ING INTERNSHIP Narrative [facility] - 11/04/2024 2:01 PM RE[employer]HIP Please add the following comment to each lab: This lab is being obtained as part of a liver transplant evaluation, is time sensitive, and should only be drawn during the evaluation visit at [address] Lab. us Ayden Wylie MD LAB BLOOD ORDERABLES Final Res ult Performing Organization Address [facility] de Phone Number [facility] [place] [address] * Mitochondrial antibodies, qualitative (11/04/2024 11:23 AM RE[employer]) [facility] Anti-mitochond rial Negative Negative Blood 11/04/2024 11:2 3 AM [employer]ING [employer]HIP 11/04/2024 12:42 PM [employer]ING [employer]HIP Narrative [facility] - 11/05/2024 1:31 PM [employer] Please add the following comment to each lab: This lab is being obtained as part of a liver transplant evaluation, is time sensitive, and should only be drawn during the evaluation visit at [address] Ayden Wylie MD LAB BLOOD ORDERABLES Final Res ult Performing Organization Address [facility] [place] [address] * (ABNORMAL) Iron profile w/ IBC (11/04/2024 11:23 AM RE[employer]) [facility] Iron 58 50 - 150 mcg/dL TIBC 152(L) 250 - 400 mcg/dL [facility] Transferrin saturation 38 20 - 50 % [facility] Blood 11/04/2024 11:2 3 AM [employer]IP 11/04/2024 12:45 PM [employer]HIP Narrative [facility] - 11/04/2024 2:54 PM [employer] Please add the following comment to each lab: This lab is being obtained as part of a liver transplant evaluation, is time sensitive, and should only be drawn during the evaluation visit at [address] Ayden Wylie MD LAB BLOOD ORDERABLES Final Res ult Performing Organization Address City/[facility]/[place] [address] * HIV 1/2 Antibody plus p24 Antigen Blood (11/04/2024 11:23 AM [employer]) [facility] HIV 1/2 ab + p24 ag Nonreactive Nonreactive Comment:Nonreactive for HIV- 1 antigen and HIV-1/HIV-2 antibodies. No laboratory evidence of HIV infection. If acute HIV infection is suspected, consider testing for HIV-1 RNA. Current interpretive data was last revised on 22. Blood 11/04/2024 11:2 3 AM [employer] 11/04/2024 12:42 PM [employer] Narrative [facility] - 11/04/2024 1:32 PM [employer] This lab is being obtained as part of a liver transplant evaluation, is time sensitive, and should only be drawn during the evaluation visit at [facility] 3C Lab. Ayden Wylie MD LAB MICROBIOLOGY - GENERAL ORD ERABLES Final Result Performing Organization Address [facility] Co de Phone Number [facility] [place] [address] * (ABNORMAL) CMV, IgG Blood (11/04/2024 11:23 AM [employer]) [facility] CMV IgG Positive( A) Negative Comment: Interpretive [...] CMV infection. Blood 11/04/2024 11:2 3 AM [employer] 11/04/2024 12:45 PM [employer] Ayden Wylie MD LAB MICROBIOLOGY - GENERAL ORD ERABLES Final Result Performing Organization Address [facility]/ZIP Co de Phone Number [facility] [place] [place] [address] * (ABNORMAL) Pbuuo-2-fuxyirsupxs phenotype (11/04/2024 11:23 AM [employer]) [facility] alpha-1 antitrypsin 206(H) 100 - 190 mg/dL [place] [facility] Comment: ADDITIONAL INFORMATION Method: Nephelometry Test Performed by: [facility] [address] [place] [id number] Accounts Receivable Bookkeeper: Deven Owens Ph.D.; CLIA# [id number] alpha-1 antitrypsin phenotype MM bands [facility] Comment: A single M isoform is detected. In the context of a normal ufafc-3-plergqkqzjq concentration, this is consistent with an MM phenotype. ADDITIONAL INFORMATION Method: Isoelectric Focusing, This assay identifies the phenotype of the circulating rhdoq-3-oasukdozkhu (A1A) protein. If the patient is on replacement therapy or has been recently transfused, the phenotype will detect patient and replacement or transfused plasma A1A protein. This test also cannot detect a null allele which could be responsible for an A1A deficiency. Blood 11/04/2024 11:2 3 AM [employer] 11/04/2024 1:36 PM [employer] Narrative [facility] - 11/07/2024 2:29 PM [employer] Please add the following comment to each lab: This lab is being obtained as part of a liver transplant evaluation, is time sensitive, and should only be drawn during the evaluation visit at [address] Lab. us Ayden Wylie MD LAB BLOOD ORDERABLES Final Res ult [facility] Department [place] [address] [place] ref [facility] * (ABNORMAL) CBC with auto differential (11/04/2024 11:23 AM [employer]) [facility] WBC 7.6 3.8 - 9.9 K/cumm Hgb 13.1 13.0 - 17.5 g/dL [facility] Hct 38.1(L) 38.9 - 50.3 % [facility] Plt 218 150 - 400 K/cumm [facility] MPV 9.4 9.1 - 12.3 fL [facility] RBC 4.24(L) 4.30 - 5.80 M/cumm [facility] MCV 89.9 81.3 - 96.4 fL [facility] MCH 30.9 27.1 - 33.3 pg [facility] MCHC 34.4 32.3 - 35.7 g/dL [facility] RDW CV 14.6 11.1 - 14.9 % [facility] RDW SD 47.7 35.7 - 48.1 fL [facility] NRBC abs 0.00 0.00 - 0.01 K/cumm [facility] Blood 11/04/2024 11:2 3 AM [employer] 11/04/2024 12:44 PM [employer] Narrative [facility] - 11/04/2024 12:51 PM [employer] This lab is being obtained as part of a liver transplant evaluation, is time sensitive, and should only be drawn during the evaluation visit at [address] Lab. Ayden Wylie MD LAB BLOOD ORDERABLES Final Res ult [facility] [place] [address] * Hepatitis C antibody Blood (11/04/2024 11:23 AM [employer]) Hep C Ab Nonreactive Nonreactive Comment:Antibodies to HCV no t detected. Does NOT exclude the possibility of recent exposure to HCV. Current interpretive data was last revised on 22 Blood 11/04/2024 11:2 3 AM [employer] 11/04/2024 12:42 PM [employer] Narrative [facility] - 11/04/2024 1:37 PM [employer] Please add the following comment to each lab: This lab is being obtained as part of a liver transplant evaluation, is time sensitive, and should only be drawn during the evaluation visit at [address] Lab. Ayden Wylie MD LAB MICROBIOLOGY - GENERAL ORD ERABLES Final Result [facility] [place] [address] * (ABNORMAL) Ngozi-Fuentes virus (EBV) antibody panel Blood (11/04/2024 11:23 AM [employer]) Pathologist [facility] EBV nuclear Ab Positive(A) Negative Comment:Indicates the presen ce of detectable IgG antibody to EBV Nuclear Antigen. EBV VCA IgG Positive(A) Negative [facility] Comment:Indicates the presen ce of antibody; 90% of the adult population will have been infected with EBV sometime in the past. EBV VCA IgM Negative Negative [facility] Comment:No detectable IgM an tibody to EBV-VCA. A negative result indicates no current infection with EBV. If clinical suspicion of acute EBV infection is present, testing should be repeated after one week. EBV interp Past Infection [facility] Blood 11/04/2024 11:2 3 AM [employer] 11/04/2024 12:42 PM [employer] Narrative [facility] - 11/04/2024 2:37 PM [employer] This lab is being obtained as part of a liver transplant evaluation, is time sensitive, and should only be drawn during the evaluation visit at [address] Ayden Wylie MD LAB MICROBIOLOGY - GENERAL ORD ERABLES Final Result Performing Organization Address [facility] de Phone Number [facility] [place] [address] * Hepatitis A antibody, total Blood (11/04/2024 11:23 AM [employer]) Pathologist [facility] Hep A total Nonreactive Nonreactive Blood 11/04/2024 11:2 3 AM [employer] 11/04/2024 12:42 PM [employer] Narrative [facility] 11/04/2024 1:37 PM [employer] This lab is being obtained as part of a liver transplant evaluation, is time sensitive, and should only be drawn during the evaluation visit at [address] Lab. Ayden Wylie MD LAB MICROBIOLOGY - GENERAL ORD ERABLES Final Result Performing Organization Address [facility] Co de Phone Number [facility] [place] [address] * (ABNORMAL) Cancer antigen 19-9 (11/04/2024 11:23 AM [employer]) Pathologist [facility] CA 19-9 ag 37.5(H) <=35.0 units/mL Comment: Interpretive Data [employer] [place] CA 19-9 assay procedure was used. Results from different manufacturers or methods may not be comparable. Serial testing should be performed using the same method. Blood 11/04/2024 11:2 3 AM [employer] 11/04/2024 12:45 PM [employer] Ayden Wylie MD LAB BLOOD ORDERABLES Final Res ult Performing Organization Address [facility] [place] [address] * Ceruloplasmin (11/04/2024 11:23 AM [employer]) [facility] Ceruloplasmin 18.9 15.0 - 30.0 mg/dL Blood 11/04/2024 11:2 3 AM [employer] 11/04/2024 12:45 PM [employer] Narrative [facility] - 11/04/2024 2:54 PM [employer] Please add the following comment to each lab: This lab is being obtained as part of a liver transplant evaluation, is time sensitive, and should only be drawn during the evaluation visit at [facility] 3C Lab. Ayden Wylie MD LAB BLOOD ORDERABLES Final Res ult Performing Organization Address [facility] [place] [address] * (ABNORMAL) Measles IgG antibody Blood (11/04/2024 11:23 AM [employer]) Pathologist [facility] Measles IgG Nonreactiv e(A) Comment:Non-reactive: No det ectable antibody to measles.??Such individuals are presumed to be uninfected and susceptible to primary infection. Blood 11/04/2024 11:2 3 AM [employer] 11/04/2024 12:42 PM [employer] Narrative [facility] - 11/04/2024 2:43 PM [employer] This lab is being obtained as part of a liver transplant evaluation, is time sensitive, and should only be drawn during the evaluation visit at [facility] 3C Lab. us Ayden Wylie MD LAB MICROBIOLOGY - GENERAL ORD ERABLES Final Result [facility] [place] [address] * Euozd-7-Slvncdhncjo, Tumor Marker (11/04/2024 11:23 AM [employer]) alpha Fetoprotein 4.2 <=8.3 ng/mL Comment: Interpretive [...] et al. ??J. Ped Surg 1978;13:155-156 Jenn Ann et al. Clin Chem Lab Med 2018;57:783-797 Layne Jacobo et al. ??Clin Chem 2014;[id number]. Current interpretive data was last revised 2022. Blood 11/04/2024 11:2 3 AM [employer] 11/04/2024 12:45 PM [employer] Narrative [facility] - 11/04/2024 8:25 PM [employer] This lab is being obtained as part of a liver transplant evaluation, is time sensitive, and should only be drawn during the evaluation visit at [address] Lab. Ayden Wylie MD LAB BLOOD ORDERABLES Final Res ult Performing Organization Address [facility] Co de Phone Number [facility] Department [place] [employer] [place] [address] * (ABNORMAL) Cotinine level (11/04/2024 11:23 AM [employer]) Nicotine 19(H) <3.0 ng/mL [place] ref [facility] Cotinine, quant, sr 429(H) <3.0 ng/mL [facility] Comment: ADDITIONAL INFORMATION This test was developed and its performance characteristics determined by [facility] in a manner consistent with CLIA requirements. This test has not been cleared or approved by the U.S. Food and Drug Administration. Test Performed by: [facility] [address] [place] [address] Accounts Receivable Bookkeeper: Deven Owens Ph.D.; CLIA# [id number] Blood 11/04/2024 11:2 3 AM [employer] 11/04/2024 1:36 PM [employer] Narrative [facility] - 11/06/2024 10:53 AM [employer] This lab is being obtained as part of a liver transplant evaluation, is time sensitive, and should only be drawn during the evaluation visit at [address] Lab. Ayden Wylie MD LAB BLOOD ORDERABLES Final Res ult Performing Organization Address [facility]/ZIP Co de Phone Number [facility] [place] [place] [place] [address] [facility] Lab * Hepatitis B core antibody, total Blood (11/04/2024 11:23 AM [employer]) Hep B core IgG/IgM Nonreactive Nonreactive Blood 11/04/2024 11:2 3 AM [employer] 11/04/2024 12:42 PM [employer] Narrative [facility] 11/04/2024 1:37 PM [employer] Please add the following comment to each lab: This lab is being obtained as part of a liver transplant evaluation, is time sensitive, and should only be drawn during the evaluation visit at [address] Lab. Ayden Wylie MD LAB MICROBIOLOGY - GENERAL ORD ERABLES Final Result Performing Organization Address [facility] Co de Phone Number [facility] Department [place] [address] * (ABNORMAL) Vitamin D 25 hydroxy (11/04/2024 11:23 AM [employer]) [facility] Vitamin D 25-OH 10(L) 30 - 80 ng/mL Blood 11/04/2024 11:2 3 AM [employer] 11/04/2024 12:45 PM [employer] Narrative [facility] 11/04/2024 2:01 PM [employer] This lab is being obtained as part of a liver transplant evaluation, is time sensitive, and should only be drawn during the evaluation visit at [address] Lab. Ayden Wylie MD LAB BLOOD ORDERABLES Final Res ult Performing Organization Address [facility] Co de Phone Number [facility] [place] [address] * (ABNORMAL) HSV 2 IgG Antibody Blood (11/04/2024 11:23 AM [employer]) [facility] HSV 2 IgG Reactive( A) Nonreactive Comment: Interpretive Data 1. Nonreactive: No detectable IgG antibody to HSV-2. 2. Equivocal: Presence or absence of detectable antibodies to HSV-2 cannot be determined and the test should be repeated. 3. Reactive: Indicates presence of detectable IgG antibody to HSV-2. Current interpretive data was last revised on 2023. Blood 11/04/2024 11:2 3 AM [employer] 11/04/2024 12:42 PM [employer] Narrative [facility] - 11/04/2024 2:42 PM [employer] This lab is being obtained as part of a liver transplant evaluation, is time sensitive, and should only be drawn during the evaluation visit at [address] Ayden Wylie MD LAB MICROBIOLOGY - GENERAL ORD ERABLES Final Result Performing Organization Address [facility] [place] [address] * HSV 1 IgG Antibody Blood (11/04/2024 11:23 AM [employer]) HSV 1 IgG Nonreactive Nonreactive Comment: Interpretive Data 1. Nonreactive: No detectable IgG antibody to HSV-1. 2. Equivocal: Presence or absence of detectable antibodies to HSV-1 cannot be determined and the test should be repeated. 3. Reactive: Indicates presence of detectable IgG antibody to HSV-1. Current interpretive data was last revised on 2017. Blood 11/04/2024 11:2 3 AM [employer] 11/04/2024 12:42 PM [employer] Narrative [facility] 11/04/2024 2:42 PM [employer] This lab is being obtained as part of a liver transplant evaluation, is time sensitive, and should only be drawn during the evaluation visit at [address] Ayden Wylie MD LAB MICROBIOLOGY - GENERAL ORD ERABLES Final Result Performing Organization Address [facility] [place] [address] * RPR Blood (11/04/2024 11:23 AM [employer]) RPR Nonreactive Nonreactive Blood 11/04/2024 11:2 3 AM [employer] 11/04/2024 12:44 PM [employer] Narrative [facility] - 11/04/2024 1:41 PM [employer] This lab is being obtained as part of a liver transplant evaluation, is time sensitive, and should only be drawn during the evaluation visit at [facility] Lab. Ayden Wylie MD LAB MICROBIOLOGY - GENERAL ORD ERABLES Final Result Performing Organization Address City/[facility]/ZIP Co de Phone Number [facility] [place] [address] * Hepatitis B surface antibody (immune status) Blood (11/04/2024 11:23 AM [employer]) HBsAb (immune status) Nonreactive Comment:This result is consi stent with a lack of immunity to Hepatitis B Virus when used in the setting of routine screening. Current interpretative data was last revised on 22 Blood 11/04/2024 11:2 3 AM [employer] 11/04/2024 12:42 PM [employer] Narrative [facility] 11/04/2024 1:37 PM [employer] Please add the following comment to each lab: This lab is being obtained as part of a liver transplant evaluation, is time sensitive, and should only be drawn during the evaluation visit at [address] Lab. Ayden Wylie MD LAB MICROBIOLOGY - GENERAL ORD ERABLES Final Result Performing Organization Address City/[facility] Co de Phone Number [facility] [place] [address] * Hepatitis B Surface Antigen Blood (11/04/2024 11:23 AM [employer]) HepBsAg Nonreactive Nonreactive Blood 11/04/2024 11:2 3 AM [employer] 11/04/2024 12:42 PM [employer] Narrative [facility] 11/04/2024 1:37 PM [employer] Please add the following comment to each lab: This lab is being obtained as part of a liver transplant evaluation, is time sensitive, and should only be drawn during the evaluation visit at [address] Lab. Ayden Wylie MD LAB MICROBIOLOGY - GENERAL ORD ERABLES Final Result [facility] [place] [address] * (ABNORMAL) aPTT (11/04/2024 11:23 AM [employer]) aPTT 41(H) 28 - 38 sec Comment: Interpretive Data Heparin therapeutic range: 66.0 - 100.0 seconds. Range based on correlation with therapeutic heparin activity range of 0.3 - 0.7 Units/mL. Current interpretive data was last revised on 2023. Blood 11/04/2024 11:2 3 AM [employer] 11/04/2024 12:42 PM [employer] Narrative [facility] - 11/04/2024 1:00 PM [employer] This lab is being obtained as part of a liver transplant evaluation, is time sensitive, and should only be drawn during the evaluation visit at [address] Lab. Ayden Wylie MD LAB BLOOD ORDERABLES Final Res ult [facility] [place] [address] * (ABNORMAL) Protime-INR (11/04/2024 11:23 AM [employer]) PT 19.0(H) 9.7 - 13.0 sec INR 1.74(H) 0.90 - 1.20 [facility] Comment: Interpretive data Oral anticoagulant therapeutic ranges: Venous thromboembolism prophylaxis or treatment: 2.0-3.0 CARDIOLOGY Standard range: 2.0-3.0 High-intensity range: 2.5-3.5 Refer to indication-specific guidelines for appropriate target ranges for prosthetic heart valve replacement. Current interpretive data was last revised on 2019. Blood 11/04/2024 11:2 3 AM [employer] 11/04/2024 12:42 PM [employer] Narrative [facility] - 11/04/2024 1:00 PM [employer] This lab is being obtained as part of a liver transplant evaluation, is time sensitive, and should only be drawn during the evaluation visit at [address] Ayden Wylie MD LAB BLOOD ORDERABLES Final Res ult Performing Organization Address [facility] Co de Phone Number [facility] [place] [address] * Varicella Zoster IgG antibody Blood (11/04/2024 11:23 AM [employer]) [facility] VZV IgG Reactive Reactive Comment:Reactive: Results yang ggest response to immunization or prior exposure to the virus. Blood 11/04/2024 11:2 3 AM [employer] 11/04/2024 12:42 PM [employer] Narrative [facility] - 11/04/2024 2:43 PM [employer] This lab is being obtained as part of a liver transplant evaluation, is time sensitive, and should only be drawn during the evaluation visit at [address] Lab. Ayden Wylie MD LAB MICROBIOLOGY - GENERAL ORD ERABLES Final Result Performing Organization Address [facility] [place] [address] * (ABNORMAL) Transferrin (11/04/2024 11:23 AM [employer]) [facility] Transferrin 154(L) 200 - 360 mg/dL Blood 11/04/2024 11:2 3 AM [employer] 11/04/2024 12:45 PM [employer] Narrative [facility] 11/04/2024 2:47 PM [employer] Please add the following comment to each lab: This lab is being obtained as part of a liver transplant evaluation, is time sensitive, and should only be drawn during the evaluation visit at [address] Ayden Wylie MD LAB BLOOD ORDERABLES Final Res ult Performing Organization Address [facility] de Phone Number [facility] [place] [address] * Hemoglobin A1c (11/04/2024 11:23 AM [employer]) Hgb A1C 5.5 4.0 - 5.6 % Estimated Average Glucose 111 mg/dL [facility] Comment: The ADA recommends reporting an estimated Average Glucose (eAG) with all Hemoglobin A1c results using the equation derived from a study of 507 normal and diabetic adults. ??Minority populations were underrepresented and children were not included. ?? (Diabetes Care 2020; 43(S1): S66-S76). ??The eAG is not equivalent to a fasting glucose. Blood 11/04/2024 11:2 3 AM [employer] 11/04/2024 12:42 PM [employer] Narrative [facility] - 11/04/2024 1:59 PM [employer] This lab is being obtained as part of a liver transplant evaluation, is time sensitive, and should only be drawn during the evaluation visit at [address] Lab. Ayden Wylie MD LAB BLOOD ORDERABLES Final Res ult Performing Organization Address City/[facility]/ZIP Co de Phone Number [facility] [place] [address] * Gamma GT (11/04/2024 11:23 AM [employer]) GGT 18 10 - 50 Units/L Blood 11/04/2024 11:2 3 AM [employer] 11/04/2024 12:45 PM [employer] Narrative [facility] - 11/04/2024 2:01 PM [employer] This lab is being obtained as part of a liver transplant evaluation, is time sensitive, and should only be drawn during the evaluation visit at [address] Lab. us Ayden Wylie MD LAB BLOOD ORDERABLES Final Res ult [facility] [place] [address] * (ABNORMAL) Ferritin (11/04/2024 11:23 AM [employer]) Ferritin 477(H) 30 - 400 ng/mL Blood 11/04/2024 11:2 3 AM [employer] 11/04/2024 12:45 PM [employer] Narrative [facility] - 11/04/2024 2:01 PM [employer] Please add the following comment to each lab: This lab is being obtained as part of a liver transplant evaluation, is time sensitive, and should only be drawn during the evaluation visit at [address] Lab. Ayden Wylie MD LAB BLOOD ORDERABLES Final Res ult Performing Organization Address [facility] de Phone Number [facility] [place] [address] * Ethanol (11/04/2024 11:23 AM [employer]) Ethanol <10 <=10 mg/dL Comment: Interpretive Data Legal limit of intoxication > or = 80 mg/dL Levels > or = 400 mg/dL are potentially TOXIC. Current interpretive data was last revised on 2019. Blood 11/04/2024 11:2 3 AM [employer] 11/04/2024 12:45 PM [employer] Narrative [facility] - 11/04/2024 2:01 PM [employer] Please add the following comment to each lab: This lab is being obtained as part of a liver transplant evaluation, is time sensitive, and should only be drawn during the evaluation visit at [address] Lab. Ayden Wylie MD LAB BLOOD ORDERABLES Final Res ult Performing Organization Address [facility] de Phone Number [facility] [place] [address] * (ABNORMAL) Lipid panel (11/04/2024 11:23 AM [employer]) Cholesterol 87 30 - 199 mg/dL Comment: [...] revised on 2018. Triglycerides 72 <=149 mg/dL [facility] Comment: Interpretive Data Ages < or [...] revised on 2018. HDL 36(L) >=40 mg/dL [facility] Comment: Interpretive Data Ages < or [...] on 2018. LDL, calculated 36 <=129 mg/dL [facility] Comment: Interpretive Data Ages < or = [...] NCEP Expert Panel. Circulation 2004;110:227 3. Lyndon M et al. ERICK Cardiol. 2020 March 26;5(5):540-548. doi: 10.1001/jamacardio.2020.0013 Current Interpretive Data was last revised on 2024. Non-HDL Cholesterol 51 mg/dL [facility] Comment: Interpretive Data Ages < or = [...] last revised on 2018. Chol/HDL ratio 2 [facility] Blood 11/04/2024 11:2 3 AM [employer] 11/04/2024 12:45 PM [employer] Narrative [facility] - 11/04/2024 2:01 PM [employer] This lab is being obtained as part of a liver transplant evaluation, is time sensitive, and should only be drawn during the evaluation visit at [facility]. us Ayden Wylie MD LAB BLOOD ORDERABLES Final Res ult [facility] [place] [address] * (ABNORMAL) Comprehensive metabolic panel (11/04/2024 11:23 AM [employer]) Sodium 130(L) 135 - 145 mmol/L Potassium, pl 4.7 3.3 - 4.9 mmol/L [facility] Chloride 100 97 - 110 mmol/L [facility] CO2 23 22 - 32 mmol/L [facility] Anion gap 7 2 - 15 mmol/L [facility] BUN 12 6 - 25 mg/dL [facility] Creatinine 1.02 0.80 - 1.30 mg/dL [facility] Glucose 87 70 - 199 mg/dL [facility] Comment: Interpretive Data Fasting glucose >/= [...] 2022. Calcium 9.1 8.5 - 10.3 mg/dL [facility] Bilirubin, total 1.5(H) 0.1 - 1.2 mg/dL [facility] Protein, pl 7.8 6.5 - 8.5 g/dL [facility] Albumin 3.0(L) 3.5 - 5.0 g/dL [facility] Alk phos 88 40 - 130 Units/L [facility] ALT 11 7 - 55 Units/L [facility] AST 30 10 - 50 Units/L [facility] Blood 11/04/2024 11:2 3 AM [employer] 11/04/2024 12:45 PM [employer] us Ayden Wylie MD LAB BLOOD ORDERABLES Final Res ult [facility] [place] [address] * Dexa Axial Skeleton Bone Density 1 or 2 Site (11/04/2024 8:53 AM [employer]) Anatomical Region Laterality Modality Body N/A Digital Radiogra phy 11/04/2024 9:04 AM [employer] Impressions 11/04/2024 10:55 AM [employer] ?? 1. The bone mineral density of [...] Pebbles Mcgill M.D. Narrative 11/04/2024 10:55 AM [employer] BONE DENSITOMETRY OF THE SPINE AND HIP [...] * XR Orthopantogram Panorex (11/04/2024 8:42 AM [employer]) Anatomical Region Laterality Modality Head and Neck N/A Panoramic X-Ray 11/04/2024 9:50 AM [employer] Impressions 11/04/2024 10:07 AM [employer] Dental caries along the remaining right most maxillary tooth and the residual 1st right mandibular pre-molar. No periapical lucencies. Dictated by: Carolyn Burnett MD The radiology attending physician has personally reviewed this study, and had reviewed and/or edited this written report and agrees with it. Electronically signed by: Anthony Rodas D.O. Narrative 11/04/2024 10:07 AM [employer] EXAMINATION: XR ORTHOPANTOGRAM/PANOREX HISTORY: ??Liver transplant evaluation FINDINGS: No prior imaging available for comparison. Multiple missing teeth, dental zoroastrian of left mandibular molar present. ??Dental caries along the remaining right most maxillary tooth and the residual 1st right mandibular pre-molar. No periapical lucencies noted. Procedure Note Anthony Rodas DO - 11/04/2024 EXAMINATION: XR ORTHOPANTOGRAM/PANOREX HISTORY: Liver transplant evaluation FINDINGS: No prior imaging available for comparison. Multiple missing teeth, dental zoroastrian of left mandibular molar present. Dental caries [...] it. Electronically signed by: Anthony Rodas D.O. Ayden Wylie MD IMG XR PROCEDURES Final Result * XR Chest PA Lateral 2 Views (11/04/2024 8:11 AM [employer]) Anatomical Region Laterality Modality Body, Chest N/A Computed Radiogr aphy 11/04/2024 11:0 5 AM [employer] Impressions 11/04/2024 11:19 AM [employer] Comparison with chest radiograph on 05/05/2024. There [...] Michele Medina M.D. Narrative 11/04/2024 11:19 AM [employer] EXAMINATION: 2 view chest radiograph Procedure Note Michele Medina MD - 11/04/2024 EXAMINATION: 2 view chest radiograph IMPRESSION: Comparison with chest radiograph on 05/05/2024. There is a small right pleural effusion. Left pleural effusion is resolved. There is mild right basilar atelectasis. No pneumothorax. Cardiomediastinal silhouette is normal and unchanged. Dictated by: Waqas Henlon, M.D. The radiology attending physician has personally reviewed this study, and had reviewed and/or edited this written report and agrees with it. Electronically signed by: Michele Medina M.D. us Ayden Wylie MD IMG XR PROCEDURES Final Result * US Abdomen W Doppler (11/03/2024 8:04 AM [employer]) Anatomical Region Laterality Modality Abdomen N/A Ultrasound us Historical Provider IMG US PROCEDURES Final R esult * US Abdomen W Doppler (10/16/2024 12:43 PM [employer]) Anatomical Region Laterality Modality Abdomen N/A Ultrasound us Historical Provider IMG US PROCEDURES Final R esult * US Abdomen W Doppler (10/01/2024 3:50 PM [employer]) Anatomical Region Laterality Modality Abdomen N/A Ultrasound us Historical Provider IMG US PROCEDURES Final R esult from Last 3 Months Insurance [facility] Advance Directives For more information, please contact: [phone] Documents on File Type Date Recorded Patient Data Entry Processor Expl anation ADVANCE DIRECTIVE 11/11/2024 10:19 PM [facility] ER OF CLAIM TECHNICIAN-MEDICAL * Full Code (Latest Code Status on File) Date Activated Date Inactivated Comments 04/23/2024 2:01 AM 05/12/2024 7:22 PM * Full Code Date Activated Date Inactivated Comments 04/10/2024 9:06 AM 04/18/2024 5:41 PM Care Teams Child And Family Services Worker Relationship Specialty Start Date End Date Young Call NP [address] [place] [address] PCP - General Family Medicine 10/28/24 Robert Brooks MD [address] [address] Referring Physician Gastroenterology 04/03/24 Ayden Wylie MD [address] [facility] [place] [address] Consulting Physician Gastroenterology 09/15/24 Kesha Gutiérrez, deep fryer assemblerDirector Of Quality Control 09/15/24
--- OUTSIDE RECORDS SUMMARY | 2024-12-25 16:31 | XMS_ITS ---
Author Organization [facility] Address [address] [place] [address] Care Team Providers Care Finger Cobbler Name Role Phone Robert Brooks MD Unavailable [phone] Ayden Nicholson MD Unavailable [phone] Kesha Gutiérrez RN Unavailable Unavailable Young Call NP Primary Care Provider [phone] Transplant Episode Liver Candidate [facility] ([place], [place]) - [facility] Evaluation began on 09/26/2024 Marked as Active on 09/26/2024 Reason: Evaluation - Standard Liver CoordinatorKesha Gutiérrez RN Phone: N/A Fax: N/A Email: N/A Scores Score Value Updated Expires Exceptions/[place] sons CPRA Not available UNOS MELD Not available MELD (Calc) 19 11/04/2024 [place] Organ Diagnosis 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 Care Team Name Role Phone Fax Email Kesha Gutiérrez RN Liver Coordinator N/A N/A N/A Cecilia Lux RN Secondary Coordinator [phone] N/A Valentine Cohen Primary Retail Associate Manager Bilingual N/A N/A N/A Ayden Nicholson MD Referring Physician [phone] N/A Radha Beltran Cyber Security Systems Engineer [phone] N/A N/A Events Pre-Transplant Referred: 09/15/2024 Evaluation began: 09/26/2024 Committee: 11/11/2024 Appointments (11/24/2024 - 01/23/2025) When With Visit Type Description 12/20/2024 Radiology - Roddy Leonardo MRI Imaging Visit 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
--- OUTSIDE RECORDS SUMMARY | 2024-12-25 16:31 | XMS_ITS | Encounter Summary ---
Author Organization [facility] Address [address] [place] [address] Care Team Providers Care Sewer And Drain Technician Name Role Phone Robert Brooks MD Unavailable [phone] Ayden Nicholson MD Unavailable [phone] Kesha Gutiérrez RN Unavailable Unavailable Young Call NP Primary Care Provider [phone] Encounter Details Date Type Department Care Team (Late st Contact Info) Description 12/25/2024 Telephone [facility] Transplant Liver [address] [facility] [phone] [place] [address] Karen Vides Social History Tobacco Use Types Packs/Day Years Used Date Smoking Tobacco: Every Day Cigarettes 2 49.1 Started: 1975 Passive Smoke Exposure: Current [facility] Utilities Answer Date Recorded In the past 12 months has [employer], gas, oil, or water [employer] threatened to shut off services in your [...] How often do you attend chur or sabianist services? Never 11/05/2024 Do you belong to any clubs o r organizations such as roman catholic groups, unions, fraternal or athletic groups, [...] any time in the past 12 m [facility], were you homeless or living in a fci (including now)? No 11/10/2024 Personal Safety Answer Date Recorded Have you ever been in or are you currently in a harmful physical or emotional relationship or is someone making you feel afraid or unsafe? Denies 11/04/2024 Sex and Gender Information Value Date Recorded Sex Assigned at Not on file Legal Sex Male 3:52 AM FAMILY SERVICES ASSISTANT Gender Identity Not on file Sexual Orientation Not on file documented as of this encounter Miscellaneous Notes * Telephone Encounter - Karen Vides - 12/25/2024 8:48 AM CST Received call from friend Viktoriya needing to speak with nurse coordinator regarding: Would like to discuss pt's MRI and blood work results. She also stated she would be calling the pharmacy to see if pt's colonoscopy things had been sent over Patient needs a return call from the nurse coordinator. [phone] LY SERVICES ASSISTANT documented in this encounter Plan of Treatment Upcoming Encounters Date Type Department Care Team (Latest Contact Info) Description 12/30/2024 12:30 PM FAMILY SERVICES ASSISTANT Hospital Encounter [facility] Digestive Disease [place] [address] [address] Shruthi Baez MD [address] [address] 12/30/2024 12:30 PM FAMILY SERVICES ASSISTANT - 12/30/2024 1:30 PM FAMILY SERVICES ASSISTANT Surgery [facility] Digestive Disease [place] [address] [address] Shruthi Baez MD [address] [address] COLONOSCOPY EMR te/oa interventional Scheduled Procedures Name Priority Associated Diagnoses Date/Ti me COLONOSCOPY Colon polyp 12/30/2024 12:30 PM FAMILY SERVICES ASSISTANT COLON BAND LIGATION - ENDOSCOPIC MUCOSAL RESECTION Colon polyp 12/30/2024 12:30 PM FAMILY SERVICES ASSISTANT TRANSPLANT LIVER Encounter for pre-transplant evaluation for liver transplant Alcoholic liver disease (HCC) documented as of this encounter Visit Diagnoses Not on filedocumented in this encounter Care Teams Sewer And Drain Technician Relationship Specialty Start Date End Date Young Call NP [address] [place] [address] PCP - General Family Medicine 10/28/24 Robert Brooks MD [address] [address] Referring Physician Gastroenterology 04/03/24 Ayden Nicholson MD [address] [facility] [place] [address] Consulting Physician Gastroenterology 09/15/24 Kesha Gutiérrez, scenic designerManifest Clerk 09/15/24 documented as of this encounter
--- OUTSIDE RECORDS SUMMARY | 2024-12-25 16:31 | XMS_ITS | Clinical Summary ---
Author Organization [facility] Address [facility] [facility] [place] [address] [place] [address] Care Team Providers Care Validation Leader Name Role Phone Jakub Young GIBSON Primary Care Provider [phone] Suzy Graf MD Unavailable Allergies Active Allergy [...] Type Department Care Team Description 10/28/2024 Telephone [facility] [address] [place] [phone] Suzy Graf MD Information 09/30/2024 Telephone [facility] [address] [place] [id number] [phone] Suzy Graf MD Appointment Reminder 09/29/2024 Orders Only [facility] [address] [place] [address] Suzy Graf MD from Last 3 Months [...] patient's age to complete this topic Insurance [facility] Care Teams Validation Leader Relationship Specialty Start Date End Date Young Call FNP [address] [place] [phone] PCP - General Nurse Practitioner Family 02/08/24 Suzy Graf MD [address] [place] [address] Consulting Physician CARDIOVASCULAR DISEASE 02/08/24
--- OUTSIDE RECORDS SUMMARY | 2024-12-25 16:31 | XMS_ITS | Referral Summary ---
Author Organization [facility] Address [address] [place] [address] Care Team Providers Care Building Maintenance Technician Name Role Phone Robert Brooks MD Unavailable [phone] Ayden Wylie MD Unavailable [phone] Kesha Gutiérrez RN Unavailable Unavailable Young Call NP Primary Care Provider [phone] Encounters Date Type Department Care Team Description 12/25/2024 Telephone [facility] Transplant Liver [address] [facility] [address] [place] [employer] 01-13-6 [place] [address] Kesha Gutiérrez, RN 12/25/2024 Documentation [facility] Transplant Liver [address] [facility] [address] [employer] 53-33-1 [place] [address] Kesha Gutiérrez, RN 12/25/2024 Telephone [facility] Transplant Liver [address] [facility] [address] [employer] [phone] [place] [address] Valentine Cohen 12/25/2024 Telephone [facility] Transplant Liver [address] [facility] [address] Mailstop [phone] [place] [address] Karen Vides 12/24/2024 Telephone [facility] Transplant Liver [address] [facility] [address] Mailstop [phone] [place] [address] Kesha Gutiérrez, RN 12/23/2024 Telephone [facility] Transplant Liver [address] [facility] [address] Mailstop [phone] [place] [address] Kseha Gutiérrez, RN 12/20/2024 8:15 AM DIVISIONAL HUMAN RESOURCES DIRECTOR - 12/20/2024 11:59 PM DIVISIONAL HUMAN RESOURCES DIRECTOR Hospital Encounter [facility] [address] [place] [address] Jonathon Leonardo MD Alcoholic cirrhosis of liver with ascites (CMS/HCC) (HCC) Discharge Disposition: Discharge to home or self care 11/28/2024 Orders Only [facility] Health Information Management [address] [place] [address] Kesha Gutiérrez, RN 11/24/2024 Documentation [facility] Transplant Liver [address] [facility] [address] Mailstop [phone] [place] [address] Kesha Gutiérrez, RN 11/21/2024 Orders Only [facility] Transplant Liver [address] [facility] [address] Mailstop [phone] [place] [address] Kesha Gutiérrez, RN Alcoholic cirrhosis of liver with ascites (CMS/HCC) (HCC) (Primary Dx) 11/17/2024 Telephone [facility] Social Work [address] [place] [phone] Kierra Brower LCSW 11/14/2024 Orders Only [facility] Health Information Management [address] [place] [address] Scanning, Provider 11/14/2024 Telephone [facility] Specialty Services [address] [place] [phone] Christine Harvey RN GI Preprocedure 11/14/2024 Telephone [facility] Transplant Liver [address] [facility] [address] Mailstop [phone] [place] [address] Kesha Gutiérrez, RN 11/13/2024 Telephone [facility] Transplant Liver [address] [facility] [address] Mailstop [phone] [place] [address] Monolo, 11/13/2024 Telephone [facility] Transplant Liver [address] [facility] [address] Mailstop [phone] [place] [address] Monolo, 11/13/2024 Documentation [facility] Transplant Liver [address] [facility] [address] Mailstop [phone] [place] [address] Monolo, 11/13/2024 Telephone [facility] Transplant Liver [address] [facility] [address] Mailstop [phone] [place] [address] Kesha Gutiérrez, RN 11/12/2024 Documentation [facility] Transplant Liver [address] [facility] [address] Mailstop [phone] [place] [address] Myriam Lennon 11/12/2024 Telephone [facility] Transplant Liver [address] [facility] [address] Mailstop [phone] [place] [address] Kesha Gutiérrez, RN 11/12/2024 Telephone [facility] Transplant Liver [address] [facility] [address] Mailstop [phone] [place] [address] Kesha Gutiérrez, RN 11/11/2024 Documentation [facility] Transplant Liver [address] [facility] [address] Mailstop [phone] [place] [address] Kesha Gutiérrez, RN 11/11/2024 Orders Only [facility] Health Information Management [address] [place] [address] Kesha Gutiérrez, RN 11/11/2024 Orders Only [facility] Gasteroenterology [address] [facility] 12th [place] [address] [place] [address] Jonathon Leonardo MD Colon adenoma (Primary Dx) 11/11/2024 Orders Only [facility] Transplant Liver [address] [facility] [address] Mailstop [phone] [place] [address] Kesha Gutiérrez, RN 11/11/2024 Telephone [facility] Transplant Liver [address] [facility] [address] Mailstop [phone] [place] [address] Kesha Gutiérrez, RN 11/10/2024 Telephone [facility] Transplant Liver [address] [facility] [address] Mailstop [phone] [place] [address] Cyndee Baez 11/10/2024 Telephone [facility] Transplant Liver [address] [facility] [address] Mailstop [phone] [place] [address] Monolo, 11/10/2024 Telephone [facility] Transplant Liver [address] [facility] [address] Mailstop [phone] [place] [address] Monolo, 11/10/2024 Documentation [facility] Transplant Liver [address] [facility] [address] Mailstop [phone] [place] [address] Monolo, 11/10/2024 Telephone [facility] Transplant Liver [address] [facility] [address] Mailstop [phone] [place] [address] Kesha Gutiérrez, RN 11/07/2024 Documentation [facility] Transplant Liver [address] [facility] [address] Mailstop [phone] [place] [address] Monolo, 11/06/2024 Telephone [facility] Transplant Liver [address] [facility] [address] Mailstop [phone] [place] [address] Kesha Gutiérrez, RN 11/06/2024 Telephone [facility] Transplant Liver [address] [facility] [address] Mailstop [phone] [place] [address] Cyndee Baez 11/06/2024 Telephone [facility] Transplant Liver [address] [facility] [address] Mailstop [phone] [place] [address] Cyndee Baez 11/05/2024 Documentation [facility] Transplant Liver [address] [facility] [address] Mailstop [phone] [place] [address] Kesha [place], JENNA 11/05/2024 Documentation [facility] Transplant Liver [address] [facility] [address] Mailstop [phone] [place] [address] Kesha [place], JENNA 11/05/2024 12:00 PM DIVISIONAL HUMAN RESOURCES DIRECTOR Social Work [facility] [address] [place] [address], 8th Floor, [place] [address] Kierra Brower LCSW 11/05/2024 1:30 PM DIVISIONAL HUMAN RESOURCES DIRECTOR Office Visit [facility] Surgery [address] [place] [address] 12th [place] [address] [place] [address] Marley Ly PA Alcoholic cirrhosis of liver with ascites (CMS/HCC) (HCC) (Primary Dx) 11/05/2024 8:30 AM DIVISIONAL HUMAN RESOURCES DIRECTOR Office Visit [facility] [address] [place] [address] 12th [place] [address] [place] [address] Jonathon Leonardo MD Alcoholic cirrhosis of liver with ascites (CMS/HCC) (HCC) (Primary Dx) 11/05/2024 2:17 PM DIVISIONAL HUMAN RESOURCES DIRECTOR - 11/05/2024 11:59 PM DIVISIONAL HUMAN RESOURCES DIRECTOR Hospital Encounter [facility] Pulmonary [address] [facility] [address] [place] [address] Encounter for pre-transplant evaluation for liver transplant; Alcoholic liver disease (HCC) Discharge Disposition: Discharge to home or self care 11/05/2024 3:16 PM DIVISIONAL HUMAN RESOURCES DIRECTOR - 11/05/2024 11:59 PM DIVISIONAL HUMAN RESOURCES DIRECTOR Hospital Encounter [facility] ([facility]) [address] [place] [address] Encounter for pre-transplant evaluation for liver transplant; Alcoholic liver disease (HCC) Discharge Disposition: Discharge to home or self care 11/04/2024 Documentation [facility] Transplant Liver [address] [facility] [address] Mailstop [phone] [place] [address] Kesha Gutiérrez RN 11/04/2024 11:00 AM DIVISIONAL HUMAN RESOURCES DIRECTOR Lab [facility] ([facility]) [address] [place] [phone] Encounter for pre-transplant evaluation for liver transplant; Alcoholic liver disease (HCC) 11/04/2024 7:57 AM DIVISIONAL HUMAN RESOURCES DIRECTOR - 11/04/2024 11:59 PM DIVISIONAL HUMAN RESOURCES DIRECTOR Hospital Encounter [facility] ([facility]) [address] [place] [address] Ayden Wylie MD Encounter for pre-transplant evaluation for liver transplant; Alcoholic liver disease (HCC) Discharge Disposition: Discharge to home or self care 11/04/2024 7:56 AM DIVISIONAL HUMAN RESOURCES DIRECTOR - 11/04/2024 11:59 PM DIVISIONAL HUMAN RESOURCES DIRECTOR Hospital Encounter [facility] ([facility]) [address] [place] [address] Encounter for pre-transplant evaluation for liver transplant; Alcoholic liver disease (HCC) Discharge Disposition: Discharge to home or self care 11/04/2024 7:55 AM DIVISIONAL HUMAN RESOURCES DIRECTOR - 11/04/2024 11:59 PM DIVISIONAL HUMAN RESOURCES DIRECTOR Hospital Encounter [facility] ([facility]) [address] [place] [address] Encounter for pre-transplant evaluation for liver transplant; Alcoholic liver disease (HCC) Discharge Disposition: Discharge to home or self care 11/04/2024 1:02 PM DIVISIONAL HUMAN RESOURCES DIRECTOR - 11/04/2024 11:59 PM DIVISIONAL HUMAN RESOURCES DIRECTOR Hospital Encounter [facility] Card[facility] Diagnostic Lab [facility] [place] [address] Encounter for pre-transplant evaluation for liver transplant; Alcoholic liver disease (HCC) Discharge Disposition: Discharge to home or self care 11/04/2024 9:00 AM DIVISIONAL HUMAN RESOURCES DIRECTOR Pre-Admission Testing [facility] Center for Preoperative Assessment and Planning [facility]) [address] [place] [address] 11/04/2024 7:54 AM DIVISIONAL HUMAN RESOURCES DIRECTOR - 11/04/2024 11:59 PM DIVISIONAL HUMAN RESOURCES DIRECTOR Hospital Encounter [facility]) [address] [place] [address] Encounter for pre-transplant evaluation for liver transplant; Alcoholic liver disease (HCC) Discharge Disposition: Discharge to home or self care 11/03/2024 Orders Only [facility] Transplant Liver [address] [facility] [address] [place] [address] [place] [address] Robert Reyes MD 11/03/2024 Documentation [facility] Transplant Liver [address] [facility] [address] [place], [place] [address]op [facility] [place] [address] Valentine Cohen 11/03/2024 10:00 AM DIVISIONAL HUMAN RESOURCES DIRECTOR Documentation [facility] [address] [place] [address] Advance Medicine, 8th Floor, [place] [address] Radha Beltran 10/31/2024 Telephone [facility] Transplant Liver [address] [facility] [address] [place] [address] Valentine Cohen 10/27/2024 Telephone [facility] Transplant Liver [address] [facility] [address] [place] [address] Kesha Gutiérrez RN 10/27/2024 Telephone [facility] Transplant Liver [address] [facility] [address] [place] [address] Cyndee Baez 10/16/2024 Orders Only [facility] Transplant Liver [address] [facility] [address] Mailstop [address] [place] [address] ProviderRobert MD 10/16/2024 Documentation [facility] Transplant Liver [address] [facility] [address] Mailstop [phone] [place] [address] Valentine Cohen 10/01/2024 Orders Only [facility] Transplant Liver [address] [facility] [address] Mailstop [phone] [place] [address] ProviderRobert MD 10/01/2024 Documentation [facility] Transplant Liver [address] [facility] [address] Mailstop [phone] [place] [address] Valentine Cohen 10/01/2024 Telephone [facility] Transplant Liver [address] [facility] [address] [place] [address] Maggie Clement 09/29/2024 Telephone [facility] Transplant Liver [address] [facility] [address] Mailstop -[address] [place] [address] Valentine Cohen 09/29/2024 Documentation [facility] Transplant Liver [address] [facility] [address] [place] [address] Valentine Cohen 11/04/2024 11:59 PM DIVISIONAL HUMAN RESOURCES DIRECTOR Anesthesia Event [facility] Operating Room 1 [place] [address] Fan Cantrell MD PhD Robles, Hero Doblada, MD 09/26/2024 Telephone [facility] Transplant Liver [address] [facility] [address] Mailstop [phone] [place] [address] Kesha Gutiérrez RN 09/26/2024 Telephone [facility] Transplant Liver [address] [facility] [address] Mailstop [phone] [place] [address] Kesha Gutiérrez, RN 09/25/2024 Telephone [facility] Transplant Liver [address] [facility] [address] Mailstop [phone] [place] [address] Kesha Gutiérrez, RN from Last 3 Months [...] signs of bleeding. 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 Never 11/05/2024 Do you belong to any clubs o r organizations such as temple groups, unions, fraternal or athletic groups, or [...] any time in the past 12 m [facility], were you homeless or living [...] on file Legal Sex Male 3:52 AM DIVISIONAL HUMAN RESOURCES DIRECTOR Gender Identity Not on file Sexual Orientation Not on file Last Filed Vital Signs Vital Sign Reading Time Taken Comments Blood Pressure 104/70 11/05/2024 1:00 PM DIVISIONAL HUMAN RESOURCES DIRECTOR Pulse 79 11/05/2024 8:27 AM DIVISIONAL HUMAN RESOURCES DIRECTOR Temperature 36.4 ??C (97.6 ??F) 11/05/2024 1:[address] Respiratory Rate 16 11/04/2024 9:21 AM DIVISIONAL HUMAN RESOURCES DIRECTOR Oxygen Saturation 98% 11/04/2024 9:21 AM DIVISIONAL HUMAN RESOURCES DIRECTOR Inhaled Oxygen Concentration - - Weight 70.3 kg (155 lb) 12/20/2024 8:20 AM DIVISIONAL HUMAN RESOURCES DIRECTOR Height 177.8 cm (5' 10 ) 12/20/2024 8:20 AM DIVISIONAL HUMAN RESOURCES DIRECTOR Body Mass Index 22.24 12/20/2024 8:20 AM DIVISIONAL HUMAN RESOURCES DIRECTOR Plan of Treatment Upcoming Encounters Date Type Department Care Team (Latest Contact Info) Description 12/30/2024 12:30 PM DIVISIONAL HUMAN RESOURCES DIRECTOR Hospital Encounter [facility] [address] [address] Shruthi Baez MD [address] [place] [address] 12/30/2024 12:30 PM DIVISIONAL HUMAN RESOURCES DIRECTOR - 12/30/2024 1:30 PM DIVISIONAL HUMAN RESOURCES DIRECTOR Surgery [facility] [address] [place] [address] Shruthi Baez MD [address] [place] [address] COLONOSCOPY EMR te/oa interventional Scheduled Procedures Name Priority Associated Diagnoses Date/Ti me COLONOSCOPY Colon polyp 12/30/2024 12:30 PM DIVISIONAL HUMAN RESOURCES DIRECTOR COLON BAND LIGATION - ENDOSCOPIC MUCOSAL RESECTION Colon polyp 12/30/2024 12:30 PM DIVISIONAL HUMAN RESOURCES DIRECTOR TRANSPLANT LIVER Encounter for pre-transplant evaluation for liver transplant Alcoholic liver disease (HCC) Procedures Procedure Name Priority Date/Time Associated Diagnosis Comments MRI PELVIS W WO CONTRAST Schedule Routine, Read Routine (OP Routine) 12/20/2024 9:41 AM DIVISIONAL HUMAN RESOURCES DIRECTOR Alcoholic cirrhosis of liver with ascites (CMS/HCC) (HCC) SCAN - RADIOLOGY/IMAGING 025 11:50 AM DIVISIONAL HUMAN RESOURCES DIRECTOR SCAN - RADIOLOGY/IMAGING 024 12:02 PM DIVISIONAL HUMAN RESOURCES DIRECTOR SCAN - LABS 11/11/2024 2:39 PM DIVISIONAL HUMAN RESOURCES DIRECTOR MRI ABDOMEN LIVER W WO CONTRAST INCLUDING TOTAL VOLUME (C) Schedule Routine, Read Routine (OP Routine) 11/05/2024 4:57 PM DIVISIONAL HUMAN RESOURCES DIRECTOR Encounter for pre-transplant evaluation for liver transplant Alcoholic liver disease (HCC) PULMONARY FUNCTION TEST (PFT) Routine 11/05/2024 3:10 PM DIVISIONAL HUMAN RESOURCES DIRECTOR Encounter for pre-transplant evaluation for liver transplant Alcoholic liver disease (HCC) STRESS ECHO PHARMACOLOGIC W DOPPLER/CF W CONTRAST Routine 11/04/2024 4:43 PM DIVISIONAL HUMAN RESOURCES DIRECTOR Encounter for pre-transplant evaluation for liver transplant Alcoholic liver disease (HCC) ECG 12-LEAD Routine 11/04/2024 11:39 AM DIVISIONAL HUMAN RESOURCES DIRECTOR Encounter for pre-transplant evaluation for liver transplant Alcoholic liver disease (HCC) TYPE AND SCREEN Routine 11/04/2024 11:24 AM DIVISIONAL HUMAN RESOURCES DIRECTOR Encounter for pre-transplant evaluation for liver transplant Alcoholic liver disease (HCC) SALVADOR ANTIBODY EVALUATION WITH REFLEX Routine 11/04/2024 11:23 AM DIVISIONAL HUMAN RESOURCES DIRECTOR Encounter for pre-transplant evaluation for liver transplant Alcoholic liver disease (HCC) ANTI-DOUBLE STRANDED DNA ANTIBODIES Routine 11/04/2024 11:23 AM DIVISIONAL HUMAN RESOURCES DIRECTOR Encounter for pre-transplant evaluation for liver transplant Alcoholic liver disease (HCC) COMPREHENSIVE METABOLIC PANEL Routine 11/04/2024 11:23 AM DIVISIONAL HUMAN RESOURCES DIRECTOR Encounter for pre-transplant evaluation for liver transplant Alcoholic liver disease (HCC) EGFR Routine 11/04/2024 11:23 AM DIVISIONAL HUMAN RESOURCES DIRECTOR CANCER ANTIGEN 19-9 Routine 11/04/2024 11:23 AM DIVISIONAL HUMAN RESOURCES DIRECTOR Encounter for pre-transplant evaluation for liver transplant Alcoholic liver disease (HCC) DIFFERENTIAL AUTO Routine 11/04/2024 11:23 AM DIVISIONAL HUMAN RESOURCES DIRECTOR Encounter for pre-transplant evaluation for liver transplant Alcoholic liver disease (HCC) [id number], TUMOR MARKER Routine 11/04/2024 11:23 AM DIVISIONAL HUMAN RESOURCES DIRECTOR Encounter for pre-transplant evaluation for liver transplant Alcoholic liver disease (HCC) CBC WITH AUTO DIFFERENTIAL Routine 11/04/2024 11:23 AM DIVISIONAL HUMAN RESOURCES DIRECTOR Encounter for pre-transplant evaluation for liver transplant Alcoholic liver disease (HCC) GAMMA GT Routine 11/04/2024 11:23 AM DIVISIONAL HUMAN RESOURCES DIRECTOR Encounter for pre-transplant evaluation for liver transplant Alcoholic liver disease (HCC) HEMOGLOBIN A1C Routine 11/04/2024 11:23 AM DIVISIONAL HUMAN RESOURCES DIRECTOR Encounter for pre-transplant evaluation for liver transplant Alcoholic liver disease (HCC) LIPID PANEL Routine 11/04/2024 11:23 AM DIVISIONAL HUMAN RESOURCES DIRECTOR Encounter for pre-transplant evaluation for liver transplant Alcoholic liver disease (HCC) PROTIME-INR Routine 11/04/2024 11:23 AM DIVISIONAL HUMAN RESOURCES DIRECTOR Encounter for pre-transplant evaluation for liver transplant Alcoholic liver disease (HCC) APTT Routine 11/04/2024 11:23 AM DIVISIONAL HUMAN RESOURCES DIRECTOR Encounter for pre-transplant evaluation for liver transplant Alcoholic liver disease (HCC) THYROID FUNCTION CASCADE Routine 024 11:23 AM DIVISIONAL HUMAN RESOURCES DIRECTOR Encounter for pre-transplant evaluation for liver transplant Alcoholic liver disease (HCC) VITAMIN D 25 HYDROXY Routine 11/04/2024 11:23 AM DIVISIONAL HUMAN RESOURCES DIRECTOR Encounter for pre-transplant evaluation for liver transplant Alcoholic liver disease (HCC) [id number] PHENOTYPE Routine 11/04/2024 11:23 AM DIVISIONAL HUMAN RESOURCES DIRECTOR Encounter for pre-transplant evaluation for liver transplant Alcoholic liver disease (HCC) ETHANOL Routine 11/04/2024 11:23 AM DIVISIONAL HUMAN RESOURCES DIRECTOR Encounter for pre-transplant evaluation for liver transplant Alcoholic liver disease (HCC) PSA SCREEN Routine 11/04/2024 11:23 AM DIVISIONAL HUMAN RESOURCES DIRECTOR Encounter for pre-transplant evaluation for liver transplant Alcoholic liver disease (HCC) COTININE, SERUM Routine 11/04/2024 11:23 AM DIVISIONAL HUMAN RESOURCES DIRECTOR Encounter for pre-transplant evaluation for liver transplant Alcoholic liver disease (HCC) PHOSPHATIDYLETHANOL Routine 11/04/2024 11:23 AM DIVISIONAL HUMAN RESOURCES DIRECTOR Encounter for pre-transplant evaluation for liver transplant Alcoholic liver disease (HCC) CARL SCREEN W/REFLEX SALVADOR+DSDNA Routine 11/04/2024 11:23 AM DIVISIONAL HUMAN RESOURCES DIRECTOR Encounter for pre-transplant evaluation for liver transplant Alcoholic liver disease (HCC) IRON PROFILE W/ IBC Routine 11/04/2024 11:23 AM DIVISIONAL HUMAN RESOURCES DIRECTOR Encounter for pre-transplant evaluation for liver transplant Alcoholic liver disease (HCC) MITOCHONDRIAL ANTIBODIES, QUALITATIVE Routine 11/04/2024 11:23 AM DIVISIONAL HUMAN RESOURCES DIRECTOR Encounter for pre-transplant evaluation for liver transplant Alcoholic liver disease (HCC) SMOOTH MUSCLE ANTIBODY, QUALITATIVE Routine 11/04/2024 11:23 AM DIVISIONAL HUMAN RESOURCES DIRECTOR Encounter for pre-transplant evaluation for liver transplant Alcoholic liver disease (HCC) TRANSFERRIN Routine 11/04/2024 11:23 AM DIVISIONAL HUMAN RESOURCES DIRECTOR Encounter for pre-transplant evaluation for liver transplant Alcoholic liver disease (HCC) CERULOPLASMIN Routine 11/04/2024 11:23 AM DIVISIONAL HUMAN RESOURCES DIRECTOR Encounter for pre-transplant evaluation for liver transplant Alcoholic liver disease (HCC) FERRITIN Routine 11/04/2024 11:23 AM DIVISIONAL HUMAN RESOURCES DIRECTOR Encounter for pre-transplant evaluation for liver transplant Alcoholic liver disease (HCC) CMV, IGG Routine 11/04/2024 11:23 AM DIVISIONAL HUMAN RESOURCES DIRECTOR Encounter for pre-transplant evaluation for liver transplant Alcoholic liver disease (HCC) NGOZI-FUENTES VIRUS VCA ANTIBODY PANEL Routine 11/04/2024 11:23 AM DIVISIONAL HUMAN RESOURCES DIRECTOR Encounter for pre-transplant evaluation for liver transplant Alcoholic liver disease (HCC) HIV 1/2 ANTIBODY PLUS P24 ANTIGEN Routine 11/04/2024 11:23 AM DIVISIONAL HUMAN RESOURCES DIRECTOR Encounter for pre-transplant evaluation for liver transplant Alcoholic liver disease (HCC) HSV 1 ANTIBODY, IGG Routine 11/04/2024 11:23 AM DIVISIONAL HUMAN RESOURCES DIRECTOR Encounter for pre-transplant evaluation for liver transplant Alcoholic liver disease (HCC) HSV 2 ANTIBODY, IGG Routine 11/04/2024 11:23 AM DIVISIONAL HUMAN RESOURCES DIRECTOR Encounter for pre-transplant evaluation for liver transplant Alcoholic liver disease (HCC) HEPATITIS A ANTIBODY, TOTAL Routine 11/04/2024 11:23 AM DIVISIONAL HUMAN RESOURCES DIRECTOR Encounter for pre-transplant evaluation for liver transplant Alcoholic liver disease (HCC) MEASLES IGG ANTIBODY Routine 11/04/2024 11:23 AM DIVISIONAL HUMAN RESOURCES DIRECTOR Encounter for pre-transplant evaluation for liver transplant Alcoholic liver disease (HCC) RPR Routine 11/04/2024 11:23 AM DIVISIONAL HUMAN RESOURCES DIRECTOR Encounter for pre-transplant evaluation for liver transplant Alcoholic liver disease (HCC) VARICELLA ZOSTER ANTIBODY, IGG Routine 11/04/2024 11:23 AM DIVISIONAL HUMAN RESOURCES DIRECTOR Encounter for pre-transplant evaluation for liver transplant Alcoholic liver disease (HCC) HEPATITIS B CORE ANTIBODY, TOTAL Routine 11/04/2024 11:23 AM DIVISIONAL HUMAN RESOURCES DIRECTOR Encounter for pre-transplant evaluation for liver transplant Alcoholic liver disease (HCC) HEPATITIS B SURFACE ANTIGEN Routine 11/04/2024 11:23 AM DIVISIONAL HUMAN RESOURCES DIRECTOR Encounter for pre-transplant evaluation for liver transplant Alcoholic liver disease (HCC) HEPATITIS B SURFACE ANTIBODY (IMMUNE STATUS) Routine 11/04/2024 11:23 AM DIVISIONAL HUMAN RESOURCES DIRECTOR Encounter for pre-transplant evaluation for liver transplant Alcoholic liver disease (HCC) HEPATITIS C ANTIBODY Routine 11/04/2024 11:23 AM DIVISIONAL HUMAN RESOURCES DIRECTOR Encounter for pre-transplant evaluation for liver transplant Alcoholic liver disease (HCC) DEXA AXIAL SKELETON BONE DENSITY 1 OR MORE SITES Schedule Routine, Read Routine (OP Routine) 11/04/2024 8:53 AM DIVISIONAL HUMAN RESOURCES DIRECTOR Encounter for pre-transplant evaluation for liver transplant Alcoholic liver disease (HCC) XR ORTHOPANTOGRAM/PANOREX Schedule Routine, Read Routine (OP Routine) 11/04/2024 8:42 AM DIVISIONAL HUMAN RESOURCES DIRECTOR Encounter for pre-transplant evaluation for liver transplant Alcoholic liver disease (HCC) XR CHEST PA LATERAL 2 VIEWS Schedule Routine, Read Routine (OP Routine) 11/04/2024 8:11 AM DIVISIONAL HUMAN RESOURCES DIRECTOR Encounter for pre-transplant evaluation for liver transplant Alcoholic liver disease (HCC) US ADBDOMEN W DOPPLER Schedule Routine, Read Routine (OP Routine) 11/03/2024 8:04 AM DIVISIONAL HUMAN RESOURCES DIRECTOR US ADBDOMEN W DOPPLER Schedule Routine, Read Routine (OP Routine) 10/16/2024 12:43 PM DIVISIONAL HUMAN RESOURCES DIRECTOR US ADBDOMEN W DOPPLER Schedule Routine, Read Routine (OP Routine) 10/01/2024 3:50 PM DIVISIONAL HUMAN RESOURCES DIRECTOR from Last 3 Months Results * MRI Pelvis W WO Contrast (12/20/2024 9:41 AM DIVISIONAL HUMAN RESOURCES DIRECTOR) Anatomical Region Laterality Modality Pelvis N/A Magnetic Resonan ce 12/22/2024 10:5 3 AM DIVISIONAL HUMAN RESOURCES DIRECTOR Impressions 12/22/2024 11:17 AM DIVISIONAL HUMAN RESOURCES DIRECTOR No MR evidence of rectal mass. Dictated by: Perry Seth MD The radiology attending physician has personally reviewed this study, and had reviewed and/or edited this written report and agrees with it. Electronically signed by: Meseret Casiano M.D. Narrative 12/22/2024 11:17 AM DIVISIONAL HUMAN RESOURCES DIRECTOR EXAMINATION: MAGNETIC RESONANCE IMAGING OF THE PELVIS [...] * SCAN - RADIOLOGY/IMAGING (11/28/2024 11:50 AM DIVISIONAL HUMAN RESOURCES DIRECTOR) Anatomical Region Laterality Modality Other us Kesha Gutiérrez RN Final Result * SCAN - RADIOLOGY/IMAGING (11/14/2024 12:02 PM DIVISIONAL HUMAN RESOURCES DIRECTOR) Anatomical Region Laterality Modality Other us Provider Scanning Final Result * SCAN - LABS (11/11/2024 2:39 PM DIVISIONAL HUMAN RESOURCES DIRECTOR) Kesha Gutiérrez RN Final Result * MRI Abdomen Liver W WO Contrast Including Total Volume (C) (11/05/2024 4:57 PM DIVISIONAL HUMAN RESOURCES DIRECTOR) Anatomical Region Laterality Modality Body N/A Magnetic Resonan ce 11/06/2024 9:40 AM DIVISIONAL HUMAN RESOURCES DIRECTOR Impressions 11/06/2024 11:35 AM DIVISIONAL HUMAN RESOURCES DIRECTOR 1. ??Some portal hypertension. ??No suspicious liver lesion. 2. ??Liver volume measuring 1613 sq cm. Dictated by: Jose Portillo MD The radiology attending physician has personally reviewed this study, and had reviewed and/or edited this written report and agrees with it. Electronically signed by: Kee Plascencia M.D. Narrative 11/06/2024 11:35 AM DIVISIONAL HUMAN RESOURCES DIRECTOR EXAMINATION: 1. MAGNETIC RESONANCE IMAGING OF THE [...] Pulmonary Function Test - (11/05/2024 3:10 PM DIVISIONAL HUMAN RESOURCES DIRECTOR) FVC PRE 3.43 L [facility] FVC %PRE PRED 76 % [facility] FVC POST 3.27 L [facility] FVC %POST PRED 72 % [facility] FEV1 PRE 2.18 L [facility] FEV1 %PRE PRED 63 % [facility] FEV1 POST 2.05 L [facility] FEV1 %POST PRED 59 % [facility] FEV1/FVC PRE 63.7 % [facility] FEV1/FVC POST 62.7 % [facility] FRC PL PRE 4.27 L [facility] FRC PL %PRE PRED 116 % [facility] RV PRE 2.68 L [facility] RV %PRE PRED 115 % [facility] TLC PRE 5.99 L [facility] TLC %PRE PRED 85 % [facility] DLCO PRE 14.1 ml/min/mmH g [facility] DLCO %PRE PRED 52 % [facility] FIO2 % 21.00 % [facility] PaO2 113.0 mmHg [facility] PaCO2 26.0 mmHg [facility] pH 7.47 [facility] A-aDO2 POC 4.0 mmHg [facility] METHGB % 1.0 % [facility] COHb POC 2.4 % [facility] HCO3 18.9 mEq/L [facility] Anatomical Region Laterality Modality PFT 11/05/2024 2:22 PM DIVISIONAL HUMAN RESOURCES DIRECTOR Narrative 11/06/2024 8:18 AM DIVISIONAL HUMAN RESOURCES DIRECTOR If the P(A-a) is >28 then do shunt study. PFT performed at:->[facility] PFT [facility]- [facility] Procedure:->Shunt Assessment Procedure:->Spirometry with Bronchodilator Procedure:->Lung Volumes [...] %HbO2 is age dependent. However, the [facility] Pulmonary Function Laboratory defines hypoxemia as a PaO2 <56 mm Hg or a %HbO2 <89%. us Ayden Wylie MD PFT ORDERABLES Final Result * STRESS ECHO PHARMACOLOGIC W DOPPLER/CF W CONTRAST (11/04/2024 4:43 PM DIVISIONAL HUMAN RESOURCES DIRECTOR) LV EF 81 % CARDIOREPORT Anatomical Region Laterality Modality Ultrasound 11/04/2024 3:00 PM DIVISIONAL HUMAN RESOURCES DIRECTOR Narrative 11/04/2024 5:43 PM DIVISIONAL HUMAN RESOURCES DIRECTOR Patient name: Walt Ramirez Date of test: 11/04/2024 Hospital #: [id number] ?Location: [facility] Interpreted by: Maddy Hobson MD Per Diem Nurse: Elicia Orta RDCS RN: Mago Carney RN Reason for Test: liver txp eval Study quality: Technically good Referring Physician: AYDEN WYLIE MD Contrast Agent: 0.15 ml Definity Admin., (1.35 ml wasted) and NS Bubble Study BASELINE STUDY: Wall Motion Scoring (1=Normal 2=Hypo 3=Akinetic 4=Dyskin./Aneurysm 0=Not visualized) Parasternal Long Yeoman:MAS=1 BAS=1 MIL=1 CAMPOS=1 Parasternal Short Yeoman:MAS=1 MIS=1 NC=1 MIL=1 MAL=1 MA=1 Apical 4 Chambers:=1 MIS=1 BIS=1 BAL=1 MAL=1 AL=1 AC=1 Apical 2 Chambers:AI=1 NC=1 BI=1 BA=1 MA=1 AA=1 AC=1 Ejection Fraction: [...] No TS, Mild TR, No PS, No GA, PASP 24mm Hg. Saline study late positive for R>L shunt most c/w extracardiac shunt. Baseline HR: 62 Baseline BP: 106/76 Conduction Defects: None Resting ECG Comments: Normal sinus rhythm. Medications: coreg, spironolactone Meds held: coreg POST DOBUTAMINE STUDY: Wall Motion Scoring (1=Normal 2=Hypo 3=Akinetic 4=Dyskin./Aneurysm 0=Not visualized) Parasternal Long Yeoman:MAS=1 BAS=1 MIL=1 CAMPOS=1 Parasternal Short Yeoman:MAS=1 MIS=1 NC=1 MIL=1 MAL=1 MA=1 Apical 4 Chambers:=1 MIS=1 BIS=1 BAL=1 MAL=1 AL=1 AC=1 Apical 2 Chambers:AI=1 NC=1 BI=1 BA=1 MA=1 AA=1 AC=1 Intravenous dobutamine [...] - 17:43:55 by Maddy Hobson MD ?? Artificial Fly Tier: Rodolfo Covington MD By signing this report, the attending accounts payable technician certifies that he or she has personally supervised and interpreted the echocardiogram and has reviewed and or edited and agrees with the written comments contained within the report. Procedure Note Maddy Hobson MD - 11/04/2024 Patient name: Walt Ramirez Date of test: 11/04/2024 Hospital #: 0 Location: [facility] Interpreted by: Maddy Hobson MD Per Diem Nurse: Elicia Orta RDCS RN: Mago Carney RN Reason for Test: liver txp eval Study quality: Technically good Referring Physician: AYDEN WYLIE MD Contrast Agent: 0.15 ml Definity Admin., (1.35 ml wasted) and NS Bubble Study BASELINE STUDY: Wall Motion Scoring (1=Normal 2=Hypo 3=Akinetic 4=Dyskin./Aneurysm 0=Not visualized) Parasternal Long Yeoman:MAS=1 BAS=1 MIL=1 CAMPOS=1 Parasternal Short Yeoman:MAS=1 MIS=1 NC=1 MIL=1 MAL=1 MA=1 Apical 4 Chambers:=1 MIS=1 BIS=1 BAL=1 MAL=1 AL=1 AC=1 Apical 2 Chambers:AI=1 NC=1 BI=1 BA=1 MA=1 AA=1 AC=1 Ejection Fraction: [...] No TS, Mild TR, No PS, No GA, PASP 24mm Hg. Saline study late positive for R>L shunt most c/w extracardiac shunt. Baseline HR: 62 Baseline BP: 106/76 Conduction Defects: None Resting ECG Comments: Normal sinus rhythm. Medications: coreg, spironolactone Meds held: coreg POST DOBUTAMINE STUDY: Wall Motion Scoring (1=Normal 2=Hypo 3=Akinetic 4=Dyskin./Aneurysm 0=Not visualized) Parasternal Long Yeoman:MAS=1 BAS=1 MIL=1 CAMPOS=1 Parasternal Short Yeoman:MAS=1 MIS=1 NC=1 MIL=1 MAL=1 MA=1 Apical 4 Chambers:=1 MIS=1 BIS=1 BAL=1 MAL=1 AL=1 AC=1 Apical 2 Chambers:AI=1 NC=1 BI=1 BA=1 MA=1 AA=1 AC=1 Intravenous dobutamine [...] 11/04/2024 - 17:43:55 by Maddy Hobson MD Artificial Fly Tier: Rodolfo Covington MD By signing this report, the attending accounts payable technician certifies that he or she has personally supervised and interpreted the echocardiogram and has reviewed and or edited and agrees with the written comments contained within the report. us Ayden Wylie MD CV ECHO PROCEDURES Final Resul t * ECG 12 lead (11/04/2024 11:39 AM DIVISIONAL HUMAN RESOURCES DIRECTOR) Ventricular Rate EKG/Min 73 BPM [facility] Atrial Rate 73 BPM [facility] GA-Interval (MSEC) 158 ms [facility] QRS-Interval (MSEC) 64 ms [facility] QT-Interval (MSEC) 404 ms [facility] QTc 445 ms [facility] P Yeoman 84 degrees [facility] R Yeoman 38 degrees [facility] T Yeoman 47 degrees [facility] Diagnosis Normal sinus rhythm Low voltage QRS Borderline ECG No previous ECGs available Confirmed by KIERSTEN HUITRON M.D ([id number]) on 11/04/2024 2:32:19 PM [facility] 11/04/2024 11:3 9 AM DIVISIONAL HUMAN RESOURCES DIRECTOR 11/04/2024 2:32 PM DIVISIONAL HUMAN RESOURCES DIRECTOR Ayden Wylie MD ECG ORDERABLES Final Result Performing Organization Address [facility] de Phone Number [facility] * Type and screen (11/04/2024 11:24 AM DIVISIONAL HUMAN RESOURCES DIRECTOR) ABO Rh A Positive Nguyễn, indirect Negative [facility] Blood 11/04/2024 11:2 4 AM DIVISIONAL HUMAN RESOURCES DIRECTOR 11/04/2024 1:19 PM DIVISIONAL HUMAN RESOURCES DIRECTOR Narrative [facility] - 11/04/2024 2:25 PM DIVISIONAL HUMAN RESOURCES DIRECTOR Please draw the ABO and the Type and Screen as two separate blood draws with ??each stamped with the two different times stamps as this is a regulatory requirement for this patient to be listed for liver transplant. ??This lab is being obtained as part of a liver transplant evaluation, is time sensitive, and should only be drawn during the evaluation visit at [address] Lab[address] Has the patient had Daratumumab or Isatuximab in the past 6 months?->Unknown Ayden Wylie MD LAB BLOOD BANK TEST ORDERABLES Final Result Performing Organization Address [facility] de Phone Number [facility] Department [place] [address] * (ABNORMAL) CARL screen w/rflx SALVADOR+dsDNA (11/04/2024 11:23 AM DIVISIONAL HUMAN RESOURCES DIRECTOR) CARL Positive 1:160 Comment: Interpretive Data Normal [...] revised on 2020. CARL, quant 1:160 titer [facility] CARL, interp Speckled(A) [facility] Blood 11/04/2024 11:2 3 AM DIVISIONAL HUMAN RESOURCES DIRECTOR 11/04/2024 12:42 PM DIVISIONAL HUMAN RESOURCES DIRECTOR Narrative [facility] - 11/06/2024 2:17 PM DIVISIONAL HUMAN RESOURCES DIRECTOR Please add the following comment to each lab: This lab is being obtained as part of a liver transplant evaluation, is time sensitive, and should only be drawn during the evaluation visit at [facility] Lab. us Ayden Wylie MD LAB BLOOD ORDERABLES Final Res ult [facility] Department [place] [address] * Phosphatidylethanol (11/04/2024 11:23 AM DIVISIONAL HUMAN RESOURCES DIRECTOR) PHOSPHATIDYLETHANOL Negative . [place] ref Lab Comment: ADDITIONAL INFORMATION This report is intended for use in clinical monitoring and management of patients. ??It is not intended for use in employment-related testing. This test was developed and its performance characteristics determined by [facility] in a manner consistent with CLIA requirements. This test has not been cleared or approved by the U.S. Food and Drug Administration. Test Performed by: [facility] - [address] [address] Software Maintenance Engineer: Deven Owens Ph.D.; CLIA# [id number] PEth 16:0/18:1 (POPEth)by LC-MS/MS <10 Cutoff: 10 ng/mL [facility] Comment: Phosphatidylethanol (PEth) homologues result interpretation PEth [...] (PLPEth) by LC-MS/MS <10 Cutoff: 10 ng/mL [facility] Comment: PEth 16:0/18:2 (PLPEth) Reference ranges are not well established Blood 11/04/2024 11:2 3 AM DIVISIONAL HUMAN RESOURCES DIRECTOR 11/04/2024 2:26 PM DIVISIONAL HUMAN RESOURCES DIRECTOR Narrative [facility] - 11/07/2024 4:20 AM DIVISIONAL HUMAN RESOURCES DIRECTOR This lab is being obtained as part of a liver transplant evaluation, is time sensitive, and should only be drawn during the evaluation visit at [facility] Lab. Ayden Wylie MD LAB BLOOD ORDERABLES Final Res ult Performing Organization Address [facility] Co de Phone Number [facility] Department [place] [address] [facility] * Anti-double stranded DNA abs (11/04/2024 11:23 AM DIVISIONAL HUMAN RESOURCES DIRECTOR) [facility] dsDNA Ab <1.0 <=4.0 IUnits/mL Comment: Interpretive Data Negative: < or = 4 IUnits/mL Indeterminate: 5 - 9 IUnits/mL Positive: > or = 10 IUnits/mL Current interpretive data was last revised on 2017. Blood 11/04/2024 11:2 3 AM DIVISIONAL HUMAN RESOURCES DIRECTOR 11/04/2024 12:53 PM DIVISIONAL HUMAN RESOURCES DIRECTOR Ayden Wylie MD LAB BLOOD ORDERABLES Final Res ult Performing Organization Address City/[facility] Co de Phone Number [facility] Department [place] [address] * eGFR (11/04/2024 11:23 AM DIVISIONAL HUMAN RESOURCES DIRECTOR) [facility] eGFR 83 >=60 mL/min/1. 73 m2 Comment: [...] reviewed 2021. Blood 11/04/2024 11:2 3 AM DIVISIONAL HUMAN RESOURCES DIRECTOR 11/04/2024 1:02 PM DIVISIONAL HUMAN RESOURCES DIRECTOR Ayden Wylie MD LAB BLOOD ORDERABLES Final Res ult [facility] [place] [address] * Differential, auto (11/04/2024 11:23 AM DIVISIONAL HUMAN RESOURCES DIRECTOR) Pathologist [facility] Neutrophil abs 5.0 1.5 - 6.5 K/cumm Imm gran abs 0.0 0.0 - 0.1 K/cumm [facility] Lymphocyte abs 1.7 0.8 - 3.3 K/cumm [facility] Monocyte abs 0.7 0.2 - 0.8 K/cumm [facility] Eosinophil abs 0.2 0.0 - 0.5 K/cumm [facility] Basophil abs 0.1 0.0 - 0.1 K/cumm [facility] Neutrophil pct 65.9 % [facility] Comment: Interpretive Data Percent cell count reference ranges are not reported, since discordance with absolute values may lead to misinterpretation of CBC data. Current Interpretive Data was last revised on 2018. Imm gran pct 0.3 % [facility] Comment: Interpretive Data Percent cell count reference ranges are not reported, since discordance with absolute values may lead to misinterpretation of CBC data. Current Interpretive Data was last revised on 2018. Lymphocyte pct 21.9 % [facility] Comment: Interpretive Data Percent cell count reference ranges are not reported, since discordance with absolute values may lead to misinterpretation of CBC data. Current Interpretive Data was last revised on 2018. Monocyte pct 8.5 % [facility] Comment: Interpretive Data Percent cell count reference ranges are not reported, since discordance with absolute values may lead to misinterpretation of CBC data. Current Interpretive Data was last revised on 2018. Eosinophil pct 2.0 % [facility] Comment: Interpretive Data Percent cell count reference ranges are not reported, since discordance with absolute values may lead to misinterpretation of CBC data. Current Interpretive Data was last revised on 2018. Basophil pct 1.4 % [facility] Comment: Interpretive Data Percent cell count reference ranges are not reported, since discordance with absolute values may lead to misinterpretation of CBC data. Current Interpretive Data was last revised on 2018. Blood 11/04/2024 11:2 3 AM DIVISIONAL HUMAN RESOURCES DIRECTOR 11/04/2024 12:44 PM DIVISIONAL HUMAN RESOURCES DIRECTOR us Ayden Wylie MD LAB BLOOD ORDERABLES Final Res ult [facility] Department [place] [address] * SALVADOR ab eval w/reflex (11/04/2024 11:23 AM DIVISIONAL HUMAN RESOURCES DIRECTOR) SALVADOR ab Negative Negative Comment: Interpretive Data Positive Screens will be reflexed to specific testing for Antibodies against the following antigens: Desiree-1 Ab, SLEEP MANAGER Ab, Scl-70 Ab, Garcia Ab, SS-A/Ro Ab, and SS- B/La Ab. Further testing for dsDNA, Centromere, or Ribosomal P antibodies is suggested in patient with a positive screen and negative specific antibodies. Current interpretive data was last revised on 2023. Blood 11/04/2024 11:2 3 AM DIVISIONAL HUMAN RESOURCES DIRECTOR 11/04/2024 12:53 PM DIVISIONAL HUMAN RESOURCES DIRECTOR Ayden Wylie MD LAB BLOOD ORDERABLES Final Res ult Performing Organization Address [facility] Co de Phone Number [facility] Department [place] [address] * Smooth muscle antibody, qualitative (11/04/2024 11:23 AM DIVISIONAL HUMAN RESOURCES DIRECTOR) [facility] Anti-smooth muscle Negative Negative Blood 11/04/2024 11:2 3 AM DIVISIONAL HUMAN RESOURCES DIRECTOR 11/04/2024 12:42 PM DIVISIONAL HUMAN RESOURCES DIRECTOR Narrative [facility] - 11/05/2024 1:40 PM DIVISIONAL HUMAN RESOURCES DIRECTOR Please add the following comment to each lab: This lab is being obtained as part of a liver transplant evaluation, is time sensitive, and should only be drawn during the evaluation visit at [address] Lab[address] Ayden Wylie MD LAB BLOOD ORDERABLES Final Res ult Performing Organization Address City/[facility]/ZIP Co de Phone Number [facility] Department [place] [address] * Thyroid Function [place] (11/04/2024 11:23 AM DIVISIONAL HUMAN RESOURCES DIRECTOR) [facility] TSH 1.49 0.30 - 4.20 mcIUnit/mL Blood 11/04/2024 11:2 3 AM DIVISIONAL HUMAN RESOURCES DIRECTOR 11/04/2024 12:45 PM DIVISIONAL HUMAN RESOURCES DIRECTOR Narrative [facility] - 11/04/2024 2:01 PM DIVISIONAL HUMAN RESOURCES DIRECTOR This lab is being obtained as part of a liver transplant evaluation, is time sensitive, and should only be drawn during the evaluation visit at [address] Lab[address] us Ayden Wylie MD LAB BLOOD ORDERABLES Final Res ult [facility] Department [place] [address] * PSA screen (11/04/2024 11:23 AM DIVISIONAL HUMAN RESOURCES DIRECTOR) PSA-Total 0.12 <=5.40 ng/mL Comment: Interpretive Data [...] revised 22. Blood 11/04/2024 11:2 3 AM DIVISIONAL HUMAN RESOURCES DIRECTOR 11/04/2024 12:45 PM DIVISIONAL HUMAN RESOURCES DIRECTOR Narrative [facility] - 11/04/2024 2:01 PM DIVISIONAL HUMAN RESOURCES DIRECTOR Please add the following comment to each lab: This lab is being obtained as part of a liver transplant evaluation, is time sensitive, and should only be drawn during the evaluation visit at [address] Lab[address] us Ayden Wylie MD LAB BLOOD ORDERABLES Final Res ult Performing Organization Address [facility] Co de Phone Number [facility] [place] [address] * Mitochondrial antibodies, qualitative (11/04/2024 11:23 AM DIVISIONAL HUMAN RESOURCES DIRECTOR) Pathologist [facility] Anti-mitochond rial Negative Negative Blood 11/04/2024 11:2 3 AM DIVISIONAL HUMAN RESOURCES DIRECTOR 11/04/2024 12:42 PM DIVISIONAL HUMAN RESOURCES DIRECTOR Narrative [facility] - 11/05/2024 1:31 PM DIVISIONAL HUMAN RESOURCES DIRECTOR Please add the following comment to each lab: This lab is being obtained as part of a liver transplant evaluation, is time sensitive, and should only be drawn during the evaluation visit at [address] Lab. Ayden Wylie MD LAB BLOOD ORDERABLES Final Res ult Performing Organization Address [facility] [place] [address] * (ABNORMAL) Iron profile w/ IBC (11/04/2024 11:23 AM DIVISIONAL HUMAN RESOURCES DIRECTOR) Pathologist [facility] Iron 58 50 - 150 mcg/dL TIBC 152(L) 250 - 400 mcg/dL [facility] Transferrin saturation 38 20 - 50 % [facility] Blood 11/04/2024 11:2 3 AM DIVISIONAL HUMAN RESOURCES DIRECTOR 11/04/2024 12:45 PM DIVISIONAL HUMAN RESOURCES DIRECTOR Narrative [facility] 11/04/2024 2:54 PM DIVISIONAL HUMAN RESOURCES DIRECTOR Please add the following comment to each lab: This lab is being obtained as part of a liver transplant evaluation, is time sensitive, and should only be drawn during the evaluation visit at [address] Lab[address] Ayden Wylie MD LAB BLOOD ORDERABLES Final Res ult Performing Organization Address [facility] Co de Phone Number [facility] [address] * HIV 1/2 Antibody plus p24 Antigen Blood (11/04/2024 11:23 AM DIVISIONAL HUMAN RESOURCES DIRECTOR) [facility] HIV 1/2 ab + p24 ag Nonreactive Nonreactive Comment:Nonreactive for HIV- 1 antigen and HIV-1/HIV-2 antibodies. No laboratory evidence of HIV infection. If acute HIV infection is suspected, consider testing for HIV-1 RNA. Current interpretive data was last revised on 22. Blood 11/04/2024 11:2 3 AM DIVISIONAL HUMAN RESOURCES DIRECTOR 11/04/2024 12:42 PM DIVISIONAL HUMAN RESOURCES DIRECTOR Narrative [facility] 11/04/2024 1:32 PM DIVISIONAL HUMAN RESOURCES DIRECTOR This lab is being obtained as part of a liver transplant evaluation, is time sensitive, and should only be drawn during the evaluation visit at [address] Lab. Ayden Wylie MD LAB MICROBIOLOGY - GENERAL ORD ERABLES Final Result Performing Organization Address City/[facility] Co de Phone Number [facility] Department [place] [address] * (ABNORMAL) CMV, IgG Blood (11/04/2024 11:23 AM DIVISIONAL HUMAN RESOURCES DIRECTOR) [facility] CMV IgG Positive( A) Negative Comment: Interpretive [...] CMV infection. Blood 11/04/2024 11:2 3 AM DIVISIONAL HUMAN RESOURCES DIRECTOR 11/04/2024 12:45 PM DIVISIONAL HUMAN RESOURCES DIRECTOR Ayden Wylie MD LAB MICROBIOLOGY - GENERAL ORD ERABLES Final Result Performing Organization Address City/[facility]/ZIP Co de Phone Number [facility] [place] [address] * (ABNORMAL) Kbsaf-1-rhxqbcwvine phenotype (11/04/2024 11:23 AM DIVISIONAL HUMAN RESOURCES DIRECTOR) [facility] alpha-1 antitrypsin 206(H) 100 - 190 mg/dL [place] [facility] Comment: ADDITIONAL INFORMATION Method: Nephelometry Test Performed by: [facility] [address] [place] [address] Software Maintenance Engineer: Deven Owens Ph.D.; CLIA# [id number] alpha-1 antitrypsin phenotype MM bands [facility] Comment: A single M isoform is detected. In the context of a normal pssuy-4-rkgnotbfuft concentration, this is consistent with an MM phenotype. ADDITIONAL INFORMATION Method: Isoelectric Focusing, This assay identifies the phenotype of the circulating qnkhz-1-ngdvsgdnrax (A1A) protein. If the patient is on replacement therapy or has been recently transfused, the phenotype will detect patient and replacement or transfused plasma A1A protein. This test also cannot detect a null allele which could be responsible for an A1A deficiency. Blood 11/04/2024 11:2 3 AM DIVISIONAL HUMAN RESOURCES DIRECTOR 11/04/2024 1:36 PM DIVISIONAL HUMAN RESOURCES DIRECTOR Narrative [facility] - 11/07/2024 2:29 PM DIVISIONAL HUMAN RESOURCES DIRECTOR Please add the following comment to each lab: This lab is being obtained as part of a liver transplant evaluation, is time sensitive, and should only be drawn during the evaluation visit at [facility] Lab. us Ayden Wylie MD LAB BLOOD ORDERABLES Final Res ult [facility] Department [place] [address] [place] ref [facility] * (ABNORMAL) CBC with auto differential (11/04/2024 11:23 AM DIVISIONAL HUMAN RESOURCES DIRECTOR) [facility] WBC 7.6 3.8 - 9.9 K/cumm Hgb 13.1 13.0 - 17.5 g/dL [facility] Hct 38.1(L) 38.9 - 50.3 % [facility] Plt 218 150 - 400 K/cumm [facility] MPV 9.4 9.1 - 12.3 fL [facility] RBC 4.24(L) 4.30 - 5.80 M/cumm [facility] MCV 89.9 81.3 - 96.4 fL [facility] MCH 30.9 27.1 - 33.3 pg [facility] MCHC 34.4 32.3 - 35.7 g/dL [facility] RDW CV 14.6 11.1 - 14.9 % [facility] RDW SD 47.7 35.7 - 48.1 fL [facility] NRBC abs 0.00 0.00 - 0.01 K/cumm [facility] Blood 11/04/2024 11:2 3 AM DIVISIONAL HUMAN RESOURCES DIRECTOR 11/04/2024 12:44 PM DIVISIONAL HUMAN RESOURCES DIRECTOR Narrative [facility] - 11/04/2024 12:51 PM DIVISIONAL HUMAN RESOURCES DIRECTOR This lab is being obtained as part of a liver transplant evaluation, is time sensitive, and should only be drawn during the evaluation visit at [address] Lab[address] Ayden Wylie MD LAB BLOOD ORDERABLES Final Res ult [facility] Department [place] [address] * Hepatitis C antibody Blood (11/04/2024 11:23 AM DIVISIONAL HUMAN RESOURCES DIRECTOR) Hep C Ab Nonreactive Nonreactive Comment:Antibodies to HCV no t detected. Does NOT exclude the possibility of recent exposure to HCV. Current interpretive data was last revised on 22 Blood 11/04/2024 11:2 3 AM DIVISIONAL HUMAN RESOURCES DIRECTOR 11/04/2024 12:42 PM DIVISIONAL HUMAN RESOURCES DIRECTOR Narrative [facility] - 11/04/2024 1:37 PM DIVISIONAL HUMAN RESOURCES DIRECTOR Please add the following comment to each lab: This lab is being obtained as part of a liver transplant evaluation, is time sensitive, and should only be drawn during the evaluation visit at [address] Lab. Ayden Wylie MD LAB MICROBIOLOGY - GENERAL ORD ERABLES Final Result Performing Organization Address [facility] Co de Phone Number [facility] [place] [address] * (ABNORMAL) Ngozi-Fuentes virus (EBV) antibody panel Blood (11/04/2024 11:23 AM DIVISIONAL HUMAN RESOURCES DIRECTOR) Pathologist [facility] EBV nuclear Ab Positive(A) Negative Comment:Indicates the presen ce of detectable IgG antibody to EBV Nuclear Antigen. EBV VCA IgG Positive(A) Negative [facility] Comment:Indicates the presen ce of antibody; 90% of the adult population will have been infected with EBV sometime in the past. EBV VCA IgM Negative Negative [facility] Comment:No detectable IgM an tibody to EBV-VCA. A negative result indicates no current infection with EBV. If clinical suspicion of acute EBV infection is present, testing should be repeated after one week. EBV interp Past Infection [facility] Blood 11/04/2024 11:2 3 AM DIVISIONAL HUMAN RESOURCES DIRECTOR 11/04/2024 12:42 PM DIVISIONAL HUMAN RESOURCES DIRECTOR Narrative [facility] - 11/04/2024 2:37 PM DIVISIONAL HUMAN RESOURCES DIRECTOR This lab is being obtained as part of a liver transplant evaluation, is time sensitive, and should only be drawn during the evaluation visit at [address] Lab. Ayden Wylie MD LAB MICROBIOLOGY - GENERAL ORD ERABLES Final Result Performing Organization Address [facility] Co de Phone Number [facility] Department [place] [address] * Hepatitis A antibody, total Blood (11/04/2024 11:23 AM DIVISIONAL HUMAN RESOURCES DIRECTOR) Pathologist [facility] Hep A total Nonreactive Nonreactive Blood 11/04/2024 11:2 3 AM DIVISIONAL HUMAN RESOURCES DIRECTOR 11/04/2024 12:42 PM DIVISIONAL HUMAN RESOURCES DIRECTOR Narrative [facility] - 11/04/2024 1:37 PM DIVISIONAL HUMAN RESOURCES DIRECTOR This lab is being obtained as part of a liver transplant evaluation, is time sensitive, and should only be drawn during the evaluation visit at [address] Lab. Result [facility] Ayden Wylie MD LAB MICROBIOLOGY - GENERAL ORD ERABLES Final Result Performing Organization Address City/[facility] Co de Phone Number [facility] Department [place] [address] * (ABNORMAL) Cancer antigen 19-9 (11/04/2024 11:23 AM DIVISIONAL HUMAN RESOURCES DIRECTOR) CA 19-9 ag 37.5(H) <=35.0 units/mL Comment: Interpretive Data The [employer] CA 19-9 assay procedure was used. Results from different manufacturers or methods may not be comparable. Serial testing should be performed using the same method. Blood 11/04/2024 11:2 3 AM DIVISIONAL HUMAN RESOURCES DIRECTOR 11/04/2024 12:45 PM DIVISIONAL HUMAN RESOURCES DIRECTOR Ayden Wylie MD LAB BLOOD ORDERABLES Final Res ult Performing Organization Address [facility] Co de Phone Number [facility] [place] [address] * Ceruloplasmin (11/04/2024 11:23 AM DIVISIONAL HUMAN RESOURCES DIRECTOR) Pathologist [facility] Ceruloplasmin 18.9 15.0 - 30.0 mg/dL Blood 11/04/2024 11:2 3 AM DIVISIONAL HUMAN RESOURCES DIRECTOR 11/04/2024 12:45 PM DIVISIONAL HUMAN RESOURCES DIRECTOR Narrative [facility] - 11/04/2024 2:54 PM DIVISIONAL HUMAN RESOURCES DIRECTOR Please add the following comment to each lab: This lab is being obtained as part of a liver transplant evaluation, is time sensitive, and should only be drawn during the evaluation visit at [address] Lab[address] Ayden Wylie MD LAB BLOOD ORDERABLES Final Res ult Performing Organization Address City/[facility] Co de Phone Number [facility] Department [place] [address] * (ABNORMAL) Measles IgG antibody Blood (11/04/2024 11:23 AM DIVISIONAL HUMAN RESOURCES DIRECTOR) Pathologist [facility] Measles IgG Nonreactiv e(A) Comment:Non-reactive: No det ectable antibody to measles.??Such individuals are presumed to be uninfected and susceptible to primary infection. Blood 11/04/2024 11:2 3 AM DIVISIONAL HUMAN RESOURCES DIRECTOR 11/04/2024 12:42 PM DIVISIONAL HUMAN RESOURCES DIRECTOR Narrative [facility] - 11/04/2024 2:43 PM DIVISIONAL HUMAN RESOURCES DIRECTOR This lab is being obtained as part of a liver transplant evaluation, is time sensitive, and should only be drawn during the evaluation visit at [facility] Lab. us Ayden Wylie MD LAB MICROBIOLOGY - GENERAL ORD ERABLES Final Result [facility] Department [place] [address] * Qogqf-2-Ogpjkhsfngr, Tumor Marker (11/04/2024 11:23 AM DIVISIONAL HUMAN RESOURCES DIRECTOR) Pathologist [facility] alpha Fetoprotein 4.2 <=8.3 ng/mL Comment: Interpretive [...] year ?0.0 ? 8.3 ng/ml References Marie Y. et al. ??J. Ped Surg 1978;13:155-156 Jenn S. et al. Clin Chem Lab Med 2018;57:783-797 Layne Jacobo et al. ??Clin Chem 2014;[id number]. Current interpretive data was last revised 2022. Blood 11/04/2024 11:2 3 AM DIVISIONAL HUMAN RESOURCES DIRECTOR 11/04/2024 12:45 PM DIVISIONAL HUMAN RESOURCES DIRECTOR Narrative [facility] - 11/04/2024 8:25 PM DIVISIONAL HUMAN RESOURCES DIRECTOR This lab is being obtained as part of a liver transplant evaluation, is time sensitive, and should only be drawn during the evaluation visit at [address] Lab[address] Ayden Wylie MD LAB BLOOD ORDERABLES Final Res ult Performing Organization Address [facility]/ZIP Co de Phone Number [facility] [place] [address] * (ABNORMAL) Cotinine level (11/04/2024 11:23 AM DIVISIONAL HUMAN RESOURCES DIRECTOR) Pathologist [facility] Nicotine 19(H) <3.0 ng/mL [facility] Lab Cotinine, quant, sr 429(H) <3.0 ng/mL [facility] Comment: ADDITIONAL INFORMATION This test was developed and its performance characteristics determined by [facility] in a manner consistent with CLIA requirements. This test has not been cleared or approved by the U.S. Food and Drug Administration. Test Performed by: [facility] [place] [id number] [place] [address] Software Maintenance Engineer: Deven Owens Ph.D.; CLIA# [id number] Blood 11/04/2024 11:2 3 AM DIVISIONAL HUMAN RESOURCES DIRECTOR 11/04/2024 1:36 PM DIVISIONAL HUMAN RESOURCES DIRECTOR Narrative [facility] - 11/06/2024 10:53 AM DIVISIONAL HUMAN RESOURCES DIRECTOR This lab is being obtained as part of a liver transplant evaluation, is time sensitive, and should only be drawn during the evaluation visit at [address] Lab. Ayden Wylie MD LAB BLOOD ORDERABLES Final Res ult Performing Organization Address City/[facility]/ZIP Co de Phone Number [facility] [place] [address] [place] ref Lab * Hepatitis B core antibody, total Blood (11/04/2024 11:23 AM DIVISIONAL HUMAN RESOURCES DIRECTOR) [facility] Hep B core IgG/IgM Nonreactive Nonreactive Blood 11/04/2024 11:2 3 AM DIVISIONAL HUMAN RESOURCES DIRECTOR 11/04/2024 12:42 PM DIVISIONAL HUMAN RESOURCES DIRECTOR Narrative [facility] - 11/04/2024 1:37 PM DIVISIONAL HUMAN RESOURCES DIRECTOR Please add the following comment to each lab: This lab is being obtained as part of a liver transplant evaluation, is time sensitive, and should only be drawn during the evaluation visit at [address] Ayden Wylie MD LAB MICROBIOLOGY - GENERAL ORD ERABLES Final Result Performing Organization Address [facility] Co de Phone Number [facility] [place] [address] * (ABNORMAL) Vitamin D 25 hydroxy (11/04/2024 11:23 AM DIVISIONAL HUMAN RESOURCES DIRECTOR) [facility] Vitamin D 25-OH 10(L) 30 - 80 ng/mL Blood 11/04/2024 11:2 3 AM DIVISIONAL HUMAN RESOURCES DIRECTOR 11/04/2024 12:45 PM DIVISIONAL HUMAN RESOURCES DIRECTOR Narrative [facility] - 11/04/2024 2:01 PM DIVISIONAL HUMAN RESOURCES DIRECTOR This lab is being obtained as part of a liver transplant evaluation, is time sensitive, and should only be drawn during the evaluation visit at [address] Lab. Ayden Wylie MD LAB BLOOD ORDERABLES Final Res ult Performing Organization Address [facility] Co de Phone Number [facility] [place] [address] * (ABNORMAL) HSV 2 IgG Antibody Blood (11/04/2024 11:23 AM DIVISIONAL HUMAN RESOURCES DIRECTOR) [facility] HSV 2 IgG Reactive( A) Nonreactive Comment: Interpretive Data 1. Nonreactive: No detectable IgG antibody to HSV-2. 2. Equivocal: Presence or absence of detectable antibodies to HSV-2 cannot be determined and the test should be repeated. 3. Reactive: Indicates presence of detectable IgG antibody to HSV-2. Current interpretive data was last revised on 2023. Blood 11/04/2024 11:2 3 AM DIVISIONAL HUMAN RESOURCES DIRECTOR 11/04/2024 12:42 PM DIVISIONAL HUMAN RESOURCES DIRECTOR Narrative [facility] - 11/04/2024 2:42 PM DIVISIONAL HUMAN RESOURCES DIRECTOR This lab is being obtained as part of a liver transplant evaluation, is time sensitive, and should only be drawn during the evaluation visit at [address] Lab. Ayden Wylie MD LAB MICROBIOLOGY - GENERAL ORD ERABLES Final Result Performing Organization Address [facility] Co de Phone Number [facility] [place] [address] * HSV 1 IgG Antibody Blood (11/04/2024 11:23 AM DIVISIONAL HUMAN RESOURCES DIRECTOR) Pathologist [facility] HSV 1 IgG Nonreactive Nonreactive Comment: Interpretive Data 1. Nonreactive: No detectable IgG antibody to HSV-1. 2. Equivocal: Presence or absence of detectable antibodies to HSV-1 cannot be determined and the test should be repeated. 3. Reactive: Indicates presence of detectable IgG antibody to HSV-1. Current interpretive data was last revised on 2017. Blood 11/04/2024 11:2 3 AM DIVISIONAL HUMAN RESOURCES DIRECTOR 11/04/2024 12:42 PM DIVISIONAL HUMAN RESOURCES DIRECTOR Narrative [facility] 11/04/2024 2:42 PM DIVISIONAL HUMAN RESOURCES DIRECTOR This lab is being obtained as part of a liver transplant evaluation, is time sensitive, and should only be drawn during the evaluation visit at [address] Ayden Wylie MD LAB MICROBIOLOGY - GENERAL ORD ERABLES Final Result Performing Organization Address [facility] Co de Phone Number [facility] [place] [address] * RPR Blood (11/04/2024 11:23 AM DIVISIONAL HUMAN RESOURCES DIRECTOR) Pathologist [facility] RPR Nonreactive Nonreactive Blood 11/04/2024 11:2 3 AM DIVISIONAL HUMAN RESOURCES DIRECTOR 11/04/2024 12:44 PM DIVISIONAL HUMAN RESOURCES DIRECTOR Narrative [facility] - 11/04/2024 1:41 PM DIVISIONAL HUMAN RESOURCES DIRECTOR This lab is being obtained as part of a liver transplant evaluation, is time sensitive, and should only be drawn during the evaluation visit at [address] Lab[address] Ayden Wylie MD LAB MICROBIOLOGY - GENERAL ORD ERABLES Final Result Performing Organization Address [facility] de Phone Number [facility] Department [place] [address] * Hepatitis B surface antibody (immune status) Blood (11/04/2024 11:23 AM DIVISIONAL HUMAN RESOURCES DIRECTOR) HBsAb (immune status) Nonreactive Comment:This result is consi stent with a lack of immunity to Hepatitis B Virus when used in the setting of routine screening. Current interpretative data was last revised on 22 Blood 11/04/2024 11:2 3 AM DIVISIONAL HUMAN RESOURCES DIRECTOR 11/04/2024 12:42 PM DIVISIONAL HUMAN RESOURCES DIRECTOR Narrative [facility] 11/04/2024 1:37 PM DIVISIONAL HUMAN RESOURCES DIRECTOR Please add the following comment to each lab: This lab is being obtained as part of a liver transplant evaluation, is time sensitive, and should only be drawn during the evaluation visit at [address] Lab. Ayden Wylie MD LAB MICROBIOLOGY - GENERAL ORD ERABLES Final Result Performing Organization Address [facility] de Phone Number [facility] Department [place] [address] * Hepatitis B Surface Antigen Blood (11/04/2024 11:23 AM DIVISIONAL HUMAN RESOURCES DIRECTOR) Pathologist [facility] HepBsAg Nonreactive Nonreactive Blood 11/04/2024 11:2 3 AM DIVISIONAL HUMAN RESOURCES DIRECTOR 11/04/2024 12:42 PM DIVISIONAL HUMAN RESOURCES DIRECTOR Narrative [facility] 11/04/2024 1:37 PM DIVISIONAL HUMAN RESOURCES DIRECTOR Please add the following comment to each lab: This lab is being obtained as part of a liver transplant evaluation, is time sensitive, and should only be drawn during the evaluation visit at [address] Lab[address] Ayden Wylie MD LAB MICROBIOLOGY - GENERAL ORD ERABLES Final Result Performing Organization Address [facility] Co de Phone Number [facility] Department [place] [address] * (ABNORMAL) aPTT (11/04/2024 11:23 AM DIVISIONAL HUMAN RESOURCES DIRECTOR) aPTT 41(H) 28 - 38 sec Comment: Interpretive Data Heparin therapeutic range: 66.0 - 100.0 seconds. Range based on correlation with therapeutic heparin activity range of 0.3 - 0.7 Units/mL. Current interpretive data was last revised on 2023. Blood 11/04/2024 11:2 3 AM DIVISIONAL HUMAN RESOURCES DIRECTOR 11/04/2024 12:42 PM DIVISIONAL HUMAN RESOURCES DIRECTOR Narrative [facility] - 11/04/2024 1:00 PM DIVISIONAL HUMAN RESOURCES DIRECTOR This lab is being obtained as part of a liver transplant evaluation, is time sensitive, and should only be drawn during the evaluation visit at [address] Lab[address] Ayden Wylie MD LAB BLOOD ORDERABLES Final Res ult Performing Organization Address [facility] Co de Phone Number [facility] Department [place] [address] * (ABNORMAL) Protime-INR (11/04/2024 11:23 AM DIVISIONAL HUMAN RESOURCES DIRECTOR) PT 19.0(H) 9.7 - 13.0 sec INR 1.74(H) 0.90 - 1.20 [facility] Comment: Interpretive data Oral anticoagulant therapeutic ranges: Venous thromboembolism prophylaxis or treatment: 2.0-3.0 CARDIOLOGY Standard range: 2.0-3.0 High-intensity range: 2.5-3.5 Refer to indication-specific guidelines for appropriate target ranges for prosthetic heart valve replacement. Current interpretive data was last revised on 2019. Blood 11/04/2024 11:2 3 AM DIVISIONAL HUMAN RESOURCES DIRECTOR 11/04/2024 12:42 PM DIVISIONAL HUMAN RESOURCES DIRECTOR Narrative [facility] - 11/04/2024 1:00 PM DIVISIONAL HUMAN RESOURCES DIRECTOR This lab is being obtained as part of a liver transplant evaluation, is time sensitive, and should only be drawn during the evaluation visit at [address] Ayden Wylie MD LAB BLOOD ORDERABLES Final Res ult Performing Organization Address City/[facility] Co de Phone Number [facility] [place] [address] * Varicella Zoster IgG antibody Blood (11/04/2024 11:23 AM DIVISIONAL HUMAN RESOURCES DIRECTOR) Pathologist [facility] VZV IgG Reactive Reactive Comment:Reactive: Results yang ggest response to immunization or prior exposure to the virus. Blood 11/04/2024 11:2 3 AM DIVISIONAL HUMAN RESOURCES DIRECTOR 11/04/2024 12:42 PM DIVISIONAL HUMAN RESOURCES DIRECTOR Narrative [facility] - 11/04/2024 2:43 PM DIVISIONAL HUMAN RESOURCES DIRECTOR This lab is being obtained as part of a liver transplant evaluation, is time sensitive, and should only be drawn during the evaluation visit at [address] Ayden Wylie MD LAB MICROBIOLOGY - GENERAL ORD ERABLES Final Result Performing Organization Address [facility] [place] [address] * (ABNORMAL) Transferrin (11/04/2024 11:23 AM DIVISIONAL HUMAN RESOURCES DIRECTOR) [facility] Transferrin 154(L) 200 - 360 mg/dL Blood 11/04/2024 11:2 3 AM DIVISIONAL HUMAN RESOURCES DIRECTOR 11/04/2024 12:45 PM DIVISIONAL HUMAN RESOURCES DIRECTOR Narrative [facility] 11/04/2024 2:47 PM DIVISIONAL HUMAN RESOURCES DIRECTOR Please add the following comment to each lab: This lab is being obtained as part of a liver transplant evaluation, is time sensitive, and should only be drawn during the evaluation visit at [address] Ayden Wylie MD LAB BLOOD ORDERABLES Final Res ult Performing Organization Address [facility] Co de Phone Number [facility] [place] [address] * Hemoglobin A1c (11/04/2024 11:23 AM DIVISIONAL HUMAN RESOURCES DIRECTOR) [facility] Hgb A1C 5.5 4.0 - 5.6 % Estimated Average Glucose 111 mg/dL [facility] Comment: The ADA recommends reporting an estimated Average Glucose (eAG) with all Hemoglobin A1c results using the equation derived from a study of 507 normal and diabetic adults. ??Minority populations were underrepresented and children were not included. ?? (Diabetes Care 2020; 43(S1): S66-S76). ??The eAG is not equivalent to a fasting glucose. Blood 11/04/2024 11:2 3 AM DIVISIONAL HUMAN RESOURCES DIRECTOR 11/04/2024 12:42 PM DIVISIONAL HUMAN RESOURCES DIRECTOR Narrative [facility] - 11/04/2024 1:59 PM DIVISIONAL HUMAN RESOURCES DIRECTOR This lab is being obtained as part of a liver transplant evaluation, is time sensitive, and should only be drawn during the evaluation visit at [address] Ayden Wylie MD LAB BLOOD ORDERABLES Final Res ult Performing Organization Address City/[facility] Co de Phone Number [facility] Department [place] [address] * Gamma GT (11/04/2024 11:23 AM DIVISIONAL HUMAN RESOURCES DIRECTOR) [facility] GGT 18 10 - 50 Units/L Blood 11/04/2024 11:2 3 AM DIVISIONAL HUMAN RESOURCES DIRECTOR 11/04/2024 12:45 PM DIVISIONAL HUMAN RESOURCES DIRECTOR Narrative [facility] - 11/04/2024 2:01 PM DIVISIONAL HUMAN RESOURCES DIRECTOR This lab is being obtained as part of a liver transplant evaluation, is time sensitive, and should only be drawn during the evaluation visit at [address] Lab[address] Ayden Wylie MD LAB BLOOD ORDERABLES Final Res ult [facility] Department [place] [address] * (ABNORMAL) Ferritin (11/04/2024 11:23 AM DIVISIONAL HUMAN RESOURCES DIRECTOR) Ferritin 477(H) 30 - 400 ng/mL Blood 11/04/2024 11:2 3 AM DIVISIONAL HUMAN RESOURCES DIRECTOR 11/04/2024 12:45 PM DIVISIONAL HUMAN RESOURCES DIRECTOR Narrative [facility] - 11/04/2024 2:01 PM DIVISIONAL HUMAN RESOURCES DIRECTOR Please add the following comment to each lab: This lab is being obtained as part of a liver transplant evaluation, is time sensitive, and should only be drawn during the evaluation visit at [address] Lab[address] Ayden Wylie MD LAB BLOOD ORDERABLES Final Res ult Performing Organization Address [facility] de Phone Number [facility] [place] [address] * Ethanol (11/04/2024 11:23 AM DIVISIONAL HUMAN RESOURCES DIRECTOR) [facility] Ethanol <10 <=10 mg/dL Comment: Interpretive Data Legal limit of intoxication > or = 80 mg/dL Levels > or = 400 mg/dL are potentially TOXIC. Current interpretive data was last revised on 2019. Blood 11/04/2024 11:2 3 AM DIVISIONAL HUMAN RESOURCES DIRECTOR 11/04/2024 12:45 PM DIVISIONAL HUMAN RESOURCES DIRECTOR Narrative [facility] - 11/04/2024 2:01 PM DIVISIONAL HUMAN RESOURCES DIRECTOR Please add the following comment to each lab: This lab is being obtained as part of a liver transplant evaluation, is time sensitive, and should only be drawn during the evaluation visit at [address] Ayden Wylie MD LAB BLOOD ORDERABLES Final Res ult Performing Organization Address [facility] de Phone Number [facility] [place] [address] * (ABNORMAL) Lipid panel (11/04/2024 11:23 AM DIVISIONAL HUMAN RESOURCES DIRECTOR) [facility] Cholesterol 87 30 - 199 mg/dL Comment: [...] on 2018. Triglycerides 72 <=149 mg/dL [facility] Comment: Interpretive Data Ages < or = [...] revised on 2018. HDL 36(L) >=40 mg/dL [facility] Comment: Interpretive Data Ages < or = [...] 2018. LDL, calculated 36 <=129 mg/dL [facility] Comment: Interpretive Data Ages < or = [...] revised on 2024. Non-HDL Cholesterol 51 mg/dL [facility] Comment: Interpretive Data Ages < or = [...] last revised on 2018. Chol/HDL ratio 2 [facility] Blood 11/04/2024 11:2 3 AM DIVISIONAL HUMAN RESOURCES DIRECTOR 11/04/2024 12:45 PM DIVISIONAL HUMAN RESOURCES DIRECTOR Narrative [facility] - 11/04/2024 2:01 PM DIVISIONAL HUMAN RESOURCES DIRECTOR This lab is being obtained as part of a liver transplant evaluation, is time sensitive, and should only be drawn during the evaluation visit at [facility] Lab. us Ayden Wylie MD LAB BLOOD ORDERABLES Final Res ult [facility] Department [place] [address] * (ABNORMAL) Comprehensive metabolic panel (11/04/2024 11:23 AM DIVISIONAL HUMAN RESOURCES DIRECTOR) Sodium 130(L) 135 - 145 mmol/L Potassium, pl 4.7 3.3 - 4.9 mmol/L [facility] Chloride 100 97 - 110 mmol/L [facility] CO2 23 22 - 32 mmol/L [facility] Anion gap 7 2 - 15 mmol/L [facility] BUN 12 6 - 25 mg/dL [facility] Creatinine 1.02 0.80 - 1.30 mg/dL [facility] Glucose 87 70 - 199 mg/dL [facility] Comment: Interpretive Data Fasting glucose >/= 126 [...] classification and Diagnosis of Diabetes Diabetes Care 2022; 46: S19-S40. Current interpretive data was last revised 2022. Calcium 9.1 8.5 - 10.3 mg/dL [facility] Bilirubin, total 1.5(H) 0.1 - 1.2 mg/dL [facility] Protein, pl 7.8 6.5 - 8.5 g/dL [facility] Albumin 3.0(L) 3.5 - 5.0 g/dL [facility] Alk phos 88 40 - 130 Units/L [facility] ALT 11 7 - 55 Units/L [facility] AST 30 10 - 50 Units/L [facility] Blood 11/04/2024 11:2 3 AM DIVISIONAL HUMAN RESOURCES DIRECTOR 11/04/2024 12:45 PM DIVISIONAL HUMAN RESOURCES DIRECTOR us Ayden Wylie MD LAB BLOOD ORDERABLES Final Res ult [facility] Department [place] [address] * Dexa Axial Skeleton Bone Density 1 or 2 Site (11/04/2024 8:53 AM DIVISIONAL HUMAN RESOURCES DIRECTOR) Anatomical Region Laterality Modality Body N/A Digital Radiogra phy 11/04/2024 9:04 AM DIVISIONAL HUMAN RESOURCES DIRECTOR Impressions 11/04/2024 10:55 AM DIVISIONAL HUMAN RESOURCES DIRECTOR ?? 1. The bone mineral density of [...] Pebbles Mcgill M.D. Narrative 11/04/2024 10:55 AM DIVISIONAL HUMAN RESOURCES DIRECTOR BONE DENSITOMETRY OF THE SPINE AND HIP [...] * XR Orthopantogram Panorex (11/04/2024 8:42 AM DIVISIONAL HUMAN RESOURCES DIRECTOR) Anatomical Region Laterality Modality Head and Neck N/A Panoramic X-Ray 11/04/2024 9:50 AM DIVISIONAL HUMAN RESOURCES DIRECTOR Impressions 11/04/2024 10:07 AM DIVISIONAL HUMAN RESOURCES DIRECTOR Dental caries along the remaining right most maxillary tooth and the residual 1st right mandibular pre-molar. No periapical lucencies. Dictated by: Carolyn Burnett MD The radiology attending physician has personally reviewed this study, and had reviewed and/or edited this written report and agrees with it. Electronically signed by: Anthony Rodas D.O. Narrative 11/04/2024 10:07 AM DIVISIONAL HUMAN RESOURCES DIRECTOR EXAMINATION: XR ORTHOPANTOGRAM/PANOREX HISTORY: ??Liver transplant evaluation FINDINGS: No prior imaging available for comparison. Multiple missing teeth, dental moravian of left mandibular molar present. ??Dental caries along the remaining right most maxillary tooth and the residual 1st right mandibular pre-molar. No periapical lucencies noted. Procedure Note Anthony Rodas DO - 11/04/2024 EXAMINATION: XR ORTHOPANTOGRAM/PANOREX HISTORY: Liver transplant evaluation FINDINGS: No prior imaging available for comparison. Multiple missing teeth, dental moravian of left mandibular molar present. Dental caries [...] PA Lateral 2 Views (11/04/2024 8:11 AM DIVISIONAL HUMAN RESOURCES DIRECTOR) Anatomical Region Laterality Modality Body, Chest N/A Computed Radiogr aphy 11/04/2024 11:0 5 AM DIVISIONAL HUMAN RESOURCES DIRECTOR Impressions 11/04/2024 11:19 AM DIVISIONAL HUMAN RESOURCES DIRECTOR Comparison with chest radiograph on 05/05/2024. There [...] Michele Medina M.D. Narrative 11/04/2024 11:19 AM DIVISIONAL HUMAN RESOURCES DIRECTOR EXAMINATION: 2 view chest radiograph Procedure Note [...] US Abdomen W Doppler (11/03/2024 8:04 AM DIVISIONAL HUMAN RESOURCES DIRECTOR) Anatomical Region Laterality Modality Abdomen N/A Ultrasound us Historical Provider IMG US PROCEDURES Final R esult * US Abdomen W Doppler (10/16/2024 12:43 PM DIVISIONAL HUMAN RESOURCES DIRECTOR) Anatomical Region Laterality Modality Abdomen N/A Ultrasound us Historical Provider IMG US PROCEDURES Final R esult * US Abdomen W Doppler (10/01/2024 3:50 PM DIVISIONAL HUMAN RESOURCES DIRECTOR) Anatomical Region Laterality Modality Abdomen N/A Ultrasound us Historical Provider IMG US PROCEDURES Final R esult from Last 3 Months Insurance [employer] [facility] TRANS[facility]ANT [facility] Advance Directives For more information, please contact: [phone] Documents on File Type Date Recorded 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 ADVANCE DIRECTIVE 11/11/2024 10:19 PM [facility] SLIP COVER ESTIMATOR-MEDICAL * Full Code (Latest Code Status on File) Date Activated Date Inactivated Comments 04/23/2024 2:01 AM 05/12/2024 7:22 PM * Full Code Date Activated Date Inactivated Comments 04/10/2024 9:06 AM 04/18/2024 5:41 PM Care Teams Building Maintenance Technician Relationship Specialty Start Date End Date Young Call NP [address] [place] [address] PCP - General Family Medicine 10/28/24 Robert Brooks MD [address] [address] Referring Physician Gastroenterology 04/03/24 Ayden Wylie MD [address] [place] [address] Consulting Physician Gastroenterology 09/15/24 Kesha Gutiérrez, food cart attendantVolumetric Weigher 09/15/24
--- OUTSIDE RECORDS SUMMARY | 2024-12-25 16:31 | XMS_ITS | Encounter Summary ---
Author Organization [facility] Healthcare Address [address] [place] [address] Care Team Providers Care Investment Underwriter Name Role Phone Robert Brooks MD Unavailable [phone] Ayden Nicholson MD Unavailable [phone] Kesha Gutiérrez RN Unavailable Unavailable Young Call NP Primary Care Provider [phone] Encounter Details Date Type Department Care Team (Late st Contact Info) Description 12/24/2024 Telephone [facility] Transplant Liver [address] [facility] [address] [phone] [place] [address] Kesha Gutiérrez, RN Social History Tobacco Use Types Packs/Day Years Used Date Smoking Tobacco: Every Day Cigarettes 2 49.1 Started: 1975 Passive Smoke Exposure: Current [facility] Utilities Answer Date Recorded In the past 12 months has [employer], gas, oil, or water [employer] threatened to shut off services in your [...] How often do you attend chur or caodaism services? Never 11/05/2024 Do you belong to any clubs o r organizations such as denominational groups, unions, fraternal or athletic groups, or [...] any time in the past 12 m [facility], were you homeless or living in a halfway (including now)? No 11/10/2024 Personal Safety Answer Date Recorded Have you ever been in or are you currently in a harmful physical or emotional relationship or is someone making you feel afraid or unsafe? Denies 11/04/2024 Sex and Gender Information Value Date Recorded Sex Assigned at Not on file Legal Sex Male 3:52 AM BRUSH AND BROOM CLIPPER Gender Identity Not on file Sexual Orientation Not on file documented as of this encounter Miscellaneous Notes * Telephone Encounter - Kesha Gutiérrez RN - 12/24/2024 3:20 PM CST Will ask Valentine Cohen to obtain PT/INR Date of labs 12/23/24 From: Name of [facility] H AND BROOM CLIPPER documented in this encounter Plan of Treatment Upcoming Encounters Date Type Department Care Team (Latest Contact Info) Description 12/30/2024 12:30 PM BRUSH AND BROOM CLIPPER Hospital Encounter [facility] Digestive Disease [place] [address] [facility] [address] [place] [address] Shruthi Baez MD [address] [address] 12/30/2024 12:30 PM BRUSH AND BROOM CLIPPER - 12/30/2024 1:30 PM BRUSH AND BROOM CLIPPER Surgery [facility] Digestive Disease [place] [address] [facility] [address] [place] [address] Shruthi Baez MD [address] [address] COLONOSCOPY EMR te/oa interventional Scheduled Procedures Name Priority Associated Diagnoses Date/Ti me COLONOSCOPY Colon polyp 12/30/2024 12:30 PM BRUSH AND BROOM CLIPPER COLON BAND LIGATION - ENDOSCOPIC MUCOSAL RESECTION Colon polyp 12/30/2024 12:30 PM BRUSH AND BROOM CLIPPER TRANSPLANT LIVER Encounter for pre-transplant evaluation for liver transplant Alcoholic liver disease (HCC) documented as of this encounter Visit Diagnoses Not on filedocumented in this encounter Care Teams Investment Underwriter Relationship Specialty Start Date End Date Young Call NP [address] [place] [address] PCP - General Family Medicine 10/28/24 Robert Brooks MD [address] [address] Referring Physician Gastroenterology 04/03/24 Ayden Nicholson MD [address] [facility] [address] [address] Consulting Physician Gastroenterology 09/15/24 Kesha Gutiérrez, bank runnerViscosity Worker 09/15/24 documented as of this encounter
--- OUTSIDE RECORDS SUMMARY | 2024-12-25 16:31 | XMS_ITS | Encounter Summary ---
Author Organization [facility] Healthcare Address [address] [place] [address] Care Team Providers Care Salesperson Women'S Dresses Name Role Phone Robert Brooks MD Unavailable [phone] Ayden Nicholson MD Unavailable [phone] Kesha Gutiérrez RN Unavailable Unavailable Young Call NP Primary Care Provider [phone] Encounter Details Date Type Department Care Team (Late st Contact Info) Description 12/25/2024 Telephone [facility] Transplant Liver [address] [facility] [address] [phone] [place] [address] Kesha Gutiérrez, RN Social History Tobacco Use Types Packs/Day Years Used Date Smoking Tobacco: Every Day Cigarettes 2 49.1 Started: 1975 Passive Smoke Exposure: Current [facility] Utilities Answer Date Recorded In the past 12 months has [employer], gas, oil, or water [employer] threatened to shut off services in your [...] How often do you attend chur or baptist services? Never 11/05/2024 Do you belong to any clubs o r organizations such as latter day groups, unions, fraternal or athletic groups, or [...] any time in the past 12 m [facility], were you homeless or living in a chcf (including now)? No 11/10/2024 Personal Safety Answer Date Recorded Have you ever been in or are you currently in a harmful physical or emotional relationship or is someone making you feel afraid or unsafe? Denies 11/04/2024 Sex and Gender Information Value Date Recorded Sex Assigned at Not on file Legal Sex Male 3:52 AM CHECK VIEWER Gender Identity Not on file Sexual Orientation Not on file documented as of this encounter Miscellaneous Notes * Telephone Encounter - Kesha Gutiérrez RN - 12/25/2024 2:16 PM CST Let Viktoriya know the results of MRI pelvis and that the [place] lab has the order for the PT INR bonnie drawn today. K VIEWER documented in this encounter Plan of Treatment Upcoming Encounters Date Type Department Care Team (Latest Contact Info) Description 12/30/2024 12:30 PM CHECK VIEWER Hospital Encounter [facility] Digestive Disease [place] [address] [address] [place] [address] Shruthi Baez MD [address] [address] 12/30/2024 12:30 PM CHECK VIEWER - 12/30/2024 1:30 PM CHECK VIEWER Surgery [facility] Digestive Disease [place] [address] [facility] [address] [place] [address] Shruthi Baez MD [address] [address] COLONOSCOPY EMR te/oa interventional Scheduled Procedures Name Priority Associated Diagnoses Date/Ti me COLONOSCOPY Colon polyp 12/30/2024 12:30 PM CHECK VIEWER COLON BAND LIGATION - ENDOSCOPIC MUCOSAL RESECTION Colon polyp 12/30/2024 12:30 PM CHECK VIEWER TRANSPLANT LIVER Encounter for pre-transplant evaluation for liver transplant Alcoholic liver disease (HCC) documented as of this encounter Visit Diagnoses Not on filedocumented in this encounter Care Teams Salesperson Women'S Dresses Relationship Specialty Start Date End Date Young Call NP [address] [place] [address] PCP - General Family Medicine 10/28/24 Robert Brooks MD [address] [address] Referring Physician Gastroenterology 04/03/24 Ayden Nicholson MD [address] [facility] [address] [address] Consulting Physician Gastroenterology 09/15/24 Kesha Gutiérrez, hvac instructorRib Sawyer 09/15/24 documented as of this encounter
--- OUTSIDE RECORDS SUMMARY | 2024-12-25 16:31 | XMS_ITS | Clinical Summary ---
Author Organization [facility] [place] Address [address] [place] [address] Phone Care Team Providers Care Carpenter Packing Name Role Phone Call, Young POWERS, RIGGER CHIEF Primary Care Provider + Allergies Active Allergy [...] Department Care Team Description 12/16/2024 10:00 AM CONDITIONER TUMBLER OPERATOR - 12/16/2024 10:30 AM CONDITIONER TUMBLER OPERATOR Surgery [facility] Periop [address] [place] [address] Provider, Not On File PRE / POST CARE FOR PROCEDURAL AREA-PARACENTESIS 12/16/2024 9:16 AM CONDITIONER TUMBLER OPERATOR - 12/16/2024 11:59 PM CONDITIONER TUMBLER OPERATOR Hospital Encounter [facility] Ultrasound [address] [place] [address] Ayden Nicholson MD Discharge Disposition: Discharged to home or Selfcare 12/16/2024 9:08 AM CONDITIONER TUMBLER OPERATOR - 12/16/2024 11:18 AM CONDITIONER TUMBLER OPERATOR Hospital Encounter [facility] Preop/Pacu II [address] [place] [address] Ortiz Montenegro MD Discharge Disposition: Discharged to home or Selfcare 12/16/2024 Travel 12/04/2024 Transcribe Orders [facility] Diagnostic Radiology [address] [place] [address] Ortiz Montenegro MD Alcoholic cirrhosis of liver with ascites (HCC) (Primary Dx); Pre-operative laboratory examination; Encounter for therapeutic drug monitoring; Other buttermaker helper (current) drug therapy 12/03/2024 Transcribe Orders [facility] Central Scheduling [address] [place] [address] Ayden Nicholson MD 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) (Primary Dx) 11/28/2024 10:00 AM CONDITIONER TUMBLER OPERATOR - 11/28/2024 10:30 AM CONDITIONER TUMBLER OPERATOR Surgery [facility] Periop [address] [place] [address] Provider, Not On File PRE / POST CARE FOR PROCEDURAL AREA - PARACENTESIS 11/28/2024 9:20 AM CONDITIONER TUMBLER OPERATOR - 11/28/2024 11:59 PM CONDITIONER TUMBLER OPERATOR Hospital Encounter [facility] Ultrasound [address] [place] [address] Ayden Nicholson MD Provider, Anesthesiologist Discharge Disposition: Discharged to home or Selfcare 11/28/2024 9:19 AM CONDITIONER TUMBLER OPERATOR - 11/28/2024 11:30 AM CONDITIONER TUMBLER OPERATOR Hospital Encounter [facility] Periop [address] [place] [address] Provider, Not On File Ayden Nicholson MD Discharge Disposition: Discharged to home or Selfcare 11/28/2024 Travel 11/14/2024 10:00 AM CONDITIONER TUMBLER OPERATOR - 11/14/2024 10:30 AM CONDITIONER TUMBLER OPERATOR Surgery [facility] Periop [address] [place] [address] Provider, Not On File PRE / POST CARE FOR PROCEDURAL AREA-PARACENTESIS 11/14/2024 9:23 AM CONDITIONER TUMBLER OPERATOR - 11/14/2024 11:59 PM CONDITIONER TUMBLER OPERATOR Hospital Encounter [facility] Ultrasound [address] [place] [address] Ayden Nicholson MD Provider, Anesthesiologist Discharge Disposition: Discharged to home or Selfcare 11/14/2024 9:07 AM CONDITIONER TUMBLER OPERATOR - 11/14/2024 11:51 AM CONDITIONER TUMBLER OPERATOR Hospital Encounter [facility] Preop/Pacu II [address] [place] [address] Provider, Not On File Obed Silva MD Discharge Disposition: Discharged to home or Selfcare 11/14/2024 Results [facility]-Up [facility] G[facility] [address] [place] [address] Sabine Hooper RN 11/14/2024 Travel 11/10/2024 12:00 PM CONDITIONER TUMBLER OPERATOR - 11/10/2024 12:30 PM CONDITIONER TUMBLER OPERATOR Surgery [facility] Periop [address] [place] [address] Bear Dodd MD COLONOSCOPY - RECTAL POLYPECTOMY X3 (JUMBO FORCEPS X3), OBSTRUCTING MASS AT 25 CM BIOPSIES (JUMBO BIOPSY FORCEPS), DIVERTICULOSIS, SCOPE SWITCHED TO SLIM LINE 11/10/2024 11:54 AM CONDITIONER TUMBLER OPERATOR Anesthesia Event [facility] Periop [address] [place] [address] Aroldo Bains APRN, MARQUITA 11/10/2024 11:15 AM CONDITIONER TUMBLER OPERATOR Ancillary Procedure [facility] Main [address] [place] [address] Bear Dodd MD 11/10/2024 10:55 AM CONDITIONER TUMBLER OPERATOR - 11/10/2024 1:33 PM CONDITIONER TUMBLER OPERATOR Hospital Encounter [facility] Preop/Pacu II [address] [place] [address] Bear Dodd MD Discharge Disposition: Discharged to home or Selfcare 11/10/2024 Travel 10/31/2024 10:00 AM CONDITIONER TUMBLER OPERATOR - 10/31/2024 10:30 AM CONDITIONER TUMBLER OPERATOR Surgery [facility] Periop [address] [place] [address] Provider, Not On File PRE / POST CARE FOR PROCEDURAL AREA-PARACENTESIS 10/31/2024 9:22 AM CONDITIONER TUMBLER OPERATOR - 10/31/2024 11:59 PM CONDITIONER TUMBLER OPERATOR Hospital Encounter [facility] Ultrasound [address] [place] [address] Ayden Nicholson MD Provider, Anesthesiologist Discharge Disposition: Discharged to home or Selfcare 10/31/2024 9:14 AM CONDITIONER TUMBLER OPERATOR - 10/31/2024 11:45 AM CONDITIONER TUMBLER OPERATOR Hospital Encounter [facility] Periop [address] [place] [address] Provider, Not On File Ayden Nicholson MD Discharge Disposition: Discharged to home or Selfcare 10/31/2024 Travel 10/16/2024 10:00 AM CONDITIONER TUMBLER OPERATOR - 10/16/2024 10:30 AM CONDITIONER TUMBLER OPERATOR Surgery [facility] Periop [address] [place] [address] Provider, Not On File PRE / POST CARE FOR PROCEDURAL AREA-PARACENTESIS 10/16/2024 9:15 AM CONDITIONER TUMBLER OPERATOR - 10/16/2024 11:59 PM CONDITIONER TUMBLER OPERATOR Hospital Encounter [facility] Ultrasound [address] [place] [address] Ayden Nicholson MD Discharge Disposition: Discharged to home or Selfcare 10/16/2024 9:00 AM CONDITIONER TUMBLER OPERATOR - 10/16/2024 11:42 AM CONDITIONER TUMBLER OPERATOR Hospital Encounter [facility] Periop [address] [place] [address] Ayden Nicholson MD Discharge Disposition: Discharged to home or Selfcare 10/16/2024 Travel 10/01/2024 10:00 AM CONDITIONER TUMBLER OPERATOR - 10/01/2024 11:00 AM CONDITIONER TUMBLER OPERATOR Surgery [facility] Periop [address] [place] [address] Provider, Not On File PRE / POST CARE FOR PROCEDURAL AREA-PARACENTESIS 10/01/2024 9:29 AM CONDITIONER TUMBLER OPERATOR - 10/01/2024 11:59 PM CONDITIONER TUMBLER OPERATOR Hospital Encounter [facility] Ultrasound [address] [place] [address] Ayden Nicholson MD Discharge Disposition: Discharged to home or Selfcare 10/01/2024 9:09 AM CONDITIONER TUMBLER OPERATOR - 10/01/2024 11:50 AM CONDITIONER TUMBLER OPERATOR Hospital Encounter [facility] Preop/Pacu II [address] [place] [address] Provider, Not On File Ayden Nicholson MD Gould, Aaron Papirno, MD Discharge Disposition: Discharged to home or Selfcare 10/01/2024 Transcribe Orders [facility] Diagnostic Radiology [address] [place] [address] Ortiz Montenegro MD 10/01/2024 Travel from Last [...] 7-15 beers a day previously; none currently [facility] Utilities Answer Date Recorded In the past 12 months has [employer], [email or web address], oil, or water [employer] threatened to shut off services in your home? No 05/26/2024 Social Connection and Isolation Panel [NHANES] A nswer Date Recorded In a typical week, how many times do you talk on the phone with family, friends, or neighbors? Once a week 05/26/2024 How often do you get together with friends or re latives? Once a week 05/26/2024 How often do you attend taoist or episcopal serv ices? Never 05/26/2024 Do you belong to any clubs o r organizations such as taoist groups, unions, fraternal or athletic groups, or [...] any time in the past 12 m [facility], were you homeless or living in a retirement (including now)? No 05/26/2024 Sexually Active [employer] Comments Not Currently Sex and Gender Information Value Date Recorded Sex Assigned at Male 02/25/2024 11:30 AM CDT Legal Sex Male 2:53 PM CDT Gender Identity Not on file Sexual Orientation Not on file Last Filed Vital Signs Vital Sign Reading Time Taken Comments Blood Pressure 98/81 12/16/2024 10:46 AM CONDITIONER TUMBLER OPERATOR Pulse 66 12/16/2024 10:46 AM CONDITIONER TUMBLER OPERATOR Temperature 37.1 ??C (98.8 ??F) 12/16/2024 10:[address] Respiratory Rate 16 12/16/2024 10:46 AM CONDITIONER TUMBLER OPERATOR Oxygen Saturation 99% 12/16/2024 10:46 AM CONDITIONER TUMBLER OPERATOR Inhaled Oxygen Concentration - - Weight 69.9 kg (154 lb 3.2 oz) 12/16/2024 9:24 A M CONDITIONER TUMBLER OPERATOR Height 177.8 cm (5' 10 ) 12/16/2024 9:24 AM CONDITIONER TUMBLER OPERATOR Body Mass Index 22.13 12/16/2024 9:24 AM CONDITIONER TUMBLER OPERATOR Plan of Treatment Upcoming Encounters Date Type Department Care Team (Latest Contact Info) Description 01/02/2025 10:00 AM CONDITIONER TUMBLER OPERATOR Hospital Encounter [facility] Periop [address] [place] [address] Provider, Not On File [place] 01/02/2025 10:00 AM CONDITIONER TUMBLER OPERATOR Hospital Encounter [facility] Ultrasound [address] [place] [address] Ayden Nicholson MD [address] [address] 01/02/2025 10:00 AM CONDITIONER TUMBLER OPERATOR - 01/02/2025 10:30 AM CONDITIONER TUMBLER OPERATOR Surgery [facility] Periop [address] [place] [address] Provider, Not On File [place] PRE / POST CARE FOR PROCEDURAL AREA-PARACENTESIS Scheduled Procedures Name Priority Associated Diagnoses Date/Ti me PRE / POST CARE FOR PROCEDUR AL AREA ASCITES 01/02/2025 10:00 AM CONDITIONER TUMBLER OPERATOR Health Maintenance Due Date Last Done Comments [...] GUIDANCE AND PARACENTESIS Routine 12/16/2024 10:15 AM CONDITIONER TUMBLER OPERATOR 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) FLUID, DIFFERENTIAL Routine 12/16/2024 1 0:15 AM CONDITIONER TUMBLER OPERATOR 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) BODY FLUID CELL COUNT W/ DIFFERENTIAL Routine 12/16/2024 10:15 AM CONDITIONER TUMBLER OPERATOR 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) CULTURE, AEROBIC Routine 12/16/2024 10:1 5 AM CONDITIONER TUMBLER OPERATOR 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) PRE / POST CARE FOR PROCEDURAL AREA 12/16/2024 10:00 AM CONDITIONER TUMBLER OPERATOR ASCITES APTT (PTT) Routine 12/16/2024 9:11 AM CONDITIONER TUMBLER OPERATOR Pre-operative laboratory examination Encounter for therapeutic drug monitoring Other retirement (current) drug therapy Alcoholic cirrhosis of liver with ascites (HCC) PROTIME (PT) (PROTHROMBIN TIME) STAT 12/16/2024 9:11 AM CONDITIONER TUMBLER OPERATOR Pre-operative laboratory examination Encounter for therapeutic drug monitoring Other buttermaker helper (current) drug therapy Alcoholic cirrhosis of liver with ascites (HCC) BASIC METABOLIC PANEL W/ CALCIUM TOTAL STAT 12/16/2024 9:11 AM CONDITIONER TUMBLER OPERATOR Pre-operative laboratory examination Encounter for therapeutic drug monitoring Other retirement (current) drug therapy Alcoholic cirrhosis of liver with ascites (HCC) COMPLETE BLOOD COUNT (CBC) WITHOUT DIFF STAT 12/16/2024 9:11 AM CONDITIONER TUMBLER OPERATOR Pre-operative laboratory examination Encounter for therapeutic drug monitoring Other buttermaker helper (current) drug therapy Alcoholic cirrhosis of liver with ascites (HCC) US GUIDANCE AND PARACENTESIS Routine 11/28/2024 11:01 AM CONDITIONER TUMBLER OPERATOR Alcoholic cirrhosis of liver with ascites (HCC) Elevated liver enzymes PRE / POST CARE FOR PROCEDURAL AREA 11/28/2024 10:00 AM CONDITIONER TUMBLER OPERATOR ASCITES US GUIDANCE AND PARACENTESIS Routine 11/14/2024 10:55 AM CONDITIONER TUMBLER OPERATOR Alcoholic cirrhosis of liver with ascites (HCC) Elevated liver enzymes PRE / POST CARE FOR PROCEDURAL AREA 11/14/2024 10:00 AM CONDITIONER TUMBLER OPERATOR ASCITIES PATHOLOGY SURGICAL Routine 11/10/2024 12 :01 PM CONDITIONER TUMBLER OPERATOR COLONOSCOPY 11/10/2024 11:57 AM CONDITIONER TUMBLER OPERATOR COLONOSCOPY - RECTAL POLYPECTOMY X3 (JUMBO FORCEPS X3), OBSTRUCTING MASS AT 25 CM BIOPSIES (JUMBO BIOPSY FORCEPS), DIVERTICULOSIS, SCOPE SWITCHED TO SLIM LINE Special Needs Medical clearance-Leonardo in media 11/06 Preop testing for liver transplant Dx screen GI IMAGING - COLONOSCOPY Routine 11/10/2024 11:11 AM CONDITIONER TUMBLER OPERATOR US GUIDANCE AND PARACENTESIS Routine 10/31/2024 10:55 AM CONDITIONER TUMBLER OPERATOR Alcoholic cirrhosis of liver with ascites (HCC) Elevated liver enzymes PRE / POST CARE FOR PROCEDURAL AREA 10/31/2024 10:00 AM CONDITIONER TUMBLER OPERATOR ASCITES US GUIDANCE AND PARACENTESIS Routine 10/16/2024 10:44 AM CONDITIONER TUMBLER OPERATOR Alcoholic cirrhosis of liver with ascites (HCC) Elevated liver enzymes PRE / POST CARE FOR PROCEDURAL AREA 10/16/2024 10:00 AM CONDITIONER TUMBLER OPERATOR ASCITES PROTIME (PT) (PROTHROMBIN TIME) Routine 10/16/2024 9:35 AM CONDITIONER TUMBLER OPERATOR CMP (COMPREHENSIVE METABOLIC PANEL) STAT 10/16/2024 9:21 AM CONDITIONER TUMBLER OPERATOR Pre-procedural laboratory examinations Encounter for therapeutic drug monitoring Other buttermaker helper (current) drug therapy Alcoholic cirrhosis of liver with ascites (HCC) COMPLETE BLOOD COUNT (CBC) WITHOUT DIFF STAT 10/16/2024 9:21 AM CONDITIONER TUMBLER OPERATOR Pre-procedural laboratory examinations Encounter for therapeutic drug monitoring Other buttermaker helper (current) drug therapy Alcoholic cirrhosis of liver with ascites (HCC) US GUIDANCE AND PARACENTESIS Routine 10/01/2024 10:49 AM CONDITIONER TUMBLER OPERATOR Alcoholic cirrhosis of liver with ascites (HCC) Elevated liver enzymes PRE / POST CARE FOR PROCEDURAL AREA 10/01/2024 10:00 AM CONDITIONER TUMBLER OPERATOR ASCITES from Last 3 Months Results * US GUIDANCE AND PARACENTESIS (12/16/2024 10:15 AM CONDITIONER TUMBLER OPERATOR) Only the most recent of6 resultswithin the time period is included. Anatomical Region Laterality Modality Abdomen N/A Ultrasound 12/16/2024 11:1 5 AM CONDITIONER TUMBLER OPERATOR Impressions 12/16/2024 11:17 AM CONDITIONER TUMBLER OPERATOR IMPRESSION: ?? Successful ultrasound-guided paracentesis with removal of 5 liters of fluid. Narrative 12/16/2024 11:17 AM CONDITIONER TUMBLER OPERATOR EXAM DESCRIPTION: ?? US GUIDANCE AND PARACENTESIS [...] with 1% lidocaine. ??Under sonographic guidance, a 5-Luxembourger One Step Centesis catheter was used to [...] AM T: ??12/16/2024 11:15 AM Report ID: [id number] Reading Location: ??[id number] Procedure Note Ortiz Montenegro MD - 12/16/2024 [...] with 1% lidocaine. Under sonographic guidance, a 5-Luxembourger One Step Centesis catheter was used to [...] by Ortiz Montenegro M.D. JR: Report ID: [id number] Reading Location: [id number] IMPRESSION: Successful ultrasound-guided paracentesis with removal of 5 liters of fluid. us Ayden Nicholson MD [facility] [place] ORDERABLES Final Result * Fluid, Differential (12/16/2024 10:15 AM CONDITIONER TUMBLER OPERATOR) FLUID NEUTROPHILS % 2 % 12/16/2024 2:35 PM CONDITIONER TUMBLER OPERATOR [facility] FLUID LYMPH % BKR 56 % 025 2:35 PM CONDITIONER TUMBLER OPERATOR [facility] FLUID MONO % 14 % 12/16/2024 2:35 PM CONDITIONER TUMBLER OPERATOR [facility] FLUID EOSINOPHILS % BKR 0 % 12/16/2024 2:35 PM CONDITIONER TUMBLER OPERATOR [facility] FLUID MACROPHAGE % 8 % 12/16/2024 2:35 PM CONDITIONER TUMBLER OPERATOR [facility] FLUID PLASMA CELL % 0 % 12/16/2024 2:35 PM CONDITIONER TUMBLER OPERATOR [facility] FLUID LINING CELL % 20 % 12/16/2024 2:35 PM CONDITIONER TUMBLER OPERATOR [facility] FLUID OTHER CELL % 0 % 12/16/2024 2:35 PM CONDITIONER TUMBLER OPERATOR [facility] TOTAL COUNT BODY FLUID DIFFERENTIAL BKR 100 12/16/2024 2:35 PM CONDITIONER TUMBLER OPERATOR [facility] FLUID LARGE MONO % BKR 0 % 12/16/2024 2:35 PM CONDITIONER TUMBLER OPERATOR [facility] FLUID TYPE Ascites, left 12/16/2024 2:35 PM CONDITIONER TUMBLER OPERATOR [facility] Other (Paracentesis Fluid) Non-Phlebotomy Collection / Unknown 12/16/2024 10:15 AM CONDITIONER TUMBLER OPERATOR 12/16/2024 10:52 AM CONDITIONER TUMBLER OPERATOR Ayden Nicholson MD BODY FLUIDS & STOOLS ORDERABLES Final Result Performing Organization Address [facility]/ZIP Co de Phone Number [facility] [address] [place] [address] * Body Fluid Cell Count w/ Differential (12/16/2024 10:15 AM CONDITIONER TUMBLER OPERATOR) FLUID TYPE Ascites, left 12/16/2024 2:34 PM CONDITIONER TUMBLER OPERATOR [facility] CLARITY Turbid 12/16/2024 2:34 PM CONDITIONER TUMBLER OPERATOR [facility] COLOR Yellow 12/16/2024 2:34 PM CONDITIONER TUMBLER OPERATOR [facility] VOLUME 1,100.0 mLs 12/16/2024 2:34 PM CONDITIONER TUMBLER OPERATOR [facility] FLUID RBC COUNT 3,000 /mm(3) 12/16/2024 2:34 PM CONDITIONER TUMBLER OPERATOR [facility] FLUID, TOTAL NUCLEATED CELLS 242 /mm(3) 12/16/2024 2:34 PM CONDITIONER TUMBLER OPERATOR [facility] Other (Paracentesis Fluid) Non-Phlebotomy Collection / Unknown 12/16/2024 10:15 AM CONDITIONER TUMBLER OPERATOR 12/16/2024 10:52 AM CONDITIONER TUMBLER OPERATOR Narrative [facility] - 12/16/2024 2:34 PM CONDITIONER TUMBLER OPERATOR The reference range has not been established for this body fluid. The test result must be integrated into the clinical context for interpretation us Ayden Nicholson MD BODY FLUIDS & STOOLS ORDERABLES Final Result Performing Organization Address City/[facility]/ZIP Co de Phone Number [facility] [address] [place] [address] * CULTURE, AEROBIC (12/16/2024 10:15 AM CONDITIONER TUMBLER OPERATOR) CULTURE RESULTS No growth final 12/20/2024 7:15 AM CONDITIONER TUMBLER OPERATOR [facility] Other (Paracentesis Fluid) Non-Phlebotomy Collection / Unknown 12/16/2024 10:15 AM CONDITIONER TUMBLER OPERATOR 12/16/2024 10:52 AM CONDITIONER TUMBLER OPERATOR us Ayden Nicholson MD MICROBIOLOGY - GENERAL ORDERABLE S Final Result Performing Organization Address City/[facility]/ZIP Co de Phone Number [facility] [address] [place] [address], * (ABNORMAL) APTT (PTT) (12/16/2024 9:11 AM CONDITIONER TUMBLER OPERATOR) PTT 37(H) 24 - 36 sec 12/16/2024 9:40 AM CONDITIONER TUMBLER OPERATOR [facility] Blood Venipuncture / Unknown 12/16/2024 9:11 AM CONDITIONER TUMBLER OPERATOR 12/16/2024 9:24 AM CONDITIONER TUMBLER OPERATOR Narrative [facility] - 12/16/2024 9:40 AM CONDITIONER TUMBLER OPERATOR Therapeutic range for unfractionated heparin at 0.3-0.7 U/mL is an aPTT value in the range of 71-100 seconds. Critical value for the PTT test is >= 122 seconds. us Ortiz Montenegro MD HEMATOLOGY ORDERABLES Ilda l Result Performing Organization Address [facility] Co de Phone Number [facility] [address] [place] [address] * (ABNORMAL) PROTIME (PT) (PROTHROMBIN TIME) (12/16/2024 9:11 AM CONDITIONER TUMBLER OPERATOR) Only the most recent of2 resultswithin the time period is included. PROTIME-PATIENT 18.9(H) 11.6 - 14.8 sec 12/16/2024 9:40 AM CONDITIONER TUMBLER OPERATOR [facility] INR 1.6(H) 0.9 - 1.2 12/16/2024 9:40 AM CONDITIONER TUMBLER OPERATOR [facility] Comment: Therapeutic Ranges INR = 2.0-3.0: Venous thromb, atrial fib, pul embolism, tissue heart valve, ami. INR = 2.5-3.5: Mechanical heart valve Critical value for INR is >/= 4.5 Blood Venipuncture / Unknown 12/16/2024 9:11 AM CONDITIONER TUMBLER OPERATOR 12/16/2024 9:24 AM CONDITIONER TUMBLER OPERATOR us Ortiz Montenegro MD HEMATOLOGY ORDERABLES Ilda jordan Result [facility] [address] [place] [address] * COMPLETE BLOOD COUNT (CBC) WITHOUT DIFF (12/16/2024 9:11 AM CONDITIONER TUMBLER OPERATOR) Only the most recent of2 resultswithin the time period is included. WBC 6.92 4.00 - 12.00 10(3)/mcL 12/16/2024 9:29 AM CONDITIONER TUMBLER OPERATOR [facility] RBC 4.41 4.40 - 5.80 10(6)/[facility] 12/16/2024 9:29 AM [facility] HEMOGLOBIN (HGB) 13.1 13.0 - 16.5 g/dL 12/16/2024 9:29 AM [facility] HEMATOCRIT (HCT) 39.2 38.0 - 50.0 % 12/16/2024 9:29 AM [facility] MCV 88.9 82.0 - 96.0 fL 12/16/2024 9:29 AM [facility] MCH 29.7 26.0 - 32.0 pg 12/16/2024 9:29 AM [facility] MCHC 33.4 31.0 - 36.0 g/dL 12/16/2024 9:29 AM [facility] PLATELET COUNT 210 140 - 440 10(3)/mcL 12/16/2024 9:29 AM [facility] RDW 14.6 11.8 - 15.5 % 12/16/2024 9:29 AM [facility] MPV 9.3 8.0 - 12.6 fL 12/16/2024 9:29 AM CONDITIONER TUMBLER OPERATOR [facility] Blood Venipuncture / Unknown 12/16/2024 9:11 AM CONDITIONER TUMBLER OPERATOR 12/16/2024 9:23 AM CONDITIONER TUMBLER OPERATOR us Ortiz Montenegro MD HEMATOLOGY ORDERABLES Ilda l Result [facility] [address] [place] [address] * (ABNORMAL) BASIC METABOLIC PANEL W/ CALCIUM TOTAL (12/16/2024 9:11 AM CONDITIONER TUMBLER OPERATOR) SODIUM 127(L) 136 - 145 mmol/L 12/16/2024 9:47 AM [facility] POTASSIUM 4.4 3.5 - 5.1 mmol/L 12/16/2024 9:47 AM [facility] CHLORIDE 100 98 - 107 mmol/L 12/16/2024 9:47 AM [facility] CO2, VENOUS 23 22 - 30 mmol/L 12/16/2024 9:47 AM [facility] ANION GAP 8.4 <18.0 mmol/L 12/16/2024 9:47 AM [facility] GLUCOSE 135(H) 70 - 99 mg/dL 12/16/2024 9:47 AM [facility] BUN 11 8 - 26 mg/dL 12/16/2024 9:47 AM [facility] CREATININE, BLOOD 0.94 0.70 - 1.30 mg/dL 12/16/2024 9:47 AM [facility] BUN/CREATININE RATIO 12 12 - 20 ratio 12/16/2024 9:47 AM [facility] CALCIUM 8.6(L) 8.7 - 10.5 mg/dL 12/16/2024 9:47 AM [facility] IS THE PATIENT REQUIRED TO BE FASTING? No 12/16/2024 9:47 AM [facility] GFR, ESTIMATED >60 >=60 12/16/2024 9:47 AM CONDITIONER TUMBLER OPERATOR [facility] Comment: Creatinine Clearance is the preferred criteria for selecting drug dose adjustments in renally impaired patients. ??The GFR is provided as additional pertinent clinical information. GFR is reported in mL/min/1.73 sq m. Calculation based on the Chronic Kidney Disease Epidemiology Collaboration (CKD- EPI) equation refit without adjustment for race. GFR, EST. >60 >=60 025 9:47 AM CONDITIONER TUMBLER OPERATOR [facility] GFR, EST. NONAFRICAN >60 >=60 12/16/2024 9:47 AM CONDITIONER TUMBLER OPERATOR [facility] Blood Venipuncture / Unknown 12/16/2024 9:11 AM CONDITIONER TUMBLER OPERATOR 12/16/2024 9:23 AM CONDITIONER TUMBLER OPERATOR Ortiz Montenegro MD CHEMISTRY ORDERABLES Final Result [facility] [address] [place] [address] * Pathology Surgical (11/10/2024 12:01 PM CONDITIONER TUMBLER OPERATOR) Case Report Surgical Pathology Report ? Case: [id number] ? Authorizing Provider: ??Bear Dodd MD ?? Collected: ? 11/10/2024 12:01 PM ? [facility] ? [facility] ? Received: ?11/10/2024 01:41 PM ? [facility] ? Lab Main ? Pathologist: ? Pauline Vale MD PhD ? Specimens: ?? A) - Colon, RECTAL POLYP X 3 ? B) - Colon, 25 CM MASS BIOPSIES ? 11/11/2024 11:00 AM CONDITIONER TUMBLER OPERATOR [facility] FINAL DIAGNOSIS A. Rectal polyp, polypectomy: - Polypoid colonic mucosa with focal features suggesting hyperplastic polyp - Negative for dysplasia or malignancy B. Colon at 25 cm, mass, biopsy: - Tiny and superficial biopsy, consistent with tubular adenoma 11/11/2024 11:00 AM CONDITIONER TUMBLER OPERATOR [facility] at 1100 CONDITIONER TUMBLER OPERATOR Pre-Operative Diagnosis SCREENING 11/11/2024 11:[address] [facility] Gross Description A. RECTAL [...] hours, 45 minutes. KS/sb 11/11/2024 11:00 AM CONDITIONER TUMBLER OPERATOR [facility] Microscopic Description Microscopic examination was performed which supports the final diagnosis. All control tissues stained appropriately. 11/11/2024 11:00 AM CONDITIONER TUMBLER OPERATOR [facility] Tissue COLON STRUCTURE / Unknown 11/10/2024 12:01 PM CONDITIONER TUMBLER OPERATOR 11/10/2024 1:41 PM CONDITIONER TUMBLER OPERATOR Tissue specimen (specimen) COLON STRUCTURE / Unknown 11/10/2024 12:34 PM CONDITIONER TUMBLER OPERATOR 11/10/2024 1:41 PM CONDITIONER TUMBLER OPERATOR Bear Dodd MD PATHOLOGY/CYTOLOGY ORDERA BLES Final Result [facility] [address] [place] [address] * GI IMAGING - COLONOSCOPY (11/10/2024 11:11 AM CONDITIONER TUMBLER OPERATOR) Bear Dodd MD IMG DIAGNOSTIC ORDERABLES Final Result * (ABNORMAL) CMP (COMPREHENSIVE METABOLIC PANEL) (10/16/2024 9:21 AM CONDITIONER TUMBLER OPERATOR) SODIUM 130(L) 136 - 145 mmol/L 10/16/2024 9:53 AM CONDITIONER TUMBLER OPERATOR [facility] POTASSIUM 3.9 3.5 - 5.1 mmol/L 10/16/2024 9:53 AM CONDITIONER TUMBLER OPERATOR [facility] CHLORIDE 102 98 - 107 mmol/L 10/16/2024 9:53 AM CONDITIONER TUMBLER OPERATOR [facility] CO2, VENOUS 22 22 - 30 mmol/L 10/16/2024 9:53 AM [facility] ANION GAP 9.9 <18.0 mmol/L 10/16/2024 9:53 AM [facility] GLUCOSE 129(H) 70 - 99 mg/dL 10/16/2024 9:53 AM [facility] BUN 10 8 - 26 mg/dL 10/16/2024 9:53 AM [facility] CREATININE, BLOOD 0.92 0.70 - 1.30 mg/dL 10/16/2024 9:53 AM [facility] BUN/CREATININE RATIO 11(L) 12 - 20 ratio 10/16/2024 9:53 AM [facility] TOTAL PROTEIN 6.9 6.3 - 8.2 g/dL 10/16/2024 9:53 AM [facility] ALBUMIN 2.6(L) 3.5 - 5.0 g/dL 10/16/2024 9:53 AM [facility] A/G RATIO 0.6(L) 1.0 - 2.2 10/16/2024 9:53 AM [facility] CALCIUM 8.4(L) 8.7 - 10.5 mg/dL 10/16/2024 9:53 AM [facility] T BILI 1.6(H) 0.2 - 1.2 mg/dL 10/16/2024 9:53 AM [facility] SGOT (AST) 25 5 - 34 U/L 10/16/2024 9:53 AM [facility] SGPT (ALT) 12 0 - 55 U/L 10/16/2024 9:53 AM [facility] ALKALINE PHOSPHATASE 79 40 - 150 U/L 10/16/2024 9:53 AM [facility] IS THE PATIENT REQUIRED TO BE FASTING? No 10/16/2024 9:53 AM [facility] GFR, ESTIMATED >60 >=60 10/16/2024 9:53 AM [facility] Comment: Creatinine Clearance is the preferred criteria for selecting drug dose adjustments in renally impaired patients. ??The GFR is provided as additional pertinent clinical information. GFR is reported in mL/min/1.73 sq m. Calculation based on the Chronic Kidney Disease Epidemiology Collaboration (CKD- EPI) equation refit without adjustment for race. GFR, EST. >60 >=60 024 9:53 AM CONDITIONER TUMBLER OPERATOR [facility] GFR, EST. NONAFRICAN >60 >=60 10/16/2024 9:53 AM CONDITIONER TUMBLER OPERATOR [facility] Blood Venipuncture / Unknown 10/16/2024 9:21 AM CONDITIONER TUMBLER OPERATOR 10/16/2024 9:27 AM CONDITIONER TUMBLER OPERATOR us Ortiz Montenegro MD CHEMISTRY ORDERABLES Final Result [facility] [address] [place] [address] from Last 3 Months Insurance MEDICAID [facility] Advance Directives * Full Code (Latest Code Status on File) Date Activated Date Inactivated Comments 05/26/2024 7:44 PM 05/29/2024 4:23 PM CPR-Full Treat ment: FULL ARREST: Attempt Resuscitation/CPR wit intubation and mechanical ventilation. PRE-ARREST: Use entire range of life support measures to stabilize the patient. Care Teams Carpenter Packing Relationship Specialty Start Date End Date Young Call APRN, RIGGER CHIEF [address] [facility] [address] PCP - General Advanced Practice Nurse 02/13/24
--- OUTSIDE RECORDS SUMMARY | 2024-12-25 16:31 | XMS_ITS | Encounter Summary ---
Author Organization [facility] Healthcare Address [address] [place] [address] Care Team Providers Care Industrial Engineering Technologist Name Role Phone Robert Brooks MD Unavailable [phone] Ayden Nicholson MD Unavailable [phone] Kesha Gutiérrez RN Unavailable Unavailable Young Call NP Primary Care Provider [phone] Encounter Details Date Type Department Care Team (Late st Contact Info) Description 12/25/2024 Documentation [facility] Transplant Liver [address] [facility] [address] [id number] [place] [address] Kesha Gutiérrez, RN Social History Tobacco Use Types Packs/Day Years Used Date Smoking Tobacco: Every Day Cigarettes 2 49.1 Started: 1975 Passive Smoke Exposure: Current [facility] Utilities Answer Date Recorded In the past 12 months has [employer], gas, oil, or water [employer] threatened to shut off services in your [...] How often do you attend chur or yazidi services? Never 11/05/2024 Do you belong to any clubs o r organizations such as restorationism groups, unions, fraternal or athletic groups, or [...] any time in the past 12 m [facility], were you homeless or living in a [facility] (including now)? No 11/10/2024 Personal Safety Answer Date Recorded Have you ever been in or are you currently in a harmful physical or emotional relationship or is someone making you feel afraid or unsafe? Denies 11/04/2024 Sex and Gender Information Value Date Recorded Sex Assigned at Not on file Legal Sex Male 3:52 AM RE EXAMINER Gender Identity Not on file Sexual Orientation Not on file documented as of this encounter Progress Notes * Kesha Gutiérrez RN - 12/25/2024 10:47 AM CST [facility] said the only blood patient had drawn on Sunday was a CMP and Vitamin D. I called Viktoriya and she said patient has not seen any other doctors and doesn't know why he wouldhave had that blood drawn. She said she can take him back to the lab but it won't be until after she gets off today. I called [facility] and confirmed they received the new order for the INR and asked that [facility] Pt is having procedure on Sunday and potentially may need Vitamin K for three days prior if INR isup. EXAMINER documented in this encounter Plan of Treatment Upcoming Encounters Date Type Department Care Team (Latest Contact Info) Description 12/30/2024 12:30 PM RE EXAMINER Hospital Encounter [facility] Digestive Disease [place] [id number] [address] Shruthi Baez MD [address] [address] 12/30/2024 12:30 PM RE EXAMINER - 12/30/2024 1:30 PM RE EXAMINER Surgery [facility] Digestive Disease Center [facility] [address] [address] Shruthi Baez MD [address] [address] COLONOSCOPY EMR te/oa interventional Scheduled Procedures Name Priority Associated Diagnoses Date/Ti me COLONOSCOPY Colon polyp 12/30/2024 12:30 PM RE EXAMINER COLON BAND LIGATION - ENDOSCOPIC MUCOSAL RESECTION Colon polyp 12/30/2024 12:30 PM RE EXAMINER TRANSPLANT LIVER Encounter for pre-transplant evaluation for liver transplant Alcoholic liver disease (HCC) documented as of this encounter Visit Diagnoses Not on filedocumented in this encounter Care Teams Industrial Engineering Technologist Relationship Specialty Start Date End Date Young Call NP [address] [place] [address] PCP - General Family Medicine 10/28/24 Robert Brooks MD [address] [address] Referring Physician Gastroenterology 04/03/24 Ayden Nicholson MD [address] [facility] [address] [place] [address] Consulting Physician Gastroenterology 09/15/24 Kesha Gutiérrez, sheriff officerElectronics Processor 09/15/24 documented as of this encounter
--- OUTSIDE RECORDS SUMMARY | 2024-12-25 16:31 | XMS_ITS | Encounter Summary ---
Author Organization [facility] Healthcare Address [address] [place] [address] Care Team Providers Care Hand Tufter Name Role Phone Robert Brooks MD Unavailable [phone] Ayden Nicholson MD Unavailable Kesha Gutiérrez RN Unavailable Unavailable Young Call NP Primary Care Provider [phone] Encounter Details Date Type Department Care Team (Late st Contact Info) Description 12/25/2024 Telephone [facility] Transplant Liver [address] [facility] [address] [id number] [place] [address] Valentine Cohen Social History Tobacco Use Types Packs/Day Years Used Date Smoking Tobacco: Every Day Cigarettes 2 49.1 Started: 1975 Passive Smoke Exposure: Current [facility] Utilities Answer Date Recorded In the past 12 months has [employer], gas, oil, or water [employer] threatened to shut off services in your [...] How often do you attend chur or hoahaoism services? Never 11/05/2024 Do you belong to any clubs o r organizations such as oriental orthodox groups, unions, fraternal or athletic groups, or [...] any time in the past [facility], were you homeless or living in a nursing home (including now)? No 11/10/2024 Personal Safety Answer Date Recorded Have you ever been in or are you currently in a harmful physical or emotional relationship or is someone making you feel afraid or unsafe? Denies 11/04/2024 Sex and Gender Information Value Date Recorded Sex Assigned at Not on file Legal Sex Male 3:52 AM [employer] CHARGER INSULATION Gender Identity Not on file Sexual Orientation Not on file documented as of this encounter Miscellaneous Notes * Telephone Encounter - Valentine Cohen - 12/25/2024 9:12 AM CST PT/INR order faxed to [facility] [phone] [place] CHARGER INSULATION documented in this encounter Plan of Treatment Upcoming Encounters Date Type Department Care Team (Latest Contact Info) Description 12/30/2024 12:30 PM CUPOLA CHARGER INSULATION Hospital Encounter [facility] Digestive Disease [place] [address] [facility] [address] [place] [address] Shruthi Baez MD [address] [place] [address] 12/30/2024 12:30 PM CUPOLA CHARGER INSULATION - 12/30/2024 1:30 PM CUPOLA CHARGER INSULATION Surgery [facility] Digestive Disease [place] [address] [facility] [address] [place] [address] Shruthi Baez MD [address] [place] [address] COLONOSCOPY EMR te/oa interventional Scheduled Procedures Name Priority Associated Diagnoses Date/Ti me COLONOSCOPY Colon polyp 12/30/2024 12:30 PM CUPOLA CHARGER INSULATION COLON BAND LIGATION - ENDOSCOPIC MUCOSAL RESECTION Colon polyp 12/30/2024 12:30 PM CUPOLA CHARGER INSULATION TRANSPLANT LIVER Encounter for pre-transplant evaluation for liver transplant Alcoholic liver disease (HCC) documented as of this encounter Visit Diagnoses Not on filedocumented in this encounter Care Teams Hand Tufter Relationship Specialty Start Date End Date Young Call NP [address] [place] [address] PCP - General Family Medicine 10/28/24 Robert Brooks MD [address] [place] [address] Referring Physician Gastroenterology 04/03/24 Ayden Nicholson MD [address] [facility] [address] [place] [address] Consulting Physician Gastroenterology 09/15/24 Kesha Gutiérrez, emissions inspectorDesktop Publishing Operator 09/15/24 documented as of this encounter
[2024-12-25 17:18] LABS: INR 1.3; Prothrombin Time 14.2 Seconds (9.50-12.1)
== END 2024-12-25 16:27 | disposition home or self-care (01) ==
PROVIDERS: PCP Nurse Practitioner Family; Visit Provider Internal Medicine Gastroenterology
DX: K70.31 Alcoholic cirrhosis of liver with ascites (principal)
CPT/HCPCS: 36415; 85610

== ENCOUNTER 2025-02-09 16:30 | Outpatient (CLI) | payer OTHER, SELFPAY ==
[2025-02-09 17:27] LABS: Alanine Aminotransferase 18 U/L (16-63); Albumin Level 2.6 g/dL (3.4-5.0); Alkaline Phosphatase 102 U/L (46-116); Anion Gap 7 mmol/L (4-12); Aspartate Amino Transferase 25 U/L (15-37); Bilirubin,Total 1.2 mg/dL (0.00-1.00); Blood Urea Nitrogen 13 mg/dL (7-18); Calcium 8.7 mg/dL (8.5-10.1); Carbon Dioxide 26 mmol/L (21-32); Chloride 103 mmol/L (98-108); Estimated Glomerular Filt Rate > 60; Glucose 85 mg/dL (70-99); Osmolality Calculated 281 mOsm/kg (285-295); Potassium 4.4 mmol/L (3.5-5.1); Sodium 136 mmol/L (136-145); Total Protein 7.1 g/dL (6.4-8.2)
--- OUTSIDE RECORDS SUMMARY | 2025-02-09 18:50 | XMS_ITS | Referral Summary ---
Author Organization [facility] Address [address] [place] [address] Care Team Providers Care Sandfill Operator Name Role Phone Robert Brooks MD Unavailable [phone] Ayden Nicholson MD Unavailable [phone] Kesha Gutiérrez RN Unavailable Unavail able Young Call NP Primary Care Provider [phone] Azael Brunson MD Unavailable Encounters Date Type Department Care Team Description 02/04/2025 Telephone [facility] Transplant Liver [address] [facility] [address] Mailstop [id number] [place] [address] Kesha Gutiérrez, RN 02/04/2025 Results Follow-Up [facility] Transplant Liver [address] [facility] [address] Mailstop [phone] [place] [address] Kesha Gutiérrez, JENNA 02/04/2025 12:45 PM CDT Lab [facility] [address] [place] [phone] Encounter for pre-transplant evaluation for liver transplant; Alcoholic liver disease 02/04/2025 9:00 AM CDT Office Visit [facility] [address] [place] [address] Advanced Medicine 12th [place] [address] [place] [address] Lesvia Gerber MD Encounter for pre-transplant evaluation for liver transplant (Primary Dx); Alcoholic liver disease 01/30/2025 Orders Only [facility] Health Information Management [address] [place] [address] Scanning, Provider 01/21/2025 Telephone [facility] [address] [place] [address] Medical Office Building 4, [address] [place] [phone] Loida Marrero RN GI Preprocedure 01/21/2025 9:00 AM FIFTH GRADE TEACHER Office Visit [facility] Surgery [address] [place] [address] Medical Office Building 4 [address] [place] [phone] Azael Brunson MD Screening for malignant neoplasm of colon (Primary Dx); Alcoholic cirrhosis of liver with ascites (HCC) 01/20/2025 Telephone [facility] Transplant Liver [address] [facility] [address] Mailop -49-1 [place] [address] Kesha Gutiérrez, JENNA 01/14/2025 Telephone [facility] Transplant Liver [address] [facility] [address] Mailstop [facility]09-9 [place] [address] Kesha Gutiérrez, RN 01/14/2025 Telephone [facility] Transplant Liver [address] [facility] 340 Mailop -93-2 [place] [address] Cyndee Baez 01/02/2025 Orders Only [facility] Health Information Management [address] [place] [address] Kesha Gutiérrez, RN 01/01/2025 Telephone [facility] Transplant Liver [address] [facility] [address] Mailstop [phone] [place] [address] Kesha Gutiérrez, RN 12/30/2024 12:30 PM FIFTH GRADE TEACHER - 12/30/2024 1:30 PM FIFTH GRADE TEACHER Surgery [facility] [address] [place] [address] Shruthi Baez MD SIGMOID INJECTION SUBMUCOSAL 12/30/2024 1:29 PM FIFTH GRADE TEACHER Anesthesia Event [facility] [place] [address] [place] [address] Roque Doss MD 12/30/2024 11:15 AM FIFTH GRADE TEACHER - 12/30/2024 4:03 PM FIFTH GRADE TEACHER Hospital Encounter [facility] [place] [address] [place] [address] Shruthi Baez MD Colon polyp Discharge Disposition: Discharge to home or self care 12/26/2024 Telephone [facility] Transplant Liver [address] [facility] [address] Mailstop -[address] [place] [address] Kesha Gutiérrez, RN 12/26/2024 Telephone [facility] Transplant Liver [address] [facility] [address] Mailstop -[address] [place] [address] Karen Vides 12/25/2024 Telephone [facility] Transplant Liver [address] [facility] [address] Mailstop -96[address] [place] [address] Kesha Gutiérrez, RN 12/25/2024 Documentation [facility] Transplant Liver [address] [facility] [address] [place] [address] Kesha Gutiérrez, RN 12/25/2024 Telephone [facility] Transplant Liver [address] [facility] [address] [place] [address] Valentine Cohen 12/25/2024 Telephone [facility] Transplant Liver [address] [facility] [address] [place] [address] Karen Vides 12/24/2024 Telephone [facility] Transplant Liver [address] [facility] [address] Mailstop [phone] [place] [address] Kesha Gutiérrez, JENNA 12/23/2024 Telephone [facility] Transplant Liver [address] [facility] [address] Mailstop [phone] [place] [address] Kesha Gutiérrez, JENNA 12/20/2024 8:15 AM FIFTH GRADE TEACHER - 12/20/2024 11:59 PM FIFTH GRADE TEACHER Hospital Encounter [facility] [address] [place] [address] Jonathon Leonardo MD Alcoholic cirrhosis of liver with ascites (HCC) Discharge Disposition: Discharge to home or self care 11/28/2024 Orders Only [facility] Health Information Management 1 [place] [address] Kesha Gutiérrez, JENNA 11/24/2024 Documentation [facility] Transplant Liver [address] [facility] [address] Mailstop [phone] [place] [address] Kesha Gtuiérrez, JENNA 11/21/2024 Orders Only [facility] Transplant Liver [address] [place] [address] 3401 Mailstop [phone] [place] [address] Kesha Gutiérrez, RN Alcoholic cirrhosis of liver with ascites (HCC) (Primary Dx) 11/17/2024 Telephone [facility] Social Work 1 [place] [phone] Kierra Brower LCSW 11/14/2024 Orders Only [facility] Health Information Management 1 [place] [address] Scanning, Provider 11/14/2024 Telephone [facility] Specialty Services [facility] [place] [address] Christine Harvey RN GI Preprocedure 11/14/2024 Telephone [facility] Transplant Liver [address] Mailstop [phone] [place] [address] Kesha Gutiérrez, RN 11/13/2024 Telephone [facility] Transplant Liver [address] [facility] [address] Mailstop [phone] [place] [address] Monolo, Valentine 11/13/2024 Telephone [facility] Transplant Liver [address] [facility] [address] Mailstop [phone] [place] [address] Monolo, Valentine 11/13/2024 Documentation [facility] Transplant Liver [address] [facility] [address] Mailstop [phone] [place] [address] Monolo, Valentine 11/13/2024 Telephone [facility] Transplant Liver [address] [facility] [address] Mail[address] [id number] [place] [address] Kesha Gutiérrez, JENNA 11/12/2024 Documentation [facility] Transplant Liver [address] [facility] [address] Mailstop [phone] [place] [address] Myriam Lennon 11/12/2024 Telephone [facility] Transplant Liver [address] [facility] [address] Mail[address] [id number] [place] [address] Kesha Gutiérrez, RN 11/12/2024 Telephone [facility] Transplant Liver [address] [facility] [address] Mail[address] [id number] [place] [address] Kesha Gutiérrez, RN 11/11/2024 Documentation [facility] Transplant Liver [address] [facility] [address] Mail[address] [id number] [place] [address] Kesha Gutiérrez, RN 11/11/2024 Orders Only [facility] Health Information Management [address] [place] [address] Kesha Gutiérrez, RN 11/11/2024 Orders Only [facility] [address] [facility] 12th [place] [address] [place] [address] Jonathon Leonardo MD Colon adenoma (Primary Dx) 11/11/2024 Orders Only [facility] Transplant Liver [address] [facility] [address] Mailstop [phone] [place] [address] Kesha Gutiérrez RN 11/11/2024 Telephone [facility] Transplant Liver [address] [facility] [address] Mailstop [phone] [place] [address] Kesha Gutiérrez, JENNA from Last 3 Months Allergies Active Allergy [...] tabletIndicatio ns:Alcoholic cirrhosis of liver with ascites (HCC) Take 1 tablet (6.25 mg total) by mouth nightly 90 tablet 2 4 Active polyethylene glycol (GoLYTELY) 236-22.74-6.74 -5.86 gram solutionIndicat ions:Bowel Evacuation Drink 2L at 6:00 pm night before procedure and 2L at 6:30 am morning of procedure per mailed prep instructions. 4000 mL 4 Active cholecalciferol 400 unit capsule Take 5,000 Units by mouth once a week Active polyethylene glycol (GoLYTELY) 236-22.74-6.74 -5.86 gram solution Take 4,000 mL by mouth once for 1 dose PLEASE TAKE THE 1ST HALF (2L) AT 6 PM THE DAY BEFORE THE PROCEDURE AND THE SECOND HALF (2L) 6 HOURS BEFORE LEAVING HOME IN THE MORNING 4000 mL 5 01/21/20 25 Active Problems Problem Noted Date Diagnosed Date Anal polyp 01/21/2025 Alcoholic liver disease 11/05/2024 Encounter for pre-transplant evaluation for liver transplant 11/05/2024 Severe protein-calorie malnutrition 04/16/2024 SBP (spontaneous bacterial peritonitis) 04/14/20 Assessment & [...] his apt,as per pt,s ex- ( [facility] Mares). - patinet refuses placement Sepsis 04/10/2024 Assessment [...] etc. Alcoholic cirrhosis of liver with ascites 2023 Assessment & Plan (04/15/2024 2:26 PM CDT): -Hx of heavy EtOH cirrhosis; OSH labs show negative AMA, CARL, ceruloplasmin. No signs of bleeding. 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 Utilities Answer Date Recorded In the past 12 months has th e [employer], gas, oil, or water company threatened to [...] often do you attend chur ch or restorationism services? Never 11/05/2024 Do you belong to any clubs o r organizations such as jewish groups, unions, fraternal or athletic groups, or school groups? No 11/05/2024 How often do you attend meet ings of the clubs or organizations you belong to? Never 11/05/2024 Are you , , di vorced, , never , or living with a partner? 11/05/2024 AUDIT-C Answer Date Recorded Q1: How often do you have a drink containing alcohol? Never 01/21/2025 Q2: How many drinks containi ng alcohol do you have on a typical day when you are drinking? Patient does not drink Q3: How often do you have si x or more drinks on one occasion? Never 01/21/2025 Overall Financial Resource Strain (CARDIA) Answe r [...] any time in the past 12 m [facility], were you homeless or living in a fci (including now)? No 11/10/2024 Personal Safety Answer Date Recorded Have you ever been in or are you currently in a harmful physical or emotional relationship or is someone making you feel afraid or unsafe? Denies 12/30/2024 Sex and Gender Information Value Date Recorded Sex Assigned at Not on file Legal Sex Male 3:52 AM FIFTH GRADE TEACHER Gender Identity Not on file Sexual Orientation Not on file Last Filed Vital Signs Vital Sign Reading Time Taken Comments Blood Pressure 107/71 02/04/2025 8:58 AM CDT Pulse 71 02/04/2025 8:58 AM CDT Temperature 36.7 C (98 F) 02/04/2025 8:58 AM CDT Respiratory Rate 19 12/30/2024 3:12 PM FIFTH GRADE TEACHER Oxygen Saturation 98% 01/21/2025 8:38 AM FIFTH GRADE TEACHER Inhaled Oxygen Concentration - - Weight 68.4 kg (150 lb 12.8 oz) 02/04/2025 8:58 AM CDT Height 177.8 cm (5' 10 ) 02/04/2025 8:58 AM CDT Body Mass Index 21.64 02/04/2025 8:58 AM CDT Plan of Treatment Upcoming Encounters Date Type Department Care Team (Late st Contact Info) Description 03/02/2025 1:45 PM CDT Hospital Encounter [facility] [address] [place] [phone] Shruthi Baez MD [address] [address] 03/02/2025 1:45 PM CDT - 03/02/2025 2:[address] [facility] [address] [place] [phone] Shruthi Baez MD [address] [address] Flex Sig w/EMR Scheduled Procedures Name Priority Associated Diagnoses Date/Ti me SIGMOIDOSCOPY Anal polyp 03/02/2025 1:45 PM CDT TRANSPLANT LIVER Encounter for pre-transplant evaluation for liver transplant Alcoholic liver disease Procedures Procedure Name Priority Date/Time Associated Diagnosis Comments EGFR Routine 02/04/2025 10:47 AM CDT Encounter for pre-transplant evaluation for liver transplant Alcoholic liver disease DIFFERENTIAL AUTO Routine 02/04/2025 10:47 AM CDT Encounter for pre-transplant evaluation for liver transplant Alcoholic liver disease VITAMIN D 25 HYDROXY Routine 02/04/2025 10:47 AM CDT Encounter for pre-transplant evaluation for liver transplant Alcoholic liver disease PHOSPHATIDYLETHANOL Routine 02/04/2025 10:47 AM CDT Encounter for pre-transplant evaluation for liver transplant Alcoholic liver disease PROTIME-INR Routine 02/04/2025 10:47 AM CDT Encounter for pre-transplant evaluation for liver transplant Alcoholic liver disease COMPREHENSIVE METABOLIC PANEL Routine 02/04/2025 10:47 AM CDT Encounter for pre-transplant evaluation for liver transplant Alcoholic liver disease CBC WITH AUTO DIFFERENTIAL Routine 02/04/2025 10:47 AM CDT Encounter for pre-transplant evaluation for liver transplant Alcoholic liver disease SCAN - LABS 01/30/2025 2:21 PM FIFTH GRADE TEACHER SCAN - LABS 01/02/2025 3:16 PM FIFTH GRADE TEACHER SURGICAL PATHOLOGY Routine 12/30/2024 2: 27 PM FIFTH GRADE TEACHER Colon polyp ENDO ADD ON SIGMOID BIOPSY 12/30/2024 1:29 PM FIFTH GRADE TEACHER Colon polyp SIGMOID INJECTION SUBMUCOSAL 12/30/2024 1:29 PM FIFTH GRADE TEACHER Colon polyp COLONOSCOPY 12/30/2024 1:25 PM FIFTH GRADE TEACHER PROTIME-INR Routine 12/25/2024 MRI PELVIS W WO CONTRAST Schedule Routine, Read Routine (OP Routine) 12/20/2024 9:41 AM FIFTH GRADE TEACHER Alcoholic cirrhosis of liver with ascites (HCC) SCAN - RADIOLOGY/IMAGING 025 11:50 AM FIFTH GRADE TEACHER SCAN - RADIOLOGY/IMAGING 024 12:02 PM FIFTH GRADE TEACHER SCAN - LABS 11/11/2024 2:39 PM FIFTH GRADE TEACHER HEPATITIS C ANTIBODY Routine 11/04/2024 11:23 AM FIFTH GRADE TEACHER Encounter for pre-transplant evaluation for liver transplant Alcoholic liver disease PSA SCREEN Routine 11/04/2024 11:23 AM FIFTH GRADE TEACHER Encounter for pre-transplant evaluation for liver transplant Alcoholic liver disease from Last 3 Months or Most Recently Relevant to Health Maintenance Results * Phosphatidylethanol (02/04/2025 10:47 AM CDT) PHOSPHATIDYLETHANOL Negative . [facility] Comment: ADDITIONAL INFORMATION This report is intended for use in clinical monitoring and management of patients. It is not intended for use in employment-related testing. This test was developed and its performance characteristics determined by [facility] in a manner consistent with CLIA requirements. This test has not been cleared or approved by the U.S. Food and Drug Administration. Test Performed by: [facility] [address] [place] [address] Supervisor Of Guidance And Testing: Deven Owens Ph.D.; CLIA# [id number] PEth 16:0/18:1 (POPEth)by LC-MS/MS <10 Cutoff: 10 [...] Reference ranges are not well established Blood 02/04/2025 10:4 7 AM CDT 02/04/2025 12:41 PM CDT us Lesvia Gerber MD LAB BLOOD ORDERABLES Final Res ult ASHWINI RAMOS [facility] [place] [address] [facility] * eGFR (02/04/2025 10:47 AM CDT) eGFR 81 >=60 mL/min/1. 73 m2 Comment: Interpretive Data Reference Interval Normal >/= 90 mL/min/1.73m2 Mildly decreased* 60 - 89 mL/min/1.73m2 Mildly to moderately decreased 45 - 59 mL/min/1.73m2 Moderately to severely decreased 30 - 44 mL/min/1.73m2 Severely decreased 15 - 29 mL/min/1.73m2 Kidney Failure < 15 mL/min/1.73m2 *Relative to young adult level Estimated glomerular [...] interpretive data was last reviewed 2021. Blood 02/04/2025 10:4 7 AM CDT 02/04/2025 11:10 AM CDT us Lesvia Gerber MD LAB BLOOD ORDERABLES Final Res ult [facility] [place] [address] * Differential, auto (02/04/2025 10:47 AM CDT) Neutrophil abs 4.4 1.5 - 6.5 K/cumm Imm gran abs 0.0 0.0 - 0.1 K/cumm [facility] Lymphocyte abs 1.4 0.8 - 3.3 K/cumm [facility] Monocyte abs 0.7 0.2 - 0.8 K/cumm [facility] Eosinophil abs 0.1 0.0 - 0.5 K/cumm [facility] Basophil abs 0.1 0.0 - 0.1 K/cumm [facility] Neutrophil pct 65.9 % [facility] Comment: Interpretive Data Percent cell count reference ranges are not reported, since discordance with absolute values may lead to misinterpretation of CBC data. Current Interpretive Data was last revised on 2018. Imm gran pct 0.3 % [facility] Comment: Interpretive Data Percent cell count reference ranges are not reported, since discordance with absolute values may lead to misinterpretation of CBC data. Current Interpretive Data was last revised on 2018. Lymphocyte pct 20.4 % [facility] Comment: Interpretive Data Percent cell count reference ranges are not reported, since discordance with absolute values may lead to misinterpretation of CBC data. Current Interpretive Data was last revised on 2018. Monocyte pct 9.6 % [facility] Comment: Interpretive Data Percent cell count reference ranges are not reported, since discordance with absolute values may lead to misinterpretation of CBC data. Current Interpretive Data was last revised on 2018. Eosinophil pct 1.9 % [facility] Comment: Interpretive Data Percent cell count reference ranges are not reported, since discordance with absolute values may lead to misinterpretation of CBC data. Current Interpretive Data was last revised on 2018. Basophil pct 1.9 % [facility] Comment: Interpretive Data Percent cell count reference ranges are not reported, since discordance with absolute values may lead to misinterpretation of CBC data. Current Interpretive Data was last revised on 2018. Blood 02/04/2025 10:4 7 AM CDT 02/04/2025 11:11 AM CDT us Lesvia Gerber MD LAB BLOOD ORDERABLES Final Res ult [facility] [place] [address] * (ABNORMAL) CBC with auto differential (02/04/2025 10:47 AM CDT) WBC 6.8 3.8 - 9.9 K/cumm Hgb 13.2 13.0 - 17.5 g/dL [facility] Hct 38.8(L) 38.9 - 50.3 % [facility] Plt 224 150 - 400 K/cumm [facility] MPV 9.2 9.1 - 12.3 fL [facility] RBC 4.41 4.30 - 5.80 M/cumm [facility] MCV 88.0 81.3 - 96.4 fL [facility] MCH 29.9 27.1 - 33.3 pg [facility] MCHC 34.0 32.3 - 35.7 g/dL [facility] RDW CV 14.6 11.1 - 14.9 % [facility] RDW SD 47.3 35.7 - 48.1 fL [facility] NRBC abs 0.00 0.00 - 0.01 K/cumm [facility] Blood 02/04/2025 10:4 7 AM CDT 02/04/2025 11:11 AM CDT us Lesvia Gerber MD LAB BLOOD ORDERABLES Final Res ult Performing Organization Address [facility] Co de Phone Number [facility] [place] [address] * Vitamin D 25 hydroxy (02/04/2025 10:47 AM CDT) Vitamin D 25-OH 48 30 - 80 ng/mL Blood 02/04/2025 10:4 7 AM CDT 02/04/2025 11:10 AM CDT us Lesvia Gerber MD LAB BLOOD ORDERABLES Final Res ult Performing Organization Address [facility] de Phone Number [facility] [place] [address] * (ABNORMAL) Protime-INR (02/04/2025 10:47 AM CDT) PT 16.8(H) 9.7 - 13.0 sec INR 1.54(H) 0.90 - 1.20 [facility] Comment: Interpretive data Oral anticoagulant therapeutic ranges: Venous thromboembolism prophylaxis or treatment: 2.0-3.0 CARDIOLOGY Standard range: 2.0-3.0 High-intensity range: 2.5-3.5 Refer to indication-specific guidelines for appropriate target ranges for prosthetic heart valve replacement. Current interpretive data was last revised on 2019. Blood 02/04/2025 10:4 7 AM CDT 02/04/2025 11:06 AM CDT us Lesvia Gerber MD LAB BLOOD ORDERABLES Final Res ult [facility] [place] [address] * (ABNORMAL) Comprehensive metabolic panel (02/04/2025 10:47 AM CDT) Sodium 129(L) 135 - 145 mmol/L Potassium, pl 5.4(H) 3.3 - 4.9 mmol/L [facility] Chloride 99 97 - 110 mmol/L [facility] CO2 25 22 - 32 mmol/L [facility] Anion gap 5 2 - 15 mmol/L [facility] BUN 15 6 - 25 mg/dL [facility] Creatinine 1.04 0.80 - 1.30 mg/dL [facility] Glucose 132 70 - 199 mg/dL [facility] Comment: Interpretive Data Fasting glucose >/= 126 mg/dl is diagnostic for diabetes. Fasting is defined as no caloric intake [...] classification and Diagnosis of Diabetes Diabetes Care 202; 46: S19-S40. Current interpretive data was last revised 2022. Calcium 9.2 8.5 - 10.3 mg/dL [facility] Bilirubin, total 1.1 0.1 - 1.2 mg/dL [facility] Protein, pl 8.3 6.5 - 8.5 g/dL [facility] Albumin 3.2(L) 3.5 - 5.0 g/dL [facility] Alk phos 99 40 - 130 Units/L [facility] ALT 9 7 - 55 Units/L [facility] AST 22 10 - 50 Units/L [facility] Blood 02/04/2025 10:4 7 AM CDT 02/04/2025 11:10 AM CDT us Lesvia Gerber MD LAB BLOOD ORDERABLES Final Res ult [facility] [place] [address] * SCAN - LABS (01/30/2025 2:21 PM FIFTH GRADE TEACHER) us Provider Scanning Final Result * SCAN - LABS (01/02/2025 3:16 PM FIFTH GRADE TEACHER) us Kesha Gutiérrez RN Final Re sult * Surgical pathology (12/30/2024 2:27 PM FIFTH GRADE TEACHER) Tissue (Polyp(s), colon/colorectal, esophageal, gastric) 12/30/2024 2:27 PM FIFTH GRADE TEACHER Narrative PATHOLOGY [facility] - 12/31/2024 10:40 AM FIFTH GRADE TEACHER EPIC results best viewed via link to PDF [facility] Kesha Brig[facility] [place] [address] Note to Patients: This report may contain a detailed description of human tissue sent by a health care provider to the laboratory for pathologic evaluation. The content of this report is essential for diagnosis and may provide important critical findings. This information may be unfamiliar to patients to review without a medical professional present. It is advised that the patient review this report in the presence of a health care provider who can answer questions and explain the details. SURGICAL PATHOLOGY REPORT FINAL Patient Name: LIVE MARES Gender: Femi : 1960 (Age: 64) Address: [address] [place], [place] [id number] Hospital #: [id number] Taken:12/30/2024 Received:12/30/2024 Reported: 12/31/2024 Patient Type: [facility] Service: Gastro Location: Physician(s): Ahmad N. Bazarbashi, M.D. Jonathon Leandro Leonardo Ajin X Call, REGULATOR TESTER Diagnosis: A. Large bowel, sigmoid colon, polyp(s), polypectomy/biopsy - Fragments of tubular adenoma(s) kxb/12/31/2024 10:40 By this signature, I attest that the above diagnosis is based upon my personal examination of the slides(and/or other material indicated in the diagnosis). Clare Bautista MD Report Electronically Reviewed and Signed Out By Clare Bautista MD 12/31/2024 10:40:22 Maxi Salvador M.D. History: The patient is a 64-year-old man presenting with a colon polyp. Operative procedure: Sigmoid submucosal injection, endo add on colon biopsy. Specimen(s) Received: A: Cold biopsies sigmoid colon polyp Gross Description: Received in a single formalin filled container labeled with the patient's name and cold biopsy sigmoid colon polyp are multiple irregular fragments of rubbery to soft, pink to purple tissue (0.8 x 0.5 x 0.2 cm in aggregate). Filtered. Labeled A1. Jar 0. emg12/30/2024 18:15 PA(s): Estela Louise MS, PA (ASCP)CM By this signature, I attest that the above diagnosis is based upon my personal examination of the slides(and/or other material). Addenda/Procedures The performance characteristics of some immunohistochemical stains, fluorescence in-situ hybridization tests and immunophenotyping by flow cytometry cited in this report (if any) were determined by the Surgical Pathology and Flow Cytometry Departments at [facility] as part of an ongoing quality assurance assistant program and in compliance with federally mandated regulations drawn from the Clinical Laboratory Improvement Act of 1988 (CLIA '88). Some of these tests rely on the use of analyte specific reagents and are subject to specific labeling requirements by the US Food and Drug Administration. Such diagnostic tests may only be performed in a facility that is certified by the Department of Health and Human Services as a high complexity laboratory under CLIA '88. The FDA has determined that such clearance or approval is not necessary. This test is used for clinical purposes. It should not be regarded as investigational or for research. Nevertheless, federal rules concerning the medical use of analyte specific reagents require that the following disclaimer be attached to the report: This test was developed and its performance characteristics determined by the Surgical Pathology and Flow Cytometry Departments of [facility]. It has not been cleared or approved by the U. S. Food and Drug Administration. IMAGES AND SCANNED DOCUMENTS, IF INCLUDED, ONLY VIEWABLE IN PDF VERSION OF REPORT us Shruthi Baez MD LAB PATHOLOGY ORDERAB LES Final Result PATHOLOGY [facility] 3rd Floor [place], [place] [phone] * Colonoscopy (12/30/2024 1:25 PM FIFTH GRADE TEACHER) Anatomical Region Laterality Modality Other Narrative Procedure Note Shruhti Baez MD - 12/30/2024 1:25 PM [facility] Patient Name: Live Mares Procedure Date: 12/30/2024 1:25 PM Date of : 1960 Admit Type: Outpatient Age: 64 Gender: Male Attending MD: Shruthi Baez M.D. Room: [facility] ENDOSCOPY ROOM 9 Note Status: Finalized Procedure: Colonoscopy Indications: Therapeutic procedure for colon polyps Referring MD: Jonathon Leonardo M.D. Providers: Shruthi Baez M.D., Eleni Olson M.D. Medicines: Monitored Anesthesia Care Complications: No immediate complications. Estimated Blood Loss: Estimated blood lo ss was minimal. Procedure: Pre-Anesthesia Assessment: - The risks and benefits of the procedure and the sedation options and risks were discussed with the patient. All questions were answered and informed consent was obtained. - Immediately prior to administration ofmedications, the patient was re-assessed for adequacy to receive sedatives. The benefits, risks and alternatives of theprocedure and sedation were discussed and informed consentwas obtained. All questions were answered. Please referto the signed informed consent document in the medical record. The colonoscopy was performed without difficulty. The patient tolerated the procedurewell. The quality of the bowel preparation was fair. The bowel preparation used was GoLYTELY via split dose instruction. The scope was passed under directvision. The [id number] endoscope was introduced through the anus and advanced to the sigmoid colon. The quality of the bowel preparation was evaluated using the BBPS ([place] Bowel Preparation Scale)with scores of: Right Colon = NA (segment surgicallyabsent or not seen due to reasons unrelated to bowel prep (i.e. technical difficulties or patientintolerance)), Transverse Colon = NA (segment surgically absent or not seen due to reasons unrelated to bowel prep(i.e. technical difficulties or patient intolerance)) and Left Colon = 2 (minor amount of residual staining, small fragments of stool and/or opaque liquid, but mucosa seen well). The total BBPS score equals 2* (*this score is the summation of 2 or fewersegments). Findings: Hemorrhoids were found on perianal exam. Extremely difficult flex sig. A large polyp was found at 25 cmproximal to the anus. The polyp was pedunculated with a wide stalk measuring around 20 mm and polyp measuring around 30 mm. The polyp was erythematous and dusky in appearance. The polyp was obstructing the lumen and the colonoscope could not be advanced proximal to thepolyp. The colonoscope was exchanged for a GIF scope which was able totraverse the polyp by only 5-6 cm revealing diverticulosis. The stalk was successfully injected with 4 mL of a 1:1000 solution of epinephrinewith adequate blanching. Multiple attempts to capture the polyp with a 27mm snare were unsuccessful due to large polyp size, poor CO2 retention, technically difficult position, and poor visualization. The polypcould not be resected. Biopsies were taken with a cold forceps forhistology. Area was tattooed with an injection of 1 mL of Spot (carbon black)1-2 folds distal to the polyp. Impression: - Preparation of the colon was fair. - Hemorrhoids found on perianal exam. - One large obstructing pedunculated polyp at 25 cm proximal to the anus. Resection was unsuccessfuldue to inability to capture the polyp with a snaregiven technically difficult scope position, poor CO2 retention, poor visualization, and large polypsize. Biopsies were obtained and tattoo was injected 1-2 folds distal to the polyp. - Polyp causing luminal narrowing in the sigmoidcolon that is difficult to traverse. Recommendation: - Observe patient in recovery. - Continue present medications. - Await pathology results. If pathology confirms dysplasia or malignancy would discuss surgical resection. If pathology reveals adenoma and surgeryis high risk, recommend repeat colonsocopy withpolyloop p[lacement as loop and let go. Discussed with transplant hepatology. - Clear liquid diet today then advance to soft diet tomorrow then advance as tolerated to regulardiet. - Return to referring physician as previously scheduled. - In the unusual situation that you developabdominal, bleeding or other significant problems in the days following this procedure please call [phone] After hours and evenings please call [phone] speak to the GI fellow communications media professor. Please tell thefellow that Dr. Baez did your procedure and that you were instructed to have the fellow call me or the physician covering for me to discuss the managementof your condition.. If you have an urgent problem,please go to the nearest emergency room and have the ER doctor call my office during the day or [facility] ([phone]) [place] after hours and weekends to arrange admission or transfer to our facility. Attending Participation: I was present and participated during the entire procedure, including non-mccarthy portions. Electronically signed by Shruthi Baez MD Shruthi Baez M.D. 12/30/2024 3:39:28 PM . Number of Addenda: 0 Note Initiated On: 12/30/2024 1:25 PM Shruthi Baez MD ENDOSCOPY PROCEDURES Final Result * (ABNORMAL) Protime-INR (12/25/2024) SCRIBED PT 14.2(A) 9.50 - 12.1 sec TXP NO LAB FOUND SCRIBED INR 1.3(A) 0.9 - 1.1 sec TXP NO LAB FOUND Blood 12/25/2024 Historical Provider LAB BLOOD ORDERABLES Edit ed Result - Final TXP NO LAB FOUND * MRI Pelvis W WO Contrast (12/20/2024 9:41 AM FIFTH GRADE TEACHER) Anatomical Region Laterality Modality Pelvis N/A Magnetic Resonan ce 12/22/2024 10:5 3 AM FIFTH GRADE TEACHER Impressions 12/22/2024 11:17 AM FIFTH GRADE TEACHER No MR evidence of rectal mass. Dictated by: Perry Seth MD The radiology attending physician has personally reviewed this study, and had reviewed and/or edited this written report and agrees with it. Electronically signed by: Meseret Casiano M.D. Narrative 12/22/2024 11:17 AM FIFTH GRADE TEACHER EXAMINATION: MAGNETIC RESONANCE IMAGING OF THE PELVIS [...] left inguinal hernia. No suspicious osseous lesions. Procedure Note Meseret Casiano [...] * SCAN - RADIOLOGY/IMAGING (11/28/2024 11:50 AM FIFTH GRADE TEACHER) Anatomical Region Laterality Modality Other Kesha Gutiérrez RN Final Re sult * SCAN - RADIOLOGY/IMAGING (11/14/2024 12:02 PM FIFTH GRADE TEACHER) Anatomical Region Laterality Modality Other Provider Scanning Final Result * SCAN - LABS (11/11/2024 2:39 PM FIFTH GRADE TEACHER) Kesha Gutiérrez RN Final Re sult * PSA screen (11/04/2024 11:23 AM FIFTH GRADE TEACHER) PSA-Total 0.12 <=5.40 ng/mL Comment: Interpretive Data AGE SEX REFERENCE INTERVAL 0 minutes-150 years Female None 0 minutes-49 years Male None 50-59 years Male 0-3.90 60-69 years Male 0-5.40 70-79 years Male 0-6.20 80-150 years Male 0-6.20 The [place] PSA Total assay procedure was used. Results from different manufacturers or methods may not be comparable. Serial testing should be performed using the same method. Current interpretive data last revised 22. Blood 11/04/2024 11:2 3 AM FIFTH GRADE TEACHER 11/04/2024 12:45 PM FIFTH GRADE TEACHER Narrative [facility] - 11/04/2024 2:01 PM FIFTH GRADE TEACHER Please add the following comment to each lab: This lab is being obtained as part of a liver transplant evaluation, is time sensitive, and should only be drawn during the evaluation visit at [address] Lab. Ayden Nicholson MD LAB BLOOD ORDERABLES Final Res ult Performing Organization Address [facility] Co de Phone Number [facility] [place] [address] * Hepatitis C antibody Blood (11/04/2024 11:23 AM FIFTH GRADE TEACHER) Hep C Ab Nonreactive Nonreactive Comment:Antibodies to HCV no t detected. Does NOT exclude the possibility of recent exposure to HCV. Current interpretive data was last revised on 22 Blood 11/04/2024 11:2 3 AM FIFTH GRADE TEACHER 11/04/2024 12:42 PM FIFTH GRADE TEACHER Narrative [facility] - 11/04/2024 1:37 PM FIFTH GRADE TEACHER Please add the following comment to each lab: This lab is being obtained as part of a liver transplant evaluation, is time sensitive, and should only be drawn during the evaluation visit at [address] Ayden Nicholson MD LAB MICROBIOLOGY - GENERAL ORD ERABLES Final Result Performing Organization Address City/[facility]/ZIP Co de Phone Number [facility] [place] [address] from Last 3 Months or Most Recently Relevant to Health Maintenance Insurance [employer] [facility] TRANSPLANT [facility] Advance Directives For more information, please contact: [phone] Documents on File Type Date Recorded Patient Manager Income Tax Expl anation ADVANCE DIRECTIVE 11/11/2024 10:19 PM [facility] ER OF FLATWORK CATCHER-[employer]ICAL * Full Code (Latest Code Status on File) Date Activated Date Inactivated Comments 12/30/2024 11:45 AM 12/30/2024 8:08 PM * Full Code Date Activated Date Inactivated Comments 04/23/2024 2:01 AM 05/12/2024 7:22 PM * Full Code Date Activated Date Inactivated Comments 04/10/2024 9:06 AM 04/18/2024 5:41 PM Care Teams Sandfill Operator Relationship Specialty Start Date End Date Young Call NP [address] [place] [address] PCP - General Family Medicine 10/28/24 Robert Brooks MD [address] [address] Referring Physician Gastroenterology 04/03/24 Ayden Nicholson MD [address] [facility] [address] [place] [address] Consulting Physician Gastroenterology 09/15/24 Kesha Gutiérrez, trommel tenderFruit Dumper 09/15/24 Azael Brunson MD [phone] [place] [address] Surgeon Colon and Rectal Surgery 01/21/25
--- OUTSIDE RECORDS SUMMARY | 2025-02-09 18:50 | XMS_ITS | Clinical Summary ---
Author Organization [facility] Address [address] [place] [address] Care Team Providers Care Branch Operations Coordinator Name Role Phone Robert Brooks MD Unavailable Ayden Nicholson MD Unavailable [phone] Kesha Gutiérrez RN Unavailable Unavail able Young Call NP Primary Care Provider [phone] Azael Brunson MD Unavailable [phone] Allergies Active Allergy Reactions Criticality Noted Date [...] malnutrition 04/16/2024 SBP (spontaneous bacterial peritonitis) 04/14/20 24 Assessment [...] signs of bleeding. Follows with an OSH senior business development manager -Check HIV and hepatitis panel -Hold diuretics [...] Date Type Department Care Team Description 02/04/2025 12:45 PM CDT Lab [facility] [address] [place] [address] Encounter for pre-transplant evaluation for liver transplant; Alcoholic liver disease 02/04/2025 9:00 AM CDT Office Visit [facility] Gasteroenterology [address] [facility] Advanced Medicine 12th [place] [address] [place] [address] Lesvia Gerber MD Encounter for pre-transplant evaluation for liver transplant (Primary Dx); Alcoholic liver disease 02/04/2025 Telephone [facility] and Transplant Liver [address] [facility] [address] Mailstop [phone] [place] [address] Kesha Gutiérrez RN 02/04/2025 Results Follow-Up [facility] and Transplant Liver [address] [facility] [address] Mailstop [phone] [place] [address] Kesha Gutiérrez RN 01/30/2025 Orders Only Health Information Management [address] [place] [address] Scanning, Provider 01/21/2025 9:00 AM PET GROOMER Office Visit [facility] Surgery [address] [place] [address] Medical Office Building 4 [address] [place] [phone] Azael Brunson MD Screening for malignant neoplasm of colon (Primary Dx); Alcoholic cirrhosis of liver with ascites (HCC) 01/21/2025 Telephone [facility] Gastroenterology [address] [place] [address] Medical Office Building 4, [address] [place] [phone] Loida Marrero RN GI Preprocedure 01/20/2025 Telephone [facility] and Transplant Liver [address] [facility] 34[address] Mailstop [phone] [place] [address] Kesha Gutiérrez, JENNA 01/14/2025 Telephone [facility] and Transplant Liver [address] [facility] 340 Mailstop [phone] [place] [address] Kesha Gutiérrez, JENNA 01/14/2025 Telephone [facility] and Transplant Liver [address] [place] [address] 340 Mailop 26-15-6 [place] [address] Cyndee Baez 01/02/2025 Orders Only Health Information Management [address] [place] [address] Kesha Gutiérrez, RN 01/01/2025 Telephone [facility] and Transplant Liver [address] [facility] 340 Mailstop [phone] [place] [address] Kesha Gutiérrez, RN 12/30/2024 1:29 PM PET GROOMER Anesthesia Event [facility] [address] [address] Roque Doss MD 12/30/2024 12:30 PM PET GROOMER - 12/30/2024 1:30 PM PET GROOMER Surgery [facility] [address] [address] Shruthi Baez MD SIGMOID INJECTION SUBMUCOSAL 12/30/2024 11:15 AM PET GROOMER - 12/30/2024 4:03 PM [facility] [place] [address] [facility] [address] [place] [address] Shruthi Baez MD Colon polyp Discharge Disposition: Discharge to home or self care 12/26/2024 Telephone [facility] Transplant Liver [address] [facility] [address] Mailstop [phone] [place] [address] Kesha Gutiérrez, RN 12/26/2024 Telephone [facility] Transplant Liver [address] [facility] [address] Mailstop [phone] [place] [address] Karen Vides 12/25/2024 Telephone [facility] Transplant Liver [address] [facility] [address] Mailstop [phone] [place] [address] Kesha Gutiérrez, RN 12/25/2024 Documentation [facility] and Transplant Liver [address] [facility] [address] Mailstop 90-87-0 [place] [address] Kesha Gutiérrez, RN 12/25/2024 Telephone [facility] Transplant Liver [address] [facility] [address] Mailstop [phone] [place] [address] Valentine Cohen 12/25/2024 Telephone [facility] Transplant Liver [address] [facility] [address] Mailstop [phone] [place] [address] Karen Vides 12/24/2024 Telephone [facility] Transplant Liver [address] [facility] [address] Mailstop [phone] [place] [address] Kesha Gutiérrez, RN 12/23/2024 Telephone [facility] Transplant Liver [address] [facility] [address]01 Mailstop [phone] [place] [address] Kesha Gutiérrez, RN 12/20/2024 8:15 AM PET GROOMER - 12/20/2024 11:59 PM PET GROOMER Hospital Encounter [facility] [address] [place] [address] Jonathon Leonardo MD Alcoholic cirrhosis of liver with ascites (HCC) Discharge Disposition: Discharge to home or self care 11/28/2024 Orders Only Health Information Management [address] [place] [address] Kesha Gutiérrez, RN 11/24/2024 Documentation [facility] Transplant Liver [address] [place] [address] 3401 Mailstop [phone] [place] [address] Kesha Gutiérrez, JENNA 11/21/2024 Orders Only [facility] Transplant Liver [address] [place] [address] 3401 Mailstop [phone] [place] [address] Kesha Gutiérrez, JENNA Alcoholic cirrhosis of liver with ascites (HCC) (Primary Dx) 11/17/2024 Telephone Social Work 1 [place] [address] Kierra Brower LCSW 11/14/2024 Orders Only Health Information Management 1 [place] [address] Scanning, Provider 11/14/2024 Telephone [facility] Specialty Services [address] [place] [phone] Christine Harvey RN GI Preprocedure 11/14/2024 Telephone [facility] Transplant Liver [address] [facility] [address] Mailstop [phone] [place] [address] Kesha Gutiérrez, JENNA 11/13/2024 Telephone [facility] Transplant Liver [address] [place] [address] 3401 Mailstop [phone] [place] [address] Lindao, Valentine 11/13/2024 Telephone [facility] and Transplant Liver [address] [facility] [address] Mailstop [phone] [place] [address] Monolo, Valentine 11/13/2024 Documentation [facility] Transplant Liver [address] [facility] [address] Mailstop [phone] [place] [address] Monolo, Valentine 11/13/2024 Telephone [facility] Transplant Liver [address] [facility] [address] Mailstop [phone] [place] [address] Kesha Gutiérrez, JENNA 11/12/2024 Documentation [facility] Liver [address] [facility] [address] Mailstop [phone] [place] [address] Myriam Lennon 11/12/2024 Telephone [facility] Liver [address] [facility] [address] Mailstop [id number] [place] [address] Kesha Gutiérrez, RN 11/12/2024 Telephone [facility] Liver [address] [facility] [address] Mailstop [phone] [place] [address] Kesha Gutiérrez, RN 11/11/2024 Documentation [facility] [address] [facility] [address] Mailstop [phone] [place] [address] Kesha Gutiérrez, RN 11/11/2024 Orders Only Health Information Management [address] [place] [address] Kesha Gutiérrez, RN 11/11/2024 Orders Only [facility] Gasteroenterology [address] [facility] 12th [place] [address] [place] [address] Jonathon Leonardo MD Colon adenoma (Primary Dx) 11/11/2024 Orders Only [facility] and Transplant Liver [address] [facility] [address] Mailstop [phone] [place] [address] Kesha Gutiérrez, JENNA 11/11/2024 Telephone [facility] Transplant Liver [address] [facility] [address] Mailstop [phone] [place] [address] Kesha Gutiérrez, JENNA from Last 3 Months Surgical History Surgery [...] 11/28/2024 N/A US GUIDED PARACENTESIS 11/14/2024 N/A COLONOSCOPY US GUIDED PARACENTESIS 01/02/2025 N/A US GUIDED PARACENTESIS 01/30/2025 N/A Medical History Medical History Date Comments Colon polyp Cirrhosis (HCC) Hypertension Liver disease Family History Medical History Relation Name Comments brain tumor Father Diabetes Mother Heart failure Mother Relation Name Status Comments Father Mother Social History Tobacco Use Types Packs/Day Years Used Date Smoking Tobacco: Every Day Cigarettes 2 49.2 Started: 1975 Passive Smoke Exposure: Current Tobacco Cessation:Ready to Q uit: Not Asked; Counseling Given: Not Answered [facility] Utilities Answer Date Recorded In [...] often do you attend chur ch or faith services? Never 11/05/2024 Do you belong to any clubs o r organizations such as methodist groups, unions, fraternal or athletic groups, or [...] any time in the past 12 m [place], were you homeless or living in a custodial (including now)? No 11/10/2024 Personal Safety Answer Date Recorded Have you ever been in or are you currently in a harmful physical or emotional relationship or is someone making you feel afraid or unsafe? Denies 12/30/2024 Sex and Gender Information Value Date Recorded Sex Assigned at Not on file Legal Sex Male 3:52 AM PET GROOMER Gender Identity Not on file Sexual Orientation Not on file Obstetrics History Last Filed Vital Signs Vital Sign Reading Time Taken Comments Blood Pressure 107/71 02/04/2025 8:58 AM CDT Pulse 71 02/04/2025 8:58 AM CDT Temperature 36.7 C (98 F) 02/04/2025 8:58 AM CDT Respiratory Rate 19 12/30/2024 3:12 PM PET GROOMER Oxygen Saturation 98% 01/21/2025 8:38 AM PET GROOMER Inhaled Oxygen Concentration - - Weight 68.4 kg (150 lb 12.8 oz) 02/04/2025 8:58 AM CDT Height 177.8 cm (5' 10 ) 02/04/2025 8:58 AM CDT Body Mass Index 21.64 02/04/2025 8:58 AM CDT Plan of Treatment Upcoming Encounters Date Type Department Care Team (Late st Contact Info) Description 03/02/2025 1:45 PM CDT Hospital Encounter [facility] [address] [place] [address] Shruthi Baez MD [address] [place] [address] 03/02/2025 1:45 PM CDT - 03/02/2025 2:45 PM CDT Surgery [facility] [address] [place] [phone] Shruthi Baez MD [address] [place] [address] Flex Sig w/EMR Scheduled Procedures Name Priority Associated Diagnoses Date/Ti me SIGMOIDOSCOPY Anal polyp 03/02/2025 1:45 PM CDT TRANSPLANT LIVER Encounter for pre-transplant evaluation for liver transplant Alcoholic liver disease Health Maintenance Due Date Last Done Comments Depression Screening 1960 DTaP/Tdap/Td Vaccine (1 - Tdap) 1972 Regular Well Visit/Exam 18-64 1979 Pneumococcal vaccine <65 (1 of 2 - PCV) 1980 Lung Cancer Screening 2011 Zoster Vaccine (1 of 2) 2011 Influenza Vaccine (#1) 2024 Prostate Cancer Screening-PSA 11/04/2026 11/04/2024 Colon Cancer Screening-Colonoscopy 12/30/20342024 Hepatitis B Screening Completed 11/04/2024 Hepatitis C [...] disease SCAN - LABS 01/30/2025 2:21 PM PET GROOMER SCAN - LABS 01/02/2025 3:16 PM PET GROOMER SURGICAL PATHOLOGY Routine 12/30/2024 2: 27 PM PET GROOMER Colon polyp ENDO ADD ON SIGMOID BIOPSY 12/30/2024 1:29 PM PET GROOMER Colon polyp SIGMOID INJECTION SUBMUCOSAL 12/30/2024 1:29 PM PET GROOMER Colon polyp COLONOSCOPY 12/30/2024 1:25 PM PET GROOMER PROTIME-INR Routine 12/25/2024 MRI PELVIS W WO CONTRAST Schedule Routine, Read Routine (OP Routine) 12/20/2024 9:41 AM PET GROOMER Alcoholic cirrhosis of liver with ascites (HCC) SCAN - RADIOLOGY/IMAGING 025 11:50 AM PET GROOMER SCAN - RADIOLOGY/IMAGING 024 12:02 PM PET GROOMER SCAN - LABS 11/11/2024 2:39 PM PET GROOMER HEPATITIS C ANTIBODY Routine 11/04/2024 11:23 AM PET GROOMER Encounter for pre-transplant evaluation for liver transplant Alcoholic liver disease PSA SCREEN Routine 11/04/2024 11:23 AM PET GROOMER Encounter for pre-transplant evaluation for liver transplant Alcoholic liver disease from Last 3 Months or Most Recently Relevant to Health Maintenance Results * Phosphatidylethanol (02/04/2025 10:47 AM CDT) PHOSPHATIDYLETHANOL Negative . [facility] Comment: ADDITIONAL INFORMATION This report is intended for use in clinical monitoring and management of patients. It is not intended for use in employment-related testing. This test was developed and its performance characteristics determined by [facility] in a manner consistent with CLIA requirements. This test has not been cleared or approved by the U.S. Food and Drug Administration. Test Performed by: [facility] - [facility] [address] [place] [address] [employer]: Deven Owens Ph.D.; CLIA# [id number] PEth 16:0/18:1 (POPEth)by LC-MS/MS <10 Cutoff: 10 [...] ORDERABLES Final Res ult ASHWINI RAMOS [facility] Department [place] [address] [facility] * eGFR (02/04/2025 10:47 AM [...] of Race in Diagnosing Kidney Disease, JASN 202). The CKD-EPI equation should not be used for patients with unstable renal function and has not been validated in children and those over 70. Current interpretive data was last reviewed 2021. Blood 02/04/2025 10:4 7 AM CDT 02/04/2025 11:10 AM CDT us Lesvia Gerber MD LAB BLOOD ORDERABLES Final Res ult [facility] Department [place] [address] * Differential, auto (02/04/2025 10:47 AM CDT) Neutrophil abs 4.4 1.5 - 6.5 K/cumm Imm gran abs 0.0 0.0 - 0.1 K/cumm [facility] Lymphocyte abs 1.4 0.8 - 3.3 K/cumm [facility] Monocyte abs 0.7 0.2 - 0.8 K/cumm [facility] Eosinophil abs 0.1 0.0 - 0.5 K/cumm [facility] Basophil abs 0.1 0.0 - 0.1 K/cumm [facility] Neutrophil pct 65.9 % [facility] Comment: Interpretive Data Percent cell count reference ranges are not reported, since discordance with absolute values may lead to misinterpretation of CBC data. Current Interpretive Data was last revised on 2018. Imm gran pct 0.3 % [facility] Comment: Interpretive Data Percent cell count reference ranges are not reported, since discordance with absolute values may lead to misinterpretation of CBC data. Current Interpretive Data was last revised on 2018. Lymphocyte pct 20.4 % [facility] Comment: Interpretive Data Percent cell count reference ranges are not reported, since discordance with absolute values may lead to misinterpretation of CBC data. Current Interpretive Data was last revised on 2018. Monocyte pct 9.6 % [facility] Comment: Interpretive Data Percent cell count reference ranges are not reported, since discordance with absolute values may lead to misinterpretation of CBC data. Current Interpretive Data was last revised on 2018. Eosinophil pct 1.9 % [facility] Comment: Interpretive Data Percent cell count reference ranges are not reported, since discordance with absolute values may lead to misinterpretation of CBC data. Current Interpretive Data was last revised on 2018. Basophil pct 1.9 % [facility] Comment: Interpretive Data Percent cell count reference ranges are not reported, since discordance with absolute values may lead to misinterpretation of CBC data. Current Interpretive Data was last revised on 2018. Blood 02/04/2025 10:4 7 AM CDT 02/04/2025 11:11 AM CDT us Lesvia Gerber MD LAB BLOOD ORDERABLES Final Res ult [facility] Department [place] [address] * (ABNORMAL) CBC with auto differential (02/04/2025 10:47 AM CDT) WBC 6.8 3.8 - 9.9 K/cumm Hgb 13.2 13.0 - 17.5 g/dL [facility] Hct 38.8(L) 38.9 - 50.3 % [facility] Plt 224 150 - 400 K/cumm [facility] MPV 9.2 9.1 - 12.3 fL [facility] RBC 4.41 4.30 - 5.80 M/cumm [facility] MCV 88.0 81.3 - 96.4 fL [facility] MCH 29.9 27.1 - 33.3 pg [facility] MCHC 34.0 32.3 - 35.7 g/dL [facility] RDW CV 14.6 11.1 - 14.9 % [facility] RDW SD 47.3 35.7 - 48.1 fL [facility] NRBC abs 0.00 0.00 - 0.01 K/cumm [facility] Blood 02/04/2025 10:4 7 AM CDT 02/04/2025 11:11 AM CDT Lesvia Gerber MD LAB BLOOD ORDERABLES Final Res ult Performing Organization Address City/[facility] Co de Phone Number [facility] Department [place] [address] * Vitamin D 25 hydroxy (02/04/2025 10:47 AM CDT) Vitamin D 25-OH 48 30 - 80 ng/mL Blood 02/04/2025 10:4 7 AM CDT 02/04/2025 11:10 AM CDT Lesvia Gerber MD LAB BLOOD ORDERABLES Final Res ult Performing Organization Address [facility] de Phone Number [facility] Department [place] [address] * (ABNORMAL) Protime-INR (02/04/2025 10:47 AM CDT) PT 16.8(H) 9.7 - 13.0 sec INR 1.54(H) 0.90 - 1.20 [facility] Comment: Interpretive data Oral anticoagulant therapeutic ranges: Venous thromboembolism prophylaxis or treatment: 2.0-3.0 CARDIOLOGY Standard range: 2.0-3.0 High-intensity range: 2.5-3.5 Refer to indication-specific guidelines for appropriate target ranges for prosthetic heart valve replacement. Current interpretive data was last revised on 2019. Blood 02/04/2025 10:4 7 AM CDT 02/04/2025 11:06 AM CDT us Lesvia Gerber MD LAB BLOOD ORDERABLES Final Res ult [facility] Department [place] [address] * (ABNORMAL) Comprehensive metabolic panel (02/04/2025 10:47 AM CDT) Sodium 129(L) 135 - 145 mmol/L Potassium, pl 5.4(H) 3.3 - 4.9 mmol/L [facility] Chloride 99 97 - 110 mmol/L [facility] CO2 25 22 - 32 mmol/[facility] Anion gap 5 2 - 15 mmol/L [facility] BUN 15 6 - 25 mg/dL [facility] Creatinine 1.04 0.80 - 1.30 mg/dL [facility] Glucose 132 70 - 199 mg/dL [facility] Comment: Interpretive Data Fasting glucose >/= [...] 2022. Calcium 9.2 8.5 - 10.3 mg/dL [facility] Bilirubin, total 1.1 0.1 - 1.2 mg/dL [facility] Protein, pl 8.3 6.5 - 8.5 g/dL [facility] Albumin 3.2(L) 3.5 - 5.0 g/dL [facility] Alk phos 99 40 - 130 Units/L [facility] ALT 9 7 - 55 Units/L [facility] AST 22 10 - 50 Units/L [facility] Blood 02/04/2025 10:4 7 AM CDT 02/04/2025 11:10 AM CDT us Lesvia Gerber MD LAB BLOOD ORDERABLES Final Res ult [facility] Department [place] [address] * SCAN - LABS (01/30/2025 2:21 PM PET GROOMER) us Provider Scanning Final Result * SCAN - LABS (01/02/2025 3:16 PM PET GROOMER) us Kesha Gutiérrez RN Final Re sult * Surgical pathology (12/30/2024 2:27 PM PET GROOMER) Tissue (Polyp(s), colon/colorectal, esophageal, gastric) 12/30/2024 2:27 PM PET GROOMER Narrative PATHOLOGY [facility] - 12/31/2024 10:40 AM PET GROOMER EPIC results best viewed via link to PDF [facility] Kesha Briggs [facility] [place] [address] Note to Patients: This report may contain [...] Gender: Femi : 1960 (Age: 64) Address: [address] [place] [id number] Hospital #: [id number] Taken:12/30/2024 Received:12/30/2024 Reported: 12/31/2024 Patient Type: [facility] Service: Gastro Location: Physician(s): Ahmad N. BaVani patel NP Diagnosis: A. Large bowel, sigmoid colon, polyp(s), [...] Surgical Pathology and Flow Cytometry Departments at as part of an ongoing microbiology quality control technician program and in compliance with federally mandated [...] Surgical Pathology and Flow Cytometry Departments of . It has not been cleared or approved by the U. S. Food and Drug Administration. IMAGES AND SCANNED DOCUMENTS, IF INCLUDED, ONLY VIEWABLE IN PDF VERSION OF REPORT us Shruthi Baez MD LAB PATHOLOGY ORDERAB LES Final Result PATHOLOGY [facility] 3rd Floor [place], [place] [phone] * Colonoscopy (12/30/2024 1:25 PM PET GROOMER) Anatomical Region Laterality Modality Other Narrative Procedure Note Shruthi Baez MD - 12/30/2024 1:25 PM CST [facility] ENDOSCOPY [facility] Patient Name: Live Mares Procedure Date: 12/30/2024 1:25 PM Date of : 1960 Admit Type: Outpatient Age: 64 Gender: Male Attending MD: Shruthi Baez M.D. Room: [facility] ENDOSCOPY ROOM 9 Note Status: Finalized Procedure: [...] The scope was passed under directvision. The [id number] endoscope was introduced through the anus and advanced to the sigmoid colon. The quality of the bowel preparation was evaluated using the BBPS ([place] Bowel Preparation Scale)with scores of: Right Colon [...] the days following this procedure please call [phone] After hours and evenings please call [phone] speak to the GI fellow trail construction worker. Please tell thefellow that Dr. Baez did your procedure and that you were instructed to have the fellow call me or the physician covering for me to discuss the managementof your condition.. If you have an urgent problem,please go to the nearest emergency room and have the ER doctor call my office during the day or [facility] ([phone]) center after hours and weekends to arrange admission [...] Pelvis W WO Contrast (12/20/2024 9:41 AM PET GROOMER) Anatomical Region Laterality Modality Pelvis N/A Magnetic Resonan ce 12/22/2024 10:5 3 AM PET GROOMER Impressions 12/22/2024 11:17 AM PET GROOMER No MR evidence of rectal mass. Dictated by: Perry Seth MD The radiology attending physician has personally reviewed this study, and had reviewed and/or edited this written report and agrees with it. Electronically signed by: Meseret Casiano M.D. Narrative 12/22/2024 11:17 AM PET GROOMER EXAMINATION: MAGNETIC RESONANCE IMAGING OF THE PELVIS [...] * SCAN - RADIOLOGY/IMAGING (11/28/2024 11:50 AM PET GROOMER) Anatomical Region Laterality Modality Other Kesha Gutiérrez RN Final Re sult * SCAN - RADIOLOGY/IMAGING (11/14/2024 12:02 PM PET GROOMER) Anatomical Region Laterality Modality Other Provider Scanning Final Result * SCAN - LABS (11/11/2024 2:39 PM PET GROOMER) Kesha Gutiérrez RN Final Re sult * PSA screen (11/04/2024 11:23 AM PET GROOMER) PSA-Total 0.12 <=5.40 ng/mL Comment: Interpretive Data [...] revised 22. Blood 11/04/2024 11:2 3 AM PET GROOMER 11/04/2024 12:45 PM PET GROOMER Narrative [facility] - 11/04/2024 2:01 PM PET GROOMER Please add the following comment to each lab: This lab is being obtained as part of a liver transplant evaluation, is time sensitive, and should only be drawn during the evaluation visit at [address] Lab[address] Ayden Nicholson MD LAB BLOOD ORDERABLES Final Res ult Performing Organization Address [facility] Co de Phone Number [facility] [place] [address] * Hepatitis C antibody Blood (11/04/2024 11:23 AM PET GROOMER) Pathologist [facility] Hep C Ab Nonreactive Nonreactive Comment:Antibodies to HCV no t detected. Does NOT exclude the possibility of recent exposure to HCV. Current interpretive data was last revised on 22 Blood 11/04/2024 11:2 3 AM PET GROOMER 11/04/2024 12:42 PM PET GROOMER Narrative [facility] - 11/04/2024 1:37 PM PET GROOMER Please add the following comment to each lab: This lab is being obtained as part of a liver transplant evaluation, is time sensitive, and should only be drawn during the evaluation visit at [address] Ayden Nicholson MD LAB MICROBIOLOGY - GENERAL ORD ERABLES Final Result Performing Organization Address City/[facility]/ZIP Co de Phone Number [facility] [place] [address] from Last 3 Months or Most Recently Relevant to Health Maintenance Insurance [employer] BETTER [facility] AETNA [facility] TRANSPLANT [facility] - AETNA [facility] Advance Directives For more information, please contact: [phone] Documents on File Type Date Recorded Patient Superintendent System Operation Expl anation ADVANCE DIRECTIVE 11/11/2024 10:19 PM POW ER OF PARASITOLOGIST-MEDICAL * Full Code (Latest Code Status on File) Date Activated Date Inactivated Comments 12/30/2024 11:45 AM 12/30/2024 8:08 PM * Full Code Date Activated Date Inactivated Comments 04/23/2024 2:01 AM 05/12/2024 7:22 PM * Full Code Date Activated Date Inactivated Comments 04/10/2024 9:06 AM 04/18/2024 5:41 PM Care Teams Branch Operations Coordinator Relationship Specialty Start Date End Date Young Call NP [address] [place] [address] PCP - General Family Medicine 10/28/24 Robert Brooks MD [address] [address] Referring Physician Gastroenterology 04/03/24 Ayden Nicholson MD [address] [facility] [address] [place] [address] Consulting Physician Gastroenterology 09/15/24 Kesha Gutiérrez, select bankerService Technician 09/15/24 Azael Brunson MD [id number] [place] [address] Surgeon Colon and Rectal Surgery 01/21/25
--- OUTSIDE RECORDS SUMMARY | 2025-02-09 18:50 | XMS_ITS ---
Author Organization [facility] Address [address] [place] [address] Care Team Providers Care Vector Control Specialist Name Role Phone Robert Brooks MD Unavailable [phone] Ayden Nicholson MD Unavailable [phone] Kesha Gutiérrez RN Unavailable Unavail able Young Call NP Primary Care Provider [phone] Azael Brunson MD Unavailable [phone] Transplant Episode Liver Candidate [facility] ([place], [place]) - [facility] Evaluation began on 09/26/2024 Marked as Active on 09/26/2024 Reason: Evaluation - Standard Liver CoordinatorKesha Gutiérrez RN Phone: N/A Fax: N/A Email: N/A Scores Score Value Updated Expires Exceptions/Taylor sons CPRA Not available UNOS MELD Not available MELD (Calc) 18 02/04/2025 Marshall Organ Diagnosis 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 Care Team Name Role Phone Fax Email Kesha Gutiérrez RN Liver Coordinator N/A N/A N/A Cecilia Lux RN Secondary Coordinator [phone] N/A Valentine Cohen Primary Rn Manager N/A N/A N/A Ayden Nicholson MD Referring Physician [phone] N/Peter Beltran Director Translation [phone] N/A N/A Events Pre-Transplant Referred: 09/15/2024 Evaluation began: 09/26/2024 Committee: 11/11/2024 Appointments (01/12/2025 - 03/12/2025) When With Visit Type Description 02/04/2025 Transplant - Al-Zoe Payne Return Enc ounter for pre-transplant evaluation for liver transplant (Primary Dx); Alcoholic liver disease
--- OUTSIDE RECORDS SUMMARY | 2025-02-09 18:51 | XMS_ITS | Encounter Summary ---
Author Organization [facility] Address [address] [facility] [place] [address] Phone Care Team Providers Care Consulting Utility Forester Name Role Phone Young Call APRN FOUZIA Primary Care Provider + Encounter Details Date Type Department Care Team (Late st Contact Info) Description 01/20/2025 Transcribe Orders [facility] Diagnostic Radiology [address] [place] [address] Agustin Vu MD [address] [place] [address] Social History Tobacco Use Types Packs/Day Years Used Date Smoking Tobacco: Every Day Cigarettes 1.5 50 Smokeless Tobacco: Never Alcohol Use Standard Drinks/Week Comments Not Currently 0 (1 standard drink = 0.6 oz pure alcohol) 7-15 beers a day previously; none currently [facility] Utilities Answer Date Recorded In the past 12 months has [employer], gas, oil, or water [employer] threatened to shut off services in your home? No 05/26/2024 Social Connection and Isolation Panel [NHANES] A nswer Date Recorded In a typical week, how many times do you talk on the phone with family, friends, or neighbors? Once a week 05/26/2024 How often do you get together with friends or re latives? Once a week 05/26/2024 How often do you attend adventist or pentecostal serv ices? Never 05/26/2024 Do you belong to any clubs o r organizations such as adventist groups, unions, fraternal or athletic groups, or [...] any time in the past 12 m [facility], were you homeless or living in a nursing home (including now)? No 05/26/2024 Sexually Active Control Partners Comments Not Currently Sex and Gender Information Value Date Recorded Sex Assigned at Male 02/25/2024 11:30 AM CDT Legal Sex Male 2:53 PM CDT Gender Identity Not on file Sexual Orientation Not on file documented as of this encounter Plan of Treatment Upcoming Encounters Date Type Department Care Team (Late st Contact Info) Description 03/06/2025 10:00 AM CDT Hospital Encounter [facility] Ultrasound [address] [place] [address] Ayden Nicholson MD [address] [facility] [id number] [place] [address] documented as of this encounter Visit Diagnoses Not on filedocumented in this encounter Care Teams Consulting Utility Forester Relationship Specialty Start Date End Date Young Call APRN, CORDUROY CUTTER OPERATOR [address] [place] [address] PCP - General Advanced Practice Nurse 02/13/24 documented as of this encounter
--- OUTSIDE RECORDS SUMMARY | 2025-02-09 18:51 | XMS_ITS | Clinical Summary ---
Author Organization [facility] Address [address] [place] [address] Care Team Providers Care Oven Stripper Name Role Phone Young Call Primary Care Provider [phone] Suzy Graf MD Unavailable Allergies Active Allergy [...] Active Active Problems No known active problems Family History Medical History Relation Comments CHF [...] 60-74 years 1-dose series) 2021 COVID-19 Vaccine ( - 2023-2 5 season) 2024 Influenza Adult (#1) 2024 Meningococcal B Vaccine Aged Out No l onger eligible based on patient's age to complete this topic Meningococcal Vaccine Aged Out No adina judy eligible based on patient's age to complete this topic RSV Immunizations Under 20 Months Aged Out No longer eligible based on patient's age to complete this topic Insurance [facility] Care Teams Oven Stripper Relationship Specialty Start Date End Date Young Call FNP [address] [place] [address] PCP - General Nurse Practitioner Family 02/08/24 Suzy Graf MD [address] [place] [address] Consulting Physician CARDIOVASCULAR DISEASE 02/08/24
--- OUTSIDE RECORDS SUMMARY | 2025-02-09 18:51 | XMS_ITS | Clinical Summary ---
Author Organization [facility] Address [address] [place] [address] Phone Care Team Providers [employer] Worker Name Role Phone Young Call APRN, COMPLIANCE PARALEGAL Primary Care Provider + Allergies Active Allergy [...] Encounters Date Type Department Care Team Description 01/30/2025 10:00 AM ACCOUNTING DIRECTOR - 01/30/2025 10:30 AM ACCOUNTING DIRECTOR [facility] Periop [address] [place] [address] Provider, Not On File PRE / POST CARE FOR PROCEDURAL AREA-PARACENTESIS 01/30/2025 10:00 AM ACCOUNTING DIRECTOR - 01/30/2025 11:59 PM ACCOUNTING DIRECTOR [facility] Ultrasound [address] [place] [address] Ayden Nicholson MD Discharge Disposition: Discharged to home or Selfcare 01/30/2025 9:10 AM ACCOUNTING DIRECTOR - 01/30/2025 12:06 PM ACCOUNTING DIRECTOR [facility] Preop/Pacu II [address] [place] [address] Ayden Nicholson MD Discharge Disposition: Discharged to home or Selfcare 01/30/2025 Travel 01/20/2025 Transcribe Orders [facility] Diagnostic Radiology [address] [place] [address] Agustin Vu MD Pre-procedural laboratory examinations (Primary Dx); Encounter for therapeutic drug monitoring; Other electrode cleaner (current) drug therapy; 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) 01/20/2025 Transcribe Orders [facility] Diagnostic Radiology [address] [place] [address] Agustin Vu MD 01/02/2025 10:00 AM ACCOUNTING DIRECTOR - 01/02/2025 10:30 AM ACCOUNTING DIRECTOR [facility] Periop [address] [place] [address] Provider, Not On File PRE / POST CARE FOR PROCEDURAL AREA-PARACENTESIS 01/02/2025 9:41 AM ACCOUNTING DIRECTOR - 01/02/2025 11:59 PM ACCOUNTING DIRECTOR Hospital [facility] Ultrasound [address] [place] [address] Ayden Nicholson MD Provider, Anesthesiologist Discharge Disposition: Discharged to home or Selfcare 01/02/2025 9:13 AM ACCOUNTING DIRECTOR - 01/02/2025 11:40 AM ACCOUNTING DIRECTOR Hospital [facility] Preop/Pacu II [address] [place] [address] Provider, Not On File Ortiz Montenegro MD Provider, Anesthesiologist Discharge Disposition: Discharged to home or Selfcare 01/02/2025 Travel 12/16/2024 10:00 AM ACCOUNTING DIRECTOR - 12/16/2024 10:30 AM ACCOUNTING DIRECTOR [facility] Periop [address] [place] [address] Provider, Not On File PRE / POST CARE FOR PROCEDURAL AREA-PARACENTESIS 12/16/2024 9:16 AM ACCOUNTING DIRECTOR - 12/16/2024 11:59 PM ACCOUNTING DIRECTOR Hospital [facility] Ultrasound [address] [place] [address] Ayden Nicholson MD Discharge Disposition: Discharged to home or Selfcare 12/16/2024 9:08 AM ACCOUNTING DIRECTOR - 12/16/2024 11:18 AM ACCOUNTING DIRECTOR Hospital En[facility] Preop/Pacu II [address] [place] [address] Ortiz Montenegro MD Discharge Disposition: Discharged to home or Selfcare 12/16/2024 Travel 12/04/2024 Transcribe Orders [facility] Diagnostic Radiology [address] [place] [address] Ortiz Montenegro MD Alcoholic cirrhosis of liver with ascites (HCC) (Primary Dx); Pre-operative laboratory examination; Encounter for therapeutic drug monitoring; Other senior care (current) drug therapy 12/03/2024 Transcribe Orders [facility] Central Scheduling [address] [place] [address] yAden Nicholson MD 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) (Primary Dx) 11/28/2024 10:00 AM ACCOUNTING DIRECTOR - 11/28/2024 10:30 AM ACCOUNTING DIRECTOR [facility] Periop [address] [place] [address] Provider, Not On File PRE / POST CARE FOR PROCEDURAL AREA - PARACENTESIS 11/28/2024 9:20 AM ACCOUNTING DIRECTOR - 11/28/2024 11:59 PM ACCOUNTING DIRECTOR Hospital [facility] Ultrasound 1 [place] [address] Ayden Nicholson MD Provider, Anesthesiologist Discharge Disposition: Discharged to home or Selfcare 11/28/2024 9:19 AM ACCOUNTING DIRECTOR - 11/28/2024 11:30 AM ACCOUNTING DIRECTOR Hospital En[facility] Periop [address] [place] [address] Provider, Not On File Ayden Nicholson MD Discharge Disposition: Discharged to home or Selfcare 11/28/2024 Travel 11/14/2024 10:00 AM ACCOUNTING DIRECTOR - 11/14/2024 10:30 AM ACCOUNTING DIRECTOR [facility] Periop [address] [place] [address] Provider, Not On File PRE / POST CARE FOR PROCEDURAL AREA-PARACENTESIS 11/14/2024 9:23 AM ACCOUNTING DIRECTOR - 11/14/2024 11:59 PM ACCOUNTING DIRECTOR Hospital En[facility] Ultrasound [address] [place] [address] Ayden Nicholson MD Provider, Anesthesiologist Discharge Disposition: Discharged to home or Selfcare 11/14/2024 9:07 AM ACCOUNTING DIRECTOR - 11/14/2024 11:51 AM ACCOUNTING DIRECTOR Hospital En[facility] Preop/Pacu II [address] [place] [address] Provider, Not On File Obed Silva MD Discharge Disposition: Discharged to home or Selfcare 11/14/2024 Results Follow-Up [facility] - [address] [place] [address] Sabine Hooper RN 11/14/2024 Travel from Last 3 Months Immunizations Immunization [...] 7-15 beers a day previously; none currently [facility] [employer] Answer Date Recorded In the past 12 months has [employer], gas, oil, or water [employer] threatened to shut off services in your home? No 05/26/2024 Social Connection and Isolation Panel [NHANES] A nswer Date Recorded In a typical week, how many times do you talk on the phone with family, friends, or neighbors? Once a week 05/26/2024 How often do you get together with friends or re latives? Once a week 05/26/2024 How often do you attend sikh or protestant serv ices? Never 05/26/2024 Do you belong to any clubs o r organizations such as sikh groups, unions, fraternal or athletic groups, or [...] any time in the past 12 m [facility], were you homeless or living in a [facility] (including now)? No 05/26/2024 Sexually Active Control Partners Comments Not Currently Sex and Gender Information Value Date Recorded Sex Assigned at Male 02/25/2024 11:30 AM CDT Legal Sex Male 2:53 PM CDT Gender Identity Not on file Sexual Orientation Not on file Last Filed Vital Signs Vital Sign Reading Time Taken Comments Blood Pressure 97/70 01/30/2025 11:55 AM ACCOUNTING DIRECTOR Pulse 61 01/30/2025 11:55 AM ACCOUNTING DIRECTOR Temperature 36.6 C (97.9 F) 01/30/2025 11:55 AM ACCOUNTING DIRECTOR Respiratory Rate 16 01/30/2025 11:5 5 AM ACCOUNTING DIRECTOR Oxygen Saturation 98% 01/30/2025 11: 55 AM ACCOUNTING DIRECTOR Inhaled Oxygen Concentration - - Weight 66 kg (145 lb 8 oz) 01/30/2025 1 1:21 AM ACCOUNTING DIRECTOR after paracentesis weight Height 177.8 cm (5' 10 ) 01/30/2025 9:2 5 AM ACCOUNTING DIRECTOR Body Mass Index 20.88 01/30/2025 9:25 AM ACCOUNTING DIRECTOR Plan of Treatment Upcoming Encounters Date Type Department Care Team (Late st Contact Info) Description 03/06/2025 10:00 AM CDT Hospital Encounter [facility] Ultrasound [address] [place] [address] Ayden Nicholson MD [address] [facility] [id number] [place] [address] Health Maintenance Due Date Last Done Comments [...] 2024 SARS-COV-2 Immunization ( season) 2024 Colonoscopy 12/30/2034 12/30/2024, 11/10/2024 Colorectal Cancer Screening 12/30/2034 12/30/2024, 11/10/2024 Meningococcal Immunization (ACWY) Aged Out No longer eligible b ased on patient's age to complete this topic Rotavirus Immunization Aged Out No lo nger eligible based on patient's age to complete this topic Procedures Procedure Name Priority Date/Time Associated Diagnosis Comments US GUIDANCE AND PARACENTESIS Routine 01/30/2025 11:13 AM ACCOUNTING DIRECTOR 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) FLUID, DIFFERENTIAL Routine 01/30/2025 1 0:42 AM ACCOUNTING DIRECTOR 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) BODY FLUID CELL COUNT W/ DIFFERENTIAL Routine 01/30/2025 10:42 AM ACCOUNTING DIRECTOR 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) CULTURE, AEROBIC ONLY Routine 01/30/2025 10:42 AM ACCOUNTING DIRECTOR 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) PRE / POST CARE FOR PROCEDURAL AREA 01/30/2025 10:00 AM ACCOUNTING DIRECTOR ASCITES CBC WITH AUTO DIFFERENTIAL Routine 01/30/2025 9:12 AM ACCOUNTING DIRECTOR Pre-procedural laboratory examinations Encounter for therapeutic drug monitoring Other senior care (current) drug therapy 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) APTT (PTT) STAT 01/30/2025 9:12 AM ACCOUNTING DIRECTOR Pre-procedural laboratory examinations Encounter for therapeutic drug monitoring Other electrode cleaner (current) drug therapy 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) PROTIME (PT) (PROTHROMBIN TIME) STAT 01/30/2025 9:12 AM ACCOUNTING DIRECTOR Pre-procedural laboratory examinations Encounter for therapeutic drug monitoring Other electrode cleaner (current) drug therapy 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) BASIC METABOLIC PANEL W/ CALCIUM TOTAL Routine 01/30/2025 9:12 AM ACCOUNTING DIRECTOR Pre-procedural laboratory examinations Encounter for therapeutic drug monitoring Other senior care (current) drug therapy 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) COMPLETE BLOOD COUNT (CBC) WITH DIFF Routine 01/30/2025 9:12 AM ACCOUNTING DIRECTOR Pre-procedural laboratory examinations Encounter for therapeutic drug monitoring Other senior care (current) drug therapy 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) US GUIDANCE AND PARACENTESIS Routine 01/02/2025 10:54 AM ACCOUNTING DIRECTOR 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) FLUID, DIFFERENTIAL Routine 01/02/2025 1 0:20 AM ACCOUNTING DIRECTOR 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) BODY FLUID CELL COUNT W/ DIFFERENTIAL Routine 01/02/2025 10:20 AM ACCOUNTING DIRECTOR 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) CULTURE, AEROBIC ONLY Routine 01/02/2025 10:20 AM ACCOUNTING DIRECTOR 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) PRE / POST CARE FOR PROCEDURAL AREA 01/02/2025 10:00 AM ACCOUNTING DIRECTOR ASCITES US GUIDANCE AND PARACENTESIS Routine 12/16/2024 10:15 AM ACCOUNTING DIRECTOR 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) FLUID, DIFFERENTIAL Routine 12/16/2024 1 0:15 AM ACCOUNTING DIRECTOR 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) BODY FLUID CELL COUNT W/ DIFFERENTIAL Routine 12/16/2024 10:15 AM ACCOUNTING DIRECTOR 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) CULTURE, AEROBIC ONLY Routine 12/16/2024 10:15 AM ACCOUNTING DIRECTOR 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) PRE / POST CARE FOR PROCEDURAL AREA 12/16/2024 10:00 AM ACCOUNTING DIRECTOR ASCITES APTT (PTT) Routine 12/16/2024 9:11 AM ACCOUNTING DIRECTOR Pre-operative laboratory examination Encounter for therapeutic drug monitoring Other senior care (current) drug therapy Alcoholic cirrhosis of liver with ascites (HCC) PROTIME (PT) (PROTHROMBIN TIME) STAT 12/16/2024 9:11 AM ACCOUNTING DIRECTOR Pre-operative laboratory examination Encounter for therapeutic drug monitoring Other electrode cleaner (current) drug therapy Alcoholic cirrhosis of liver with ascites (HCC) BASIC METABOLIC PANEL W/ CALCIUM TOTAL STAT 12/16/2024 9:11 AM ACCOUNTING DIRECTOR Pre-operative laboratory examination Encounter for therapeutic drug monitoring Other electrode cleaner (current) drug therapy Alcoholic cirrhosis of liver with ascites (HCC) COMPLETE BLOOD COUNT (CBC) WITHOUT DIFF STAT 12/16/2024 9:11 AM ACCOUNTING DIRECTOR Pre-operative laboratory examination Encounter for therapeutic drug monitoring Other electrode cleaner (current) drug therapy Alcoholic cirrhosis of liver with ascites (HCC) US GUIDANCE AND PARACENTESIS Routine 11/28/2024 11:01 AM ACCOUNTING DIRECTOR Alcoholic cirrhosis of liver with ascites (HCC) Elevated liver enzymes PRE / POST CARE FOR PROCEDURAL AREA 11/28/2024 10:00 AM ACCOUNTING DIRECTOR ASCITES US GUIDANCE AND PARACENTESIS Routine 11/14/2024 10:55 AM ACCOUNTING DIRECTOR Alcoholic cirrhosis of liver with ascites (HCC) Elevated liver enzymes PRE / POST CARE FOR PROCEDURAL AREA 11/14/2024 10:00 AM ACCOUNTING DIRECTOR ASCITIES from Last 3 Months Results * US GUIDANCE AND PARACENTESIS (01/30/2025 11:13 AM ACCOUNTING DIRECTOR) Only the most recent of5 resultswithin the time period is included. Anatomical Region Laterality Modality Abdomen N/A Ultrasound 01/30/2025 11:3 4 AM ACCOUNTING DIRECTOR Impressions 01/30/2025 11:37 AM ACCOUNTING DIRECTOR IMPRESSION: Successful ultrasound-guided paracentesis. 4.0 liters of fluid was removed. Samples were sent for laboratory studies, which are pending. Narrative 01/30/2025 11:37 AM ACCOUNTING DIRECTOR EXAM DESCRIPTION: US GUIDANCE AND PARACENTESIS HISTORY: ASCITES FROM ALCOHOLIC CIRRHOSIS Ultrasound-guided paracentesis is requested. COMPARISON: 01/02/2025 TECHNIQUE/FINDINGS: Pertinent imaging studies were reviewed including paracentesis 01/02/2025.. Immediately prior to the procedure, the healthcare team performed the safety pause and verbally confirmed that the patient, the planned procedure, the site and side were accurate. Pre-procedure sonographic scanning demonstrated the largest pocket of ascites in the right mid to upper abdomen. The skin was prepped and draped. Local anesthesia was used with 1% lidocaine, including subcutaneous and deeper tissues. Under ultrasound guidance, a 5-Andorran 7 cm One Step Centesis catheter was used to drain 4.0 liters of yellow ascitic fluid from the right mid to upper abdomen. Needle placement was documented with sonographic images. The catheter was removed with little remaining ascites identified. Hemostasis was achieved. The area was dressed with a bandage. The patient tolerated the procedure well with no complication evident and was discharged in stable condition. Post procedure education was completed including pain management instructions. Estimated blood loss: <5 ml THIS IS AN ELECTRONICALLY VERIFIED FINAL REPORT 01/30/2025 11:34 AM - Electronically signed by Agustin Vu M.D. MZ: TAMANNA Report ID: [id number] Reading Location: [id number] Procedure Note Agustin Vu MD - 01/30/2025 EXAM DESCRIPTION: US GUIDANCE AND PARACENTESIS HISTORY: ASCITES FROM ALCOHOLIC CIRRHOSIS Ultrasound-guided paracentesis is requested. COMPARISON: 01/02/2025 TECHNIQUE/FINDINGS: Pertinent imaging studies were reviewed including paracentesis 01/02/2025.. Immediately prior to the procedure, the healthcare team performed the safety pause and verbally confirmed that the patient, the planned procedure, the site and side were accurate. Pre-procedure sonographic scanning demonstrated the largest pocket of ascites in the right mid to upper abdomen. The skin was prepped and draped. Local anesthesia was used with 1% lidocaine, including subcutaneous and deeper tissues. Under ultrasound guidance, a 5-Andorran 7 cm One Step Centesis catheter was used to drain 4.0 liters of yellow ascitic fluid from the right mid to upper abdomen. Needle placement was documented with sonographic images. The catheter was removed with little remaining ascites identified. Hemostasis was achieved. The area was dressed with a bandage. The patient tolerated the procedure well with no complication evident and was discharged in stable condition. Post procedure education was completed including pain management instructions. Estimated blood loss: <5 ml THIS IS AN ELECTRONICALLY VERIFIED FINAL REPORT 01/30/2025 11:34 AM - Electronically signed by Agustin Vu M.D. MZ: TAMANNA Report ID: [id number] Reading Location: [place] [address] IMPRESSION: Successful ultrasound-guided paracentesis. 4.0 liters of fluid was removed. Samples were sent for laboratory studies, which are pending. Ayden Nicholson MD [facility] US ORDERABLES Final Result * Fluid, Differential (01/30/2025 10:42 AM ACCOUNTING DIRECTOR) Only the most recent of3 resultswithin the time period is included. FLUID NEUTROPHILS % 2 % 01/30/2025 3:20 PM ACCOUNTING DIRECTOR [facility] FLUID LYMPH % BKR 70 % 025 3:20 PM ACCOUNTING DIRECTOR [facility] FLUID MONO % 10 % 01/30/2025 3:20 PM ACCOUNTING DIRECTOR [facility] FLUID EOSINOPHILS % BKR 0 % 01/30/2025 3:20 PM ACCOUNTING DIRECTOR [facility] FLUID MACROPHAGE % 11 % 01/30/2025 3:20 PM ACCOUNTING DIRECTOR [facility] FLUID PLASMA CELL % 0 % 01/30/2025 3:20 PM ACCOUNTING DIRECTOR [facility] FLUID LINING CELL % 7 % 01/30/2025 3:20 PM ACCOUNTING DIRECTOR [facility] FLUID OTHER CELL % 0 % 01/30/2025 3:20 PM ACCOUNTING DIRECTOR [facility] TOTAL COUNT BODY FLUID DIFFERENTIAL BKR 100 01/30/2025 3:20 PM ACCOUNTING DIRECTOR [facility] FLUID LARGE MONO % BKR 0 % 01/30/2025 3:20 PM ACCOUNTING DIRECTOR [facility] FLUID TYPE Ascites 01/30/2025 3:20 PM ACCOUNTING DIRECTOR [facility] Other (Paracentesis Fluid) Non-Phlebotomy Collection / Unknown 01/30/2025 10:42 AM ACCOUNTING DIRECTOR 01/30/2025 11:27 AM ACCOUNTING DIRECTOR Ayden Nicholson MD BODY FLUIDS & STOOLS ORDERABLES Final Result [facility] [address] [place] [address] * Body Fluid Cell Count w/ Differential (01/30/2025 10:42 AM ACCOUNTING DIRECTOR) Only the most recent of3 resultswithin the time period is included. FLUID TYPE Ascites 01/30/2025 3:21 PM ACCOUNTING DIRECTOR [facility] CLARITY Turbid 01/30/2025 3:21 PM ACCOUNTING DIRECTOR [facility] COLOR Yellow 01/30/2025 3:21 PM ACCOUNTING DIRECTOR [facility] VOLUME 4,000.0 mLs 01/30/2025 3:21 PM ACCOUNTING DIRECTOR [facility] FLUID RBC COUNT 4,000 /mm(3) 01/30/2025 3:21 PM ACCOUNTING DIRECTOR [facility] FLUID, TOTAL NUCLEATED CELLS 293 /mm(3) 01/30/2025 3:21 PM ACCOUNTING DIRECTOR [facility] Other (Paracentesis Fluid) Non-Phlebotomy Collection / Unknown 01/30/2025 10:42 AM ACCOUNTING DIRECTOR 01/30/2025 11:27 AM ACCOUNTING DIRECTOR Narrative [facility] - 01/30/2025 3:21 PM ACCOUNTING DIRECTOR The reference range has not been established for this body fluid. The test result must be integrated into the clinical context for interpretation Ayden Nicholson MD BODY FLUIDS & STOOLS ORDERABLES Final Result Performing Organization Address City/[facility]/ZIP Co de Phone Number [facility] [address] [place] [address] * CULTURE, AEROBIC ONLY (01/30/2025 10:42 AM ACCOUNTING DIRECTOR) Only the most recent of3 resultswithin the time period is included. CULTURE RESULTS No growth final 02/03/2025 8:17 AM CDT [facility] Culture BODY FLUID SPECIMEN / Unknown Non-Phlebotomy Collection / Unknown 01/30/2025 10:42 AM ACCOUNTING DIRECTOR 01/30/2025 11:27 AM ACCOUNTING DIRECTOR Ayden Nicholson MD MICROBIOLOGY - GENERAL ORDERABLE S Final Result Performing Organization Address City/[facility] Co de Phone Number [facility] [address] [place] [address], * (ABNORMAL) CBC WITH AUTO DIFFERENTIAL (01/30/2025 9:12 AM ACCOUNTING DIRECTOR) WBC 5.91 4.00 - 12.00 10(3)/mcL 01/30/2025 9:26 AM ACCOUNTING DIRECTOR [facility] RBC 4.26(L) 4.40 - 5.80 10(6)/mcL 01/30/2025 9:26 AM ACCOUNTING DIRECTOR [facility] HEMOGLOBIN (HGB) 12.9(L) 13.0 - 16.5 g/dL 01/30/2025 9:26 AM ACCOUNTING DIRECTOR [facility] HEMATOCRIT (HCT) 38.0 38.0 - 50.0 % 01/30/2025 9:26 AM [facility] MCV 89.2 82.0 - 96.0 fL 01/30/2025 9:26 AM [facility] MCH 30.3 26.0 - 32.0 pg 01/30/2025 9:26 AM [facility] MCHC 33.9 31.0 - 36.0 g/dL 01/30/2025 9:26 AM [facility] PLATELET COUNT 216 140 - 440 10(3)/mcL 01/30/2025 9:26 AM [facility] RDW 14.7 11.8 - 15.5 % 01/30/2025 9:26 AM [facility] MPV 9.3 8.0 - 12.6 fL 01/30/2025 9:26 AM [facility] NEUTROPHILS 62.6 40.0 - 68.0 % 01/30/2025 9:26 AM [facility] LYMPHOCYTES 22.2 19.0 - 49.0 % 01/30/2025 9:26 AM [facility] MONOCYTES 10.3 3.0 - 13.0 % 01/30/2025 9:26 AM [facility] EOSINOPHILS 3.2 0.0 - 8.0 % 01/30/2025 9:26 AM [facility] BASOPHILS 1.7(H) 0.0 - 1.0 % 01/30/2025 9:26 AM [facility] ABSOLUTE NEUTROPHILS 3.70 1.40 - 5.30 10(3)/mcL 01/30/2025 9:26 AM [facility] ABSOLUTE LYMPHOCYTES 1.31 0.90 - 3.30 10(3)/mcL 01/30/2025 9:26 AM [facility] ABSOLUTE MONOCYTES 0.61 0.10 - 0.90 10(3)/mcL 01/30/2025 9:26 AM [facility] ABSOLUTE EOSINOPHIL 0.19 0.00 - 0.50 10(3)/mcL 01/30/2025 9:26 AM ACCOUNTING DIRECTOR [facility] ABSOLUTE BASOPHILS 0.10 0.00 - 0.10 10(3)/mcL 01/30/2025 9:26 AM ACCOUNTING DIRECTOR [facility] NRBC PER 100 WBC 0 01/31/20 9:26 AM ACCOUNTING DIRECTOR [facility] Blood Venipuncture / Unknown 01/30/2025 9:12 AM ACCOUNTING DIRECTOR 01/30/2025 9:23 AM ACCOUNTING DIRECTOR Ortiz Montenegro MD HEMATOLOGY ORDERABLES Ilda l Result [facility] [address] [place] [address] * (ABNORMAL) APTT (PTT) (01/30/2025 9:12 AM ACCOUNTING DIRECTOR) Only the most recent of2 resultswithin the time period is included. PTT 38(H) 24 - 36 sec 01/30/2025 10:06 AM ACCOUNTING DIRECTOR [facility] Blood Venipuncture / Unknown 01/30/2025 9:12 AM ACCOUNTING DIRECTOR 01/30/2025 9:23 AM ACCOUNTING DIRECTOR Narrative [facility] - 01/30/2025 10:06 AM ACCOUNTING DIRECTOR Therapeutic range for unfractionated heparin at 0.3-0.7 U/mL is an aPTT value in the range of 71-100 seconds. Critical value for the PTT test is >= 122 seconds. us Ortiz Montenegro MD HEMATOLOGY ORDERABLES Ilda l Result [facility] [address] [place] [address] * (ABNORMAL) PROTIME (PT) (PROTHROMBIN TIME) (01/30/2025 9:12 AM ACCOUNTING DIRECTOR) Only the most recent of2 resultswithin the time period is included. PROTIME-PATIENT 18.4(H) 11.6 - 14.8 sec 01/30/2025 10:06 AM ACCOUNTING DIRECTOR [facility] INR 1.5(H) 0.9 - 1.2 01/30/2025 10:06 AM [facility] Comment: Therapeutic Ranges INR = 2.0-3.0: Venous thromb, atrial fib, pul embolism, tissue heart valve, ami. INR = 2.5-3.5: Mechanical heart valve Critical value for INR is >/= 4.5 Blood Venipuncture / Unknown 01/30/2025 9:12 AM ACCOUNTING DIRECTOR 01/30/2025 9:23 AM ACCOUNTING DIRECTOR us Ortiz Montenegro MD HEMATOLOGY ORDERABLES Ilda jordan Result [facility] [address] [place] [address] * (ABNORMAL) BASIC METABOLIC PANEL W/ CALCIUM TOTAL (01/30/2025 9:12 AM ACCOUNTING DIRECTOR) Only the most recent of2 resultswithin the time period is included. SODIUM 128(L) 136 - 145 mmol/L 01/30/2025 9:50 AM [facility] POTASSIUM 4.7 3.5 - 5.1 mmol/L 01/30/2025 9:50 AM [facility] CHLORIDE 100 98 - 107 mmol/L 01/30/2025 9:50 AM [facility] CO2, VENOUS 24 22 - 30 mmol/L 01/30/2025 9:50 AM [facility] ANION GAP 8.7 <18.0 mmol/L 01/30/2025 9:50 AM [facility] GLUCOSE 105(H) 70 - 99 mg/dL 01/30/2025 9:50 AM [facility] BUN 12 8 - 26 mg/dL 01/30/2025 9:50 AM [facility] CREATININE, BLOOD 1.01 0.70 - 1.30 mg/dL 01/30/2025 9:50 AM ACCOUNTING DIRECTOR [facility] BUN/CREATININE RATIO 12 12 - 20 ratio 01/30/2025 9:50 AM [facility] CALCIUM 8.8 8.7 - 10.5 mg/dL 01/30/2025 9:50 AM [facility] IS THE PATIENT REQUIRED TO BE FASTING? No 01/30/2025 9:50 AM ACCOUNTING DIRECTOR [facility] GFR, ESTIMATED >60 >=60 01/30/2025 9:50 AM [facility] Comment: Creatinine Clearance is the preferred criteria for selecting drug dose adjustments in renally impaired patients. The GFR is provided as additional pertinent clinical information. GFR is reported in mL/min/1.73 sq m. Calculation based on the Chronic Kidney Disease Epidemiology Collaboration (CKD- EPI) equation refit without adjustment for race. GFR, EST. >60 >=60 025 9:50 AM [facility] GFR, EST. NONAFRICAN >60 >=60 01/30/2025 9:50 AM [facility] Blood Venipuncture / Unknown 01/30/2025 9:12 AM ACCOUNTING DIRECTOR 01/30/2025 9:23 AM ACCOUNTING DIRECTOR us Ortiz Montenegro MD CHEMISTRY ORDERABLES Final Result [facility] [address] [place] [address] * COMPLETE BLOOD COUNT (CBC) WITHOUT DIFF (12/16/2024 9:11 AM ACCOUNTING DIRECTOR) WBC 6.92 4.00 - 12.00 10(3)/mcL 12/16/2024 9:29 AM ACCOUNTING DIRECTOR [facility] RBC 4.41 4.40 - 5.80 10(6)/mcL 12/16/2024 9:29 AM [facility] HEMOGLOBIN (HGB) 13.1 13.0 - 16.5 g/dL 12/16/2024 9:29 AM ACCOUNTING DIRECTOR [facility] HEMATOCRIT (HCT) 39.2 38.0 - 50.0 % 12/16/2024 9:29 AM ACCOUNTING DIRECTOR [facility] MCV 88.9 82.0 - 96.0 fL 12/16/2024 9:29 AM ACCOUNTING DIRECTOR [facility] MCH 29.7 26.0 - 32.0 pg 12/16/2024 9:29 AM ACCOUNTING DIRECTOR [facility] MCHC 33.4 31.0 - 36.0 g/dL 12/16/2024 9:29 AM ACCOUNTING DIRECTOR [facility] PLATELET COUNT 210 140 - 440 10(3)/mcL 12/16/2024 9:29 AM ACCOUNTING DIRECTOR [facility] RDW 14.6 11.8 - 15.5 % 12/16/2024 9:29 AM ACCOUNTING DIRECTOR [facility] MPV 9.3 8.0 - 12.6 fL 12/16/2024 9:29 AM ACCOUNTING DIRECTOR [facility] Blood Venipuncture / Unknown 12/16/2024 9:11 AM ACCOUNTING DIRECTOR 12/16/2024 9:23 AM ACCOUNTING DIRECTOR Ortiz Montenegro MD HEMATOLOGY ORDERABLES Ilda jordan Result Performing Organization Address City/State/[facility] Co de Phone Number [facility] [address] [place] [address] from Last 3 Months Insurance MEDICAID [employer] [facility] Advance Directives * Full Code (Latest Code Status on File) Date Activated Date Inactivated Comments 05/26/2024 7:44 PM 05/29/2024 4:23 PM CPR-Full Treat ment: FULL ARREST: Attempt Resuscitation/CPR wit intubation and mechanical ventilation. PRE-ARREST: Use entire range of life support measures to stabilize the patient. Care Teams Automotive Tire Worker Relationship Specialty Start Date End Date Young Call, SENIOR PORTFOLIO ANALYST, COMPLIANCE [employer] [address] [place] [address] PCP - General Advanced Practice Nurse 02/13/24
--- OUTSIDE RECORDS SUMMARY | 2025-02-09 18:51 | XMS_ITS | Encounter Summary ---
Author Organization [facility] Healthcare Address [address] [place] [address] Care Team Providers Care Shingles Roofer Helper Name Role Phone Robert Brooks MD Unavailable [phone] Ayden Nicholson MD Unavailable [phone] Kesha Gutiérrez RN Unavailable Unavail able Young Call NP Primary Care Provider [phone] Azael Brunson MD Unavailable Encounter Details Date Type Department Care Team (Late st Contact Info) Description 02/04/2025 Results Follow-Up [facility] Transplant Liver [address] [facility] [address] [id number] [place] [address] Kesha Gutiérrez, RN Social History Tobacco Use Types Packs/Day Years Used Date Smoking Tobacco: Every Day Cigarettes 2 49.2 Started: 1975 Passive Smoke Exposure: Current [facility] Utilities Answer Date Recorded In the past 12 months has th [employer] electric, gas, oil, or water company threatened [...] week 11/05/2024 How often do you attend [facility] or buddhism services? 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 Gender Identity Not on file Sexual Orientation Not on file documented as of this encounter Plan of Treatment Upcoming Encounters Date Type Department Care Team (Late st Contact Info) Description 03/02/2025 1:45 PM CDT Hospital Encounter [facility] Center [address] [place] [phone] Shruthi Baez MD [address] [address] 03/02/2025 1:45 PM CDT - 03/02/2025 2:45 PM CDT Surgery [facility] Center [address] [place] [phone] Shruthi Baez MD [address] [address] Flex Sig w/EMR Scheduled Procedures Name Priority Associated Diagnoses Date/Ti me SIGMOIDOSCOPY Anal polyp 03/02/2025 1:45 PM CDT TRANSPLANT LIVER Encounter for pre-transplant evaluation for liver transplant Alcoholic liver disease documented as of this encounter Visit Diagnoses Not on filedocumented in this encounter Care Teams Shingles Roofer Helper Relationship Specialty Start Date End Date Young Call NP [address] [place] [address] PCP - General Family Medicine 10/28/24 Robert Brooks MD [address] [address] Referring Physician Gastroenterology 04/03/24 Ayden Nicholson MD [address] [facility] [address] [place] [address] Consulting Physician Gastroenterology 09/15/24 Kesha Gutiérrez, chemist enzymesPractice Administrator 09/15/24 Azael Brunson MD [phone] [place] [address] Surgeon Colon and Rectal Surgery 01/21/25 documented as of this encounter
== END 2025-02-09 16:31 | disposition home or self-care (01) ==
LOC: CHSLAB 16:37
PROVIDERS: PCP Nurse Practitioner Family
DX: K70.31 Alcoholic cirrhosis of liver with ascites (principal)
CPT/HCPCS: 36415; 80053

== ENCOUNTER 2025-02-26 16:27 | Outpatient (CLI) | payer OTHER, SELFPAY ==
--- OUTSIDE RECORDS SUMMARY | 2025-02-26 16:33 | XMS_ITS ---
Author Organization [facility] Address [address] [place] [address] Care Team Providers Care Chemistry Tutor Name Role Phone Robert Brooks MD Unavailable [phone] Ayden Nicholson MD Unavailable [phone] Kesha Gutiérrez RN Unavailable Unavail able Young Call NP Primary Care Provider [phone] Azael Brunson MD Unavailable [phone] Transplant Episode Liver Candidate [facility] ([place], [place]) - [facility] Evaluation began on 09/26/2024 Marked as Active on 09/26/2024 Reason: Evaluation - Standard Liver CoordinatorKesha Gutiérrez RN Phone: N/A Fax: N/A Email: N/A Scores Score Value Updated Expires Exceptions/Coward sons CPRA Not available UNOS MELD Not available MELD (Calc) 18 02/04/2025 [place] Organ Diagnosis 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 Care Team Name Role Phone Fax Email Kesha Gutiérrez RN Liver Coordinator N/A N/A N/A Cecilia Lux RN Secondary Coordinator [phone] N/A Valentine Cohen Primary Flanging Roll Operator N/A N/A N/A Ayden Nicholson MD Referring Physician [phone] N/Peter Beltran Aircraft Rigging And Controls Mechanic [phone] N/A N/A Events Pre-Transplant Referred: 09/15/2024 Evaluation began: 09/26/2024 Committee: 11/11/2024 Appointments (01/26/2025 - 03/28/2025) When With Visit Type Description 02/04/2025 Transplant - Al-Zoe Payne Return Enc ounter for pre-transplant evaluation for liver transplant (Primary Dx); Alcoholic liver disease
--- OUTSIDE RECORDS SUMMARY | 2025-02-26 16:33 | XMS_ITS | Clinical Summary ---
Author Organization [facility] Address [address] [place] [address] Phone Care Team Providers Care Advanced Manufacturing Technician Name Role Phone CallYoung APRN, MACHINE PACKER Primary Care Provider + Allergies Active Allergy [...] Encounters Date Type Department Care Team Description 02/19/2025 10:00 AM CDT - 02/19/2025 10:30 AM CDT Surgery [facility] Periop [address] [place] [address] Provider, Not On File PRE / POST CARE FOR PROCEDURAL AREA-PARACINTESIS 02/19/2025 9:21 AM CDT - 02/19/2025 11:20 AM CDT Hospital [facility] Periop [address] [place] [address] Provider, Not On File Provider, Anesthesiologist Discharge Disposition: Discharged to home or Selfcare 02/19/2025 9:19 AM CDT - 02/19/2025 9:20 AM CDT Hospital [facility] Ultrasound [address] [place] [address] Ayden Nicholson MD Discharge Disposition: Discharged to home or Selfcare 02/19/2025 Travel 01/30/2025 10:00 AM WASHER ENGINEER HELPER - 01/30/2025 10:30 AM WASHER ENGINEER HELPER Surgery [facility] [address] [place] [address] Provider, Not On File PRE / POST CARE FOR PROCEDURAL AREA-PARACENTESIS 01/30/2025 10:00 AM WASHER ENGINEER HELPER - 01/30/2025 11:59 PM WASHER ENGINEER HELPER Hospital En[facility] Ultrasound [address] [place] [address] Ayden Nicholson MD Discharge Disposition: Discharged to home or Selfcare 01/30/2025 9:10 AM WASHER ENGINEER HELPER - 01/30/2025 12:06 PM WASHER ENGINEER HELPER Hospital Encounter [facility] Preop/Pacu II [address] [place] [address] Ayden Nicholson MD Discharge Disposition: Discharged to home or Selfcare 01/30/2025 Travel 01/20/2025 Transcribe Orders [facility] Diagnostic Radiology [address] [place] [address] Agustin Vu MD Pre-procedural laboratory examinations (Primary Dx); Encounter for therapeutic drug monitoring; Other terminal make up operator (current) drug therapy; 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) 01/20/2025 Transcribe Orders [facility] Diagnostic Radiology [address] [place] [address] Agustin Vu MD 01/02/2025 10:00 AM WASHER ENGINEER HELPER - 01/02/2025 10:30 AM WASHER ENGINEER HELPER Surgery [facility] Periop [address] [place] [address] Provider, Not On File PRE / POST CARE FOR PROCEDURAL AREA-PARACENTESIS 01/02/2025 9:41 AM WASHER ENGINEER HELPER - 01/02/2025 11:59 PM WASHER ENGINEER HELPER Hospital Encounter [facility] Ultrasound [address] [place] [address] Ayden Nicholson MD Provider, Anesthesiologist Discharge Disposition: Discharged to home or Selfcare 01/02/2025 9:13 AM WASHER ENGINEER HELPER - 01/02/2025 11:40 AM WASHER ENGINEER HELPER Hospital En[facility] Preop/Pacu II [address] [place] [address] Provider, Not On File Ortiz Montenegro MD Provider, Anesthesiologist Discharge Disposition: Discharged to home or Selfcare 01/02/2025 Travel 12/16/2024 10:00 AM WASHER ENGINEER HELPER - 12/16/2024 10:30 AM WASHER ENGINEER HELPER Surgery [facility] Periop [address] [place] [address] Provider, Not On File PRE / POST CARE FOR PROCEDURAL AREA-PARACENTESIS 12/16/2024 9:16 AM WASHER ENGINEER HELPER - 12/16/2024 11:59 PM WASHER ENGINEER HELPER Hospital Encounter [facility] Ultrasound [address] [place] [address] Ayden Nicholson MD Discharge Disposition: Discharged to home or Selfcare 12/16/2024 9:08 AM WASHER ENGINEER HELPER - 12/16/2024 11:18 AM WASHER ENGINEER HELPER Hospital Encounter [facility] Preop/Pacu II [address] [place] [address] Ortiz Montenegro MD Discharge Disposition: Discharged to home or Selfcare 12/16/2024 Travel 12/04/2024 Transcribe Orders [facility] Diagnostic Radiology [address] [place] [address] Ortiz Montenegro MD Alcoholic cirrhosis of liver with ascites (HCC) (Primary Dx); Pre-operative laboratory examination; Encounter for therapeutic drug monitoring; Other terminal make up operator (current) drug therapy 12/03/2024 Transcribe Orders [facility] Central Scheduling [address] [place] [address] Ayden Nicholson MD 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) (Primary Dx) 11/28/2024 10:00 AM WASHER ENGINEER HELPER - 11/28/2024 10:30 AM WASHER ENGINEER HELPER Surgery [facility] Periop [address] [place] [address] Provider, Not On File PRE / POST CARE FOR PROCEDURAL AREA - PARACENTESIS 11/28/2024 9:20 AM WASHER ENGINEER HELPER - 11/28/2024 11:59 PM WASHER ENGINEER HELPER Hospital Encounter [facility] Ultrasound [address] [place] [address] Ayden Nicholson MD Provider, Anesthesiologist Discharge Disposition: Discharged to home or Selfcare 11/28/2024 9:19 AM WASHER ENGINEER HELPER - 11/28/2024 11:30 AM WASHER ENGINEER HELPER Hospital Encounter [facility] Periop [address] [place] [address] Provider, Not On File Ayden Nicholson MD Discharge Disposition: Discharged to home or Selfcare 11/28/2024 Travel from Last 3 Months Immunizations Immunization [...] 7-15 beers a day previously; none currently [facility] Utilities Answer Date Recorded In the past 12 months has e [employer], gas, oil, or water [employer] threatened to shut off services in your home? No 05/26/2024 Social Connection and Isolation Panel [NHANES] A nswer Date Recorded In a typical week, how many times do you talk on the phone with family, friends, or neighbors? Once a week 05/26/2024 How often do you get together with friends or re latives? Once a week 05/26/2024 How often do you attend restorationism or temple serv ices? Never 05/26/2024 Do you belong [...] any time in the past 12 m [facility], were you homeless or living in a detention (including now)? No 05/26/2024 Sexually Active Control Partners Comments Not Currently Sex and Gender Information Value Date Recorded Sex Assigned at Male 02/25/2024 11:30 AM CDT Legal Sex Male 2:53 PM CDT Gender Identity Not on file Sexual Orientation Not on file Last Filed Vital Signs Vital Sign Reading Time Taken Comments Blood Pressure 105/69 02/19/2025 11:00 AM CDT Pulse 63 02/19/2025 11:00 AM CDT Temperature 37.1 C (98.8 F) 02/19/2025 9:29 AM CDT Respiratory Rate 16 02/19/2025 11:00 AM CDT Oxygen Saturation 99% 02/19/2025 11:00 AM CDT Inhaled Oxygen Concentration - - Weight 77.4 kg (170 lb 9 oz) 02/19/2025 9:29 AM CDT Height 177.8 cm (5' 10 ) 02/19/2025 9:29 AM CDT Body Mass Index 24.47 02/19/2025 9:29 AM CDT Plan of Treatment Health Maintenance [...] - Risk 60-74 years 1-dose series) 2021 SARS-COV-2 Immunization ( season) 2024 Influenza Immunization (Seas on Ended) 2025 Colonoscopy 12/30/2034 12/30/2024, 11/10/2024 Colorectal Cancer Screening 12/30/2034 12/30/2024, 11/10/2024 Meningococcal Immunization (ACWY) Aged Out No longer eligible b ased on patient's age to complete this topic Rotavirus Immunization Aged Out No lo nger eligible based on patient's age to complete this topic Procedures Procedure Name Priority Date/Time Associated Diagnosis Comments US GUIDANCE AND PARACENTESIS Routine 02/19/2025 10:39 AM CDT 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) FLUID, DIFFERENTIAL Routine 02/19/2025 1 0:14 AM CDT 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) BODY FLUID CELL COUNT W/ DIFFERENTIAL Routine 02/19/2025 10:14 AM CDT 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) CULTURE, BODY FLUID (CHIO) Routine 02/19/2025 10:14 AM CDT CULTURE, AEROBIC ONLY Routine 02/19/2025 10:14 AM CDT 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) PRE / POST CARE FOR PROCEDURAL AREA 02/19/2025 10:00 AM CDT ASCITES US GUIDANCE AND PARACENTESIS Routine 01/30/2025 11:13 AM WASHER ENGINEER HELPER 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) FLUID, DIFFERENTIAL Routine 01/30/2025 1 0:42 AM WASHER ENGINEER HELPER 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) BODY FLUID CELL COUNT W/ DIFFERENTIAL Routine 01/30/2025 10:42 AM WASHER ENGINEER HELPER 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) CULTURE, AEROBIC ONLY Routine 01/30/2025 10:42 AM WASHER ENGINEER HELPER 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) PRE / POST CARE FOR PROCEDURAL AREA 01/30/2025 10:00 AM WASHER ENGINEER HELPER ASCITES CBC WITH AUTO DIFFERENTIAL Routine 01/30/2025 9:12 AM WASHER ENGINEER HELPER Pre-procedural laboratory examinations Encounter for therapeutic drug monitoring Other terminal make up operator (current) drug therapy 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) APTT (PTT) STAT 01/30/2025 9:12 AM WASHER ENGINEER HELPER Pre-procedural laboratory examinations Encounter for therapeutic drug monitoring Other fdc (current) drug therapy 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) PROTIME (PT) (PROTHROMBIN TIME) STAT 01/30/2025 9:12 AM WASHER ENGINEER HELPER Pre-procedural laboratory examinations Encounter for therapeutic drug monitoring Other terminal make up operator (current) drug therapy 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) BASIC METABOLIC PANEL W/ CALCIUM TOTAL Routine 01/30/2025 9:12 AM WASHER ENGINEER HELPER Pre-procedural laboratory examinations Encounter for therapeutic drug monitoring Other terminal make up operator (current) drug therapy 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) COMPLETE BLOOD COUNT (CBC) WITH DIFF Routine 01/30/2025 9:12 AM WASHER ENGINEER HELPER Pre-procedural laboratory examinations Encounter for therapeutic drug monitoring Other fdc (current) drug therapy 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) US GUIDANCE AND PARACENTESIS Routine 01/02/2025 10:54 AM WASHER ENGINEER HELPER 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) FLUID, DIFFERENTIAL Routine 01/02/2025 1 0:20 AM WASHER ENGINEER HELPER 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) BODY FLUID CELL COUNT W/ DIFFERENTIAL Routine 01/02/2025 10:20 AM WASHER ENGINEER HELPER 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) CULTURE, AEROBIC ONLY Routine 01/02/2025 10:20 AM WASHER ENGINEER HELPER 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) PRE / POST CARE FOR PROCEDURAL AREA 01/02/2025 10:00 AM WASHER ENGINEER HELPER ASCITES US GUIDANCE AND PARACENTESIS Routine 12/16/2024 10:15 AM WASHER ENGINEER HELPER 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) FLUID, DIFFERENTIAL Routine 12/16/2024 1 0:15 AM WASHER ENGINEER HELPER 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) BODY FLUID CELL COUNT W/ DIFFERENTIAL Routine 12/16/2024 10:15 AM WASHER ENGINEER HELPER 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) CULTURE, AEROBIC ONLY Routine 12/16/2024 10:15 AM WASHER ENGINEER HELPER 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) PRE / POST CARE FOR PROCEDURAL AREA 12/16/2024 10:00 AM WASHER ENGINEER HELPER ASCITES APTT (PTT) Routine 12/16/2024 9:11 AM WASHER ENGINEER HELPER Pre-operative laboratory examination Encounter for therapeutic drug monitoring Other fdc (current) drug therapy Alcoholic cirrhosis of liver with ascites (HCC) PROTIME (PT) (PROTHROMBIN TIME) STAT 12/16/2024 9:11 AM WASHER ENGINEER HELPER Pre-operative laboratory examination Encounter for therapeutic drug monitoring Other terminal make up operator (current) drug therapy Alcoholic cirrhosis of liver with ascites (HCC) BASIC METABOLIC PANEL W/ CALCIUM TOTAL STAT 12/16/2024 9:11 AM WASHER ENGINEER HELPER Pre-operative laboratory examination Encounter for therapeutic drug monitoring Other terminal make up operator (current) drug therapy Alcoholic cirrhosis of liver with ascites (HCC) COMPLETE BLOOD COUNT (CBC) WITHOUT DIFF STAT 12/16/2024 9:11 AM WASHER ENGINEER HELPER Pre-operative laboratory examination Encounter for therapeutic drug monitoring Other fdc (current) drug therapy Alcoholic cirrhosis of liver with ascites (HCC) US GUIDANCE AND PARACENTESIS Routine 11/28/2024 11:01 AM WASHER ENGINEER HELPER Alcoholic cirrhosis of liver with ascites (HCC) Elevated liver enzymes PRE / POST CARE FOR PROCEDURAL AREA 11/28/2024 10:00 AM WASHER ENGINEER HELPER ASCITES from Last 3 Months Results * US GUIDANCE AND PARACENTESIS (02/19/2025 10:39 AM CDT) Only the most recent of5 resultswithin the time period is included. Anatomical Region Laterality Modality Abdomen N/A Ultrasound 02/19/2025 11:0 8 AM CDT Impressions 02/19/2025 11:10 AM CDT IMPRESSION: Successful ultrasound-guided paracentesis. 5.1 liters of serous fluid was removed. Samples were sent for the requested studies, which are pending. Narrative 02/19/2025 11:10 AM CDT EXAM DESCRIPTION: US GUIDANCE AND PARACENTESIS HISTORY: ASCITES FROM ALCOHOLIC CIRRHOSIS Ultrasound-guided paracentesis is requested. COMPARISON: None TECHNIQUE/FINDINGS: Immediately prior to the procedure, the healthcare team performed the safety pause and verbally confirmed that the patient, the planned procedure, the site and side were accurate. Written informed consent from the patient was obtained. Pre-procedure sonographic scanning demonstrated large volume ascites throughout the abdomen. The skin was prepped and draped. Local anesthesia was used with 1% lidocaine, including subcutaneous and deeper tissues. Under ultrasound guidance, a 5-Cameroonian 7 cm One Step Centesis catheter was used to drain 5.1 liters of serous fluid from the left lower quadrant. Needle placement was documented with sonographic images. The catheter was removed with little remaining ascites identified. Hemostasis was achieved. The area was dressed with a bandage. The patient tolerated the procedure well with no complication evident and was discharged in stable condition. Post procedure education was completed including pain management instructions. Estimated blood loss: <5 ml THIS IS AN ELECTRONICALLY VERIFIED FINAL REPORT 02/19/2025 11:08 AM - Electronically signed by Aroldo Russell M.D. KR: SAL Report ID: [id number] Reading Location: [id number] Procedure Note Aroldo Russell MD - 02/19/2025 EXAM DESCRIPTION: US GUIDANCE AND PARACENTESIS HISTORY: ASCITES FROM ALCOHOLIC CIRRHOSIS Ultrasound-guided paracentesis is requested. COMPARISON: None TECHNIQUE/FINDINGS: Immediately prior to the procedure, the healthcare team performed the safety pause and verbally confirmed that the patient, the planned procedure, the site and side were accurate. Written informed consent from the patient was obtained. Pre-procedure sonographic scanning demonstrated large volume ascites throughout the abdomen. The skin was prepped and draped. Local anesthesia was used with 1% lidocaine, including subcutaneous and deeper tissues. Under ultrasound guidance, a 5-Cameroonian 7 cm One Step Centesis catheter was used to drain 5.1 liters of serous fluid from the left lower quadrant. Needle placement was documented with sonographic images. The catheter was removed with little remaining ascites identified. Hemostasis was achieved. The area was dressed with a bandage. The patient tolerated the procedure well with no complication evident and was discharged in stable condition. Post procedure education was completed including pain management instructions. Estimated blood loss: <5 ml THIS IS AN ELECTRONICALLY VERIFIED FINAL REPORT 02/19/2025 11:08 AM - Electronically signed by Aroldo Russell M.D. KR: SAL Report ID: [id number] Reading Location: [id number] IMPRESSION: Successful ultrasound-guided paracentesis. 5.1 liters of serous fluid was removed. Samples were sent for the requested studies, which are pending. us Ayden Nicholson MD [facility] US ORDERABLES Final Result * Fluid, Differential (02/19/2025 10:14 AM CDT) Only the most recent of4 resultswithin the time period is included. FLUID NEUTROPHILS % 2 % 02/19/2025 12:26 PM CDT [facility] FLUID LYMPH % BKR 53 % 02/19/2025 12:26 PM CDT [facility] FLUID MONO % 2 % 02/19/2025 12:26 PM CDT [facility] FLUID EOSINOPHILS % BKR 0 % 02/19/2025 12:26 PM CDT [facility] FLUID MACROPHAGE % 18 % 02/19/2025 12:26 PM CDT [facility] FLUID PLASMA CELL % 0 % 02/19/2025 12:26 PM CDT [facility] FLUID LINING CELL % 25 % 02/19/2025 12:26 PM CDT [facility] FLUID OTHER CELL % 0 % 02/19/2025 12:26 PM CDT [facility] TOTAL COUNT BODY FLUID DIFFERENTIAL BKR 100 02/19/2025 12:26 PM CDT [facility] FLUID LARGE MONO % BKR 0 % 02/19/2025 12:26 PM CDT [facility] FLUID TYPE Other, Specify Location 02/19/2025 12:26 PM CDT [facility] Comment:Paracentesis Fluid Other (Paracentesis Fluid) Non-Phlebotomy Collection / Unknown 02/19/2025 10:14 AM CDT 02/19/2025 11:03 AM CDT Ayden Nicholson MD BODY FLUIDS & STOOLS ORDERABLES Final Result [facility] [address] [place] [address] * Body Fluid Cell Count w/ Differential (02/19/2025 10:14 AM CDT) Only the most recent of4 resultswithin the time period is included. FLUID TYPE Other, Specify Location 02/19/2025 11:18 AM CDT [facility] Comment:Paracentesis Fluid CLARITY Turbid 02/19/2025 11:18 AM CDT [facility] COLOR Gloria 02/19/2025 11:18 AM CDT [facility] VOLUME 5,100.0 mLs 02/19/2025 11:18 AM CDT [facility] FLUID RBC COUNT 6,000 /mm(3) 02/19/2025 11:18 AM CDT [facility] FLUID, TOTAL NUCLEATED CELLS 300 /mm(3) 02/19/2025 11:18 AM CDT [facility] Other (Paracentesis Fluid) Non-Phlebotomy Collection / Unknown 02/19/2025 10:14 AM CDT 02/19/2025 11:03 AM CDT Narrative [facility] - 02/19/2025 11:18 AM CDT The reference range has not been established for this body fluid. The test result must be integrated into the clinical context for interpretation us Ayden Nicholson MD BODY FLUIDS & STOOLS ORDERABLES Final Result [facility] [address] [place] [address] * Culture, Body Fluid (CHIO) (02/19/2025 10:14 AM CDT) CULTURE RESULTS NO GROWTH WITHIN 5 DAYS, FINAL RESULT 02/24/2025 10:02 PM CDT [facility] Culture (Paracentesis Fluid) Non-Phlebotomy Collection / Unknown 02/19/2025 10:14 AM CDT 02/19/2025 9:19 PM CDT us Ayden Nicholson MD MICROBIOLOGY - GENERAL ORDERABLE S Final Result Performing Organization Address [facility] Co de Phone Number [facility] [address] [place] [address], [place] * CULTURE, AEROBIC ONLY (02/19/2025 10:14 AM CDT) Only the most recent of4 resultswithin the time period is included. CULTURE RESULTS No growth final 02/23/2025 12:35 PM CDT [facility] Other (Paracentesis Fluid) Non-Phlebotomy Collection / Unknown 02/19/2025 10:14 AM CDT 02/19/2025 11:06 AM CDT us Ayden Nicholson MD MICROBIOLOGY - GENERAL ORDERABLE S Final Result Performing Organization Address City/[facility]/ZIP Co de Phone Number [facility] [address] [place] [address], [place] * (ABNORMAL) CBC WITH AUTO DIFFERENTIAL (01/30/2025 9:12 AM [facility] [[email or web address] WBC 5.91 4.00 - 12.00 10(3)/mcL 01/30/2025 9:[address] [facility] RBC 4.26(L) 4.40 - 5.80 10(6)/mcL 01/30/2025 9:[address] [facility] HEMOGLOBIN (HGB) 12.9(L) 13.0 - 16.5 g/dL 01/30/2025 9:[address] [facility] HEMATOCRIT (HCT) 38.0 38.0 - 50.0 % 01/30/2025 9:[address] [facility] MCV 89.2 82.0 - 96.0 fL 01/30/2025 9:[address] [facility] MCH 30.3 26.0 - 32.0 pg 01/30/2025 9:[address] [facility] MCHC 33.9 31.0 - 36.0 g/dL 01/30/2025 9:[address] [facility] PLATELET COUNT 216 140 - 440 10(3)/mcL 01/30/2025 9:[address] [facility] RDW 14.7 11.8 - 15.5 % 01/30/2025 9:[address] [facility] MPV 9.3 8.0 - 12.6 fL 01/30/2025 9:[address] [facility] NEUTROPHILS 62.6 40.0 - 68.0 % 01/30/2025 9:[address] [facility] LYMPHOCYTES 22.2 19.0 - 49.0 % 01/30/2025 9:[address] [facility] MONOCYTES 10.3 3.0 - 13.0 % 01/30/2025 9:[address] [facility] EOSINOPHILS 3.2 0.0 - 8.0 % 01/30/2025 9:[address] [facility] BASOPHILS 1.7(H) 0.0 - 1.0 % 01/30/2025 9:26 AM WASHER ENGINEER HELPER [facility] ABSOLUTE NEUTROPHILS 3.70 1.40 - 5.30 10(3)/[facility] 01/30/2025 9:26 AM WASHER ENGINEER HELPER [facility] ABSOLUTE LYMPHOCYTES 1.31 0.90 - 3.30 10(3)/[facility] 01/30/2025 9:26 AM WASHER ENGINEER HELPER [facility] ABSOLUTE MONOCYTES 0.61 0.10 - 0.90 10(3)/[facility] 01/30/2025 9:26 AM WASHER ENGINEER HELPER [facility] ABSOLUTE EOSINOPHIL 0.19 0.00 - 0.50 10(3)/[facility] 01/30/2025 9:26 AM WASHER ENGINEER HELPER [facility] ABSOLUTE BASOPHILS 0.10 0.00 - 0.10 10(3)/[facility] 01/30/2025 9:26 AM WASHER ENGINEER HELPER [facility] NRBC PER 100 WBC 0 01/31/20 9:26 AM WASHER ENGINEER HELPER [facility] Blood Venipuncture / Unknown 01/30/2025 9:12 AM WASHER ENGINEER HELPER 01/30/2025 9:23 AM WASHER ENGINEER HELPER us Ortiz Montenegro MD HEMATOLOGY ORDERABLES lIda jordan Result [facility] [address] [place] [address] * (ABNORMAL) APTT (PTT) (01/30/2025 9:12 AM WASHER ENGINEER HELPER) Only the most recent of2 resultswithin the time period is included. PTT 38(H) 24 - 36 sec 01/30/2025 10:06 AM WASHER ENGINEER HELPER [facility] Blood Venipuncture / Unknown 01/30/2025 9:12 AM WASHER ENGINEER HELPER 01/30/2025 9:23 AM WASHER ENGINEER HELPER Narrative [facility] - 01/30/2025 10:06 AM WASHER ENGINEER HELPER Therapeutic range for unfractionated heparin at 0.3-0.7 U/mL is an aPTT value in the range of 71-100 seconds. Critical value for the PTT test is >= 122 seconds. Ortiz Montenegro MD HEMATOLOGY ORDERABLES Ilda jordan Result Performing Organization Address City/[facility] Co de Phone Number [facility] [address] [place] [address] * (ABNORMAL) PROTIME (PT) (PROTHROMBIN TIME) (01/30/2025 9:12 AM WASHER ENGINEER HELPER) Only the most recent of2 resultswithin the time period is included. Pathologist [facility] PROTIME-PATIENT 18.4(H) 11.6 - 14.8 sec 01/30/2025 10:06 AM WASHER ENGINEER HELPER [facility] INR 1.5(H) 0.9 - 1.2 01/30/2025 10:06 AM WASHER ENGINEER HELPER [facility] Comment: Therapeutic Ranges INR = 2.0-3.0: Venous thromb, atrial fib, pul embolism, tissue heart valve, ami. INR = 2.5-3.5: Mechanical heart valve Critical value for INR is >/= 4.5 Blood Venipuncture / Unknown 01/30/2025 9:12 AM WASHER ENGINEER HELPER 01/30/2025 9:23 AM WASHER ENGINEER HELPER Ortiz Montenegro MD HEMATOLOGY ORDERABLES Ilda jordan Result Performing Organization Address [facility] Co de Phone Number [facility] [address] [place] [address] * (ABNORMAL) BASIC METABOLIC PANEL W/ CALCIUM TOTAL (01/30/2025 9:12 AM WASHER ENGINEER HELPER) Only the most recent of2 resultswithin the time period is included. SODIUM 128(L) 136 - 145 mmol/L 01/30/2025 9:50 AM WASHER ENGINEER HELPER [facility] POTASSIUM 4.7 3.5 - 5.1 mmol/L 01/30/2025 9:50 AM WASHER ENGINEER HELPER [facility] CHLORIDE 100 98 - 107 mmol/L 01/30/2025 9:[address] [facility] CO2, VENOUS 24 22 - 30 mmol/L 01/30/2025 9:[address] [facility] ANION GAP 8.7 <18.0 mmol/L 01/30/2025 9:[address] [facility] GLUCOSE 105(H) 70 - 99 mg/dL 01/30/2025 9:[address] [facility] BUN 12 8 - 26 mg/dL 01/30/2025 9:[address] [facility] CREATININE, BLOOD 1.01 0.70 - 1.30 mg/dL 01/30/2025 9:[address] [facility] BUN/CREATININE RATIO 12 12 - 20 ratio 01/30/2025 9:[address] [facility] CALCIUM 8.8 8.7 - 10.5 mg/dL 01/30/2025 9:[address] [facility] IS THE PATIENT REQUIRED TO BE FASTING? No 01/30/2025 9:[address] [facility] GFR, ESTIMATED >60 >=60 01/30/2025 9:[address] [facility] Comment: Creatinine Clearance is the preferred criteria for selecting drug dose adjustments in renally impaired patients. The GFR is provided as additional pertinent clinical information. GFR is reported in mL/min/1.73 sq m. Calculation based on the Chronic Kidney Disease Epidemiology Collaboration (CKD- EPI) equation refit without adjustment for race. GFR, EST. >60 >=60 025 9:[address] [facility] GFR, EST. NONAFRICAN >60 >=60 01/30/2025 9:[address] [facility] Blood Venipuncture / Unknown 01/30/2025 9:12 AM WASHER ENGINEER HELPER 01/30/2025 9:23 AM WASHER ENGINEER HELPER us Ortiz Montenegro MD CHEMISTRY ORDERABLES Final Result [facility] [address] [place] [address] * COMPLETE BLOOD COUNT (CBC) WITHOUT DIFF (12/16/2024 9:11 AM WASHER ENGINEER HELPER) WBC 6.92 4.00 - 12.00 10(3)/mcL 12/16/2024 9:29 AM WASHER ENGINEER HELPER [facility] RBC 4.41 4.40 - 5.80 10(6)/mcL 12/16/2024 9:29 AM WASHER ENGINEER HELPER [facility] HEMOGLOBIN (HGB) 13.1 13.0 - 16.5 g/dL 12/16/2024 9:[address] [facility] HEMATOCRIT (HCT) 39.2 38.0 - 50.0 % 12/16/2024 9:[address] [facility] MCV 88.9 82.0 - 96.0 fL 12/16/2024 9:29 AM WASHER ENGINEER HELPER [facility] MCH 29.7 26.0 - 32.0 pg 12/16/2024 9:29 AM WASHER ENGINEER HELPER [facility] MCHC 33.4 31.0 - 36.0 g/dL 12/16/2024 9:29 AM WASHER ENGINEER HELPER [facility] PLATELET COUNT 210 140 - 440 10(3)/[facility] 12/16/2024 9:[address] [facility] RDW 14.6 11.8 - 15.5 % 12/16/2024 9:[address] [facility] MPV 9.3 8.0 - 12.6 fL 12/16/2024 9:[address] [facility] Blood Venipuncture / Unknown 12/16/2024 9:11 AM WASHER ENGINEER HELPER 12/16/2024 9:23 AM WASHER ENGINEER HELPER us Ortiz Montenegro MD HEMATOLOGY ORDERABLES Ilda l Result [facility] [address] [place] [address] from Last 3 Months Insurance MEDICAID [employer] [facility] Advance Directives * Full Code (Latest Code Status on File) Date Activated Date Inactivated Comments 05/26/2024 7:44 PM 05/29/2024 4:23 PM CPR-Full Treat ment: FULL ARREST: Attempt Resuscitation/CPR wit intubation and mechanical ventilation. PRE-ARREST: Use entire range of life support measures to stabilize the patient. Care Teams Advanced Manufacturing Technician Relationship Specialty Start Date End Date Young Call APRN, MACHINE PACKER [address] [place] [address] PCP - General Advanced Practice Nurse 02/13/24
--- OUTSIDE RECORDS SUMMARY | 2025-02-26 16:33 | XMS_ITS | Encounter Summary ---
Author Organization [facility] Healthcare Address [address] [place] [address] Care Team Providers Care Agriculture Intern Name Role Phone Robert Brooks MD Unavailable [phone] Ayden Nicholson MD Unavailable [phone] Kesha Gutiérrez RN Unavailable Unavail able Young Call NP Primary Care Provider [phone] Azael Brunson MD Unavailable [phone] Encounter Details Date Type Department Care Team (Late st Contact Info) Description 02/10/2025 Results Follow-Up [facility] Transplant Liver [address] [facility] [address] [phone] [place] [address] Kesha Gutiérrez, RN Social History Tobacco Use Types Packs/Day Years Used Date Smoking Tobacco: Every Day Cigarettes 2 49.3 Started: 1975 Passive Smoke Exposure: Current [facility] Utilities Answer Date Recorded In the past 12 months has th [employer], gas, oil, or water company threatened [...] How often do you attend [facility] or jainism services? Never 11/05/2024 Do you belong to any clubs o r organizations such as jain groups, unions, fraternal or athletic groups, or [...] time in the past [address] [facility], were you homeless or living in a fdc (including now)? No 11/10/2024 Personal Safety Answer Date Recorded Have you ever been in or are you currently in a harmful physical or emotional relationship or is someone making you feel afraid or unsafe? 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 [address] [place] [address] [phone] Shruthi Baez MD [address] [address] 03/02/2025 1:45 PM CDT - 03/02/2025 2:45 PM CDT Surgery [facility] [address] [place] [phone] Shruthi Baez MD [address] [address] Flex Sig w/EMR Scheduled Procedures Name Priority Associated Diagnoses Date/Ti me SIGMOIDOSCOPY Anal polyp 03/02/2025 1:45 PM CDT TRANSPLANT LIVER Encounter for pre-transplant evaluation for liver transplant Alcoholic liver disease documented as of this encounter Visit Diagnoses Not on filedocumented in this encounter Care Teams Agriculture Intern Relationship Specialty Start Date End Date Young Call NP [address] [place] [address] PCP - General Family Medicine 10/28/24 Robert Brooks MD [address] [address] Referring Physician Gastroenterology 04/03/24 Ayden Nicholson MD [address] [facility] [address] [place] [address] Consulting Physician Gastroenterology 09/15/24 Kesha Gutiérrez, casino enforcement agentPlumbing Contractor 09/15/24 Azael Brunson MD [address] [phone] [place] [address] Surgeon Colon and Rectal Surgery 01/21/25 documented as of this encounter
--- OUTSIDE RECORDS SUMMARY | 2025-02-26 16:33 | XMS_ITS | Encounter Summary ---
Author Organization [facility] Address [address] [facility] [address] [place] [address] Phone Care Team Providers Care Corrections Caseworker Name Role Phone Robert Brooks MD Unavailable [phone] Ayden Nicholson MD Unavailable [phone] Kesha Gutiérrez RN Unavailable Unavail able Young Call NP Primary Care Provider [phone] Azael Brunson MD Unavailable [phone] Encounter Details Date Type Department Care Team (Late st Contact Info) Description 02/11/2025 Telephone [facility] Surgery [facility] Floor [address] [place] [address] Bear Davis MD [address] [facility] [phone] [place] [address] Social History Tobacco Use Types Packs/Day Years Used Date Smoking Tobacco: Every Day Cigarettes 2 49.3 Started: 1975 Passive Smoke Exposure: Current [facility] Utilities Answer Date Recorded In the past 12 months has [employer], gas, oil, or water company threatened to [...] often do you attend chur ch or yazidi services? Never 11/05/2024 Do you [...] any time in the past 12 m onths, were you homeless or living in a long term (including now)? No 11/10/2024 Personal Safety Answer Date Recorded Have you ever been in or are you currently in a harmful physical or emotional relationship or is someone making you feel afraid or unsafe? 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 Gender Identity Not on file Sexual Orientation Not on file documented as of this encounter Plan of Treatment Upcoming Encounters Date Type Department Care Team (Late st Contact Info) Description 03/02/2025 1:45 PM CDT Hospital Encounter [facility] [address] [place] [phone] Shruthi Baez MD [address] [address] 03/02/2025 1:45 PM CDT - 03/02/2025 2:45 PM CDT Surgery [facility] [address] [place] [phone] Shruthi Baez MD [address] [address] Flex Sig w/EMR Scheduled Procedures Name Priority Associated Diagnoses Date/Ti me SIGMOIDOSCOPY Anal polyp 03/02/2025 1:45 PM CDT TRANSPLANT LIVER Encounter for pre-transplant evaluation for liver transplant Alcoholic liver disease documented as of this encounter Visit Diagnoses Not on filedocumented in this encounter Care Teams Corrections Caseworker Relationship Specialty Start Date End Date Young Call NP [address] [place] [address] PCP - General Family Medicine 10/28/24 Robert Brooks MD [address] [address] Referring Physician Gastroenterology 04/03/24 Ayden Nicholson MD [address] [facility] [address] [place] [address] Consulting Physician Gastroenterology 09/15/24 Kesha Gutiérrez, dispatcher clerkNanotechnology Engineering Technician 09/15/24 Azael Brunson MD [address] [phone] [place] [address] Surgeon Colon and Rectal Surgery 01/21/25 documented as of this encounter
--- OUTSIDE RECORDS SUMMARY | 2025-02-26 16:33 | XMS_ITS | Encounter Summary ---
Author Organization [facility] Address [address] [facility] [address] [facility] [place] [address] Phone Care Team Providers Care Neonatal Critical Care Nurse Name Role Phone Young Call APRN FOUZIA Primary Care Provider + Encounter Details Date Type Department Care Team (Late st Contact Info) Description 01/20/2025 Transcribe Orders [facility] Diagnostic Radiology [address] [place] [phone] Agustin Vu MD [address] [place] [address] Social History Tobacco Use Types Packs/Day Years Used Date Smoking Tobacco: Every Day Cigarettes 1.5 50 Smokeless Tobacco: Never Alcohol Use Standard Drinks/Week Comments Not Currently 0 (1 standard drink = 0.6 oz pure alcohol) 7-15 beers a day previously; none currently [facility] Utilities Answer Date Recorded In the past 12 months has [employer], gas, oil, or water [employer] threatened to shut off services in your home? No 05/26/2024 Social Connection and Isolation Panel [NHANES] A nswer Date Recorded In a typical week, how many times do you talk on the phone with family, friends, or neighbors? Once a week 05/26/2024 How often do you get together with friends or re latives? Once a week 05/26/2024 How often do you attend mormonism or mandaen serv ices? Never 05/26/2024 Do you belong to any clubs o r organizations such as mormonism groups, unions, fraternal or athletic groups, or [...] any time in the past 12 m [facility], were you homeless or living in a usp (including now)? No 05/26/2024 Sexually Active Control Partners Comments Not Currently Sex and Gender Information Value Date Recorded Sex Assigned at Male 02/25/2024 11:30 AM CDT Legal Sex Male 2:53 PM CDT Gender Identity Not on file Sexual Orientation Not on file documented as of this encounter Plan of Treatment Not on file documented as of this encounter Visit Diagnoses Not on filedocumented in this encounter Care Teams Neonatal Critical Care Nurse Relationship Specialty Start Date End Date Young Call, BIT SANDER, NATURAL GAS PLANT TECHNICIAN [address] [place] [address] PCP - General Advanced Practice Nurse 02/13/24 documented as of this encounter
--- OUTSIDE RECORDS SUMMARY | 2025-02-26 16:33 | XMS_ITS | Referral Summary ---
Author Organization [facility] Address [address] [place] [address] Care Team Providers Care Resource Room Teacher Name Role Phone Robert Brooks MD Unavailable [phone] Ayden Nicholson MD Unavailable [phone] Kesha Gutiérrez RN Unavailable Unavail able Young Call NP Primary Care Provider [phone] Azael Brunson MD Unavailable [phone] Encounters Date Type Department Care Team Description 02/24/2025 12:47 PM CDT - 02/24/2025 11:59 PM CDT Hospital Encounter [facility] Imaging [address] [place], [place] [id number] Alcoholic cirrhosis of liver with ascites (HCC); Screening for malignant neoplasm of colon Discharge Disposition: Discharge to home or self care 02/19/2025 Orders Only [facility] Transplant Liver [address] [facility] [address] Mailstop [phone] [place] [address] ProviderRobert MD 02/19/2025 Documentation [facility] Trans[facility] Liver [address] [facility] [address] Mailstop [phone] [place] [address] Valentine Cohen 02/11/2025 Telephone [facility] Surgery [address] [place] [address] Medical Office Building 4 [address] [place] [phone] Mali Griffith RMA 02/11/2025 Telephone [facility] Surgery [address] [facility] Floor 8 [place] [address] Bear Davis MD 02/10/2025 Telephone [facility] Transplant Liver [address] [facility] [address] Mailstop [phone] [place] [address] Kesha Gutiérrez, JENNA 02/10/2025 Results Follow-Up [facility] Transplant Liver [address] [facility] [address] Mailstop [phone] [place] [address] Kesha Gutiérrez, JENNA 02/09/2025 Telephone [facility] Transplant Liver [address] [facility] [address] Mailstop [phone] [place] [address] Kesha Gutiérrez, JENNA 02/04/2025 Telephone [facility] Transplant Liver [address] [facility] [address] Mailstop [phone] [place] [address] Kesha Gutiérrez, JENNA 02/04/2025 Results Follow-Up [facility] Transplant Liver [address] [facility] [address] Mailstop [phone] [place] [address] Kesha Gutiérrez, JENNA 02/04/2025 12:45 PM CDT Lab [facility] [address] [place] [address] Encounter for pre-transplant evaluation for liver transplant; Alcoholic liver disease 02/04/2025 9:00 AM CDT Office Visit [facility] Gasteroenterology [address] [facility] 12th [place] [address] [place] [address] Lesvia Gerber MD Encounter for pre-transplant evaluation for liver transplant (Primary Dx); Alcoholic liver disease 01/30/2025 Orders Only [facility] Health Information Management [address] [place] [address] Scanning, Provider 01/21/2025 Telephone [facility] Gastroenterology [address] [place] [address] Medical Office Building 4, [address] [place] [address] Loida Marrero RN GI Preprocedure 01/21/2025 9:00 AM NIP WRAPPER Office Visit [facility] Surgery [address] [place] [address] Medical Office Building [address] [place] [phone] Azael Brunson MD Screening for malignant neoplasm of colon (Primary Dx); Alcoholic cirrhosis of liver with ascites (HCC) 01/20/2025 Telephone [facility] Transplant Liver [address] [facility] [address] Mailstop [phone] [place] [address] Kesha Gutiérrez, JENNA 01/14/2025 Telephone [facility] Transplant Liver [address] [facility] [address] Mailstop 69-31-5 [place] [address] Kesha Gutiérrez, JENNA 01/14/2025 Telephone [facility] Transplant Liver [address] [place] [address] [address] Mailstop 80-49-6 [place] [address] Cyndee Baez 01/02/2025 Orders Only [facility] Health Information Management 1 [place] [address] Kesha Gutiérrez, RN 01/01/2025 Telephone [facility] Transplant Liver [address] [facility] [address] Mailstop [phone] [place] [address] Kesha Gutiérrez, RN 12/30/2024 12:30 PM NIP WRAPPER - 12/30/2024 1:30 PM NIP WRAPPER Surgery [facility] [address] [address] Shruthi Baez MD SIGMOID INJECTION SUBMUCOSAL 12/30/2024 1:29 PM NIP WRAPPER Anesthesia Event [facility] [address] [facility] [address] [place] [address] Roque Doss MD 12/30/2024 11:[address] [facility] - 12/30/2024 4:03 PM [facility] [address] [facility] [address] [place] [address] Shruthi Baez MD Colon polyp Discharge Disposition: Discharge to home or self care 12/26/2024 Telephone [facility] Transplant Liver [address] [facility] [address] Mailstop [phone] [place] [address] Kesha Gutiérrez, RN 12/26/2024 Telephone [facility] Transplant Liver [address] [facility] [address] Mailstop [phone] [place] [address] Karen Vides 12/25/2024 Telephone [facility] Transplant Liver [address] [facility] [address] Mailstop [phone] [place] [address] Kesha Gutiérrez, RN 12/25/2024 Documentation [facility] Transplant Liver [address] [facility] [address] Mailstop 90-64-2 [place] [address] Kesha Gutiérrez, RN 12/25/2024 Telephone [facility] Transplant Liver [address] [facility] [address] Mailstop 90-26-9 [place] [address] Valentine Cohen 12/25/2024 Telephone [facility] Transplant Liver [address] [facility] [address] Mailstop 9029-159 [place] [address] Karen Vides 12/24/2024 Telephone [facility] Transplant Liver [address] [facility] [address] Mailstop [phone] [place] [address] Kesha Gutiérrez, RN 12/23/2024 Telephone [facility] Transplant Liver [address] Mailstop [id number] [place] [address] Kesha Gutiérrez, JENNA 12/20/2024 8:15 AM NIP WRAPPER - 12/20/2024 11:59 PM NIP WRAPPER Hospital Encounter [facility] [address] [place] [address] Jonathon Leonardo MD Alcoholic cirrhosis of liver with ascites (HCC) Discharge Disposition: Discharge to home or self care 11/28/2024 Orders Only [facility] Health Information Management 1 [place] [address] Kesha Gutiérrez RN from Last 3 Months Allergies Active [...] Units by mouth once a week Active Active Problems Problem Noted Date Diagnosed [...] signs of bleeding. Follows with an OSH livestock broker -Check HIV and hepatitis panel -Hold diuretics [...] 49.3 Started: 1975 Passive Smoke Exposure: Current Tobacco Cessation:Ready to Q uit: Not Asked; Counseling Given: Not Answered [facility] Utilities Answer Date Recorded In the past 12 months has th [employer], gas, oil, or water company threatened [...] often do you attend chur ch or evangelical services? Never 11/05/2024 Do you belong to any clubs o r organizations such as moravian groups, unions, fraternal or athletic groups, or school groups? No 11/05/2024 How often do you attend meet ings of the clubs or organizations you belong to? Never 11/05/2024 Are you , , di vorced, , never , or living with a partner? 11/05/2024 AUDIT-C Answer Date Recorded Q1: How often do you have a drink containing alcohol? Never 02/23/2025 Q2: How many drinks containi ng alcohol do you have on a typical day when you are drinking? Patient does not drink Q3: How often do you have si x or more drinks on one occasion? Never 02/23/2025 Overall Financial Resource Strain (CARDIA) Answe r [...] in the past 12 m [facility], were you homeless or living in a assisted (including now)? No 11/10/2024 Personal Safety Answer Date Recorded Have you ever been in or are you currently in a harmful physical or emotional relationship or is someone making you feel afraid or unsafe? Denies 12/30/2024 Sex and Gender Information Value Date Recorded Sex Assigned at Not on file Legal Sex Male 3:52 AM NIP WRAPPER Gender Identity Not on file Sexual Orientation Not on file Last Filed Vital Signs Vital Sign Reading Time Taken Comments Blood Pressure 107/71 02/04/2025 8:58 AM CDT Pulse 71 02/04/2025 8:58 AM CDT Temperature 36.7 C (98 F) 02/04/2025 8:58 AM CDT Respiratory Rate 19 12/30/2024 3:12 PM NIP WRAPPER Oxygen Saturation 98% 01/21/2025 8:38 AM NIP WRAPPER Inhaled Oxygen Concentration - - Weight 68.4 kg (150 lb 12.8 oz) 02/04/2025 8:58 AM CDT Height 177.8 cm (5' 10 ) 02/04/2025 8:58 AM CDT Body Mass Index 21.64 02/04/2025 8:58 AM CDT Plan of Treatment Upcoming Encounters Date Type Department Care Team (Late st Contact Info) Description 03/02/2025 1:45 PM CDT Hospital Encounter [facility] [address] [place] [address] Shruthi Baez MD [address] [place] [address] 03/02/2025 1:45 PM CDT - 03/02/2025 2:45 PM CDT Surgery [facility] [address] [place] [address] Shruthi Baez MD [address] [place] [address] Flex Sig w/EMR Scheduled Procedures Name Priority Associated Diagnoses Date/Ti me SIGMOIDOSCOPY Anal polyp 03/02/2025 1:45 PM CDT TRANSPLANT LIVER Encounter for pre-transplant evaluation for liver transplant Alcoholic liver disease Procedures Procedure Name Priority Date/Time Associated Diagnosis Comments CT VIRTUAL COLONOSCOPY DIAGNOSTIC WO CONTRAST Schedule Routine, Read Routine (OP Routine) 02/24/2025 1:30 PM CDT Alcoholic cirrhosis of liver with ascites (HCC) Screening for malignant neoplasm of colon US ADBDOMEN W DOPPLER Schedule Routine, Read Routine (OP Routine) 02/19/2025 12:37 PM CDT COMPREHENSIVE METABOLIC PANEL Routine 02/09/2025 EGFR Routine 02/04/2025 10:47 AM CDT Encounter [...] disease SCAN - LABS 01/30/2025 2:21 PM NIP WRAPPER SCAN - LABS 01/02/2025 3:16 PM NIP WRAPPER SURGICAL PATHOLOGY Routine 12/30/2024 2: 27 PM NIP WRAPPER Colon polyp ENDO ADD ON SIGMOID BIOPSY 12/30/2024 1:29 PM NIP WRAPPER Colon polyp SIGMOID INJECTION SUBMUCOSAL 12/30/2024 1:29 PM NIP WRAPPER Colon polyp COLONOSCOPY 12/30/2024 1:25 PM NIP WRAPPER PROTIME-INR Routine 12/25/2024 MRI PELVIS W WO CONTRAST Schedule Routine, Read Routine (OP Routine) 12/20/2024 9:41 AM NIP WRAPPER Alcoholic cirrhosis of liver with ascites (HCC) SCAN - RADIOLOGY/IMAGING 025 11:50 AM NIP WRAPPER HEPATITIS C ANTIBODY Routine 11/04/2024 11:23 AM NIP WRAPPER Encounter for pre-transplant evaluation for liver transplant Alcoholic liver disease PSA SCREEN Routine 11/04/2024 11:23 AM NIP WRAPPER Encounter for pre-transplant evaluation for liver transplant Alcoholic liver disease from Last 3 Months or Most Recently Relevant to Health Maintenance Results * CT Colonoscopy Diagnostic WO Contrast (02/24/2025 1:30 PM CDT) Anatomical Region Laterality Modality Body N/A Computed Tomogra phy 02/24/2025 2:23 PM CDT Impressions 02/24/2025 7:35 PM CDT Colon: C0: Inadequate study due to underdistention of the majority of the colon, markedly limiting evaluation. The reported obstructing pedunculated polyp 25 cm from the anal verge is not visualized due to decompression of the sigmoid colon. Extracolonic Findings: E4: Potentially important finding: liver cirrhosis with portal hypertension and large-volume ascites, which may have contributed to difficulties in colonic distension. Dictated by: Osmany Orr M.D. The radiology attending physician has personally reviewed this study, and had reviewed and/or edited this written report and agrees with it. Electronically signed by: Claudia Syed M.D. Narrative 02/24/2025 7:35 PM CDT EXAMINATION: CT colonography without intravenous contrast HISTORY: 63-year-old man with cirrhosis and a pedunculated sigmoid polyp incompletely sampled during December 2024 colonoscopy. TECHNIQUE: Transaxial computed tomographic images through the abdomen and pelvis were obtained without intravenous contrast after insufflation of the colon with CO2 through a rectal catheter. Images were obtained in the supine and right lateral decubitus positions. COMPARISON: None FINDINGS: The following findings are reported according to the CT Colonography Reporting and Data System (C-RADS) from Radiology 2005; 236:3-9. Colonic preparation and distention: inadequate. There is underdistention of the sigmoid, descending and ascending colon, which are essentially decompressed, severely limiting evaluation. There is relative underdistention of the transverse colon. Colonic findings: There is colonic diverticulosis. The reported obstructing pedunculated polyp 25 cm from the anal verge is not visualized due to decompression of the sigmoid colon. Extracolonic findings: This CT examination is performed without intravenous contrast and with a low dose technique optimized for evaluation of the colon. Bibasilar atelectasis. Morphologic features of cirrhosis and portal hypertension with large volume ascites. The kidneys, adrenal glans, spleen and pancreas appear normal. Procedure Note Claudia Syed MD - 02/24/2025 EXAMINATION: CT colonography without intravenous contrast HISTORY: 63-year-old man with cirrhosis and a pedunculated sigmoid polyp incompletely sampled during December 2024 colonoscopy. TECHNIQUE: Transaxial computed tomographic images through the abdomen and pelvis were obtained without intravenous contrast after insufflation of the colon with CO2 through a rectal catheter. Images were obtained in the supine and right lateral decubitus positions. COMPARISON: None FINDINGS: The following findings are reported according to the CT Colonography Reporting and Data System (C-RADS) from Radiology 2005; 236:3-9. Colonic preparation and distention: inadequate. There is underdistention of the sigmoid, descending and ascending colon, which are essentially decompressed, severely limiting evaluation. There is relative underdistention of the transverse colon. Colonic findings: There is colonic diverticulosis. The reported obstructing pedunculated polyp 25 cm from the anal verge is not visualized due to decompression of the sigmoid colon. Extracolonic findings: This CT examination is performed without intravenous contrast and with a low dose technique optimized for evaluation of the colon. Bibasilar atelectasis. Morphologic features of cirrhosis and portal hypertension with large volume ascites. The kidneys, adrenal glans, spleen and pancreas appear normal. IMPRESSION: Colon: C0: Inadequate study due to underdistention of the majority of the colon, markedly limiting evaluation. The reported obstructing pedunculated polyp 25 cm from the anal verge is not visualized due to decompression of the sigmoid colon. Extracolonic Findings: E4: Potentially important finding: liver cirrhosis with portal hypertension and large-volume ascites, which may have contributed to difficulties in colonic distension. Dictated by: Osmany Orr M.D. The radiology attending physician has personally reviewed this study, and had reviewed and/or edited this written report and agrees with it. Electronically signed by: Claudia Syed M.D. Azael Brunson MD [facility] PROCEDURES Final Result * US Abdomen W Doppler (02/19/2025 12:37 PM CDT) Anatomical Region Laterality Modality Abdomen N/A Ultrasound Historical Provider [facility] US PROCEDURES Final R esult * (ABNORMAL) Comprehensive metabolic panel (02/09/2025) SCRIBED Sodium 136 136 - 145 mmol/L TXP NO LAB FOUND SCRIBED Potassium 4.4 3.5 - 5.1 mmol/L TXP NO LAB FOUND SCRIBED Chloride 103 98 - 108 mmol/L TXP NO LAB FOUND SCRIBED Carbon Dioxide 26 21 - 32 mmol/L TXP NO LAB FOUND SCRIBED Urea Nitrogen (BUN) 13 7 - 18 mg/dl TXP NO LAB FOUND SCRIBED Creatinine 1.04 0.70 - 1.30 mg/dl TXP NO LAB FOUND SCRIBED Glucose 85 70 - 99 mg/dl TXP NO LAB FOUND SCRIBED Calcium 8.7 8.5 - 10.1 mg/dl TXP NO LAB FOUND SCRIBED Bilirubin 1.2(A) 0 - 1 mg/dl TXP NO LAB FOUND SCRIBED Plasma Protein 7.1 6.4 - 8.2 g/dl TXP NO LAB FOUND SCRIBED Albumin 2.6(A) 3.4 - 5 g/dl TXP NO LAB FOUND SCRIBED Alkaline Phosphatase 102 46 - 116 Units/L TXP NO LAB FOUND SCRIBED Alanine Transaminase (ALT) 18 16 - 63 Units/L TXP NO LAB FOUND SCRIBED Aspartate Transaminase (AST) 25 15 - 37 Units/L TXP NO LAB FOUND SCRIBED eGFR in NonAfrican Bermudian >60 >=60 TXP NO LAB FOUND Blood 02/09/2025 Historical Provider MD LAB BLOOD ORDERABLES Edit ed Result - Final TXP NO LAB FOUND * Phosphatidylethanol (02/04/2025 10:47 AM CDT) PHOSPHATIDYLETHANOL Negative . [facility] Comment: ADDITIONAL INFORMATION This report is intended for use in clinical monitoring and management of patients. It is not intended for use in employment-related testing. This test was developed and its performance characteristics determined by [facility] in a manner consistent with CLIA requirements. This test has not been cleared or approved by the U.S. Food and Drug Administration. Test Performed by: [facility] [address] [place] [address] Sustainable Systems Analyst: Deven Owens Ph.D.; CLIA# [id number] PEth 16:0/18:1 (POPEth)by LC-MS/MS <10 Cutoff: 10 [...] by LC-MS/MS <10 Cutoff: 10 ng/mL [facility] Comment: PEth 16:0/18:2 (PLPEth) Reference ranges are not well established Blood 02/04/2025 10:4 7 AM CDT 02/04/2025 12:41 PM CDT us Lesvia Gerber MD LAB BLOOD ORDERABLES Final Res ult [facility] [place] [address] [facility] * eGFR (02/04/2025 10:47 AM [...] MD LAB BLOOD ORDERABLES Final Res ult [facility] Department [place] [address] * Differential, auto (02/04/2025 10:47 AM CDT) Neutrophil abs 4.4 1.5 - 6.5 K/cumm Imm gran abs 0.0 0.0 - 0.1 K/cumm [facility] Lymphocyte abs 1.4 0.8 - 3.3 K/cumm [facility] Monocyte abs 0.7 0.2 - 0.8 K/cumm [facility] Eosinophil abs 0.1 0.0 - 0.5 K/cumm [facility] Basophil abs 0.1 0.0 - 0.1 K/cumm [facility] Neutrophil pct 65.9 % [facility] Comment: Interpretive Data Percent cell count reference ranges are not reported, since discordance with absolute values may lead to misinterpretation of CBC data. Current Interpretive Data was last revised on 2018. Imm gran pct 0.3 % [facility] Comment: Interpretive Data Percent cell count reference ranges are not reported, since discordance with absolute values may lead to misinterpretation of CBC data. Current Interpretive Data was last revised on 2018. Lymphocyte pct 20.4 % [facility] Comment: Interpretive Data Percent cell count reference ranges are not reported, since discordance with absolute values may lead to misinterpretation of CBC data. Current Interpretive Data was last revised on 2018. Monocyte pct 9.6 % [facility] Comment: Interpretive Data Percent cell count reference ranges are not reported, since discordance with absolute values may lead to misinterpretation of CBC data. Current Interpretive Data was last revised on 2018. Eosinophil pct 1.9 % [facility] Comment: Interpretive Data Percent cell count reference ranges are not reported, since discordance with absolute values may lead to misinterpretation of CBC data. Current Interpretive Data was last revised on 2018. Basophil pct 1.9 % [facility] Comment: Interpretive Data Percent cell count reference ranges are not reported, since discordance with absolute values may lead to misinterpretation of CBC data. Current Interpretive Data was last revised on 2018. Blood 02/04/2025 10:4 7 AM CDT 02/04/2025 11:11 AM CDT us Lesvia Gerber MD LAB BLOOD ORDERABLES Final Res ult Performing Organization Address City/[facility]/ZIP Co de Phone Number [facility] [place] [address] * (ABNORMAL) CBC with auto differential (02/04/2025 10:47 AM CDT) WBC 6.8 3.8 - 9.9 K/cumm Hgb 13.2 13.0 - 17.5 g/dL [facility] Hct 38.8(L) 38.9 - 50.3 % [facility] Plt 224 150 - 400 K/cumm [facility] MPV 9.2 9.1 - 12.3 fL [facility] RBC 4.41 4.30 - 5.80 M/cumm [facility] MCV 88.0 81.3 - 96.4 fL [facility] MCH 29.9 27.1 - 33.3 pg [facility] MCHC 34.0 32.3 - 35.7 g/dL [facility] RDW CV 14.6 11.1 - 14.9 % [facility] RDW SD 47.3 35.7 - 48.1 fL [facility] NRBC abs 0.00 0.00 - 0.01 K/cumm [facility] Blood 02/04/2025 10:4 7 AM CDT 02/04/2025 11:11 AM CDT us Lesvia Gerber MD LAB BLOOD ORDERABLES Final Res ult Performing Organization Address City/[facility]/ZIP Co de Phone Number [facility] Department [place] [address] * Vitamin D 25 hydroxy (02/04/2025 10:47 AM CDT) Pathologist [facility] Vitamin D 25-OH 48 30 - 80 ng/mL Blood 02/04/2025 10:4 7 AM CDT 02/04/2025 11:10 AM CDT Lesvia Gerber MD LAB BLOOD ORDERABLES Final Res ult Performing Organization Address City/State/[facility] [place] [address] * (ABNORMAL) Protime-INR (02/04/2025 10:47 AM CDT) Pathologist [facility] PT 16.8(H) 9.7 - 13.0 sec INR 1.54(H) 0.90 - 1.20 [facility] Comment: Interpretive data Oral anticoagulant therapeutic ranges: Venous thromboembolism prophylaxis or treatment: 2.0-3.0 CARDIOLOGY Standard range: 2.0-3.0 High-intensity range: 2.5-3.5 Refer to indication-specific guidelines for appropriate target ranges for prosthetic heart valve replacement. Current interpretive data was last revised on 2019. Blood 02/04/2025 10:4 7 AM CDT 02/04/2025 11:06 AM CDT Lesvia Gerber MD LAB BLOOD ORDERABLES Final Res ult [facility] [place] [address] * (ABNORMAL) Comprehensive metabolic panel (02/04/2025 10:47 AM CDT) Pathologist [facility] Sodium 129(L) 135 - 145 mmol/L Potassium, pl 5.4(H) 3.3 - 4.9 mmol/L [facility] Chloride 99 97 - 110 mmol/L [facility] CO2 25 22 - 32 mmol/L [facility] Anion gap 5 2 - 15 mmol/L [facility] BUN 15 6 - 25 mg/dL [facility] Creatinine 1.04 0.80 - 1.30 mg/dL [facility] Glucose 132 70 - 199 mg/dL [facility] Comment: Interpretive Data Fasting glucose [...] 2022. Calcium 9.2 8.5 - 10.3 mg/dL [facility] Bilirubin, total 1.1 0.1 - 1.2 mg/dL [facility] Protein, pl 8.3 6.5 - 8.5 g/dL [facility] Albumin 3.2(L) 3.5 - 5.0 g/dL [facility] Alk phos 99 40 - 130 Units/L [facility] ALT 9 7 - 55 Units/L [facility] AST 22 10 - 50 Units/L [facility] Blood 02/04/2025 10:4 7 AM CDT 02/04/2025 11:10 AM CDT us Lesvia Gerber MD LAB BLOOD ORDERABLES Final Res ult [facility] [place] [address] * SCAN - LABS (01/30/2025 2:21 PM NIP WRAPPER) us Provider Scanning Final Result * SCAN - LABS (01/02/2025 3:16 PM NIP WRAPPER) us Kesha Gutiérrez RN Final Re sult * Surgical pathology (12/30/2024 2:27 PM NIP WRAPPER) Tissue specimen (specimen) (Polyp(s), colon/colorectal, esophageal, gastric) 12/30/2024 2:27 PM NIP WRAPPER Narrative PATHOLOGY [facility] - 12/31/2024 10:40 AM NIP WRAPPER EPIC results best viewed via link to PDF [facility] [place] [address] Note to Patients: This report may contain [...] Gender: Femi : 1960 (Age: 64) Address: [address] [place] [address] Hospital #: [id number] Taken:12/30/2024 Received:12/30/2024 Reported: 12/31/2024 Patient Type: [facility] Service: Gastro Location: Physician(s): Vani Zhou NP Diagnosis: A. Large bowel, sigmoid colon, polyp(s), polypectomy/biopsy - Fragments of tubular adenoma(s) k/12/31/2024 10:40 By this signature, I attest that the above diagnosis is based upon my personal examination of the slides(and/or other material indicated in the diagnosis). Clare Bautista MD Report Electronically Reviewed and Signed Out By Clare Bautista MD 12/31/2024 10:40:22 Maxi Salvador, M.D. History: The patient is a 64-year-old [...] in aggregate). Filtered. Labeled A1. Jar 0. /12/30/2024 18:15 PA(s): Estela Louise, MS, PA (ASCP)CM By this signature, I attest that the above diagnosis is based upon my personal examination of the slides(and/or other material). Addenda/Procedures The performance characteristics of some immunohistochemical stains, fluorescence in-situ hybridization tests and immunophenotyping by flow cytometry cited in this report (if any) were determined by the Surgical Pathology and Flow Cytometry Departments at [facility] as part of an ongoing quality control engineer program and in compliance with federally mandated [...] Surgical Pathology and Flow Cytometry Departments of [facility]. It has not been cleared or approved by the U. S. Food and Drug Administration. IMAGES AND SCANNED DOCUMENTS, IF INCLUDED, ONLY VIEWABLE IN PDF VERSION OF REPORT us Shruthi Baez MD LAB PATHOLOGY ORDERAB LES Final Result PATHOLOGY [facility] 3rd Floor [place], [place] [phone] * Colonoscopy (12/30/2024 1:25 PM NIP WRAPPER) Anatomical Region Laterality Modality Other Narrative Procedure Note Shruthi Baez MD - 12/30/2024 1:25 PM CST GI ENDOSCOPY [facility] Patient Name: Live Mares Procedure Date: 12/30/2024 1:25 PM Date of : 1960 Admit Type: Outpatient Age: 64 Gender: Male Attending MD: Shruthi Baez M.D. Room: [facility] ENDOSCOPY ROOM 9 Note Status: Finalized Procedure: [...] The scope was passed under directvision. The CF [id number] endoscope was introduced through the anus and advanced to the sigmoid colon. The quality of the bowel preparation was evaluated using the BBPS ([employer] Bowel Preparation Scale)with scores of: Right Colon [...] the days following this procedure please call [phone] After hours and evenings please call [phone] speak to the GI fellow animal nutrition teacher. Please tell thefellow that Dr. Baez did your procedure and that you were instructed to have the fellow call me or the physician covering for me to discuss the managementof your condition.. If you have an urgent problem,please go to the nearest emergency room and have the ER doctor call my office during the day or [facility] ([phone] after hours and weekends to arrange admission or transfer to our facility. Attending Participation: I was present and participated during the entire procedure, including non-mccarthy portions. Electronically signed by Shruthi Baez MD Shruthi Baez M.D. 12/30/2024 3:39:28 PM . Number of Addenda: 0 Note Initiated On: 12/30/2024 1:25 PM us Shruthi Baez MD ENDOSCOPY PROCEDURES Final Result * (ABNORMAL) Protime-INR (12/25/2024) SCRIBED PT 14.2(A) 9.50 - 12.1 sec TXP NO LAB FOUND SCRIBED INR 1.3(A) 0.9 - 1.1 sec TXP NO LAB FOUND Blood 12/25/2024 us Historical Provider LAB BLOOD ORDERABLES Edit ed Result - Final TXP NO LAB FOUND * MRI Pelvis W WO Contrast (12/20/2024 9:41 AM NIP WRAPPER) Anatomical Region Laterality Modality Pelvis N/A Magnetic Resonan ce 12/22/2024 10:5 3 AM NIP WRAPPER Impressions 12/22/2024 11:17 AM NIP WRAPPER No MR evidence of rectal mass. Dictated by: Perry Seth MD The radiology attending physician has personally reviewed this study, and had reviewed and/or edited this written report and agrees with it. Electronically signed by: Meseret Casiano M.D. Narrative 12/22/2024 11:17 AM NIP WRAPPER EXAMINATION: MAGNETIC RESONANCE IMAGING OF THE PELVIS [...] * SCAN - RADIOLOGY/IMAGING (11/28/2024 11:50 AM NIP WRAPPER) Anatomical Region Laterality Modality Other us Kesha Gutiérrez RN Final Re sult * PSA screen (11/04/2024 11:23 AM NIP WRAPPER) Pathologist [facility] PSA-Total 0.12 <=5.40 ng/mL Comment: Interpretive Data [...] revised 22. Blood 11/04/2024 11:2 3 AM NIP WRAPPER 11/04/2024 12:45 PM NIP WRAPPER Narrative [facility] - 11/04/2024 2:01 PM NIP WRAPPER Please add the following comment to each lab: This lab is being obtained as part of a liver transplant evaluation, is time sensitive, and should only be drawn during the evaluation visit at [facility] Lab. Ayden Nicholson MD LAB BLOOD ORDERABLES Final Res ult [facility] Department [place] [address] * Hepatitis C antibody Blood (11/04/2024 11:23 AM NIP WRAPPER) Hep C Ab Nonreactive Nonreactive Comment:Antibodies to HCV no t detected. Does NOT exclude the possibility of recent exposure to HCV. Current interpretive data was last revised on 22 Blood 11/04/2024 11:2 3 AM NIP WRAPPER 11/04/2024 12:42 PM NIP WRAPPER Narrative [facility] - 11/04/2024 1:37 PM NIP WRAPPER Please add the following comment to each lab: This lab is being obtained as part of a liver transplant evaluation, is time sensitive, and should only be drawn during the evaluation visit at [facility] Lab. us Ayden Nicholson MD LAB MICROBIOLOGY - GENERAL ORD ERABLES Final Result [facility] Department [place] [address] from Last 3 Months or Most Recently Relevant to Health Maintenance Insurance [facility] Advance Directives For more information, please contact: [phone] Documents on File Type Date Recorded Patient Paleontological Helper Expl anation ADVANCE DIRECTIVE 11/11/2024 10:19 PM [facility] ART CURATOR-MEDICAL * Full Code (Latest Code Status on File) Date Activated Date Inactivated Comments 12/30/2024 11:45 AM 12/30/2024 8:08 PM * Full Code Date Activated Date Inactivated Comments 04/23/2024 2:01 AM 05/12/2024 7:22 PM * Full Code Date Activated Date Inactivated Comments 04/10/2024 9:06 AM 04/18/2024 5:41 PM Care Teams Resource Room Teacher Relationship Specialty Start Date End Date Young Call NP [address] [place] [address] PCP - General Family Medicine 10/28/24 Robert Brooks MD [address] [address] Referring Physician Gastroenterology 04/03/24 Ayden Nicholson MD 1 [facility] [place] [address] Consulting Physician Gastroenterology 09/15/24 Kesha Gutiérrez, dough catcherElevator Installer 09/15/24 Azael Brunson MD [address] [phone] [place] [address] Surgeon Colon and Rectal Surgery 01/21/25
--- OUTSIDE RECORDS SUMMARY | 2025-02-26 16:33 | XMS_ITS | Encounter Summary ---
Author Organization [facility] Healthcare Address [address] [place] [address] Care Team Providers Care Certified Vehicle Fire Investigator Name Role Phone Robert Brooks MD Unavailable [phone] Ayden Nicholson MD Unavailable [phone] Kesha Gutiérrez RN Unavailable Unavail able Young Call NP Primary Care Provider [phone] Azael Brunson MD Unavailable [phone] Reason for Referral * MRI/CAT/PET Scan (Routine) - Closed Specialty Diagnoses / Procedures Referred By Dhaval chandra Referred To Contact Radiology Diagnoses Alcoholic cirrhosis of liver with ascites (HCC) Screening for malignant neoplasm of colon Procedures CT Colonoscopy Diagnostic WO Contrast Azael Brunson MD [address] [phone] [place] [address] Phone: tel: fax: [facility] [address] [place] [address] Referral ID Status Reason Start Date Expiration Date Visits Re quested Visits Authorized [id number] Closed 02/09/2025 04/10/2025 1 1 Reason for Visit * MRI/CAT/PET Scan (Routine) - Closed Specialty Diagnoses / Procedures Referred By Dhaval chandra Referred To Contact Radiology Diagnoses Alcoholic cirrhosis of liver with ascites (HCC) Screening for malignant neoplasm of colon Procedures CT Colonoscopy Diagnostic WO Contrast Azael Brunson MD [address] [phone] [place] [address] Phone: tel: fax: [facility] [address] [place] [phone] Referral ID Status Reason Start Date Expiration Date Visits Re quested Visits Authorized [id number] Closed 02/09/2025 04/10/2025 1 1 Encounter Details Date Type Department Care Team (Latest Contact Info) Description 02/24/2025 12:47 PM CDT - 02/24/2025 11:59 PM CDT Hospital Encounter [facility] [id number] [address] Alcoholic cirrhosis of liver with ascites (HCC); Screening for malignant neoplasm of colon Discharge Disposition: Discharge to home or self care Social History Tobacco Use Types Packs/Day Years Used Date Smoking Tobacco: Every Day Cigarettes 2 49.3 Started: 1975 Passive Smoke Exposure: Current [facility] Utilities Answer Date Recorded In the past 12 months has [employer] electric, gas, oil, or water company threatened [...] often do you attend chur ch or muslim services? Never 11/05/2024 Do you belong to any clubs o r organizations such as sabianism groups, unions, fraternal or athletic groups, or [...] any time in the past 12 m [facility], were you homeless or living in a correction (including now)? No 11/10/2024 Personal Safety Answer Date Recorded Have you ever been in or are you currently in a harmful physical or emotional relationship or is someone making you feel afraid or unsafe? 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 Gender Identity Not on file Sexual Orientation Not on file documented as of this encounter Medications at Time of Discharge carvediloL (Coreg) 6.25 mg tabletIndication s:Alcoholic cirrhosis of liver with ascites (HCC) Take 1 tablet (6.25 mg total) by mouth nightly 90 tablet 2 08/12/2024 cholecalciferol 400 unit capsule Take 5,000 Units by mouth once a week docusate sodium (COLACE) 100 mg capsuleIndicatio ns:constipation Take 1 capsule (100 mg total) by mouth as needed polyethylene glycol (GoLYTELY) 236-22.74-6.74 -5.86 gram solutionIndicati ons:Bowel Evacuation Drink 2L at 6:00 pm night before procedure and 2L at 6:30 am morning of procedure per mailed prep instructions. 4000 mL 11/14/2024 spironolactone (ALDACTONE) 100 mg tabletIndication s:Ascites Take 1 tablet (100 mg total) by mouth every morning 05/30/2024 documented as of this encounter Discharge Disposition Disposition Code Departure Means Destination Discharge to home or self care documented in this encounter Plan of Treatment Upcoming Encounters Date Type Department Care Team (Late st Contact Info) Description 03/02/2025 1:45 PM CDT Hospital Encounter [facility] [address] [place] [phone] Shruthi Baez MD [address] [address] 03/02/2025 1:45 PM CDT - 03/02/2025 2:45 PM CDT Surgery [facility] [address] [place] [place] [phone] Shruthi Baez MD [address] [address] Flex Sig w/EMR Scheduled Procedures Name Priority Associated Diagnoses Date/Ti me SIGMOIDOSCOPY Anal polyp 03/02/2025 1:45 PM CDT TRANSPLANT LIVER Encounter for pre-transplant evaluation for liver transplant Alcoholic liver disease documented as of this encounter Procedures Procedure Name Priority Date/Time Associated Diagnosis Comments CT VIRTUAL COLONOSCOPY DIAGNOSTIC WO CONTRAST Schedule Routine, Read Routine (OP Routine) 02/24/2025 1:30 PM CDT Alcoholic cirrhosis of liver with ascites (HCC) Screening for malignant neoplasm of colon documented in this encounter Results * CT Colonoscopy Diagnostic WO Contrast [...] by: Claudia Syed M.D. Azael Brunson MD IMG CT PROCEDURES Final Result documented in this encounter Visit Diagnoses Diagnosis Anal polyp- Primary Anal and rectal polyp Alcoholic cirrhosis of liver with ascites (HCC) Screening for malignant neoplasm of colon Anal polyp Anal and rectal polyp documented in this encounter Care Teams Certified Vehicle Fire Investigator Relationship Specialty Start Date End Date Young Call NP [address] [place] [address] PCP - General Family Medicine 10/28/24 Robert Brooks MD [address] [address] Referring Physician Gastroenterology 04/03/24 Ayden Nicholson MD 1 [facility] [place] [place] [address] Consulting Physician Gastroenterology 09/15/24 Kesha Gutiérrez, technical support analystConcrete Batcher 09/15/24 Azael Brunson MD [address] [phone] [place] [address] Surgeon Colon and Rectal Surgery 01/21/25 documented as of this encounter
--- OUTSIDE RECORDS SUMMARY | 2025-02-26 16:33 | XMS_ITS | Clinical Summary ---
Author Organization [facility] Address [address] [place] [address] Care Team Providers Care Game Designer Name Role Phone Robert Brooks MD Unavailable [phone] Ayden Nicholson MD Unavailable [phone] Kesha Gutiérrez RN Unavailable Unavail able Young Call NP Primary Care Provider [phone] Azael Brunson MD Unavailable [phone] Allergies Active Allergy Reactions Criticality Noted Date [...] of bleeding. Follows with an OSH senior applications analyst -Check HIV and hepatitis panel -Hold diuretics [...] - 02/24/2025 11:59 PM CDT Hospital Encounter [facility] [address] [place] [address] Alcoholic cirrhosis of liver with ascites (HCC); Screening for malignant neoplasm of colon Discharge Disposition: Discharge to home or self care 02/19/2025 Orders Only [facility] Transplant Liver [address] [facility] 34[address] Mailstop [phone] [place] [address] ProviderRobert MD 02/19/2025 Documentation [facility] Transplant Liver [address] [place] [address] [address] Mailstop [phone] [place] [address] LindaValentine frey 02/11/2025 Telephone [facility] Surgery [facility] Medical Office Building 4 [address] [place] [address] Josedanielle MaliROSI 02/11/2025 Telephone [facility] Surgery [address] [facility] Floor 8 [place] [address] Bear Davis MD 02/10/2025 Telephone [facility] Transplant Liver [address] [facility] [address] Mailstop [phone] [place] [address] Kesha Gutiérrez RN 02/10/2025 Results Follow-Up [facility] and [facility] Transplant Liver [address] Mailstop 98-00-758 [place] [address] Kesha Gutiérrez RN 02/09/2025 Telephone [facility] and [facility] Transplant Liver [address] [facility] [address] Mailstop [phone] [place] [address] Kesha Gutiérrez, JENNA 02/04/2025 12:45 PM CDT Lab [facility] [address] [place] [address] Encounter for pre-transplant evaluation for liver transplant; Alcoholic liver disease 02/04/2025 9:00 AM CDT Office Visit [facility] Gasteroenterology [address] [facility] 12th [place] [address] [place] [phone] Lesvia Gerber MD Encounter for pre-transplant evaluation for liver transplant (Primary Dx); Alcoholic liver disease 02/04/2025 Telephone [facility] and [facility] Transplant Liver [address] [facility] [address] Mailstop [phone] [place] [address] Kesha Gutiérrez RN 02/04/2025 Results Follow-Up [facility] and [facility] Transplant Liver [address] [facility] [address] Mailstop [phone] [place] [address] Kesha Gutiérrez RN 01/30/2025 Orders Only [facility] Health Information Management 1 [facility] [place] [address] Scanning, Provider 01/21/2025 9:00 AM CORPORATE INVESTIGATOR Office Visit [facility] Surgery [address] [facility] Medical Office Building [address] [place] [address] Azael Brunson MD Screening for malignant neoplasm of colon (Primary Dx); Alcoholic cirrhosis of liver with ascites (HCC) 01/21/2025 Telephone [facility] Gastroenterology [address] [facility] Medical Office Building 4, [address] [place] [address] Loida Marrero RN GI Preprocedure 01/20/2025 Telephone [facility] Transplant Liver [address] [facility] [address] Mailstop [phone] [place] [address] Kesha Gutiérrez, RN 01/14/2025 Telephone [facility] Transplant Liver [address] [facility] [address] Mailstop [phone] [place] [address] Kesha Gutiérrez, RN 01/14/2025 Telephone [facility] Transplant Liver [address] [facility] [address] Mailop 01-70-998 [place] [address] Cyndee Baez 01/02/2025 Orders Only [facility] Health Information Management 1 [place] [address] Kesha Gutiérrez, RN 01/01/2025 Telephone [facility] Transplant Liver [address] [facility] [address] Mailop [phone] [place] [address] Kesha Gutiérrez, RN 12/30/2024 1:29 PM CORPORATE INVESTIGATOR Anesthesia Event [facility] [place] [address] [address] Roque Doss MD 12/30/2024 12:30 PM CORPORATE INVESTIGATOR - 12/30/2024 1:30 PM CORPORATE INVESTIGATOR Surgery [facility] [place] [address] [address] Shruthi Baez MD SIGMOID INJECTION SUBMUCOSAL 12/30/2024 11:15 AM CORPORATE INVESTIGATOR - 12/30/2024 4:03 PM CORPORATE INVESTIGATOR Hospital Encounter [facility] [place] [address] [address] Shruthi Baez MD Colon polyp Discharge Disposition: Discharge to home or self care 12/26/2024 Telephone [facility] Transplant Liver [address] [facility] [address] Mailstop [phone] [place] [address] Kesha Gutiérrez, RN 12/26/2024 Telephone [facility] and [facility] Transplant Liver [address] [facility] [address] Mailstop [address] [place] [address] Karen Vides 12/25/2024 Telephone [facility] and [facility] Transplant Liver [address] [facility] [address] Mailstop -[address] [place] [address] Kesha Gutiérrez, RN 12/25/2024 Documentation [facility] Transplant Liver [address] [facility] [address] Mailstop -[address] [place] [address] Kesha Gutiérrez, RN 12/25/2024 Telephone [facility] and [facility] Transplant Liver [address] [facility] [address] Mailstop -[address] [place] [address] Valentine Cohen 12/25/2024 Telephone [facility] and [facility] Transplant Liver [address] [facility] [address] Mailstop -[address] [place] [address] Karen Vides 12/24/2024 Telephone [facility] and [facility] Transplant Liver [address] [facility] [address] Mailstop -[address] [place] [address] Kesha Gutiérrez, RN 12/23/2024 Telephone [facility] Transplant Liver [address] [facility] [address] Mailstop -[address] [place] [address] Kesha Gutiérrez, JENNA 12/20/2024 8:15 AM [facility] - 12/20/2024 11:59 PM [facility] Hospital [facility] [address] [place] [address] Jonathon Leonardo MD Alcoholic cirrhosis of liver with ascites (HCC) Discharge Disposition: Discharge to home or self care 11/28/2024 Orders Only [facility] Health Information Management 1 [place] [address] Kesha Gutiérrez RN from Last 3 Months Surgical History [...] 01/02/2025 N/A US GUIDED PARACENTESIS 01/30/2025 N/A POLYPECTOMY US GUIDED PARACENTESIS 02/19/2025 N/A Medical History Medical History Date Comments [...] Not Asked; Counseling Given: Not Answered [facility] Utilities Answer Date Recorded In the past 12 months has [employer], gas, oil, or water [employer] threatened to shut off services in your [...] often do you attend chur ch or mandaen services? Never 11/05/2024 Do you belong to any clubs o r organizations such as evangelical groups, unions, fraternal or athletic groups, or [...] any time in the past 12 m [facility], were you homeless or living in a jail (including now)? No 11/10/2024 Personal Safety Answer Date Recorded Have you ever been in or are you currently in a harmful physical or emotional relationship or is someone making you feel afraid or unsafe? Denies 12/30/2024 Sex and Gender Information Value Date Recorded Sex Assigned at Not on file Legal Sex Male 3:52 AM CORPORATE INVESTIGATOR Gender Identity Not on file Sexual Orientation Not on file Obstetrics History Last Filed Vital Signs Vital Sign Reading Time Taken Comments Blood Pressure 107/71 02/04/2025 8:58 AM CDT Pulse 71 02/04/2025 8:58 AM CDT Temperature 36.7 C (98 F) 02/04/2025 8:58 AM CDT Respiratory Rate 19 12/30/2024 3:12 PM CORPORATE INVESTIGATOR Oxygen Saturation 98% 01/21/2025 8:38 AM CORPORATE INVESTIGATOR Inhaled Oxygen Concentration - - Weight 68.4 kg (150 lb 12.8 oz) 02/04/2025 8:58 AM CDT Height 177.8 cm (5' 10 ) 02/04/2025 8:58 AM CDT Body Mass Index 21.64 02/04/2025 8:58 AM CDT Plan of Treatment Upcoming Encounters Date Type Department Care Team (Late st Contact Info) Description 03/02/2025 1:45 PM CDT Hospital Encounter [address] [phone] Shruthi Baez MD [address] [address] 03/02/2025 1:45 PM CDT - 03/02/2025 2:45 PM CDT Surgery [address] [phone] Shruthi Baez MD [address] [address] Flex Sig w/EMR Scheduled Procedures Name Priority [...] Vaccine (1 of 2) 2011 Influenza Vaccine (Season Ended) 2025 Prostate Cancer Screening-PSA 11/04/2026 11/04/2024 Colon Cancer Screening-Colonoscopy 02/24/20352024, 12/30/2024 Hepatitis B Screening Completed 11/04/2024 Hepatitis C [...] disease SCAN - LABS 01/30/2025 2:21 PM CORPORATE INVESTIGATOR SCAN - LABS 01/02/2025 3:16 PM CORPORATE INVESTIGATOR SURGICAL PATHOLOGY Routine 12/30/2024 2: 27 PM CORPORATE INVESTIGATOR Colon polyp ENDO ADD ON SIGMOID BIOPSY 12/30/2024 1:29 PM CORPORATE INVESTIGATOR Colon polyp SIGMOID INJECTION SUBMUCOSAL 12/30/2024 1:29 PM CORPORATE INVESTIGATOR Colon polyp COLONOSCOPY 12/30/2024 1:25 PM CORPORATE INVESTIGATOR PROTIME-INR Routine 12/25/2024 MRI PELVIS W WO CONTRAST Schedule Routine, Read Routine (OP Routine) 12/20/2024 9:41 AM CORPORATE INVESTIGATOR Alcoholic cirrhosis of liver with ascites (HCC) SCAN - RADIOLOGY/IMAGING 025 11:50 AM CORPORATE INVESTIGATOR HEPATITIS C ANTIBODY Routine 11/04/2024 11:23 AM CORPORATE INVESTIGATOR Encounter for pre-transplant evaluation for liver transplant Alcoholic liver disease PSA SCREEN Routine 11/04/2024 11:23 AM CORPORATE INVESTIGATOR Encounter for pre-transplant evaluation for liver transplant [...] by: Claudia Syed M.D. Azael Brunson MD [facility] CT PROCEDURES Final Result * US Abdomen W Doppler (02/19/2025 12:37 PM CDT) Anatomical Region Laterality Modality Abdomen N/A Ultrasound Historical Provider IMJayme US PROCEDURES Final R esult * (ABNORMAL) [...] NO LAB FOUND SCRIBED eGFR in NonAfrican Hungarian >60 >=60 TXP NO LAB FOUND Blood 02/09/2025 us Historical Provider MD LAB BLOOD ORDERABLES Edit ed Result - Final TXP NO LAB FOUND * Phosphatidylethanol (02/04/2025 10:47 AM CDT) PHOSPHATIDYLETHANOL Negative . [facility] Comment: ADDITIONAL INFORMATION This report is intended for use in clinical monitoring and management of patients. It is not intended for use in employment-related testing. This test was developed and its performance characteristics determined by [facility] in a manner consistent with CLIA requirements. This test has not been cleared or approved by the U.S. Food and Drug Administration. Test Performed by: [facility] - [address] [address] Traffic Maintenance Officer: Deven Owens Ph.D.; CLIA# [id number] PEth 16:0/18:1 (POPEth)by LC-MS/MS <10 Cutoff: 10 ng/mL [facility] Comment: Phosphatidylethanol (PEth) homologues result interpretation [...] by LC-MS/MS <10 Cutoff: 10 ng/mL [facility] Comment: PEth 16:0/18:2 (PLPEth) Reference ranges are not well established Blood 02/04/2025 10:4 7 AM CDT 02/04/2025 12:41 PM CDT us Lesvia Gerber MD LAB BLOOD ORDERABLES Final Res ult [facility] Department [place] [address] [facility] * eGFR (02/04/2025 10:47 AM [...] MD LAB BLOOD ORDERABLES Final Res ult [facility] Department [place] [address] * Differential, auto (02/04/2025 10:47 AM CDT) Neutrophil abs 4.4 1.5 - 6.5 K/cumm Imm gran abs 0.0 0.0 - 0.1 K/cumm [facility] Lymphocyte abs 1.4 0.8 - 3.3 K/cumm [facility] Monocyte abs 0.7 0.2 - 0.8 K/cumm [facility] Eosinophil abs 0.1 0.0 - 0.5 K/cumm [facility] Basophil abs 0.1 0.0 - 0.1 K/cumm [facility] Neutrophil pct 65.9 % [facility] Comment: Interpretive Data Percent cell count reference ranges are not reported, since discordance with absolute values may lead to misinterpretation of CBC data. Current Interpretive Data was last revised on 2018. Imm gran pct 0.3 % [facility] Comment: Interpretive Data Percent cell count reference ranges are not reported, since discordance with absolute values may lead to misinterpretation of CBC data. Current Interpretive Data was last revised on 2018. Lymphocyte pct 20.4 % [facility] Comment: Interpretive Data Percent cell count reference ranges are not reported, since discordance with absolute values may lead to misinterpretation of CBC data. Current Interpretive Data was last revised on 2018. Monocyte pct 9.6 % [facility] Comment: Interpretive Data Percent cell count reference ranges are not reported, since discordance with absolute values may lead to misinterpretation of CBC data. Current Interpretive Data was last revised on 2018. Eosinophil pct 1.9 % [facility] Comment: Interpretive Data Percent cell count reference ranges are not reported, since discordance with absolute values may lead to misinterpretation of CBC data. Current Interpretive Data was last revised on 2018. Basophil pct 1.9 % [facility] Comment: Interpretive Data Percent cell count reference ranges are not reported, since discordance with absolute values may lead to misinterpretation of CBC data. Current Interpretive Data was last revised on 2018. Blood 02/04/2025 10:4 7 AM CDT 02/04/2025 11:11 AM CDT us Lesvia Gerber MD LAB BLOOD ORDERABLES Final Res ult [facility] Department [place] [address] * (ABNORMAL) CBC with auto differential (02/04/2025 10:47 AM CDT) [facility] WBC 6.8 3.8 - 9.9 K/cumm Hgb 13.2 13.0 - 17.5 g/dL [facility] Hct 38.8(L) 38.9 - 50.3 % [facility] Plt 224 150 - 400 K/cumm [facility] MPV 9.2 9.1 - 12.3 fL [facility] RBC 4.41 4.30 - 5.80 M/cumm [facility] MCV 88.0 81.3 - 96.4 fL [facility] MCH 29.9 27.1 - 33.3 pg [facility] MCHC 34.0 32.3 - 35.7 g/dL [facility] RDW CV 14.6 11.1 - 14.9 % [facility] RDW SD 47.3 35.7 - 48.1 fL [facility] NRBC abs 0.00 0.00 - 0.01 K/cumm [facility] Blood 02/04/2025 10:4 7 AM CDT 02/04/2025 11:11 AM CDT Lesvia Gerber MD LAB BLOOD ORDERABLES Final Res ult Performing Organization Address [facility] Co de Phone Number [facility] [place] [address] * Vitamin D 25 hydroxy (02/04/2025 10:47 AM CDT) Vitamin D 25-OH 48 30 - 80 ng/mL Blood 02/04/2025 10:4 7 AM CDT 02/04/2025 11:10 AM CDT Lesvia Gerber MD LAB BLOOD ORDERABLES Final Res ult Performing Organization Address [facility] [place] [address] * (ABNORMAL) Protime-INR (02/04/2025 10:47 AM CDT) Pathologist [facility] PT 16.8(H) 9.7 - 13.0 sec INR 1.54(H) 0.90 - 1.20 [facility] Comment: Interpretive data Oral anticoagulant therapeutic [...] ORDERABLES Final Res ult Performing Organization Address [facility] Co de Phone Number [facility] [place] [address] * (ABNORMAL) Comprehensive metabolic panel (02/04/2025 10:47 AM CDT) Sodium 129(L) 135 - 145 mmol/L Potassium, pl 5.4(H) 3.3 - 4.9 mmol/L [facility] Chloride 99 97 - 110 mmol/L [facility] CO2 25 22 - 32 mmol/L [facility] Anion gap 5 2 - 15 mmol/L [facility] BUN 15 6 - 25 mg/dL [facility] Creatinine 1.04 0.80 - 1.30 mg/dL [facility] Glucose 132 70 - 199 mg/dL [facility] Comment: Interpretive Data Fasting glucose >/= [...] 2022. Calcium 9.2 8.5 - 10.3 mg/dL [facility] Bilirubin, total 1.1 0.1 - 1.2 mg/dL [facility] Protein, pl 8.3 6.5 - 8.5 g/dL [facility] Albumin 3.2(L) 3.5 - 5.0 g/dL [facility] Alk phos 99 40 - 130 Units/L [facility] ALT 9 7 - 55 Units/L [facility] AST 22 10 - 50 Units/L [facility] Blood 02/04/2025 10:4 7 AM CDT 02/04/2025 11:10 AM CDT us Lesvia Gerber MD LAB BLOOD ORDERABLES Final Res ult [facility] Department [place] [address] * SCAN - LABS (01/30/2025 2:21 PM CORPORATE INVESTIGATOR) us Provider Scanning Final Result * SCAN - LABS (01/02/2025 3:16 PM CORPORATE INVESTIGATOR) us Kesha Gutiérrez RN Final Re sult * Surgical pathology (12/30/2024 2:27 PM CORPORATE INVESTIGATOR) Tissue specimen (specimen) (Polyp(s), colon/colorectal, esophageal, gastric) 12/30/2024 2:27 PM CORPORATE INVESTIGATOR Narrative PATHOLOGY [facility] - 12/31/2024 10:40 AM CORPORATE INVESTIGATOR EPIC results best viewed via link to PDF [facility] Kesha Brig[facility] [place] [address] Note to Patients: This report may contain [...] REPORT FINAL Patient Name: LIVE MARES Gender: M : 1960 (Age: 64) Address: [address] [place] [address] Hospital #: [id number] Taken:12/30/2024 Received:12/30/2024 Reported: 12/31/2024 Patient Type: [facility] Service: Gastro Location: Physician(s): Vani Zhou NP [...] in aggregate). Filtered. Labeled A1. Jar 0. 12/30/2024 18:15 PA(s): Estela Louise MS, PA ([facility])CM By this signature, I attest that the above diagnosis is based upon my personal examination of the slides(and/or other material). Addenda/Procedures The performance characteristics of some immunohistochemical stains, fluorescence in-situ hybridization tests and immunophenotyping by flow cytometry cited in this report (if any) were determined by the Surgical Pathology and Flow Cytometry Departments at [facility] as part of an ongoing quality control lab technician program and in compliance with federally [...] Surgical Pathology and Flow Cytometry Departments of [facility]. It has not been cleared or approved by the U. S. Food and Drug Administration. IMAGES AND SCANNED DOCUMENTS, IF INCLUDED, ONLY VIEWABLE IN PDF VERSION OF REPORT Shruthi Baez MD LAB PATHOLOGY ORDERAB LES Final Result PATHOLOGY [facility] [address] [place] [phone] * Colonoscopy (12/30/2024 1:25 PM CORPORATE INVESTIGATOR) Anatomical Region Laterality Modality Other Narrative Procedure Note Shruthi Baez MD - 12/30/2024 1:25 PM [facility]ST [facility] END[facility] Patient Name: Live Mares Procedure Date: 12/30/2024 1:25 PM Date of : 1960 Admit Type: Outpatient Age: 64 Gender: Male Attending MD: Shruthi Baez M.D. Room: [facility] ENDOSCOPY ROOM 9 Note Status: Finalized [...] scope was passed under directvision. The CF [id number] endoscope was introduced through the anus and advanced to the sigmoid colon. The quality of the bowel preparation was evaluated using the BBPS ([place] Bowel Preparation Scale)with scores of: Right Colon [...] the days following this procedure please call [phone] After hours and evenings please call [phone] speak to the GI fellow production weigher. Please tell thefellow that Dr. Baez did your procedure and that you were instructed to have the fellow call me or the physician covering for me to discuss the managementof your condition.. If you have an urgent problem,please go to the nearest emergency room and have the ER doctor call my office during the day or [facility] ([phone] after hours and weekends to arrange [...] Pelvis W WO Contrast (12/20/2024 9:41 AM CORPORATE INVESTIGATOR) Anatomical Region Laterality Modality Pelvis N/A Magnetic Resonan ce 12/22/2024 10:5 3 AM CORPORATE INVESTIGATOR Impressions 12/22/2024 11:17 AM CORPORATE INVESTIGATOR No MR evidence of rectal mass. Dictated by: Perry Seth MD The radiology attending physician has personally reviewed this study, and had reviewed and/or edited this written report and agrees with it. Electronically signed by: Meseret Casiano M.D. Narrative 12/22/2024 11:17 AM CORPORATE INVESTIGATOR EXAMINATION: MAGNETIC RESONANCE IMAGING OF THE PELVIS [...] * SCAN - RADIOLOGY/IMAGING (11/28/2024 11:50 AM CORPORATE INVESTIGATOR) Anatomical Region Laterality Modality Other Kesha Gutiérrez RN Final Re sult * PSA screen (11/04/2024 11:23 AM CORPORATE INVESTIGATOR) PSA-Total 0.12 <=5.40 ng/mL Comment: Interpretive Data [...] revised 22. Blood 11/04/2024 11:2 3 AM CORPORATE INVESTIGATOR 11/04/2024 12:45 PM CORPORATE INVESTIGATOR Narrative [facility] - 11/04/2024 2:01 PM CORPORATE INVESTIGATOR Please add the following comment to each lab: This lab is being obtained as part of a liver transplant evaluation, is time sensitive, and should only be drawn during the evaluation visit at [facility] 3C Lab. Ayden Nicholson MD LAB BLOOD ORDERABLES Final Res ult [facility] Department [place] [address] * Hepatitis C antibody Blood (11/04/2024 11:23 AM CORPORATE INVESTIGATOR) Hep C Ab Nonreactive Nonreactive Comment:Antibodies to HCV no t detected. Does NOT exclude the possibility of recent exposure to HCV. Current interpretive data was last revised on 22 Blood 11/04/2024 11:2 3 AM CORPORATE INVESTIGATOR 11/04/2024 12:42 PM CORPORATE INVESTIGATOR Narrative [facility] - 11/04/2024 1:37 PM CORPORATE INVESTIGATOR Please add the following comment to each lab: This lab is being obtained as part of a liver transplant evaluation, is time sensitive, and should only be drawn during the evaluation visit at [facility] 3C Lab. Ayden Nicholson MD LAB MICROBIOLOGY - GENERAL ORD ERABLES Final Result [facility] Department [place] [address] from Last 3 Months or Most Recently Relevant to Health Maintenance [facility]ANS[facility] Advance Directives For more information, please contact: [phone] Documents on File Type Date Recorded Patient Data Capture Specialist Expl anation ADVANCE DIRECTIVE 11/11/2024 10:19 PM [facility] [employer] * Full Code (Latest Code Status on File) Date Activated Date Inactivated Comments 12/30/2024 11:45 AM 12/30/2024 8:08 PM * Full Code Date Activated Date Inactivated Comments 04/23/2024 2:01 AM 05/12/2024 7:22 PM * Full Code Date Activated Date Inactivated Comments 04/10/2024 9:06 AM 04/18/2024 5:41 PM Care Teams Game Designer Relationship Specialty Start Date End Date Young Call NP [address] [place] [address] PCP - General Family Medicine 10/28/24 Robert Brooks MD [address] [address] Referring Physician Gastroenterology 04/03/24 Ayden Nicholson MD 1 [facility] [place] [address] Consulting Physician Gastroenterology 09/15/24 Kesha Gutiérrez, cutter grind tool technicianDigital Traffic Coordinator 09/15/24 Azael Brunson MD [phone] [place] [address] Surgeon Colon and Rectal Surgery 01/21/25
--- OUTSIDE RECORDS SUMMARY | 2025-02-26 16:33 | XMS_ITS | Clinical Summary ---
Author Organization [facility] Address [address] [place] [address] Care Team Providers Care Cinder Worker Name Role Phone Young Call Primary Care Provider [phone] Suzy Graf MD Unavailable Allergies Active Allergy [...] Vaccine ( - 2023-2 5 season) 2024 Meningococcal B Vaccine Aged Out No l onger eligible based on patient's age to complete this topic Meningococcal Vaccine Aged Out No adina judy eligible based on patient's age to complete this topic RSV Immunizations Under 20 Months Aged Out No longer eligible based on patient's age to complete this topic Insurance [employer] Care Teams Cinder Worker Relationship Specialty Start Date End Date Young Call FNP [address] [place] [phone] PCP - General Nurse Practitioner Family 02/08/24 Suzy Graf MD [address] [place] [address] Consulting Physician CARDIOVASCULAR DISEASE 02/08/24
--- OUTSIDE RECORDS SUMMARY | 2025-02-26 16:33 | XMS_ITS | Encounter Summary ---
Author Organization [facility] Address [address] [place] [address] Care Team Providers Care Informatics Manager Name Role Phone Robert Brooks MD Unavailable [phone] Ayden Nicholson MD Unavailable [phone] Kesha Gutiérrez RN Unavailable Unavail able Young Call NP Primary Care Provider [phone] Azael Brunson MD Unavailable [phone] Encounter Details Date Type Department Care Team (Late st Contact Info) Description 02/04/2025 Results Follow-Up [facility] Transplant Liver [address] [facility] [phone] [place] [address] Kesha Gutiérrez, RN Social History Tobacco Use Types Packs/Day Years Used Date Smoking Tobacco: Every Day Cigarettes 2 49.3 Started: 1975 Passive Smoke Exposure: Current [facility] Utilities Answer Date Recorded In the past 12 months has th [employer] electric, gas, oil, or water company threatened [...] week 11/05/2024 How often do you attend [facility] or druze services? Never 11/05/2024 Do you belong to any clubs o r organizations such as mormon groups, unions, fraternal or athletic groups, or [...] time in the past 12 m [facility], were you homeless or living in a longterm (including now)? No 11/10/2024 Personal Safety Answer Date Recorded Have you ever been in or are you currently in a harmful physical or emotional relationship or is someone making you feel afraid or unsafe? 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 Gender Identity Not on file Sexual Orientation Not on file documented as of this encounter Plan of Treatment Upcoming Encounters Date Type Department Care Team (Late st Contact Info) Description 03/02/2025 1:45 PM CDT Hospital Encounter [facility] [address] [place] [phone] Shruthi Baez MD [address] [address] 03/02/2025 1:45 PM CDT - 03/02/2025 2:45 PM CDT Surgery [facility] [address] [place] [phone] Shruthi Baez MD [address] [address] Flex Sig w/EMR Scheduled Procedures Name Priority Associated Diagnoses Date/Ti me SIGMOIDOSCOPY Anal polyp 03/02/2025 1:45 PM CDT TRANSPLANT LIVER Encounter for pre-transplant evaluation for liver transplant Alcoholic liver disease documented as of this encounter Visit Diagnoses Not on filedocumented in this encounter Care Teams Informatics Manager Relationship Specialty Start Date End Date Young Call NP [address] [place] [address] PCP - General Family Medicine 10/28/24 Robert Brooks MD [address] [address] Referring Physician Gastroenterology 04/03/24 Ayden Nicholson MD 1 [facility] [address] [place] [address] Consulting Physician Gastroenterology 09/15/24 Kesha Gutiérrez, product support repLock Installer 09/15/24 Azael Brunson MD [phone] [place] [address] Surgeon Colon and Rectal Surgery 01/21/25 documented as of this encounter
[2025-02-26 16:56] LABS: INR 1.3; Prothrombin Time 14.2 Seconds (9.50-12.1)
== END 2025-02-26 16:28 | disposition home or self-care (01) ==
LOC: CHSLAB 16:31
PROVIDERS: PCP Nurse Practitioner Family
DX: K70.31 Alcoholic cirrhosis of liver with ascites (principal); K62.0 Anal polyp
CPT/HCPCS: 36415; 85610

== ENCOUNTER 2025-03-23 16:30 | Outpatient (CLI) | payer OTHER, SELFPAY ==
[2025-03-23 17:15] LABS: INR 1.3
[2025-03-23 17:38] LABS: Alanine Aminotransferase 17 U/L (16-63); Albumin Level 2.7 g/dL (3.4-5.0); Alkaline Phosphatase 89 U/L (46-116); Anion Gap 10 mmol/L (4-12); Aspartate Amino Transferase 25 U/L (15-37); Bilirubin,Total 1.3 mg/dL (0.00-1.00); Blood Urea Nitrogen 11 mg/dL (7-18); Calcium 8.7 mg/dL (8.5-10.1); Carbon Dioxide 24 mmol/L (21-32); Chloride 101 mmol/L (98-108); Estimated Glomerular Filt Rate 60; Glucose 101 mg/dL (70-99); Osmolality Calculated 279 mOsm/kg (285-295); Potassium 3.5 mmol/L (3.5-5.1); Sodium 135 mmol/L (136-145); Total Protein 7.5 g/dL (6.4-8.2)
--- OUTSIDE RECORDS SUMMARY | 2025-03-23 18:22 | XMS_ITS | Encounter Summary ---
Author Organization [facility] Address [address] [facility] [place] [place] [address] Phone Care Team Providers Care Health Unit Coordinator Name Role Phone CallYoung APRN, CNP Primary Care Provider + Reason for Visit * Auth/Cert (Routine) Specialty Diagnoses / Procedures Referred By Dhaval chandra Referred To Contact Diagnoses ALCOHOLIC CIRRHOSIS OF LIVER WITH ASCITES Procedures PRE / POST CARE FOR PROCEDURAL AREA Referral ID Status Reason Start Date Expiration Date Visits Re quested Visits Authorized [id number] 1 1 Encounter Details Date Type Department Care Team (Late st Contact Info) Description 03/20/2025 Hospital Encounter [facility] Periop [address] [place] [phone] Provider, Not On File [place] Social History Tobacco Use Types Packs/Day Years Used Date Smoking Tobacco: Every Day Cigarettes 1.5 50 Smokeless Tobacco: Never Alcohol Use Standard Drinks/Week Comments Not Currently 0 (1 standard drink = 0.6 oz pure alcohol) 7-15 beers a day previously; none currently [facility] Utilities Answer Date Recorded In the past 12 months has [employer] electric, gas, oil, or water company threatened [...] How often do you attend adventist or jew serv ices? Never 05/26/2024 Do you belong [...] any time in the past 12 m [facility], were you homeless or living in a correction (including now)? No 05/26/2024 Sexually Active Control Partners Comments Not Currently Sex and Gender Information Value Date Recorded Sex Assigned at Male 02/25/2024 11:30 AM CDT Legal Sex Male 2:53 PM CDT Gender Identity Not on file Sexual Orientation Not on file documented as of this encounter Plan of Treatment Upcoming Encounters Date Type Department Care Team (Latest Contact Info) Description 03/30/2025 11:00 AM CDT Hospital Encounter [facility] Periop [address] [place] [phone] Provider, Not On File [place] 03/30/2025 11:00 AM CDT Hospital Encounter [facility] Ultrasound [address] [place] [phone] Ayden Nicholson MD [address] [facility] [id number] [place] [address] 03/30/2025 11:00 AM CDT - 03/30/2025 11:30 AM CDT Surgery [facility] Periop [address] [place] [phone] Provider, Not On File [place] PRE / POST CARE FOR PROCEDURAL AREA-PARACENTESIS Scheduled Procedures Name Priority Associated Diagnoses Date/Ti me PRE / POST CARE FOR PROCEDUR AL AREA ASCITES 03/30/2025 11:00 AM CDT documented as of this encounter Visit Diagnoses Not on filedocumented in this encounter Care Teams Health Unit Coordinator Relationship Specialty Start Date End Date Young Call, BARREL BUNG REMOVER AND DUMPER, TRAFFIC OR SYSTEM DISPATCHER [address] [place] [address] PCP - General Advanced Practice Nurse 02/13/24 documented as of this encounter
--- OUTSIDE RECORDS SUMMARY | 2025-03-23 18:22 | XMS_ITS | Referral Summary ---
Author Organization [facility] Address [address] [place] [address] Care Team Providers Care Pre Sales Architect Name Role Phone Robert Brooks MD Unavailable [phone] Ayden Nicholson MD Unavailable [phone] Kesha Gutiérrez RN Unavailable Unavail able Young Call NP Primary Care Provider [phone] Azael Brunson MD Unavailable Encounters Date Type Department Care Team Description 03/23/2025 Orders Only [facility] Transplant Liver [address] [facility] [address] Mailstop [id number] [place], [place] [id number] Vicki Valentine Alcoholic cirrhosis, unspecified whether ascites present (HCC) (Primary Dx) 03/23/2025 Telephone [facility] Transplant Liver [address] [facility] [address] Mailstop [id number] [place], [place] [id number] Kesha Gutiérrez, RN 03/17/2025 Orders Only [facility] Health Information Management 1 [place], [place] [id number] Scanning, Provider 03/16/2025 Orders Only [facility] Transplant Liver [address] [facility] [address] Mailstop 65-57-765 [place] [address] Kesha Gutiérrez, RN 03/16/2025 Telephone [facility] Transplant Liver [address] [facility] [address] Mailstop 80-36-912 [place] [address] Kesha Gutiérrez, RN 03/16/2025 Telephone [facility] Transplant Liver [address] [facility] [address] Mailstop 90-17-908 [place] [address] Kesha Gutiérrez, RN 03/16/2025 Telephone [facility] Transplant Liver [address] [address] Mailstop 90-64-578 [place] [address] Lindatk Valentine 03/04/2025 Telephone [facility] Transplant Liver [address] [facility] [address] Mailstop 23-76-546 [place] [address] Kesha Gutiérrez, RN 03/03/2025 Telephone [facility] Transplant Liver [address] [address] Mailstop 04-18-605 [place] [address] Kesha Gutiérrez, RN 03/03/2025 Telephone [facility] Transplant Liver [address] [facility] [address] Mailstop 12-83-439 [place] [address] MariocharleyKaren 03/02/2025 2:18 PM CDT Anesthesia Event [facility] [address] [place] [id number] Susie Logan MD Winfrey, Tonya M., MARQUITA 03/02/2025 1:45 PM CDT - 03/02/2025 2:45 PM CDT Surgery [address] [address] Shruthi Baez MD SIGMOID BAND LIGATION 03/02/2025 12:43 PM CDT - 03/02/2025 3:53 PM CDT Hospital Encounter [facility] [address] [place] [phone] Shruthi Baez MD Discharge Disposition: Discharge to home or self care 02/24/2025 12:47 PM CDT - 02/24/2025 11:59 PM CDT Hospital Encounter [facility] [address] [place] [address] Alcoholic cirrhosis of liver with ascites (HCC); Screening for malignant neoplasm of colon Discharge Disposition: Discharge to home or self care 02/19/2025 Orders Only [facility] Transplant Liver [address] [address] Mailstop 62-69-537 [place] [address] Robert Reyes MD 02/19/2025 Documentation [facility] Transplant Liver [address] [facility] [address] Mailstop -53-427 [place] [address] Valentine Cohen 02/11/2025 Telephone [facility] Surgery [address] [place] [address] Medical Office Building [address] [place] [address] Mali Griffith RMA 02/11/2025 Telephone [facility] Surgery [address] [facility] Floor 8 [place] [address] Bear Davis MD 02/10/2025 Telephone [facility] Transplant Liver [address] [facility] [address] Mailstop 95-23-547 [place] [address] Kesha Gutiérrez RN 02/10/2025 Results Follow-Up [facility] Transplant Liver [address] [address] Mailstop 85-17-887 [place] [address] Kesha Gutiérrez RN 02/09/2025 Telephone [facility] Transplant Liver [address] [address] Mailstop 38-79-195 [place] [address] Kesha Gutiérrez RN 02/04/2025 Telephone [facility] Transplant Liver [address] [facility] [address] Mailstop 20-02-489 [place] [address] Kesha Gutiérrez RN 02/04/2025 Results Follow-Up [facility] Transplant Liver [address] [facility] [address] Mailstop 36-88-468 [place] [address] Kesha Gutiérrez RN 02/04/2025 12:45 PM CDT Lab [facility] ([facility]) [address] [place] [address] Encounter for pre-transplant evaluation for liver transplant; Alcoholic liver disease 02/04/2025 9:00 AM CDT Office Visit [facility] Gasteroenterology [facility] 12th [place] [address] [place] [address] Lesvia Gerber MD Encounter for pre-transplant evaluation for liver transplant (Primary Dx); Alcoholic liver disease 01/30/2025 Orders Only [facility] Health Information Management 1 [place] [address] Scanning, Provider 01/21/2025 Telephone [facility] Gastroenterology [address] [place] [address] Medical Office Building 4, [address] [place] [address] Loida Marrero RN GI Preprocedure 01/21/2025 9:00 AM AUTOMOBILE LOCATOR Office Visit [facility] Surgery [address] [place] [address] Medical Office Building [address] [place] [phone] Azael Brunson MD Screening for malignant neoplasm of colon (Primary Dx); Alcoholic cirrhosis of liver with ascites (HCC) 01/20/2025 Telephone [facility] Transplant Liver [address] [address] Mailop 93-86-194 [place] [address] Kesha Gutiérrez, JENNA 01/14/2025 Telephone [facility] Transplant Liver [address] [address] Mailop 35-45-659 [place] [address] Kesha Gutiérrez, RN 01/14/2025 Telephone [facility] Transplant Liver [address] [address] Mailstop 54-01-420 [place] [address] Nestor Cyndee 01/02/2025 Orders Only [facility] Health Information Management 1 [place] [address] Kesha Gutiérrez, RN 01/01/2025 Telephone [facility] Transplant Liver [address] [facility] [address] Mailstop 22-61-270 [place] [address] Kesha Gutiérrez, JENNA 12/30/2024 12:30 PM AUTOMOBILE LOCATOR - 12/30/2024 1:30 PM AUTOMOBILE LOCATOR Surgery [facility] Digestive [facility] [address] [facility] [address] [place] [address] Shruthi Baez MD SIGMOID INJECTION SUBMUCOSAL 12/30/2024 1:29 PM AUTOMOBILE LOCATOR Anesthesia Event [facility] Digestive Disease [place] [address] [facility] [address] [place] [address] Roque Doss MD 12/30/2024 11:15 AM AUTOMOBILE LOCATOR - 12/30/2024 4:03 PM AUTOMOBILE LOCATOR Hospital Encounter [facility] Digestive Disease [place] [address] [facility] [address] [place] [address] Shruthi Baez MD Colon polyp Discharge Disposition: Discharge to home or self care 12/26/2024 Telephone [facility] Transplant Liver [address] [facility] [address] Mailstop 32-19-757 [place] [address] Kesha Gutiérrez, JENNA 12/26/2024 Telephone [facility] Transplant Liver [address] Mailstop 60-39-686 [place] [address] Karen Vides 12/25/2024 Telephone [facility] Transplant Liver [address] Mailstop 05-72-200 [place] [address] Kesha Gutiérrez, RN 12/25/2024 Documentation [facility] Transplant Liver [address] Mailstop 99-27-057 [place] [address] Kesha Gutiérrez, RN 12/25/2024 Telephone [facility] Transplant Liver [address] [address] Mailstop -73-390 [place] [address] Valentine Cohen 12/25/2024 Telephone [facility] Transplant Liver [address] Mailstop -[address] [place] [address] Karen Vides 12/24/2024 Telephone [facility] Transplant Liver [address] Mailstop -47-819 [place] [address] Kesha Gutiérrez, JENNA 12/23/2024 Telephone [facility] Transplant Liver [address] Mailstop 13-87-893 [place] [address] Kesha Gutiérrez, RN from Last 3 Months Allergies Active Allergy Reactions Criticality Noted Date Comments Aspirin Swelling,Unknown Medium 02/08/2024 Medications docusate sodium (COLACE) 100 mg capsuleIndicat ions:constipat ion Take 1 capsule (100 mg total) by mouth as needed Active carvediloL (Coreg) 6.25 mg tabletIndicati ons:Alcoholic cirrhosis of liver with ascites (HCC) Take 1 tablet (6.25 mg total) by mouth nightly 90 tablet 2 4 Active polyethylene glycol (GoLYTELY) 236-22.74-6.74 -5.86 gram solutionIndica tions:Bowel Evacuation Drink 2L at 6:00 pm night before procedure and 2L at 6:30 am morning of procedure per mailed prep instructions. 4000 mL 4 Active cholecalcifero l 400 unit capsule Take 5,000 Units by mouth once a week Active furosemide (Lasix) 20 mg tablet Take 1 tablet (20 mg total) by mouth daily 30 tablet 11 5 03/16/20 26 Active spironolactone (Aldactone) 50 mg tablet Take 1 tablet (50 mg total) by mouth daily 30 tablet 11 5 03/16/20 26 Active blood pressure monitor kit Take blood pressure daily. If top number is greater than 140, please notify transplant office. 1 kit 5 Active spironolactone (ALDACTONE) 100 mg tabletIndicati ons:Ascites Take 1 tablet (100 mg total) by mouth every morning 4 03/16/20 25 Discontinu ed(Alterna te therapy) Active Problems Problem Noted Date Diagnosed Date [...] signs of bleeding. Follows with an OSH center medical specialist -Check HIV and hepatitis panel -Hold diuretics [...] Not Answered [facility] 39 Health Answer Date Recorded In the past 12 months has [employer], [employer], oil, or water [employer] threatened to shut off services in your [...] often do you attend chur ch or nondenominational services? Never 11/05/2024 Do you belong to any clubs o r organizations such as alevism groups, unions, fraternal or athletic groups, or school groups? No 11/05/2024 How often do you attend meet ings of the clubs or organizations you belong to? Never 11/05/2024 Are you , , di vorced, , never , or living with a partner? 11/05/2024 AUDIT-C Answer Date Recorded Q1: How often do you have a drink containing alcohol? Never 03/02/2025 Q2: How many drinks containi ng alcohol do you have on a typical day when you are drinking? Patient does not drink Q3: How often do you have si x or more drinks on one occasion? Never 03/02/2025 Overall Financial Resource Strain (CARDIA) Answe r [...] any time in the past 12 m [facility], were you homeless or living in a retirement (including now)? No 11/10/2024 Personal Safety Answer Date Recorded Have you ever been in or are you currently in a harmful physical or emotional relationship or is someone making you feel afraid or unsafe? Denies 03/02/2025 Sex and Gender Information Value Date Recorded Sex Assigned at Not on file Legal Sex Male 3:52 AM AUTOMOBILE LOCATOR Gender Identity Not on file Sexual Orientation Not on file Last Filed Vital Signs Vital Sign Reading Time Taken Comments Blood Pressure 134/71 03/02/2025 3:32 PM CDT Pulse 68 03/02/2025 3:42 PM CDT Temperature 36.8 C (98.3 F) 03/02/2025 1:09 PM CDT Respiratory Rate 20 03/02/2025 3:42 PM CDT Oxygen Saturation 97% 03/02/2025 3:42 PM CDT Inhaled Oxygen Concentration - - Weight 68 kg (150 lb) 03/02/2025 1:09 PM CDT Height 177.8 cm (5' 10 ) 03/02/2025 1:09 PM CDT Body Mass Index 21.52 03/02/2025 1:09 PM CDT Plan of Treatment Scheduled Procedures Name Priority Associated Diagnoses Date/Ti me TRANSPLANT LIVER Encounter for pre-transplant evaluation for liver transplant Alcoholic liver disease Procedures Procedure Name Priority Date/Time Associated Diagnosis Comments SCAN - LABS 03/17/2025 3:31 PM CDT ENDO ADD ON SIGMOID INJECTION SUBMUCOSAL 03/02/2025 2:18 PM CDT Anal polyp SIGMOID BAND LIGATION 03/02/2025 2:18 PM CDT Anal polyp FLEXIBLE SIGMOIDOSCOPY 2:14 PM CDT PROTIME-INR Routine 02/26/2025 CT VIRTUAL COLONOSCOPY DIAGNOSTIC WO CONTRAST Schedule [...] disease SCAN - LABS 01/30/2025 2:21 PM AUTOMOBILE LOCATOR SCAN - LABS 01/02/2025 3:16 PM AUTOMOBILE LOCATOR SURGICAL PATHOLOGY Routine 12/30/2024 2: 27 PM AUTOMOBILE LOCATOR Colon polyp ENDO ADD ON SIGMOID BIOPSY 12/30/2024 1:29 PM AUTOMOBILE LOCATOR Colon polyp SIGMOID INJECTION SUBMUCOSAL 12/30/2024 1:29 PM AUTOMOBILE LOCATOR Colon polyp COLONOSCOPY 12/30/2024 1:25 PM AUTOMOBILE LOCATOR PROTIME-INR Routine 12/25/2024 HEPATITIS C ANTIBODY Routine 11/04/2024 11:23 AM AUTOMOBILE LOCATOR Encounter for pre-transplant evaluation for liver transplant Alcoholic liver disease PSA SCREEN Routine 11/04/2024 11:23 AM AUTOMOBILE LOCATOR Encounter for pre-transplant evaluation for liver transplant Alcoholic liver disease from Last 3 Months or Most Recently Relevant to Health Maintenance Results * SCAN - LABS (03/17/2025 3:31 PM CDT) us Provider Scanning Edited Result - Final * Flexible Sigmoidoscopy (03/02/2025 2:14 PM CDT) Anatomical Region Laterality Modality Other Narrative Procedure Note Shruthi Baez MD - 03/02/2025 2:14 PM CDT ENDOSCOPY LAB Patient Name: Live Mares Procedure Date: 03/02/2025 2:14 PM Admit Type: Outpatient Room: Endo 8 Date of : 1960 Instrument Name: [id number] Gender: Male Note Status: Finalized Procedure: Flexible Sigmoidoscopy Indications: Resection of large sigmoid polyp, history ofcirhosis, high risk for surgicla resection, plan for EMR vs Endo-loop and let go Providers: Shruthi Baez M.D. Referring MD: Jonathon Lenoardo M.D., Azael Brunson M.D.,Lesvia Gerber M.D. Medicines: Monitored Anesthesia Care Complications: No immediate complications. Estimated Blood Loss: Estimated blood loss: none. Procedure: Pre-Anesthesia Assessment: - Prior to the procedure, a History and Physicalwas performed, and patient medications, allergies and sensitivities were reviewed. The patient'stolerance of previous anesthesia was reviewed. - The risks and benefits of the procedure and the sedation options and risks were discussed with the patient. All questions were answered and informed consent was obtained. - Patient identification and proposed procedurewere verified prior to the procedure by the physician,the nurse and the anesthesiologist. The procedure was verified in the procedure room. - ASA Grade Assessment: II - A patient with mild systemic disease. - Monitored anesthesia care under the supervisionof a JUKEBOX ROUTE DRIVER was determined to be medically necessary forthis procedure based on review of the patient's medical history, medications, and prior anesthesiahistory. The benefits, risks, and alternatives to theprocedure and sedation were discussed and informed consentwas obtained. The Endoscope was introduced through the anus and advanced to the the sigmoid colon. The flexible sigmoidoscopy was accomplished without difficulty. The patient tolerated the procedurewell. Findings: The perianal and digital rectal examinations were normal. A few small and large-mouthed diverticula were found in the sigmoid colon. A 40 mm polyp was found in the sigmoid colon. The polyp waspedunculated on a very broad 40mm base. Manuevering around this polyp wasdifficult. This was previously biopsied during last endoscopy. Given cirrhosisand ascites, risk of EMR or ESD was quite high so I elected to proceedwith [id number] go with polyloop. The base was injected with 5cc of1:1000 epineprhine. One ligature was successfully placed at the base of the lesion/stalk ensure negative margin and allow for auto-amputation.This deployed successfully. Impression: - Diverticulosis in the sigmoid colon. - One 40 mm polyp in the sigmoid colon on a verybroad and large stalk. Highb risk for bleeding with EMR. Based ijected with epinephrine. Successful akrn-mmr-tfa go using polyloop for auto-amputation.No specimens obtained. - No specimens collected. Recommendation: - The patient will be observed post-procedure,until all discharge criteria are met. - Advance diet as tolerated today. - Repeat flexible sigmoidoscopy in 3 months with me (May or June) to ensure passage/automaputationof large sigmoid polyp. - Monitor for passage of polyp or blood in stool. - In the unusual situation that you developabdominal, bleeding or other significant problems in the days following this procedure please call [phone] After hours and evenings please call [phone] speak to the GI fellow train station server. Please tell thefellow that Dr. Baez did your procedure and that you were instructed to have the fellow call me or the physician covering for me to discuss the managementof your condition.. If you have an urgent problem,please go to the nearest emergency room and have the ER doctor call my office during the day or [facility] ([phone] after hours and weekends to arrange admission or transfer to our facility. Electronically signed by Shruthi Baez MD Shruthi Baez M.D. 03/02/2025 2:59:33 PM This document was signed electronically. Number of Addenda: 0 Note Initiated On: 03/02/2025 2:14 PM Scope In: 2:27:33 PM Scope Out: 2:45:03 PM Shruthi Baez MD ENDOSCOPY PROCEDURES Final Result * (ABNORMAL) Protime-INR (02/26/2025) SCRIBED PT 14.2(A) 9.50 - 12.1 sec TXP NO LAB FOUND SCRIBED INR 1.3(A) 0.9 - 1.1 sec TXP NO LAB FOUND Blood 02/26/2025 Historical Provider LAB BLOOD ORDERABLES Edit ed Result - Final TXP NO LAB FOUND * CT Colonoscopy Diagnostic WO Contrast (02/24/2025 [...] by: Claudia Syed M.D. Azael Brunson MD [facility] CT PROCEDURES Final Result * US Abdomen W Doppler (02/19/2025 12:37 PM CDT) Anatomical Region Laterality Modality Abdomen N/A Ultrasound Historical Provider Jayme US PROCEDURES Final R esult * (ABNORMAL) [...] NO LAB FOUND SCRIBED eGFR in NonAfrican Egyptian >60 >=60 TXP NO LAB FOUND Blood 02/09/2025 us Historical Provider MD LAB BLOOD ORDERABLES Edit ed Result - Final TXP NO LAB FOUND * Phosphatidylethanol (02/04/2025 10:47 AM CDT) PHOSPHATIDYLETHANOL Negative . [facility] ref Lab Comment: ADDITIONAL INFORMATION This report is intended for use in clinical monitoring and management of patients. It is not intended for use in employment-related testing. This test was developed and its performance characteristics determined by [facility] in a manner consistent with CLIA requirements. This test has not been cleared or approved by the U.S. Food and Drug Administration. Test Performed by: [facility] - [address] [address] Vp Hr Diversity: Deven Owens Ph.D.; CLIA# [id number] PEth 16:0/18:1 (POPEth)by LC-MS/MS <10 Cutoff: 10 [...] by LC-MS/MS <10 Cutoff: 10 ng/mL [facility] Comment: PEth 16:0/18:2 (PLPEth) Reference ranges are not well established Blood 02/04/2025 10:4 7 AM CDT 02/04/2025 12:41 PM CDT us Lesvia Gerber MD LAB BLOOD ORDERABLES Final Res ult [facility] Department [place] [address] Gleason ref Lab * eGFR (02/04/2025 10:47 AM [...] MD LAB BLOOD ORDERABLES Final Res ult [facility] Department [place] [address] * Differential, auto (02/04/2025 10:47 AM CDT) Neutrophil abs 4.4 1.5 - 6.5 K/cumm Imm gran abs 0.0 0.0 - 0.1 K/cumm [facility] Lymphocyte abs 1.4 0.8 - 3.3 K/cumm [facility] Monocyte abs 0.7 0.2 - 0.8 K/cumm [facility] Eosinophil abs 0.1 0.0 - 0.5 K/cumm [facility] Basophil abs 0.1 0.0 - 0.1 K/cumm [facility] Neutrophil pct 65.9 % [facility] Comment: Interpretive Data Percent cell count reference ranges are not reported, since discordance with absolute values may lead to misinterpretation of CBC data. Current Interpretive Data was last revised on 2018. Imm gran pct 0.3 % [facility] Comment: Interpretive Data Percent cell count reference ranges are not reported, since discordance with absolute values may lead to misinterpretation of CBC data. Current Interpretive Data was last revised on 2018. Lymphocyte pct 20.4 % [facility] Comment: Interpretive Data Percent cell count reference ranges are not reported, since discordance with absolute values may lead to misinterpretation of CBC data. Current Interpretive Data was last revised on 2018. Monocyte pct 9.6 % [facility] Comment: Interpretive Data Percent cell count reference ranges are not reported, since discordance with absolute values may lead to misinterpretation of CBC data. Current Interpretive Data was last revised on 2018. Eosinophil pct 1.9 % [facility] Comment: Interpretive Data Percent cell count reference ranges are not reported, since discordance with absolute values may lead to misinterpretation of CBC data. Current Interpretive Data was last revised on 2018. Basophil pct 1.9 % [facility] Comment: Interpretive Data Percent cell count reference ranges are not reported, since discordance with absolute values may lead to misinterpretation of CBC data. Current Interpretive Data was last revised on 2018. Blood 02/04/2025 10:4 7 AM CDT 02/04/2025 11:11 AM CDT us Lesvia Gerber MD LAB BLOOD ORDERABLES Final Res ult [facility] Department [place] [address] * (ABNORMAL) CBC with auto differential (02/04/2025 10:47 AM CDT) WBC 6.8 3.8 - 9.9 K/cumm Hgb 13.2 13.0 - 17.5 g/dL [facility] Hct 38.8(L) 38.9 - 50.3 % [facility] Plt 224 150 - 400 K/cumm [facility] MPV 9.2 9.1 - 12.3 fL [facility] RBC 4.41 4.30 - 5.80 M/cumm [facility] MCV 88.0 81.3 - 96.4 fL [facility] MCH 29.9 27.1 - 33.3 pg [facility] MCHC 34.0 32.3 - 35.7 g/dL [facility] RDW CV 14.6 11.1 - 14.9 % [facility] RDW SD 47.3 35.7 - 48.1 fL [facility] NRBC abs 0.00 0.00 - 0.01 K/cumm [facility] Blood 02/04/2025 10:4 7 AM CDT 02/04/2025 11:11 AM CDT us Lesvia Gerber MD LAB BLOOD ORDERABLES Final Res ult Performing Organization Address City[facility] Co de Phone Number [facility] [place] [address] * Vitamin D 25 hydroxy (02/04/2025 10:47 AM CDT) Vitamin D 25-OH 48 30 - 80 ng/mL Blood 02/04/2025 10:4 7 AM CDT 02/04/2025 11:10 AM CDT Lesvia Gerber MD LAB BLOOD ORDERABLES Final Res ult Performing Organization Address [facility] de Phone Number [facility] [place] [address] * (ABNORMAL) Protime-INR (02/04/2025 10:47 AM CDT) Pathologist [facility] PT 16.8(H) 9.7 - 13.0 sec INR 1.54(H) 0.90 - 1.20 [facility] Comment: Interpretive data Oral anticoagulant therapeutic ranges: Venous thromboembolism prophylaxis or treatment: 2.0-3.0 CARDIOLOGY Standard range: 2.0-3.0 High-intensity range: 2.5-3.5 Refer to indication-specific guidelines for appropriate target ranges for prosthetic heart valve replacement. Current interpretive data was last revised on 2019. Blood 02/04/2025 10:4 7 AM CDT 02/04/2025 11:06 AM CDT Lesvia Gerber MD LAB BLOOD ORDERABLES Final Res ult Performing Organization Address [facility] Co de Phone Number [facility] [place] [address] * (ABNORMAL) Comprehensive metabolic panel (02/04/2025 10:47 AM CDT) Pathologist [facility] Sodium 129(L) 135 - 145 mmol/L Potassium, pl 5.4(H) 3.3 - 4.9 mmol/L [facility] Chloride 99 97 - 110 mmol/L [facility] CO2 25 22 - 32 mmol/L [facility] Anion gap 5 2 - 15 mmol/L [facility] BUN 15 6 - 25 mg/dL [facility] Creatinine 1.04 0.80 - 1.30 mg/dL [facility] Glucose 132 70 - 199 mg/dL [facility] Comment: Interpretive Data Fasting glucose >/= 126 [...] 2022. Calcium 9.2 8.5 - 10.3 mg/dL [facility] Bilirubin, total 1.1 0.1 - 1.2 mg/dL [facility] Protein, pl 8.3 6.5 - 8.5 g/dL [facility] Albumin 3.2(L) 3.5 - 5.0 g/dL [facility] Alk phos 99 40 - 130 Units/L [facility] ALT 9 7 - 55 Units/L [facility] AST 22 10 - 50 Units/L [facility] Blood 02/04/2025 10:4 7 AM CDT 02/04/2025 11:10 AM CDT us Lesvia Gerber MD LAB BLOOD ORDERABLES Final Res ult [facility] Department [place] [address] * SCAN - LABS (01/30/2025 2:21 PM AUTOMOBILE LOCATOR) us Provider Scanning Final Result * SCAN - LABS (01/02/2025 3:16 PM AUTOMOBILE LOCATOR) us Kesha Gutiérrez RN Final Re sult * Surgical pathology (12/30/2024 2:27 PM AUTOMOBILE LOCATOR) Tissue specimen (specimen) (Polyp(s), colon/colorectal, esophageal, gastric) 12/30/2024 2:27 PM AUTOMOBILE LOCATOR Narrative PATHOLOGY [facility] - 12/31/2024 10:40 AM AUTOMOBILE LOCATOR EPIC results best viewed via link to PDF [facility] [place] [address] Note to Patients: This report may contain [...] Gender: M : 1960 (Age: 64) Address: [address] [place] [address] Hospital #: [id number] Taken:12/30/2024 Received:12/30/2024 Reported: 12/31/2024 Patient Type: [facility] Service: Gastro Location: Physician(s): Vani Zhou NP [...] A1. Jar 0. 12/30/2024 18:15 PA(s): Estela Louise, MS, PA (ASCP)CM By this signature, I attest that the above diagnosis is based upon my personal examination of the slides(and/or other material). Addenda/Procedures The performance characteristics of some immunohistochemical stains, fluorescence in-situ hybridization tests and immunophenotyping by flow cytometry cited in this report (if any) were determined by the Surgical Pathology and Flow Cytometry Departments at [facility] as part of an ongoing quality assurance supervisor program and in compliance with federally mandated [...] Surgical Pathology and Flow Cytometry Departments of [facility]. It has not been cleared or approved by the U. S. Food and Drug Administration. IMAGES AND SCANNED DOCUMENTS, IF INCLUDED, ONLY VIEWABLE IN PDF VERSION OF REPORT us Shruthi Baez MD LAB PATHOLOGY ORDERAB LES Final Result PATHOLOGY [facility] 3rd Floor [place], [place] [phone] * Colonoscopy (12/30/2024 1:25 PM AUTOMOBILE LOCATOR) Anatomical Region Laterality Modality Other Narrative Procedure Note Shruthi Baez MD - 12/30/2024 1:25 PM CST [facility] Patient Name: Live Mares Procedure Date: 12/30/2024 1:25 PM Date of : 1960 Admit Type: Outpatient Age: 64 Gender: Male Attending MD: Shruthi Baez M.D. Room: [facility] ENDOSCOPY ROOM 9 Note Status: [...] scope was passed under directvision. The CF [id number] endoscope was introduced through the anus and advanced to the sigmoid colon. The quality of the bowel preparation was evaluated using the BBPS ([place] Bowel Preparation Scale)with scores of: Right Colon [...] the days following this procedure please call [phone] After hours and evenings please call [phone] speak to the GI fellow train station server. Please tell thefellow that Dr. Baez did your procedure and that you were instructed to have the fellow call me or the physician covering for me to discuss the managementof your condition.. If you have an urgent problem,please go to the nearest emergency room and have the ER doctor call my office during the day or [facility] ([phone] after hours and weekends to arrange [...] BLOOD ORDERABLES Edit ed Result - Final [place] NO LAB FOUND * PSA screen (11/04/2024 11:23 AM AUTOMOBILE LOCATOR) Pathologist [facility] PSA-Total 0.12 <=5.40 ng/mL Comment: [...] revised 22. Blood 11/04/2024 11:2 3 AM AUTOMOBILE LOCATOR 11/04/2024 12:45 PM AUTOMOBILE LOCATOR Narrative [facility] - 11/04/2024 2:01 PM AUTOMOBILE LOCATOR Please add the following comment to each lab: This lab is being obtained as part of a liver transplant evaluation, is time sensitive, and should only be drawn during the evaluation visit at [facility] 3C Lab. Ayden Nicholson MD LAB BLOOD ORDERABLES Final Res ult [facility] Department [place] [address] * Hepatitis C antibody Blood (11/04/2024 11:23 AM AUTOMOBILE LOCATOR) Pathologist [facility] Hep C Ab Nonreactive Nonreactive Comment:Antibodies to HCV no t detected. Does NOT exclude the possibility of recent exposure to HCV. Current interpretive data was last revised on 22 Blood 11/04/2024 11:2 3 AM AUTOMOBILE LOCATOR 11/04/2024 12:42 PM AUTOMOBILE LOCATOR Narrative [facility] - 11/04/2024 1:37 PM AUTOMOBILE LOCATOR Please add the following comment to each lab: This lab is being obtained as part of a liver transplant evaluation, is time sensitive, and should only be drawn during the evaluation visit at [facility] 3C Lab. Ayden Nicholson MD LAB MICROBIOLOGY - GENERAL ORD ERABLES Final Result [facility] Department [place] [address] from Last 3 Months or Most Recently Relevant to Health Maintenance Insurance [facility] TR[facility] Advance Directives For more information, please contact: [phone] Documents on File Type Date Recorded Patient Unleavened Dough Mixer Expl anation ADVANCE DIRECTIVE 11/11/2024 10:19 PM [facility] ER OF COMMUNICATIONS ASSOCIATE-MEDICAL * Full Code (Latest Code Status on File) Date Activated Date Inactivated Comments 03/02/2025 1:00 PM 03/02/2025 7:59 PM * Full Code Date Activated Date Inactivated Comments 12/30/2024 11:45 AM 12/30/2024 8:08 PM * Full Code Date Activated Date Inactivated Comments 04/23/2024 2:01 AM 05/12/2024 7:22 PM * Full Code Date Activated Date Inactivated Comments 04/10/2024 9:06 AM 04/18/2024 5:41 PM Care Teams Pre Sales Architect Relationship Specialty Start Date End Date Young Call NP [address] [place] [address] PCP - General Family Medicine 10/28/24 Robert Brooks MD [address] [address] Referring Physician Gastroenterology 04/03/24 Ayden Nicholson MD [address] [facility] [address] [place] [address] Consulting Physician Gastroenterology 09/15/24 Kesha Gutiérrez, store team memberEstate Planner 09/15/24 Azael Brunson MD [id number] [place] [address] Surgeon Colon and Rectal Surgery 01/21/25
--- OUTSIDE RECORDS SUMMARY | 2025-03-23 18:22 | XMS_ITS ---
Author Organization [facility] Address [address] [place] [address] Care Team Providers Care Nurse Recruiter Name Role Phone Robert Brooks MD Unavailable [phone] Ayden Nicholson MD Unavailable [phone] Kesha Gutiérrez RN Unavailable Unavail able Young Call NP Primary Care Provider [phone] Azael Brunson MD Unavailable [phone] Transplant Episode Liver Candidate [facility] ([place], [place]) - [facility] Evaluation began on 09/26/2024 Marked as Active on 09/26/2024 Reason: Evaluation - Standard Liver CoordinatorKesha Gutiérrez RN Phone: N/A Fax: N/A Email: N/A Scores Score Value Updated Expires Exceptions/Taylor sons CPRA Not available UNOS MELD Not available MELD (Calc) 18 02/04/2025 [place] Organ Diagnosis 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
--- OUTSIDE RECORDS SUMMARY | 2025-03-23 18:22 | XMS_ITS | Encounter Summary ---
Author Organization [facility] Address [address] [facility] [address] [place] [address] Phone Care Team Providers Care Blankbook Stitching Machine Operator Name Role Phone Robert Brooks MD Unavailable [phone] Ayden Nicholson MD Unavailable [phone] Kesha Gutiérrez RN Unavailable Unavail able Young Call NP Primary Care Provider [phone] Azael Brunson MD Unavailable [phone] Encounter Details Date Type Department Care Team (Late st Contact Info) Description 02/11/2025 Telephone [facility] Surgery [facility] Floor [address] [place] [address] Bear Davis MD [address] [facility] [phone] [place] [address] Social History Tobacco Use Types Packs/Day Years Used Date Smoking Tobacco: Every Day Cigarettes 2 49.3 Started: 1975 Passive Smoke Exposure: Current [facility] Utilities Answer Date Recorded In the past 12 months has [employer], gas, oil, or water company threatened to [...] often do you attend chur ch or adventist services? Never 11/05/2024 Do you belong to any clubs o r organizations such as christian groups, unions, fraternal or athletic groups, or [...] living in a detention (including now)? No 11/10/2024 Personal Safety Answer Date Recorded Have you ever been in or are you currently in a harmful physical or emotional relationship or is someone making you feel afraid or unsafe? 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 Gender Identity Not on file Sexual Orientation Not on file documented as of this encounter Plan of Treatment Scheduled Procedures Name Priority Associated Diagnoses Date/Ti me TRANSPLANT LIVER Encounter for pre-transplant evaluation for liver transplant Alcoholic liver disease documented as of this encounter Visit Diagnoses Not on filedocumented in this encounter Care Teams Blankbook Stitching Machine Operator Relationship Specialty Start Date End Date Young Call NP [address] [place] [address] PCP - General Family Medicine 10/28/24 Robert Brooks MD [address] [address] Referring Physician Gastroenterology 04/03/24 Ayden Nicholson MD [address] [facility] [address] [place] [address] Consulting Physician Gastroenterology 09/15/24 Kesha Gutiérrez, trash manCutlery Grinder 09/15/24 Azael Brunson MD [address] [phone] [place] [address] Surgeon Colon and Rectal Surgery 01/21/25 documented as of this encounter
--- OUTSIDE RECORDS SUMMARY | 2025-03-23 18:22 | XMS_ITS | Encounter Summary ---
Author Organization [facility] Address [address] [place] [address] Care Team Providers Care Clinical Sociologist Name Role Phone Robert Brooks MD Unavailable Ayden Nicholson MD Unavailable [phone] Kesha Gutiérrez RN Unavailable Unavail able Young Call NP Primary Care Provider [phone] Azael Brunson MD Unavailable [phone] Encounter Details Date Type Department Care Team (Late st Contact Info) Description 02/04/2025 Results Follow-Up [facility] Transplant Liver [address] [facility] [phone] [place] [address] Kesha Gutiérrez, RN Social History Tobacco Use Types Packs/Day Years Used Date Smoking Tobacco: Every Day Cigarettes 2 49.3 Started: 1975 Passive Smoke Exposure: Current [facility] Utilities Answer Date Recorded In the past 12 months has th [employer] electric, gas, oil, or water company threatened [...] week 11/05/2024 How often do you attend [facility] or hoahaoism services? Never 11/05/2024 Do you [...] time in the past 12 m [facility], were you homeless or living in a mcfp (including now)? No 11/10/2024 Personal Safety Answer Date Recorded Have you ever been in or are you currently in a harmful physical or emotional relationship or is someone making you feel afraid or unsafe? 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 ENGINEER Gender Identity Not on file Sexual Orientation Not on file documented as of this encounter Plan of Treatment Scheduled Procedures Name Priority Associated Diagnoses Date/Ti me TRANSPLANT LIVER Encounter for pre-transplant evaluation for liver transplant Alcoholic liver disease documented as of this encounter Visit Diagnoses Not on filedocumented in this encounter Care Teams Clinical Sociologist Relationship Specialty Start Date End Date Young Call NP [address] [place] [address] PCP - General Family Medicine 10/28/24 Robert Brooks MD [address] [address] Referring Physician Gastroenterology 04/03/24 Ayden Nicholson MD [address] [facility] [address] [place] [address] Consulting Physician Gastroenterology 09/15/24 Kesha Gutiérrez, hearing aid dispenserCrew Attendant 09/15/24 Azael [place]son MD [address] [phone] [place] [address] Surgeon Colon and Rectal Surgery 01/21/25 documented as of this encounter
--- OUTSIDE RECORDS SUMMARY | 2025-03-23 18:22 | XMS_ITS | Clinical Summary ---
Author Organization [facility] Address [address] [place] [address] Care Team Providers Care Gas Pump Attendant Name Role Phone Robert Brooks MD Unavailable [phone] Ayden Nicholson MD Unavailable [phone] Kesha Gutiérrez RN Unavailable Unavail able Young Call NP Primary Care Provider [phone] Azael Brunson MD Unavailable [phone] Allergies Active Allergy Reactions Criticality Noted Date [...] total) by mouth daily 30 tablet 11 03/16/20 26 Active spironolactone (Aldactone) 50 mg tablet Take 1 tablet (50 mg total) by mouth daily 30 tablet 03/16/20 26 Active blood pressure monitor kit [...] signs of bleeding. Follows with an OSH paperhanger assistant -Check HIV and hepatitis panel -Hold diuretics [...] Department Care Team Description 03/23/2025 Orders Only [facility] Transplant Liver [address] [facility] [address] Mailstop -[phone] [place] [address] Valentine Cohen Alcoholic cirrhosis, unspecified whether ascites present (HCC) (Primary Dx) 03/23/2025 Telephone [facility] Transplant Liver [address] [facility] [address] [facility] [employer] -16-356 [place] [address] Kesha Gutiérrez, JENNA 03/17/2025 Orders Only [facility] Health Information Management [address] [place] [address] Scanning, Provider 03/16/2025 Orders Only [facility] Transplant Liver [address] [facility] [address] Mailstop 36-25-921 [place] [address] Kesha Gutiérrez, RN 03/16/2025 Telephone [facility] Transplant Liver [address] [facility] [address] Mailstop 90-65-818 [place] [address] Kesha Gutiérrez, RN 03/16/2025 Telephone [facility] Transplant Liver [address] [facility] [address] Mailstop 9029-821 [place] [address] Kesha Gutiérrez, RN 03/16/2025 Telephone [facility] Transplant Liver [address] [facility] [address] Mailstop 9029-549 [place] [address] LindaValentine frey 03/04/2025 Telephone [facility] Transplant Liver [address] [facility] [address] Mailstop [address] [place] [address] Kesha Gutiérrez, RN 03/03/2025 Telephone [facility] Transplant Liver [address] [facility] [address] Mailstop -47-2 [place] [address] Kesha Gutiérrez, RN 03/03/2025 Telephone [facility] Transplant Liver [address] [facility] [address] Mailstop 19-26-[address] [place] [address] MariocharleyKaren 03/02/2025 2:18 PM CDT Anesthesia Event [facility] [address] [place] [phone] Susie Logan MD Winfrey, Tonya M., CRNA 03/02/2025 1:45 PM CDT - 03/02/2025 2:45 PM CDT Surgery [facility] [address] [place] [phone] Shruthi Baez MD SIGMOID BAND LIGATION 03/02/2025 12:43 PM CDT - 03/02/2025 3:53 PM CDT Hospital Encounter [facility] [address] [place] [phone] Shruthi Baez MD Discharge Disposition: Discharge to home or self care 02/24/2025 12:47 PM CDT - 02/24/2025 11:59 PM CDT Hospital Encounter [facility] [address] [place] [address] Alcoholic cirrhosis of liver with ascites (HCC); Screening for malignant neoplasm of colon Discharge Disposition: Discharge to home or self care 02/19/2025 Orders Only [facility] Transplant Liver [address] [facility] [address] Mailstop 81-37-184 [place] [address] ProviderRobert MD 02/19/2025 Documentation [facility] Transplant Liver [address] [facility] [address] Mailstop 04-30-254 [place] [address] Valentine Cohen 02/11/2025 Telephone [facility] Surgery [address] [place] [address] Medical Office Building [address] [place] [address] Josedanielle Mali Peter 02/11/2025 Telephone [facility] Surgery [address] [facility] Floor 8 [place] [address] Bear Davis MD 02/10/2025 Telephone [facility] Transplant Liver [address] [facility] [address] Mailstop 53-74-645 [place] [address] Kesha Gutiérrez RN 02/10/2025 Results Follow-Up [facility] Transplant Liver [address] [facility] [address] Mailstop 40-78-792 [place] [address] Kesha Gutiérrez RN 02/09/2025 Telephone [facility] Transplant Liver [address] [facility] [address] Mailstop 12-21-467 [place] [address] Kesha uGtiérrez RN 02/04/2025 12:45 PM CDT Lab [facility] ([facility]) [address] [place] [phone] Encounter for pre-transplant evaluation for liver transplant; Alcoholic liver disease 02/04/2025 9:00 AM CDT Office Visit [facility] Gasteroenterology [address] [facility] 12th [place] [address] [place] [address] Lesvia Gerber MD Encounter for pre-transplant evaluation for liver transplant (Primary Dx); Alcoholic liver disease 02/04/2025 Telephone [facility] Transplant Liver [address] [facility] [address] Mailstop 05-75-833 [place] [address] Kesha Gutiérrez, JENNA 02/04/2025 Results Follow-Up [facility] Transplant Liver [address] [facility] [address] Mailstop 48-30-730 [place] [address] Kesha Gutiérrez, JENNA 01/30/2025 Orders Only [facility] Health Information Management 1 [facility] [place] [address] Scanning, Provider 01/21/2025 9:00 AM NICKEL OPERATOR Office Visit [facility] Surgery [address] [facility] Medical Office Building [address] [place] [address] Azael Brunson MD Screening for malignant neoplasm of colon (Primary Dx); Alcoholic cirrhosis of liver with ascites (HCC) 01/21/2025 Telephone [facility] Gastroenterology [address] [facility] Medical Office Building 4, [address] [place] [phone] Loida Marrero, JENNA GI Preprocedure 01/20/2025 Telephone [facility] Transplant Liver [address] [facility] [address] Mailstop 42-34-402 [place] [address] Kesha Gutiérrez, JENNA 01/14/2025 Telephone [facility] Transplant Liver [address] [facility] [address] Mailstop 18-78-276 [place] [address] Kesha Gutiérrez, JENNA 01/14/2025 Telephone [facility] Transplant Liver [address] [facility] [address] Mailstop 89-86-4 [place] [address] Cyndee Baez 01/02/2025 Orders Only [facility] Health Information Management [address] [place] [address] Kesha Gutiérrez, RN 01/01/2025 Telephone [facility] Transplant Liver [address] [facility] [address] Mailstop 86-85-3 [place] [address] Kesha Gutiérrez, RN 12/30/2024 1:29 PM NICKEL OPERATOR Anesthesia Event [address] [address] Roque Doss MD 12/30/2024 12:30 PM NICKEL OPERATOR - 12/30/2024 1:30 PM NICKEL OPERATOR Surgery [address] [address] Shruthi Baez MD SIGMOID INJECTION SUBMUCOSAL 12/30/2024 11:15 AM NICKEL OPERATOR - 12/30/2024 4:03 PM NICKEL OPERATOR Hospital Encounter [address] [address] Shruthi Baez MD Colon polyp Discharge Disposition: Discharge to home or self care 12/26/2024 Telephone [facility] Transplant Liver [address] [facility] [address] Mailstop 53-47-545 [place] [address] Kesha Gutiérrez, RN 12/26/2024 Telephone [facility] Transplant Liver [address] [facility] [address] Mailstop 90-80- [place] [address] Karen Vides 12/25/2024 Telephone [facility] Transplant Liver [address] [facility] [address] Mailstop 82-77-549 [place] [address] Kesha Gutiérrez, RN 12/25/2024 Documentation [facility] Transplant Liver [address] [facility] [address] Mailstop 86-90-284 [place] [address] Kesha Gutiérrez, RN 12/25/2024 Telephone [facility] Transplant Liver [address] [facility] [address] Mailstop 95-14-976 [place] [address] LindaValentine frey 12/25/2024 Telephone [facility] Transplant Liver [address] [facility] [address] Mailstop 39-97-714 [place] [address] MarioKaren whitehead 12/24/2024 Telephone [facility] Transplant Liver [address] [facility] [address] Mailstop 57-02-293 [place] [address] Kesha Gutiérrez, JENNA 12/23/2024 Telephone [facility] Transplant Liver [address] [facility] [address] Mailstop 07-79-636 [place] [address] Kesha Gutiérrez, JENNA from Last 3 Months [...] Colon polyp Cirrhosis (HCC) Hypertension Liver disease Cataract Family History Medical History Relation Name Comments brain tumor Father Diabetes Mother Heart failure Mother Relation Name Status Comments Father Mother Social History Tobacco Use Types Packs/Day Years Used Date Smoking Tobacco: Every Day Cigarettes 2 49.3 Started: 1975 Passive Smoke Exposure: Current Tobacco Cessation:Ready to Q uit: Not Asked; Counseling Given: Not Answered [facility] Ample Communicationsities Answer Date Recorded In the past 12 months has [employer], gas, oil, or water [employer] threatened to shut off services in your [...] often do you attend chur ch or buddhism services? Never 11/05/2024 Do you belong to any clubs o r organizations such as muslim groups, unions, fraternal or athletic groups, or [...] any time in the past 12 m [facility], were you homeless or living in a longterm (including now)? No 11/10/2024 Personal Safety Answer Date Recorded Have you ever been in or are you currently in a harmful physical or emotional relationship or is someone making you feel afraid or unsafe? Denies 03/02/2025 Sex and Gender Information Value Date Recorded Sex Assigned at Not on file Legal Sex Male 3:52 AM NICKEL OPERATOR Gender Identity Not on file Sexual [...] disease SCAN - LABS 01/30/2025 2:21 PM NICKEL OPERATOR SCAN - LABS 01/02/2025 3:16 PM NICKEL OPERATOR SURGICAL PATHOLOGY Routine 12/30/2024 2: 27 PM NICKEL OPERATOR Colon polyp ENDO ADD ON SIGMOID BIOPSY 12/30/2024 1:29 PM NICKEL OPERATOR Colon polyp SIGMOID INJECTION SUBMUCOSAL 12/30/2024 1:29 PM NICKEL OPERATOR Colon polyp COLONOSCOPY 12/30/2024 1:25 PM NICKEL OPERATOR PROTIME-INR Routine 12/25/2024 HEPATITIS C ANTIBODY Routine 11/04/2024 11:23 AM NICKEL OPERATOR Encounter for pre-transplant evaluation for liver transplant Alcoholic liver disease PSA SCREEN Routine 11/04/2024 11:23 AM NICKEL OPERATOR Encounter for pre-transplant evaluation for liver transplant [...] Providers: Shruthi Baez M.D. Referring MD: Jonathon Leonardo M.D., Azael Brunson M.D.,Lesvia Gerber M.D. Medicines: [...] Monitored anesthesia care under the supervisionof a SALES AUDIT CLERK was determined to be medically necessary forthis [...] quite high so I elected to proceedwith [id number] go with polyloop. The base was injected [...] with EMR. Based ijected with epinephrine. Successful [id number] go using polyloop for auto-amputation.No specimens obtained. [...] the days following this procedure please call [phone] After hours and evenings please call [phone] speak to the GI fellow biometrics consultant. Please tell thefellow that Dr. Baez did your procedure and that you were instructed to have the fellow call me or the physician covering for me to discuss the managementof your condition.. If you have an urgent problem,please go to the nearest emergency room and have the ER doctor call my office during the day or [facility] ([phone] after hours and weekends to [...] it. Electronically signed by: Claudia Syed M.D. us Azael Brunson MD IMG CT PROCEDURES Final Result * US Abdomen W Doppler (02/19/2025 12:37 PM CDT) Anatomical Region Laterality Modality Abdomen N/A Ultrasound us Historical Provider [facility] US PROCEDURES Final R esult * (ABNORMAL) [...] NO LAB FOUND SCRIBED eGFR in NonAfrican Citizen Of [place] >60 >=60 TXP NO LAB FOUND Blood 02/09/2025 us Historical Provider MD LAB BLOOD ORDERABLES Edit ed Result - Final TXP NO LAB FOUND * Phosphatidylethanol (02/04/2025 10:47 AM CDT) PHOSPHATIDYLETHANOL Negative . [facility] Comment: ADDITIONAL INFORMATION This report is intended for use in clinical monitoring and management of patients. It is not intended for use in employment-related testing. This test was developed and its performance characteristics determined by [facility] in a manner consistent with CLIA requirements. This test has not been cleared or approved by the U.S. Food and Drug Administration. Test Performed by: [facility] Laboratories - [facility] [address] [place] [address] Purchasing Supervisor: Deven Owens Ph.D.; CLIA# [id number] PEth 16:0/18:1 (POPEth)by LC-MS/MS <10 Cutoff: 10 [...] LAB BLOOD ORDERABLES Final Res ult [facility] [address] [facility] [place] [address] [facility] * eGFR (02/04/2025 10:47 AM [...] AM CDT 02/04/2025 11:10 AM CDT us Lesvai Gerber MD LAB BLOOD ORDERABLES Final Res ult [facility] [address] [facility] [place] [address] * Differential, auto (02/04/2025 10:47 AM CDT) Neutrophil abs 4.4 1.5 - 6.5 K/cumm Imm gran abs 0.0 0.0 - 0.1 K/cumm [facility] Lymphocyte abs 1.4 0.8 - 3.3 K/cumm [facility] Monocyte abs 0.7 0.2 - 0.8 K/cumm [facility] Eosinophil abs 0.1 0.0 - 0.5 K/cumm [facility] Basophil abs 0.1 0.0 - 0.1 K/cumm [facility] Neutrophil pct 65.9 % [facility] Comment: Interpretive Data Percent cell count reference ranges are not reported, since discordance with absolute values may lead to misinterpretation of CBC data. Current Interpretive Data was last revised on 2018. Imm gran pct 0.3 % [facility] Comment: Interpretive Data Percent cell count reference ranges are not reported, since discordance with absolute values may lead to misinterpretation of CBC data. Current Interpretive Data was last revised on 2018. Lymphocyte pct 20.4 % [facility] Comment: Interpretive Data Percent cell count reference ranges are not reported, since discordance with absolute values may lead to misinterpretation of CBC data. Current Interpretive Data was last revised on 2018. Monocyte pct 9.6 % [facility] Comment: Interpretive Data Percent cell count reference ranges are not reported, since discordance with absolute values may lead to misinterpretation of CBC data. Current Interpretive Data was last revised on 2018. Eosinophil pct 1.9 % [facility] Comment: Interpretive Data Percent cell count reference ranges are not reported, since discordance with absolute values may lead to misinterpretation of CBC data. Current Interpretive Data was last revised on 2018. Basophil pct 1.9 % [facility] Comment: Interpretive Data Percent cell count reference ranges are not reported, since discordance with absolute values may lead to misinterpretation of CBC data. Current Interpretive Data was last revised on 2018. Blood 02/04/2025 10:4 7 AM CDT 02/04/2025 11:11 AM CDT us Lesvia Gerber MD LAB BLOOD ORDERABLES Final Res ult [facility] [address] [facility] [place] [address] * (ABNORMAL) CBC with auto differential (02/04/2025 10:47 AM CDT) WBC 6.8 3.8 - 9.9 K/cumm Hgb 13.2 13.0 - 17.5 g/dL [facility] Hct 38.8(L) 38.9 - 50.3 % [facility] Plt 224 150 - 400 K/cumm [facility] MPV 9.2 9.1 - 12.3 fL [facility] RBC 4.41 4.30 - 5.80 M/cumm [facility] MCV 88.0 81.3 - 96.4 fL [facility] MCH 29.9 27.1 - 33.3 pg [facility] MCHC 34.0 32.3 - 35.7 g/dL [facility] RDW CV 14.6 11.1 - 14.9 % [facility] RDW SD 47.3 35.7 - 48.1 fL [facility] NRBC abs 0.00 0.00 - 0.01 K/cumm [facility] Blood 02/04/2025 10:4 7 AM CDT 02/04/2025 11:11 AM CDT us Lesvia Gerber MD LAB BLOOD ORDERABLES Final Res ult Performing Organization Address City/[facility] [employer] de Phone Number [facility] [place] [address] * Vitamin D 25 hydroxy (02/04/2025 10:47 AM CDT) Vitamin D 25-OH 48 30 - 80 ng/mL Blood 02/04/2025 10:4 7 AM CDT 02/04/2025 11:10 AM CDT Lesvia Gerber MD LAB BLOOD ORDERABLES Final Res ult Performing Organization Address [facility] de Phone Number [facility] [address] * (ABNORMAL) Protime-INR (02/04/2025 10:47 AM CDT) PT 16.8(H) 9.7 - 13.0 sec INR 1.54(H) 0.90 - 1.20 [facility] Comment: Interpretive data Oral anticoagulant therapeutic ranges: Venous thromboembolism prophylaxis or treatment: 2.0-3.0 CARDIOLOGY Standard range: 2.0-3.0 High-intensity range: 2.5-3.5 Refer to indication-specific guidelines for appropriate target ranges for prosthetic heart valve replacement. Current interpretive data was last revised on 2019. Blood 02/04/2025 10:4 7 AM CDT 02/04/2025 11:06 AM CDT Result [facility] Lesvia Gerber MD LAB BLOOD ORDERABLES Final Res ult Performing Organization Address [facility] de Phone Number [facility] [place] [address] * (ABNORMAL) Comprehensive metabolic panel (02/04/2025 10:47 AM CDT) Sodium 129(L) 135 - 145 mmol/L Potassium, pl 5.4(H) 3.3 - 4.9 mmol/L [facility] Chloride 99 97 - 110 mmol/L [facility] CO2 25 22 - 32 mmol/L [facility] Anion gap 5 2 - 15 mmol/L [facility] BUN 15 6 - 25 mg/dL [facility] Creatinine 1.04 0.80 - 1.30 mg/dL [facility] Glucose 132 70 - 199 mg/dL [facility] Comment: Interpretive Data Fasting glucose >/= [...] 2022. Calcium 9.2 8.5 - 10.3 mg/dL [facility] Bilirubin, total 1.1 0.1 - 1.2 mg/dL [facility] Protein, pl 8.3 6.5 - 8.5 g/dL [facility] Albumin 3.2(L) 3.5 - 5.0 g/dL [facility] Alk phos 99 40 - 130 Units/L [facility] ALT 9 7 - 55 Units/L [facility] AST 22 10 - 50 Units/L [facility] Blood 02/04/2025 10:4 7 AM CDT 02/04/2025 11:10 AM CDT us Lesvia Gerber MD LAB BLOOD ORDERABLES Final Res ult [facility] [address] [facility] [place] [address] * SCAN - LABS (01/30/2025 2:21 PM NICKEL OPERATOR) us Provider Scanning Final Result * SCAN - LABS (01/02/2025 3:16 PM NICKEL OPERATOR) us Kesha Gutiérrez RN Final Re sult * Surgical pathology (12/30/2024 2:27 PM NICKEL OPERATOR) Tissue specimen (specimen) (Polyp(s), colon/colorectal, esophageal, gastric) 12/30/2024 2:27 PM NICKEL OPERATOR Narrative PATHOLOGY [facility] - 12/31/2024 10:40 AM NICKEL OPERATOR EPIC results best viewed via link to PDF [facility] Kesha Briggs [facility] [place] [address] Note to Patients: This report may contain [...] Gender: Femi : 1960 (Age: 64) Address: [address] [place] [address] Hospital #: [id number] Taken:12/30/2024 Received:12/30/2024 Reported: 12/31/2024 Patient [facility]: [facility] Service: Gastro Location: Physician(s): Vani Zhou [...] Surgical Pathology and Flow Cytometry Departments at [facility] as part of an ongoing quality control lead program and in compliance with federally mandated [...] Surgical Pathology and Flow Cytometry Departments of [facility]. It has not been cleared or approved by the U. S. Food and Drug Administration. IMAGES AND SCANNED DOCUMENTS, IF INCLUDED, ONLY VIEWABLE IN PDF VERSION OF REPORT Shruthi Baez MD LAB PATHOLOGY ORDERAB LES Final Result PATHOLOGY [facility] [address] [place] [phone] * Colonoscopy (12/30/2024 1:25 PM NICKEL OPERATOR) Anatomical Region Laterality Modality Other Narrative Procedure Note Shruthi Baez MD - 12/30/2024 1:25 PM [facility] Patient Name: Live Mares Procedure Date: 12/30/2024 1:25 PM Date of : 1960 Admit Type: Outpatient Age: 64 Gender: Male Attending MD: Shruthi Baez M.D. Room: [facility] ENDOSCOPY ROOM 9 Note Status: Finalized Procedure: [...] scope was passed under directvision. The CF [id number] [id number] endoscope was introduced through the anus and advanced to the sigmoid colon. The quality of the bowel preparation was evaluated using the BBPS (Searcy Bowel Preparation Scale)with scores of: Right Colon [...] the days following this procedure please call [phone] After hours and evenings please call [phone] speak to the GI fellow biometrics consultant. Please tell thefellow that Dr. Baez did your procedure and that you were instructed to have the fellow call me or the physician covering for me to discuss the managementof your condition.. If you have an urgent problem,please go to the nearest emergency room and have the ER doctor call my office during the day or [facility] ([phone] after hours and weekends to [...] FOUND * PSA screen (11/04/2024 11:23 AM NICKEL OPERATOR) PSA-Total 0.12 <=5.40 ng/mL Comment: Interpretive Data [...] revised 22. Blood 11/04/2024 11:2 3 AM NICKEL OPERATOR 11/04/2024 12:45 PM NICKEL OPERATOR Narrative [facility] - 11/04/2024 2:01 PM NICKEL OPERATOR Please add the following comment to each lab: This lab is being obtained as part of a liver transplant evaluation, is time sensitive, and should only be drawn during the evaluation visit at [facility] 3C Lab. Ayden Nicholson MD LAB BLOOD ORDERABLES Final Res ult [facility] [address] [facility] [place] [address] * Hepatitis C antibody Blood (11/04/2024 11:23 AM NICKEL OPERATOR) Hep C Ab Nonreactive Nonreactive Comment:Antibodies to HCV no t detected. Does NOT exclude the possibility of recent exposure to HCV. Current interpretive data was last revised on 22 Blood 11/04/2024 11:2 3 AM NICKEL OPERATOR 11/04/2024 12:42 PM NICKEL OPERATOR Narrative [facility] - 11/04/2024 1:37 PM NICKEL OPERATOR Please add the following comment to each lab: This lab is being obtained as part of a liver transplant evaluation, is time sensitive, and should only be drawn during the evaluation visit at [facility] 3C Lab. us Ayden Nicholson MD LAB MICROBIOLOGY - GENERAL ORD ERABLES Final Result [facility] [address] [place] [address] from Last 3 Months or Most Recently Relevant to Health Maintenance Insurance [facility] Advance Directives For more information, please contact: [phone] Documents on File Type Date Recorded Patient Day Treatment Clinician/Art Therapist Expl anation ADVANCE DIRECTIVE 11/11/2024 10:19 PM [facility] OF SINGER SONGWRITER-MEDICAL * Full Code (Latest Code Status on File) Date Activated Date Inactivated Comments 03/02/2025 1:00 PM 03/02/2025 7:59 PM * Full Code Date Activated Date Inactivated Comments 12/30/2024 11:45 AM 12/30/2024 8:08 PM * Full Code Date Activated Date Inactivated Comments 04/23/2024 2:01 AM 05/12/2024 7:22 PM * Full Code Date Activated Date Inactivated Comments 04/10/2024 9:06 AM 04/18/2024 5:41 PM Care Teams Gas Pump Attendant Relationship Specialty Start Date End Date Young Call NP [address] [place] [address] PCP - General Family Medicine 10/28/24 Robert Brooks MD [address] [address] Referring Physician Gastroenterology 04/03/24 Ayden Nicholson MD [address] [facility] [address] [place] [address] Consulting Physician Gastroenterology 09/15/24 Kesha Gutiérrez, ladle builderGreenhouse Technician 09/15/24 Azael Brunson MD [id number] [place] [address] Surgeon Colon and Rectal Surgery 01/21/25
--- OUTSIDE RECORDS SUMMARY | 2025-03-23 18:22 | XMS_ITS | Encounter Summary ---
Author Organization [facility] Healthcare Address [address] [place] [address] Care Team Providers Care Nuclear Medicine Specialist Name Role Phone Robert Brooks MD Unavailable [phone] Ayden Nicholson MD Unavailable [phone] Kesha Gutiérrez RN Unavailable Unavail able Young Call NP Primary Care Provider [phone] Azael Brunson MD Unavailable [phone] Encounter Details Date Type Department Care Team (Late st Contact Info) Description 02/10/2025 Results Follow-Up [facility] Transplant Liver [address] [facility] [id number] [place] [address] Kesha Gutiérrez, RN Social History Tobacco Use Types Packs/Day Years Used Date Smoking Tobacco: Every Day Cigarettes 2 49.3 Started: 1975 Passive Smoke Exposure: Current [facility] Utilities Answer Date Recorded In the past 12 months has th [employer], gas, oil, or water company threatened [...] week 11/05/2024 How often do you attend [facility] or anabaptist services? Never 11/05/2024 Do you belong to any clubs o r organizations such as baptism groups, unions, fraternal or athletic groups, or [...] any time in the past 12 m [facility], were you homeless or living in a halfway (including now)? No 11/10/2024 Personal Safety Answer Date Recorded Have you ever been in or are you currently in a harmful physical or emotional relationship or is someone making you feel afraid or unsafe? Denies 12/30/2024 Sex and Gender Information Value Date Recorded Sex Assigned at Not on file Legal Sex Male 3:52 AM MECHATRONICS TECHNOLOGIST Gender Identity Not on file Sexual Orientation Not on file documented as of this encounter Plan of Treatment Scheduled Procedures Name Priority Associated Diagnoses Date/Ti me TRANSPLANT LIVER Encounter for pre-transplant evaluation for liver transplant Alcoholic liver disease documented as of this encounter Visit Diagnoses Not on filedocumented in this encounter Care Teams Nuclear Medicine Specialist Relationship Specialty Start Date End Date Young Call NP [address] [place] [address] PCP - General Family Medicine 10/28/24 Robert Brooks MD [address] [address] Referring Physician Gastroenterology 04/03/24 Ayden Nicholson MD [address] [facility] [address] [place] [address] Consulting Physician Gastroenterology 09/15/24 Kesha Gutiérrez, president mortgage companyDupligraph Operator 09/15/24 Azael Brunson MD [id number] [place] [address] Surgeon Colon and Rectal Surgery 01/21/25 documented as of this encounter
--- OUTSIDE RECORDS SUMMARY | 2025-03-23 18:22 | XMS_ITS | Clinical Summary ---
Author Organization [facility] Address [address] [place] [address] Phone Care Team Providers Care Machine Lead Burner Name Role Phone Young Call APRN, CHIEF ACCOUNTING OFFICER Primary Care Provider + Allergies Active Allergy Reactions Criticality Noted Date Comments Aspirin Unknown,Swelling 02/08/2024 Medications spironolactone (ALDACTONE) 100 MG Tablet Take 1 Tablet by mouth daily. 90 Tablet Active Additional Information Patient not taking.Reported on 03/16/2025 carvedilol (COREG) 6.25 MG Tablet Take 6.25 [...] Encounters Date Type Department Care Team Description 03/20/2025 [facility] Periop [address] [place] [address] Provider, Not On File 03/16/2025 11:00 AM CDT - 03/16/2025 11:30 AM CDT [facility] Periop [address] [place] [address] Provider, Not On File PRE / POST CARE FOR PROCEDURAL AREA-ULTRASOUND GUIDED PARACENTESIS 03/16/2025 10:40 AM CDT - 03/16/2025 11:59 PM CDT [facility] Ultrasound [address] [place] [address] Ayden Nicholson MD Provider, Anesthesiologist Discharge Disposition: Discharged to home or Selfcare 03/16/2025 9:50 AM CDT - 03/16/2025 12:53 PM CDT [facility] Periop [address] [place] [address] Ayden Nicholson MD Provider, Anesthesiologist Discharge Disposition: Discharged to home or Selfcare 03/16/2025 Travel 03/05/2025 Transcribe Orders [facility] [address] [place] [address] Agustin Vu MD Alcoholic cirrhosis of liver with ascites (HCC) (Primary Dx); Pre-operative laboratory examination 02/19/2025 10:00 AM CDT - 02/19/2025 10:30 AM CDT [facility] Periop [address] [place] [address] Provider, Not On File PRE / POST CARE FOR PROCEDURAL AREA-PARACINTESIS 02/19/2025 9:21 AM CDT - 02/19/2025 11:20 AM CDT Hospital [facility] Periop [address] [place] [address] Provider, Not On File Provider, Anesthesiologist Discharge Disposition: Discharged to home or Selfcare 02/19/2025 9:19 AM CDT - 02/19/2025 9:20 AM CDT [facility] Ultrasound [address] [place] [address] Ayden Nicholson MD Discharge Disposition: Discharged to home or Selfcare 02/19/2025 Travel 01/30/2025 10:00 AM CORK PRESSING MACHINE OPERATOR - 01/30/2025 10:30 AM CORK PRESSING MACHINE OPERATOR [facility] Periop [address] [place] [address] Provider, Not On File PRE / POST CARE FOR PROCEDURAL AREA-PARACENTESIS 01/30/2025 10:00 AM CORK PRESSING MACHINE OPERATOR - 01/30/2025 11:59 PM CORK PRESSING MACHINE OPERATOR Hospital [facility] Ultrasound [address] [place] [address] Ayden Nicholson MD Discharge Disposition: Discharged to home or Selfcare 01/30/2025 9:10 AM CORK PRESSING MACHINE OPERATOR - 01/30/2025 12:06 PM CORK PRESSING MACHINE OPERATOR [facility] Preop/Pacu II [address] [place] [address] Ayden Nicholson MD Discharge Disposition: Discharged to home or Selfcare 01/30/2025 Travel 01/20/2025 Transcribe Orders [facility] [address] [place] [address] Agustin Vu MD Pre-procedural laboratory examinations (Primary Dx); Encounter for therapeutic drug monitoring; Other intermission coordinator (current) drug therapy; 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) 01/20/2025 Transcribe Orders [facility] [address] [place] [address] Agustin Vu MD 01/02/2025 10:00 AM CORK PRESSING MACHINE OPERATOR - 01/02/2025 10:30 AM CORK PRESSING MACHINE OPERATOR [facility] Periop [address] [place] [address] Provider, Not On File PRE / POST CARE FOR PROCEDURAL AREA-PARACENTESIS 01/02/2025 9:41 AM CORK PRESSING MACHINE OPERATOR - 01/02/2025 11:59 PM CORK PRESSING MACHINE OPERATOR Hospital Encounter [facility] Ultrasound [address] [place] [address] Ayden Nicholson MD Provider, Anesthesiologist Discharge Disposition: Discharged to home or Selfcare 01/02/2025 9:13 AM CORK PRESSING MACHINE OPERATOR - 01/02/2025 11:40 AM CORK PRESSING MACHINE OPERATOR Hospital Encounter [facility] Preop/Pacu II [address] [place] [address] Provider, Not On File Ortiz Montenegro MD Provider, Anesthesiologist Discharge Disposition: Discharged to home or Selfcare 01/02/2025 Travel from Last 3 Months Immunizations Immunization [...] 7-15 beers a day previously; none currently [facility] Utilities Answer Date Recorded In the past 12 months has [employer], gas, oil, or water [employer] threatened to shut off services in your home? No 05/26/2024 Social Connection and Isolation Panel [NHANES] A nswer Date Recorded In a typical week, how many times do you talk on the phone with family, friends, or neighbors? Once a week 05/26/2024 How often do you get together with friends or re latives? Once a week 05/26/2024 How often do you attend latter-day or mu-ism serv ices? Never 05/26/2024 Do you belong to any clubs o r organizations such as latter-day groups, unions, fraternal or athletic groups, or [...] time in the past 12 m [facility], were you homeless or living in a alf (including now)? No 05/26/2024 Sexually Active Control Partners Comments Not Currently Sex and Gender Information Value Date Recorded Sex Assigned at Male 02/25/2024 11:30 AM CDT Legal Sex Male 2:53 PM CDT Gender Identity Not on file Sexual Orientation Not on file Last Filed Vital Signs Vital Sign Reading Time Taken Comments Blood Pressure 121/83 03/16/2025 12:51 PM CDT Pulse 65 03/16/2025 12:51 PM CDT Temperature 36.6 C (97.8 F) 03/16/2025 12:51 PM CDT Respiratory Rate 16 03/16/2025 12:51 PM CDT Oxygen Saturation 97% 03/16/2025 12:51 PM CDT Inhaled Oxygen Concentration - - Weight 77.4 kg (170 lb 9 oz) 02/19/2025 9:29 AM CDT Height 177.8 cm (5' 10 ) 02/19/2025 9:29 AM CDT Body Mass Index 24.47 02/19/2025 9:29 AM CDT Plan of Treatment Upcoming Encounters Date Type Department Care Team (Latest Contact Info) Description 03/30/2025 11:00 AM CDT Hospital Encounter [facility] Periop [address] [place] [address] Provider, Not On File [place] 03/30/2025 11:00 AM CDT [facility] Ultrasound [address] [place] [address] Ayden Nicholson MD [address] [facility] [id number] [place] [address] 03/30/2025 11:00 AM CDT - 03/30/2025 11:30 AM CDT Surgery [facility] Periop [address] [place] [address] Provider, Not On File [place] PRE / POST CARE FOR PROCEDURAL AREA-PARACENTESIS Scheduled Procedures Name Priority Associated Diagnoses Date/Ti me PRE / POST CARE FOR PROCEDUR AL AREA ASCITES 03/30/2025 11:00 AM CDT Health Maintenance Due Date Last Done Comments [...] years 1-dose series) 2021 SARS-COV-2 Immunization ( - season) 2024 Influenza Immunization (Seas on Ended) [...] Diagnosis Comments US GUIDANCE AND PARACENTESIS Routine 03/16/2025 11:44 AM CDT 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) PATHOLOGY CYTOLOGY NON-FRIEND OF THE COURT Routine 03/16/2025 11:14 AM CDT 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) FLUID, DIFFERENTIAL Routine 03/16/2025 1 1:14 AM CDT 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) BODY FLUID CELL COUNT W/ DIFFERENTIAL Routine 03/16/2025 11:14 AM CDT 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) CULTURE, AEROBIC ONLY Routine 03/16/2025 11:14 AM CDT 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) CULTURE, ANAEROBIC Routine 03/16/2025 11 :14 AM CDT 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) CULTURE, ANAEROBIC WITH CULTURE, AEROBIC Routine 03/16/2025 11:14 AM CDT 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) PRE / POST CARE FOR PROCEDURAL AREA 03/16/2025 11:00 AM CDT ALCOHOLIC CIRRHOSIS OF LIVER WITH ASCITES APTT (PTT) Routine 03/16/2025 9:53 AM CDT Alcoholic cirrhosis of liver with ascites (HCC) Pre-operative laboratory examination PROTIME (PT) (PROTHROMBIN TIME) Routine 03/16/2025 9:53 AM CDT Alcoholic cirrhosis of liver with ascites (HCC) Pre-operative laboratory examination BASIC METABOLIC PANEL W/ CALCIUM TOTAL Routine 03/16/2025 9:53 AM CDT Alcoholic cirrhosis of liver with ascites (HCC) Pre-operative laboratory examination COMPLETE BLOOD COUNT (CBC) WITHOUT DIFF Routine 03/16/2025 9:53 AM CDT Alcoholic cirrhosis of liver with ascites (HCC) Pre-operative laboratory examination US GUIDANCE AND PARACENTESIS Routine 02/19/2025 10:39 [...] GUIDANCE AND PARACENTESIS Routine 01/30/2025 11:13 AM CORK PRESSING MACHINE OPERATOR 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) FLUID, DIFFERENTIAL Routine 01/30/2025 1 0:42 AM CORK PRESSING MACHINE OPERATOR 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) BODY FLUID CELL COUNT W/ DIFFERENTIAL Routine 01/30/2025 10:42 AM CORK PRESSING MACHINE OPERATOR 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) CULTURE, AEROBIC ONLY Routine 01/30/2025 10:42 AM CORK PRESSING MACHINE OPERATOR 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) PRE / POST CARE FOR PROCEDURAL AREA 01/30/2025 10:00 AM CORK PRESSING MACHINE OPERATOR ASCITES CBC WITH AUTO DIFFERENTIAL Routine 01/30/2025 9:12 AM CORK PRESSING MACHINE OPERATOR Pre-procedural laboratory examinations Encounter for therapeutic drug monitoring Other prison (current) drug therapy 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) APTT (PTT) STAT 01/30/2025 9:12 AM CORK PRESSING MACHINE OPERATOR Pre-procedural laboratory examinations Encounter for therapeutic drug monitoring Other intermission coordinator (current) drug therapy 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) PROTIME (PT) (PROTHROMBIN TIME) STAT 01/30/2025 9:12 AM CORK PRESSING MACHINE OPERATOR Pre-procedural laboratory examinations Encounter for therapeutic drug monitoring Other intermission coordinator (current) drug therapy 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) BASIC METABOLIC PANEL W/ CALCIUM TOTAL Routine 01/30/2025 9:12 AM CORK PRESSING MACHINE OPERATOR Pre-procedural laboratory examinations Encounter for therapeutic drug monitoring Other intermission coordinator (current) drug therapy 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) COMPLETE BLOOD COUNT (CBC) WITH DIFF Routine 01/30/2025 9:12 AM CORK PRESSING MACHINE OPERATOR Pre-procedural laboratory examinations Encounter for therapeutic drug monitoring Other intermission coordinator (current) drug therapy 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) US GUIDANCE AND PARACENTESIS Routine 01/02/2025 10:54 AM CORK PRESSING MACHINE OPERATOR 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) FLUID, DIFFERENTIAL Routine 01/02/2025 1 0:20 AM CORK PRESSING MACHINE OPERATOR 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) BODY FLUID CELL COUNT W/ DIFFERENTIAL Routine 01/02/2025 10:20 AM CORK PRESSING MACHINE OPERATOR 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) CULTURE, AEROBIC ONLY Routine 01/02/2025 10:20 AM CORK PRESSING MACHINE OPERATOR 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) PRE / POST CARE FOR PROCEDURAL AREA 01/02/2025 10:00 AM CORK PRESSING MACHINE OPERATOR ASCITES from Last 3 Months Results * US GUIDANCE AND PARACENTESIS (03/16/2025 11:44 AM CDT) Only the most recent of4 resultswithin the time period is included. Anatomical Region Laterality Modality Abdomen N/A Ultrasound 03/16/2025 2:11 PM CDT Impressions 03/16/2025 2:14 PM CDT IMPRESSION: Successful ultrasound-guided paracentesis. 7 liters of serous fluid were removed. Narrative 03/16/2025 2:14 PM CDT EXAM DESCRIPTION: US GUIDANCE AND PARACENTESIS HISTORY: ASCITES FROM ALCOHOLIC CIRRHOSIS Ultrasound-guided paracentesis is requested. COMPARISON: 02/19/2025 TECHNIQUE/FINDINGS: Pertinent imaging studies were reviewed including 02/19/2025. Immediately prior to the procedure, the healthcare team performed the safety pause and verbally confirmed that the patient, the planned procedure, the site and side were accurate. Pre-procedure sonographic scanning demonstrated the largest pocket of ascites in the left lower quadrant. The skin was prepped and draped. Local anesthesia was used with 1% lidocaine, including subcutaneous and deeper tissues. Under ultrasound guidance, a 5-Sri Lankan 7 cm One Step Centesis catheter was used to drain 7 liters of serous fluid from the right lower quadrant. Needle placement was documented with sonographic images. The catheter was removed with little remaining ascites identified. Hemostasis was achieved. The area was dressed with a bandage. IV albumin was given postprocedure. The patient tolerated the procedure well with no complication evident and was discharged in stable condition. Post procedure education was completed including pain management instructions. Estimated blood loss: <5 ml THIS IS AN ELECTRONICALLY VERIFIED FINAL REPORT 03/16/2025 2:11 PM - Electronically signed by Obed Silva M.D. AG: PENNIE Report ID: [id number] Reading Location: [id number] Procedure Note Obed Silva MD - 03/16/2025 EXAM DESCRIPTION: US GUIDANCE AND PARACENTESIS HISTORY: ASCITES FROM ALCOHOLIC CIRRHOSIS Ultrasound-guided paracentesis is requested. COMPARISON: 02/19/2025 TECHNIQUE/FINDINGS: Pertinent imaging studies were reviewed including 02/19/2025. Immediately prior to the procedure, the healthcare team performed the safety pause and verbally confirmed that the patient, the planned procedure, the site and side were accurate. Pre-procedure sonographic scanning demonstrated the largest pocket of ascites in the left lower quadrant. The skin was prepped and draped. Local anesthesia was used with 1% lidocaine, including subcutaneous and deeper tissues. Under ultrasound guidance, a 5-Sri Lankan 7 cm One Step Centesis catheter was used to drain 7 liters of serous fluid from the right lower quadrant. Needle placement was documented with sonographic images. The catheter was removed with little remaining ascites identified. Hemostasis was achieved. The area was dressed with a bandage. IV albumin was given postprocedure. The patient tolerated the procedure well with no complication evident and was discharged in stable condition. Post procedure education was completed including pain management instructions. Estimated blood loss: <5 ml THIS IS AN ELECTRONICALLY VERIFIED FINAL REPORT 03/16/2025 2:11 PM - Electronically signed by Obed Silva M.D. AG: PENNIE Report ID: [id number] Reading Location: [id number] IMPRESSION: Successful ultrasound-guided paracentesis. 7 liters of serous fluid were removed. us Ayden Nicholson MD [facility] US ORDERABLES Final Result * Pathology Cytology Non-FRIEND OF THE COURT (03/16/2025 11:14 AM CDT) Case Report Medical Cytology Report Case: [id number] Authorizing Provider: Ayden Nicholson MD Collected: 03/16/2025 11:14 AM Ordering Location: [facility] Received: 03/16/2025 12:55 PM [facility] Ultrasound Pathologist: Pauline Vale MD PhD Specimen: Abdominal Fluid, Ultrasound Guided Paracentesis of the LLQ at 11:14AM 7000ML removed. CHARLINE/ Ricardo 03/17/2025 9:52 AM CDT [facility] FINAL DIAGNOSIS Ascitic fluid, ultrasound guided paracentesis: - Adequate for evaluation - Benign - Mesothelial cells, histiocytes, lymphocytes, and blood 03/17/2025 9:52 AM CDT [facility] at 0952 CDT Gross Description A. Ultrasound Guided Paracentesis of the LLQ at 11:14AM 7000ML removed. NL/ Silva Specimen presents in a single sterile collection canister labeled with the patient's name, Bear Ramirez, and designated as abdominal fluid. The specimen consists of 45 mL of melendez-yellow, cloudy fluid from which one cell block fixed in 10% neutral buffered formalin is prepared for cytologic examination. KS/sb 03/17/2025 9:52 AM CDT [facility] Microscopic Description Microscopic examination was performed which supports the final diagnosis. All control tissues stained appropriately. 03/17/2025 9:52 AM CDT [facility] Pre-Operative Diagnosis Ascites due to alcoholic cirrhosis 03/17/2025 9:52 AM CDT [facility] Other SPECIMEN FROM ABDOMINAL CAVITY / Unknown 03/16/2025 11:14 AM CDT 03/16/2025 12:55 PM CDT us Ayden Nicholson MD PATHOLOGY/CYTOLOGY ORDERABLES Fi nal Result [facility] [address] [place] [address] * Fluid, Differential (03/16/2025 11:14 AM CDT) Only the most recent of4 resultswithin the time period is included. FLUID NEUTROPHILS % 3 % 03/16/2025 2:16 PM CDT [facility] FLUID LYMPH % BKR 97 % 025 2:16 PM CDT [facility] FLUID MONO % 0 % 03/16/2025 2:16 PM CDT [facility] FLUID EOSINOPHILS % BKR 0 % 03/16/2025 2:16 PM CDT [facility] FLUID MACROPHAGE % 0 % 03/16/2025 2:16 PM CDT [facility] FLUID PLASMA CELL % 0 % 03/16/2025 2:16 PM CDT [facility] FLUID LINING CELL % 0 % 03/16/2025 2:16 PM CDT [facility] FLUID OTHER CELL % 0 % 03/16/2025 2:16 PM CDT [facility] TOTAL COUNT BODY FLUID DIFFERENTIAL BKR 37 03/16/2025 2:16 PM CDT [facility] FLUID LARGE MONO % BKR 0 % 03/16/2025 2:16 PM CDT [facility] FLUID TYPE Ascites 03/16/2025 2:16 PM CDT [facility] Other SPECIMEN FROM ABDOMINAL CAVITY / Unknown Non-Phlebotomy Collection / Unknown 03/16/2025 11:14 AM CDT 03/16/2025 12:04 PM CDT Ayden Nicholson MD BODY FLUIDS & STOOLS ORDERABLES Final Result [facility] [address] [place] [address] * Body Fluid Cell Count w/ Differential (03/16/2025 11:14 AM CDT) Only the most recent of4 resultswithin the time period is included. FLUID TYPE Ascites 03/16/2025 1:14 PM CDT [facility] CLARITY Turbid 03/16/2025 1:14 PM CDT [facility] COLOR Light Yellow 03/16/2025 1:14 PM CDT [facility] VOLUME 03/16/2025 1:14 PM CDT [facility] FLUID RBC COUNT <1,000 /mm(3) 03/16/2025 1:14 PM CDT [facility] FLUID, TOTAL NUCLEATED CELLS 263 /mm(3) 03/16/2025 1:14 PM CDT [facility] Other SPECIMEN FROM ABDOMINAL CAVITY / Unknown Non-Phlebotomy Collection / Unknown 03/16/2025 11:14 AM CDT 03/16/2025 12:04 PM CDT Narrative [facility] - 03/16/2025 1:14 PM CDT The reference range has not been established for this body fluid. The test result must be integrated into the clinical context for interpretation us Ayden Nicholson MD BODY FLUIDS & STOOLS ORDERABLES Final Result [facility] [address] [place] [address] * CULTURE, ANAEROBIC (03/16/2025 11:14 AM CDT) CULTURE RESULTS NO ANAEROBES ISOLATED 03/22/2025 10:36 AM CDT [facility] Other SPECIMEN FROM ABDOMINAL CAVITY / Unknown Non-Phlebotomy Collection / Unknown 03/16/2025 11:14 AM CDT us Ayden Nicholson MD MICROBIOLOGY - GENERAL ORDERABLE S Final Result Performing Organization Address City/[facility]/ZIP Co de Phone Number [facility] [address] [place] [address], [place] * CULTURE, AEROBIC ONLY (03/16/2025 11:14 AM CDT) Only the most recent of4 resultswithin the time period is included. CULTURE RESULTS No growth final 03/20/2025 8:21 AM CDT [facility] Other SPECIMEN FROM ABDOMINAL CAVITY / Unknown Non-Phlebotomy Collection / Unknown 03/16/2025 11:14 AM CDT us Ayden Nicholson MD MICROBIOLOGY - GENERAL ORDERABLE S Final Result Performing Organization Address City/[facility]/ZIP Co de Phone Number [facility] [address] [place] [address], [place] * (ABNORMAL) APTT (PTT) (03/16/2025 9:53 AM CDT) Only the most recent of2 resultswithin the time period is included. PTT 40(H) 24 - 36 sec 03/16/2025 10:30 AM CDT [facility] Blood Venipuncture / Unknown 03/16/2025 9:53 AM CDT 03/16/2025 10:06 AM CDT Narrative [facility] - 03/16/2025 10:30 AM CDT Therapeutic range for unfractionated heparin at 0.3-0.7 U/mL is an aPTT value in the range of 71-100 seconds. Critical value for the PTT test is >= 122 seconds. us Agustin Vu MD HEMATOLOGY ORDERABLES Final Result Performing Organization Address [facility]/State/[facility] Co de Phone Number [facility] [address] [place] [address] * (ABNORMAL) PROTIME (PT) (PROTHROMBIN TIME) (03/16/2025 9:53 AM CDT) Only the most recent of2 resultswithin the time period is included. Pathologist [facility] PROTIME-PATIENT 18.4(H) 11.6 - 14.8 sec 03/16/2025 10:30 AM CDT [facility] INR 1.5(H) 0.9 - 1.2 03/16/2025 10:30 AM CDT [facility] Comment: Therapeutic Ranges INR = 2.0-3.0: Venous thromb, atrial fib, pul embolism, tissue heart valve, ami. INR = 2.5-3.5: Mechanical heart valve Critical value for INR is >/= 4.5 Blood Venipuncture / Unknown 03/16/2025 9:53 AM CDT 03/16/2025 10:06 AM CDT us Agustin Vu MD HEMATOLOGY ORDERABLES Final Result [facility] [address] [place] [address] * (ABNORMAL) COMPLETE BLOOD COUNT (CBC) WITHOUT DIFF (03/16/2025 9:53 AM CDT) WBC 5.82 4.00 - 12.00 10(3)/mcL 03/16/2025 10:13 AM CDT [facility] RBC 3.99(L) 4.40 - 5.80 10(6)/[facility] 03/16/2025 10:13 AM CDT [facility] HEMOGLOBIN (HGB) 11.8(L) 13.0 - 16.5 g/dL 03/16/2025 10:13 AM CDT [facility] HEMATOCRIT (HCT) 35.0(L) 38.0 - 50.0 % 03/16/2025 10:13 AM CDT [facility] MCV 87.7 82.0 - 96.0 fL 03/16/2025 10:13 AM CDT [facility] MCH 29.6 26.0 - 32.0 pg 03/16/2025 10:13 AM CDT [facility] MCHC 33.7 31.0 - 36.0 g/dL 03/16/2025 10:13 AM CDT [facility] PLATELET COUNT 227 140 - 440 10(3)/[facility] 03/16/2025 10:13 AM CDT [facility] RDW 14.4 11.8 - 15.5 % 03/16/2025 10:13 AM CDT [facility] MPV 9.7 8.0 - 12.6 fL 03/16/2025 10:13 AM CDT [facility] Blood Venipuncture / Unknown 03/16/2025 9:53 AM CDT 03/16/2025 10:06 AM CDT us Agustin Vu MD HEMATOLOGY ORDERABLES Final Result [facility] [address] [place] [address] * (ABNORMAL) BASIC METABOLIC PANEL W/ CALCIUM TOTAL (03/16/2025 9:53 AM CDT) Only the most recent of2 resultswithin the time period is included. SODIUM 134(L) 136 - 145 mmol/L 03/16/2025 10:32 AM CDT [facility] POTASSIUM 3.6 3.5 - 5.1 mmol/L 03/16/2025 10:32 AM CDT [facility] CHLORIDE 108(H) 98 - 107 mmol/L 03/16/2025 10:32 AM CDT [facility] CO2, VENOUS 21(L) 22 - 30 mmol/L 03/16/2025 10:32 AM CDT [facility] ANION GAP 8.6 <18.0 mmol/L 03/16/2025 10:32 AM CDT [facility] GLUCOSE 119(H) 70 - 99 mg/dL 03/16/2025 10:32 AM CDT [facility] BUN 9 8 - 26 mg/dL 03/16/2025 10:32 AM CDT [facility] CREATININE, BLOOD 0.81 0.70 - 1.30 mg/dL 03/16/2025 10:32 AM CDT [facility] BUN/CREATININE RATIO 11(L) 12 - 20 ratio 03/16/2025 10:32 AM CDT [facility] CALCIUM 8.3(L) 8.7 - 10.5 mg/dL 03/16/2025 10:32 AM CDT [facility] IS THE PATIENT REQUIRED TO BE FASTING? No 03/16/2025 10:32 AM CDT [facility] GFR, ESTIMATED >60 >=60 03/16/2025 10:32 AM CDT [facility] Comment: Creatinine Clearance is the preferred criteria for selecting drug dose adjustments in renally impaired patients. The GFR is provided as additional pertinent clinical information. GFR is reported in mL/min/1.73 sq m. Calculation based on the Chronic Kidney Disease Epidemiology Collaboration (CKD- EPI) equation refit without adjustment for race. GFR, EST. >60 >=60 025 10:32 AM CDT [facility] GFR, EST. NONAFRICAN >60 >=60 03/16/2025 10:32 AM CDT [facility] Blood Venipuncture / Unknown 03/16/2025 9:53 AM CDT 03/16/2025 10:07 AM CDT us Agustin Vu MD CHEMISTRY ORDERABLES Final Result Performing Organization Address City/[facility]/ZIP Co de Phone Number [facility] [address] [place] [address] * Culture, Body Fluid (CHIO) (02/19/2025 10:14 AM CDT) CULTURE RESULTS NO GROWTH WITHIN 5 DAYS, FINAL RESULT 02/24/2025 10:02 PM CDT [facility] Culture (Paracentesis Fluid) Non-Phlebotomy Collection / Unknown 02/19/2025 10:14 AM CDT 02/19/2025 9:19 PM CDT us Ayden Nicholson MD MICROBIOLOGY - GENERAL ORDERABLE S Final Result [facility] [address] [place] [address], [place] * (ABNORMAL) CBC WITH AUTO DIFFERENTIAL (01/30/2025 9:12 AM CORK PRESSING MACHINE OPERATOR) WBC 5.91 4.00 - 12.00 10(3)/mcL 01/30/2025 9:26 AM CORK PRESSING MACHINE OPERATOR [facility] RBC 4.26(L) 4.40 - 5.80 10(6)/mcL 01/30/2025 9:26 AM CORK PRESSING MACHINE OPERATOR [facility] HEMOGLOBIN (HGB) 12.9(L) 13.0 - 16.5 g/dL 01/30/2025 9:26 AM [facility] HEMATOCRIT (HCT) 38.0 38.0 - 50.0 % 01/30/2025 9:26 AM [facility] MCV 89.2 82.0 - 96.0 fL 01/30/2025 9:26 AM [facility] MCH 30.3 26.0 - 32.0 pg 01/30/2025 9:26 AM [facility] MCHC 33.9 31.0 - 36.0 g/dL 01/30/2025 9:26 AM [facility] PLATELET COUNT 216 140 - 440 10(3)/mcL 01/30/2025 9:26 AM [facility] RDW 14.7 11.8 - 15.5 % 01/30/2025 9:26 AM [facility] MPV 9.3 8.0 - 12.6 fL 01/30/2025 9:26 AM [facility] NEUTROPHILS 62.6 40.0 - 68.0 % 01/30/2025 9:26 AM [facility] LYMPHOCYTES 22.2 19.0 - 49.0 % 01/30/2025 9:26 AM [facility] MONOCYTES 10.3 3.0 - 13.0 % 01/30/2025 9:26 AM [facility] EOSINOPHILS 3.2 0.0 - 8.0 % 01/30/2025 9:26 AM [facility] BASOPHILS 1.7(H) 0.0 - 1.0 % 01/30/2025 9:26 AM [facility] ABSOLUTE NEUTROPHILS 3.70 1.40 - 5.30 10(3)/mcL 01/30/2025 9:26 AM [facility] ABSOLUTE LYMPHOCYTES 1.31 0.90 - 3.30 10(3)/mcL 01/30/2025 9:26 AM [facility] ABSOLUTE MONOCYTES 0.61 0.10 - 0.90 10(3)/mcL 01/30/2025 9:26 AM CORK PRESSING MACHINE OPERATOR [facility] ABSOLUTE EOSINOPHIL 0.19 0.00 - 0.50 10(3)/mcL 01/30/2025 9:26 AM CORK PRESSING MACHINE OPERATOR [facility] ABSOLUTE BASOPHILS 0.10 0.00 - 0.10 10(3)/mcL 01/30/2025 9:26 AM CORK PRESSING MACHINE OPERATOR [facility] NRBC PER 100 WBC 0 01/31/20 9:26 AM CORK PRESSING MACHINE OPERATOR [facility] Blood Venipuncture / Unknown 01/30/2025 9:12 AM CORK PRESSING MACHINE OPERATOR 01/30/2025 9:23 AM CORK PRESSING MACHINE OPERATOR us Ortiz Montenegro MD HEMATOLOGY ORDERABLES Ilda l Result [facility] [address] [place] [address] from Last 3 Months Insurance Advance Directives * Full Code (Latest Code Status on File) Date Activated Date Inactivated Comments 05/26/2024 7:44 PM 05/29/2024 4:23 PM CPR-Full Treat ment: FULL ARREST: Attempt Resuscitation/CPR wit intubation and mechanical ventilation. PRE-ARREST: Use entire range of life support measures to stabilize the patient. Care Teams Machine Lead Burner Relationship Specialty Start Date End Date Young Call APRN, CHIEF ACCOUNTING OFFICER [address] [place] [address] PCP - General Advanced Practice Nurse 02/13/24
--- OUTSIDE RECORDS SUMMARY | 2025-03-23 18:22 | XMS_ITS | Encounter Summary ---
Author Organization [facility] Healthcare Address [address] [place] [address] Care Team Providers Care Cook Fish Eggs Name Role Phone Robert Brooks MD Unavailable [phone] Ayden Nicholson MD Unavailable [phone] Kesha Gutiérrez RN Unavailable Unavail able Young Call NP Primary Care Provider [phone] Azael Brunson MD Unavailable [phone] Encounter Details Date Type Department Care Team (Late st Contact Info) Description 03/23/2025 Orders Only [facility] Transplant Liver [address] [facility] [phone] [place] [address] Valentine Cohen Alcoholic cirrhosis, unspecified whether ascites present (HCC) (Primary Dx) Social History Tobacco Use Types Packs/Day Years Used Date Smoking Tobacco: Every Day Cigarettes 2 49.3 Started: 1975 Passive Smoke Exposure: Current [facility] Utilities Answer Date Recorded In the past 12 months has th [employer] electric, gas, oil, or water company threatened [...] often do you attend chur ch or quaker services? Never 11/05/2024 Do you belong to any clubs o r organizations such as scientologist groups, unions, fraternal or athletic groups, or [...] any time in the past 12 m [facility], were you homeless or living in a mcc (including now)? No 11/10/2024 Personal Safety Answer Date Recorded Have you ever been in or are you currently in a harmful physical or emotional relationship or is someone making you feel afraid or unsafe? 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 Gender Identity Not on file Sexual Orientation Not on file documented as of this encounter Plan of Treatment Scheduled Orders Name Type Priority Associated Diagnoses Orde r Schedule Comprehensive metabolic panel Lab Routine Alcoholic cirrhosis, unspecified whether ascites present (HCC) Expected: 03/23/2025 (Approximate), Expires: 03/23/2026 [facility] Lab Routine Alcoholic cirrhosis, unspecified whether ascites present (HCC) Expected: 03/23/2025 (Approximate), Expires: 03/23/2026 Scheduled Procedures Name Priority Associated Diagnoses Date/Ti me TRANSPLANT LIVER Encounter for pre-transplant evaluation for liver transplant Alcoholic liver disease documented as of this encounter Visit Diagnoses Diagnosis Alcoholic cirrhosis, unspecified whether ascites present (HCC)- Primary documented in this encounter Care Teams Cook Fish Eggs Relationship Specialty Start Date End Date Young Call NP [address] [place] [address] PCP - General Family Medicine 10/28/24 Robert Brooks MD [address] [address] Referring Physician Gastroenterology 04/03/24 Ayden Nicholson MD [address] [facility] [address] DIV [place] [address] Consulting Physician Gastroenterology 09/15/24 Kesha Gutiérrez, consumer marketing specialistSenior Erp Consultant 09/15/24 Azael Brunson MD [phone] [place] [address] Surgeon Colon and Rectal Surgery 01/21/25 documented as of this encounter
--- OUTSIDE RECORDS SUMMARY | 2025-03-23 18:22 | XMS_ITS | Clinical Summary ---
Author Organization [facility] Address [address] [place] [address] Care Team Providers Care Conference Interpreter Name Role Phone Young Call Primary Care Provider Suzy Graf MD Unavailable Allergies Active Allergy [...] Colonoscopy (10 Years) 1961 Annual Physical 1964 Hepatitis C 1979 DTaP, Tdap and Td Vaccines ( 1 - Tdap) 1980 Pneumococcal Vaccine: 50+ Ye ars (1 of 2 - PCV) 1980 Zoster Vaccines (1 of 2) 2011 COVID-19 Vaccine ( - 2023-2 5 season) 2024 RSV Immunization or 60+ Years (1 - 1-dose 75+ series) 2036 Meningococcal B Vaccine Aged Out No l onger eligible based on patient's age to complete this topic Meningococcal Vaccine Aged Out No adina judy eligible based on patient's age to complete this topic RSV Immunizations Under 20 Months Aged Out No longer eligible based on patient's age to complete this topic Insurance AET[employer] Care Teams Conference Interpreter Relationship Specialty Start Date End Date Young Call FNP [address] [place] [phone] PCP - General Nurse Practitioner Family 02/08/24 Suzy Graf MD [address] [place] [address] Consulting Physician CARDIOVASCULAR DISEASE 02/08/24
--- OUTSIDE RECORDS SUMMARY | 2025-03-23 18:22 | XMS_ITS | Encounter Summary ---
Author Organization [facility] Address [address] [place] [address] Phone Care Team Providers Care Machine Puller And Laster Name Role Phone Young Call GIO FOUZIA Primary Care Provider + Encounter Details Date Type Department Care Team (Late st Contact Info) Description 01/20/2025 Transcribe Orders [facility] [address] [place] [address] Agustin Vu MD [address] [place] [address] Social History Tobacco Use Types Packs/Day Years Used Date Smoking Tobacco: Every Day Cigarettes 1.5 50 Smokeless Tobacco: Never Alcohol Use Standard Drinks/Week Comments Not Currently 0 (1 standard drink = 0.6 oz pure alcohol) 7-15 beers a day previously; none currently [facility] Utilities Answer Date Recorded In the past 12 months has [place], gas, oil, or water vzaar threatened to shut off services in your home? No 05/26/2024 Social Connection and Isolation Panel [NHANES] A nswer Date Recorded In a typical week, how many times do you talk on the phone with family, friends, or neighbors? Once a week 05/26/2024 How often do you get together with friends or re latives? Once a week 05/26/2024 How often do you attend scientology or latter-day serv ices? Never 05/26/2024 Do you belong to any clubs o r organizations such as scientology groups, unions, fraternal or athletic groups, or [...] time in the past [address] [facility], were you homeless or living in a prison (including now)? No 05/26/2024 Sexually Active Control [...] Description 03/30/2025 11:00 AM CDT [facility] Periop [address] [place] [address] Provider, Not On File [place] 03/30/2025 11:00 AM CDT [facility] Ultrasound [address] [place] [address] Ayden Nicholson MD [address] [facility] [id number] [place] [address] 03/30/2025 11:00 AM CDT - 03/30/2025 11:30 AM CDT [facility] [address] [place] [address] Provider, [place] On File [place] PRE / POST CARE FOR PROCEDURAL AREA-PARACENTESIS Scheduled Procedures Name Priority Associated Diagnoses Date/Ti me PRE / POST CARE FOR PROCEDUR AL AREA ASCITES 03/30/2025 11:00 AM CDT documented as of this encounter Visit Diagnoses Not on filedocumented in this encounter Care Teams Machine Puller And Laster Relationship Specialty Start Date End Date Young Call APRN, COOKY MACHINE OPERATOR [address] [place] [address] PCP - General Advanced Practice Nurse 02/13/24 documented as of this encounter
--- OUTSIDE RECORDS SUMMARY | 2025-03-23 18:22 | XMS_ITS | Encounter Summary ---
Author Organization [facility] Healthcare Address [address] [place] [address] Care Team Providers Care Regional Planner Name Role Phone Robert Brooks MD Unavailable [phone] Ayden Nicholson MD Unavailable [phone] Kesha Gutiérrez RN Unavailable Unavail able Young Call NP Primary Care Provider [phone] Azael Brunson MD Unavailable [phone] Encounter Details Date Type Department Care Team (Late st Contact Info) Description 03/23/2025 Telephone [facility] Transplant Liver [address] [facility] [phone] [place] [address] Kesha Gutiérrez, RN Social History Tobacco Use Types Packs/Day Years Used Date Smoking Tobacco: Every Day Cigarettes 2 49.3 Started: 1975 Passive Smoke Exposure: Current [facility] Utilities Answer Date Recorded In the past 12 months has th [place] electric, gas, oil, or water company threatened [...] week 11/05/2024 How often do you attend [facility] or tenriism services? Never 11/05/2024 Do you belong to any clubs o r organizations such as gnosticism groups, unions, fraternal or athletic groups, or [...] time in the past 12 m [facility], were you homeless or living in a long-term (including now)? No 11/10/2024 Personal Safety Answer Date Recorded Have you ever been in or are you currently in a harmful physical or emotional relationship or is someone making you feel afraid or unsafe? 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 Gender Identity Not on file Sexual Orientation Not on file documented as of this encounter Miscellaneous Notes * Telephone Encounter - Kesha Gutiérrez RN - 03/23/2025 9:41 AM CDT [facility] labs ordered and sent to [place] documented in this encounter Plan of Treatment Scheduled Procedures Name Priority Associated Diagnoses Date/Ti me TRANSPLANT LIVER Encounter for pre-transplant evaluation for liver transplant Alcoholic liver disease documented as of this encounter Visit Diagnoses Diagnosis Alcoholic cirrhosis of liver with ascites (HCC) documented in this encounter Care Teams Regional Planner Relationship Specialty Start Date End Date Young Call NP [address] [place] [address] PCP - General Family Medicine 10/28/24 Robert Brooks MD [address] [address] Referring Physician Gastroenterology 04/03/24 Ayden Nicholson MD [address] [facility] [address] DIV [place] [address] Consulting Physician Gastroenterology 09/15/24 Kesha Gutiérrez, general service officerAdult Education Teacher 09/15/24 Azael Brunson MD [phone] [place] [address] Surgeon Colon and Rectal Surgery 01/21/25 documented as of this encounter
== END 2025-03-23 16:31 | disposition home or self-care (01) ==
LOC: CHSLAB 16:32
PROVIDERS: PCP Nurse Practitioner Family; Visit Provider Internal Medicine Gastroenterology
DX: K70.30 Alcoholic cirrhosis of liver without ascites (principal)
CPT/HCPCS: 36415; 80053; 85610